=== PATIENT | female | born 1975 | race Caucasian/White ===

== ENCOUNTER 2017-11-01 11:00 | Outpatient (RCR) | payer OTHER, SELFPAY ==
--- NOTE | 2017-10-20 09:58 | HP.PTEVAL ---
Patient's Visit Information ELLEN JADE is a 42 year old F referred to Physical Therapy by KRIS Evans with a diagnosis of spondylosis. Date of Evaluation: 10/20/17 Physical Therapist: Miguel Angel Baker DPT, OC - Visit Plan Frequency: 2x /Week Duration: 4-6 Weeks Plan: 2-3x/week for 4-6...start with pool ex for posture and core strength focussiong on neutral spine. General strength and progress to I. May progress to home or gym based land ex for core/Postrue in neutral spine. Recheck in two weeks as patient may want injections. - Subjective Subjective: Have inflammatory arthiritis. Been treated for [address] Woodard[address] Garsia for pain management with burning of the nerves a couple times per year. Aslo patch and meds to contro OA. Took water classes here last year at [employer], stopped last summer. Thses increased pain at first then it helped keep physical flexibility up, did not help pain.. Needs more injections in the nerve and wants therapy prior. This pain is constant. sometimes goes into ankles and shoulders minimally. 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 That was 3 years ago. Pain is LB and hips and skips up to base of neck and between scapula. LB is 4-6/10 constantly. 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 Has to move from sit to stand to lying all day. Goes to store and activitiy like that is worse with standing too long or sitting too long. Sat at bank yesterday and got worse at 40 min. Needed to go home and lie down. No h/o injury to LB. thsi all started in early 30s.Sleeps Ok for 4-5 hours with ambien then tosses and turns due to pain/discomfort. Basic ADLs are OK but has to be careful and limit activity. Has to shop at [employer] can't carry anything. - Pain LBP Pain Intensity (Out of 10): 4 Pain Intensity Range: 4, 6 Neck pain Pain Intensity (Out of 10): 2 Pain Intensity Range: 2, 4 - Objective Walks I but slowly. Transfers I. C/s AROM WFL and withotu increased pain today. Tender to palpation gently in yusuf cervical mms. L/S AROM limited by pain slightly in ext centrally, SB and fleion are full. reflexes 2/3 patella and achilles and bi and tri. Sensation B UE and EL WNL to gross ligth touch. AROM joints WFL adn without pain today UE adn LE. Strength: 4/5 in LE and UE without increased pain. PA pressure L/s Mildly painful lower portion. - Goals Goal 1:: Sleep 6 hours without waking. Goal Time Frame: 4-6 Weeks Goal 2:: Walk at grocery store and carry object without increased pain. Goal Time Frame: 4-6 Weeks Goal 3:: Pt I approp HEP/pool ex to limit future problems. Goal Time Frame: 4-6 Weeks Goal 4:: Pain 0-2/10 at worst and intermittent. Goal Time Frame: 4-6 Weeks - Rehabilitation Potential Physical Therapy Diagnosis: Degenerative changes L/S causing pain and limited fucntion. Rehabilitation Potential: Fair - Anticipated Interventions Patient/Client Instruction: Educate patient on: Condition, Plan of Care For the Purpose of:: To decrease pain, To improve muscle performance and motor function, To increase tolerance to activity/condition/position, To improve ability of physical actions for home/community/work/leisure Therapeutic Exercise to Include: Strength training, Postural training, In an aquatic setting, Dynamic Lumbar Stabilization For the Purpose of:: To decrease pain, To improve muscle performance and motor function, To improve ability of physical actions for home/community/work/leisure, To improve gait and locomotor functions Thank you for the opportunity to evaluate your patient. For Medicare and Medicare HMO plans, please review the plan of care and approve it. It will need to be FAXED BACK to us at [phone] for Medicare purposes. Please let me know if there are questions or concerns regarding this plan of care. Physician Signature: Date:
--- NOTE | 2018-01-04 11:24 | HP.PTDCNRP_ITS ---
HP - Discharge Summary (1) - Patient Information ELLEN JADE was seen in my office for initial evaluation on 10/20/17. The following Plan of Care was established for this patient: Initial Frequency: 2x /Week Initial Duration: 4-6 Weeks - Anticipated Interventions Patient/Client Instruction: Educate patient on: Condition, Plan of Care For the Purpose of:: To decrease pain, To improve muscle performance and motor function, To increase tolerance to activity/condition/position, To improve ability of physical actions for home/community/work/leisure Therapeutic Exercise to Include: Strength training, Postural training, In an aquatic setting, Dynamic Lumbar Stabilization For the Purpose of:: To decrease pain, To improve muscle performance and motor function, To improve ability of physical actions for home/community/work/leisure , To improve gait and locomotor functions This patient was last seen in our office 11/01/17. Pertinent comments regarding their Physical therapy will appear below: Pt seen for 4 visits but cancelled or no showed for the last 4 visits in her plan of care including reexamination. I will disconitnue due to nonattendance at this point as it has been over two months. At this point I will be discontinuing this patient from physical therapy. I would be happy to see this patient again in the future if found appropriate by the physician. Thank you! Miguel Angel Baker, DPT, OC
== END 2017-11-01 19:00 | disposition home or self-care (01) ==
LOC: PT 11:00
PROVIDERS: Family Provider Physician Assistant; PCP Physician Assistant; Visit Provider Nurse Practitioner Family
DX: M47.814 Spondylosis without myelopathy or radiculopathy, thoracic region (principal)
CPT/HCPCS: 97110; 97113; 97162

== ENCOUNTER → 2018-02-19 08:58 | Outpatient (CLI) | payer OTHER, SELFPAY ==
[2018-02-19 10:05] LABS: Absolute Lymphocyte Count 0.99 X10^3/ul (0.83-4.51); Absolute Neutrophil Count 3.9 X10^3/uL (2.0-7.7); Basophil# 0.01 X10^3/uL; Basophil% 0.2 % (0-1); Eosinophil# 0.02 X10^3/uL; Eosinophils% 0.4 % (0-5); Hematocrit 43.4 % (37-47); Hemoglobin 14.5 g/dl (12.0-15.0); Lymphocyte # 0.99 X10^3/ul (4.0); Lymphocyte % 18.4 % (19-41); Mean Corp Hgb Conc 33.4 g/gl (32-36); Mean Corpuscular Hgb 32.1 pg (27.0-32.0); Mean Platelet Vol. 9.3 fl (6.2-12.0); Monocyte# 0.47 X10^3/uL; Monocyte% 8.7 % (0-10); Neutrophil % 72.3 % (47-70); Platelet Count 296 K/mm3 (150-450); RBC Distribution Width CV 11.9 % (11.6-14.6); RBC Distribution Width SD 41.6 fl (35.1-43.9); Red Blood Count 4.52 M/mm3 (4.2-5.4); White Blood Count 5.4 K/mm3 (4.4-11.0)
[2018-02-19 10:12] LABS: POSITIVE COUNT NO; POSITIVE DIFFERENTIAL NO; POSITIVE MORPHOLOGY NO
[2018-02-19 10:25] LABS: AST(SGOT) 15 U/L (15-37); Alanine Aminotransfer ALT/SGPT 30 U/L (13-56); Alkaline Phosphatase 88 U/L (45-117); Anion Gap 6 (5-15); BUN 9 mg/dL (7-18); BUN/Creat Ratio 10.6 RATIO (10-20); Calcium,Total 8.5 mg/dL (8.5-10.1); Chloride 105 mmol/L (98-107); Creatinine, Serum 0.85 mg/dL (0.55-1.02); EST Glomerular Filtration Rate 78 mL/min (>60); Est Glom Filt Rate - Afr Amer 94 mL/min (>60); Globulin 3.9 g/dL (2.2-4.2); Glucose 99 mg/dL (74-106); Potassium 3.7 mmol/L (3.5-5.1); Protein, Total 7.9 g/dL (6.4-8.2); Sodium Level 139 mmol/L (136-145)
== END ==
PROVIDERS: Family Provider Physician Assistant; PCP Physician Assistant; Visit Provider Internal Medicine Rheumatology
DX: M46.90 Unspecified inflammatory spondylopathy, site unspecified (principal); Z79.899 Other long term (current) drug therapy; R51 Headache; I10 Essential (primary) hypertension
CPT/HCPCS: 36415; 80053; 85025

== ENCOUNTER → 2018-04-30 16:33 | Outpatient (CLI) | payer OTHER, SELFPAY ==
[2018-04-30 17:13] LABS: Absolute Lymphocyte Count 3.02 X10^3/ul (0.83-4.51); Absolute Neutrophil Count 2.8 X10^3/uL (2.0-7.7); Basophil# 0.02 X10^3/uL; Basophil% 0.3 % (0-1); Eosinophils% 1.5 % (0-5); Hematocrit 43.4 % (37-47); Hemoglobin 15.2 g/dl (12.0-15.0); Lymphocyte # 3.02 X10^3/ul (4.0); Lymphocyte % 46.4 % (19-41); Mean Corpuscular Hgb 32.7 pg (27.0-32.0); Mean Corpuscular Volume 93.3 fL (81-99); Mean Platelet Vol. 9.8 fl (6.2-12.0); Monocyte# 0.57 X10^3/uL; Monocyte% 8.8 % (0-10); Platelet Count 296 K/mm3 (150-450); RBC Distribution Width CV 11.7 % (11.6-14.6); RBC Distribution Width SD 39.8 fl (35.1-43.9); Red Blood Count 4.65 M/mm3 (4.2-5.4); White Blood Count 6.5 K/mm3 (4.4-11.0)
[2018-04-30 17:19] LABS: POSITIVE COUNT NO; POSITIVE DIFFERENTIAL NO; POSITIVE MORPHOLOGY NO
[2018-04-30 17:37] LABS: ALB/GLOB Ratio 1.1 RATIO (0.9-2.4); AST(SGOT) 25 U/L (15-37); Alanine Aminotransfer ALT/SGPT 56 U/L (13-56); Albumin, Serum 4.1 g/dL (3.2-5.0); Alkaline Phosphatase 66 U/L (45-117); Anion Gap 8 (5-15); BUN 16 mg/dL (7-18); BUN/Creat Ratio 18.4 RATIO (10-20); Calcium,Total 8.9 mg/dL (8.5-10.1); Chloride 104 mmol/L (98-107); Creatinine, Serum 0.87 mg/dL (0.55-1.02); EST Glomerular Filtration Rate 75 mL/min (>60); Est Glom Filt Rate - Afr Amer 91 mL/min (>60); Globulin 3.6 g/dL (2.2-4.2); Glucose 88 mg/dL (74-106); Potassium 3.7 mmol/L (3.5-5.1); Protein, Total 7.7 g/dL (6.4-8.2); Sodium Level 138 mmol/L (136-145)
== END ==
PROVIDERS: Visit Provider Family Medicine Geriatric Medicine
DX: I10 Essential (primary) hypertension (principal)
CPT/HCPCS: 36415; 80053; 84443; 85025

== ENCOUNTER → 2018-05-15 12:25 | Outpatient (CLI) | payer OTHER, SELFPAY ==
[2018-05-15 14:16] LABS: Absolute Lymphocyte Count 3.42 X10^3/ul (0.83-4.51); Basophil# 0.02 X10^3/uL; Basophil% 0.3 % (0-1); Eosinophil# 0.14 X10^3/uL; Eosinophils% 1.9 % (0-5); Hematocrit 43.6 % (37-47); Hemoglobin 15.2 g/dl (12.0-15.0); Lymphocyte # 3.42 X10^3/ul (4.0); Lymphocyte % 47.5 % (19-41); Mean Corp Hgb Conc 34.9 g/gl (32-36); Mean Corpuscular Hgb 32.2 pg (27.0-32.0); Mean Corpuscular Volume 92.4 fL (81-99); Mean Platelet Vol. 9.6 fl (6.2-12.0); Monocyte# 0.65 X10^3/uL; Neutrophil # 2.96 X10^3/uL (2.7-7.7); Neutrophil % 41.2 % (47-70); Platelet Count 399 K/mm3 (150-450); RBC Distribution Width CV 11.8 % (11.6-14.6); RBC Distribution Width SD 39.8 fl (35.1-43.9); Red Blood Count 4.72 M/mm3 (4.2-5.4); White Blood Count 7.2 K/mm3 (4.4-11.0)
[2018-05-15 14:17] LABS: POSITIVE COUNT NO; POSITIVE DIFFERENTIAL NO; POSITIVE MORPHOLOGY NO
[2018-05-15 14:29] LABS: AST(SGOT) 17 U/L (15-37); Alanine Aminotransfer ALT/SGPT 40 U/L (13-56); Albumin, Serum 3.8 g/dL (3.2-5.0); Alkaline Phosphatase 70 U/L (45-117); Anion Gap 8 (5-15); BUN 13 mg/dL (7-18); BUN/Creat Ratio 14.8 RATIO (10-20); Calcium,Total 9.1 mg/dL (8.5-10.1); Chloride 104 mmol/L (98-107); Creatinine, Serum 0.88 mg/dL (0.55-1.02); EST Glomerular Filtration Rate 74 mL/min (>60); Est Glom Filt Rate - Afr Amer 90 mL/min (>60); Globulin 3.7 g/dL (2.2-4.2); Glucose 95 mg/dL (74-106); Potassium 3.9 mmol/L (3.5-5.1); Protein, Total 7.5 g/dL (6.4-8.2); Sodium Level 138 mmol/L (136-145)
== END ==
PROVIDERS: Family Provider Family Medicine Geriatric Medicine; PCP Family Medicine Geriatric Medicine; Visit Provider Internal Medicine Rheumatology
DX: M46.90 Unspecified inflammatory spondylopathy, site unspecified (principal); Z79.899 Other long term (current) drug therapy; R51 Headache; I10 Essential (primary) hypertension
CPT/HCPCS: 36415; 80053; 85025

== ENCOUNTER 2018-09-17 06:02 | Emergency (ER) | payer OTHER, SELFPAY ==
[2018-09-17 06:04] VITALS: BP 151/111; PULSE 120; RESP 19; TEMP 36.5; O2SAT 97; BMI 33.0
[2018-09-17 06:11] VITALS: BP 151/111; PULSE 117; RESP 17; O2SAT 98
--- NOTE | 2018-09-17 06:14 | EKG12_ITS ---
Test Reason : GEN ILLNESS Blood Pressure : / mmHG Vent. Rate : 112 BPM Atrial Rate : 112 BPM P-R Int : 142 ms QRS Dur : 084 ms QT Int : 332 ms P-R-T Axes : 061 059 051 degrees QTc Int : 453 ms Sinus tachycardia Otherwise normal ECG Confirmed by MAYO DONALD, YG ([id number]), supervising film or videotape editor HUNTER GARCIA ([id number] on 09/19/2018 11:11:23 AM Referred By: SETH Confirmed By:YG HUBER MD
--- NOTE | 2018-09-17 06:15 | RAD_ITS ---
HISTORY: rash and chest burning sensation Comparison: 10/03/2016 Findings: EKG leads in place. Normal heart size. No vascular congestion, pleural effusion, or acute pulmonary infiltration. No pneumothorax. The bony thorax appears intact. IMPRESSION: No active cardiopulmonary disease. No significant interval change. at 0634 Reported and signed by: Gonsalo Brooks MD Electronically Signed: Gonsalo Brooks, at 6:32 EST Tel , Service support , RAD/Chest 1 View (Portable)
[2018-09-17] MEDS: MethylPREDNISolone 125 MG/2 ML Vial IV (06:27)
[2018-09-17] MEDS: 0.9% Normal Saline 1,000 ML 150 ML IV (06:27)
--- NOTE | 2018-09-17 06:35 | ED.DCSUM_ITS ---
- ER Visit Summary Date of Service: 09/17/18 Chief Complaint: Rash, chest burning History of Present Illness: The patient is a 43 F with a history of rheumatoid arthritis and hypertension. Patient states she had stomach flu symptoms 3 weeks ago. The vomiting and diarrhea are improved, but she never quite felt back to baseline. She developed a cough with some mild congestion over the weekend. She describes a burning sensation in her lungs. Patient states she has had pleurisy in the past and this reminds her of that. She also noted a rash to her lower back over the past 2 days. It is somewhat itchy. Patient is on immune suppressants secondary to her rheumatoid arthritis. She states that while she has not been feeling well over the past week or so she stopped taking her immune suppressants. She states that she has done this in the past when she feels ill without difficulty. Physical Examination: Blood pressure is 151/111, temperature 97.7, heart rate 120, respiratory rate 19, pulse ox 97% on room air. Patient sitting upright in bed. She is in no acute distress. Head neck examination is grossly unremarkable. Heart is tachycardic and regular. Lung sounds are clear. Abdomen is soft and nontender. Lower extremity examination is unremarkable. Back examination does reveal a fine red, slightly raised rash of the lower back. This is not consistent with urticaria. There are no target lesions. It is not consistent with shingles. Test Results: EKG is sinus tach at 112 with no sign of acute ischemia. CBC was a white count of 13.8 with 77% neutrophils. Chemistry studies unremarkable. Troponin and d-dimer are both negative. Chest x-ray shows no acute disease. Emergency Department Course and Treatment: Patient was given IV fluids and Solu- Medrol. On repeat evaluation heart rate remains elevated. Patient states that her heart rate tends to run on the high side at baseline. Lung sounds remain clear. Rash on back may be slightly less intense in color. The area is warm to the touch. Patient will be treated with Bactrim and Keflex along with a course of prednisone. Treatment Plan: [] Disposition: Discharge Impression: 1. Bronchitis 2. Pleurisy 3. Rash This note was generated with [employer] software. It may contain incorrect words, spelling, and punctuation that were not noted in review of the chart prior to signing ED Disposition - Plan for ED Patient: Chief Complaint: General Illness Referrals: Gamaliel,Pino Chi, MD [Primary Care Provider] -
[2018-09-17 06:48] LABS: Absolute Lymphocyte Count 2.07 X10^3/ul (0.83-4.51); Absolute Neutrophil Count 10.7 X10^3/uL (2.0-7.7); Basophil# 0.03 X10^3/uL; Basophil% 0.2 % (0-1); Eosinophil# 0.23 X10^3/uL; Eosinophils% 1.7 % (0-5); Hematocrit 43.2 % (37-47); Hemoglobin 14.7 g/dl (12.0-15.0); Lymphocyte # 2.07 X10^3/ul (4.0); Mean Corpuscular Hgb 32.3 pg (27.0-32.0); Mean Corpuscular Volume 94.9 fL (81-99); Mean Platelet Vol. 9.3 fl (6.2-12.0); Monocyte# 0.82 X10^3/uL; Monocyte% 5.9 % (0-10); Neutrophil # 10.65 X10^3/uL (2.7-7.7); Platelet Count 318 K/mm3 (150-450); RBC Distribution Width CV 12.2 % (11.6-14.6); RBC Distribution Width SD 41.6 fl (35.1-43.9); Red Blood Count 4.55 M/mm3 (4.2-5.4); White Blood Count 13.8 K/mm3 (4.4-11.0)
[2018-09-17 06:50] LABS: POSITIVE COUNT NO; POSITIVE DIFFERENTIAL NO; POSITIVE MORPHOLOGY NO
[2018-09-17 06:56] LABS: D-Dimer Quantitative (DVT/PE) < 0.27 FEU/ug/m (0.27-0.49)
[2018-09-17 07:03] LABS: Anion Gap 10 (5-15); BUN 15 mg/dL (7-18); BUN/Creat Ratio 18.1 RATIO (10-20); Calcium,Total 8.6 mg/dL (8.5-10.1); Chloride 104 mmol/L (98-107); Creatinine, Serum 0.83 mg/dL (0.55-1.02); EST Glomerular Filtration Rate 79 mL/min (>60); Est Glom Filt Rate - Afr Amer 96 mL/min (>60); Estimated Creatinine Clearance 77.83 ml/min; Glucose 90 mg/dL (74-106); Potassium 3.8 mmol/L (3.5-5.1); Sodium Level 138 mmol/L (136-145)
--- NOTE | 2018-09-17 07:17 | ED.DEP ---
ED Disposition - Plan for ED Patient: Disposition: Home or Assisted Living Chief Complaint: General Illness Instructions: Acute Bronchitis, ED Chest Pain Pleurisy, ED Dermatitis Non Specific Rash Prescriptions: Cephalexin [Keflex] 500 mg PO Q6 #40 capsule Prednisone 10 mg PO UD #33 tablet Smz/Tmp Ds [Bactrim Ds] 1 tablet PO BID #20 tablet Referrals: Pino Alston Chi, MD [Primary Care Provider] - 3-5 Days
[2018-09-17] MEDS: Smz/Tmp Ds Tablet 1 TABLET PO (07:36)
[2018-09-17] MEDS: Cephalexin 250 MG Capsule 500 MG PO (07:36)
[2018-09-17 07:38] VITALS: BP 140/88; PULSE 114; RESP 15; O2SAT 97
--- NOTE | 2018-09-17 07:38 | ED.RN ---
IV DC'ED, CATHETER INTACT, SMALL GAUZE DRESSING PLACED. DISCHARGE INSTRUCTIONS GIVEN TO AND REVIEWED WITH PATIENT, PATIENT DENIES QUESTIONS OR CONCERNS AND VOICES UNDERSTANDING OF DISCHARGE INSTRUCTIONS. PT AMBULATES OUT OF ROOM WITHOUT DIFFICULTY.
== END 2018-09-17 07:39 | disposition home or self-care (01) ==
PROVIDERS: Emergency Provider Emergency Medicine; Family Provider Family Medicine Geriatric Medicine; PCP Family Medicine Geriatric Medicine
DX: J40 Bronchitis, not specified as acute or chronic (principal); R09.1 Pleurisy; R21 Rash and other nonspecific skin eruption; M06.9 Rheumatoid arthritis, unspecified; M45.9 Ankylosing spondylitis of unspecified sites in spine; I10 Essential (primary) hypertension; Z79.899 Other long term (current) drug therapy
CPT/HCPCS: 71045; 80048; 84484; 85025; 85379; 93005; 96361; 96374; 99285; J7030; J7040

== ENCOUNTER → 2018-09-24 12:43 | Outpatient (CLI) | payer OTHER, SELFPAY ==
[2018-09-24 14:38] LABS: Absolute Lymphocyte Count 1.77 X10^3/ul (0.83-4.51); Absolute Neutrophil Count 10.5 X10^3/uL (2.0-7.7); Basophil# 0.01 X10^3/uL; Basophil% 0.1 % (0-1); Eosinophil# 0.04 X10^3/uL; Eosinophils% 0.3 % (0-5); Hematocrit 45.2 % (37-47); Hemoglobin 15.2 g/dl (12.0-15.0); Lymphocyte # 1.77 X10^3/ul (4.0); Lymphocyte % 13.9 % (19-41); Mean Corp Hgb Conc 33.6 g/gl (32-36); Mean Corpuscular Hgb 32.4 pg (27.0-32.0); Mean Corpuscular Volume 96.4 fL (81-99); Mean Platelet Vol. 9.6 fl (6.2-12.0); Monocyte# 0.41 X10^3/uL; Monocyte% 3.2 % (0-10); Neutrophil # 10.47 X10^3/uL (2.7-7.7); Neutrophil % 82.3 % (47-70); POSITIVE COUNT NO; POSITIVE DIFFERENTIAL NO; POSITIVE MORPHOLOGY NO; Platelet Count 355 K/mm3 (150-450); RBC Distribution Width CV 12.3 % (11.6-14.6); RBC Distribution Width SD 42.7 fl (35.1-43.9); Red Blood Count 4.69 M/mm3 (4.2-5.4); White Blood Count 12.7 K/mm3 (4.4-11.0)
[2018-09-24 15:07] LABS: ALB/GLOB Ratio 1.1 RATIO (0.9-2.4); AST(SGOT) 18 U/L (15-37); Alanine Aminotransfer ALT/SGPT 34 U/L (13-56); Albumin, Serum 4.2 g/dL (3.2-5.0); Alkaline Phosphatase 73 U/L (45-117); Anion Gap 13 (5-15); BUN 13 mg/dL (7-18); Calcium,Total 8.9 mg/dL (8.5-10.1); Chloride 101 mmol/L (98-107); Creatinine, Serum 0.93 mg/dL (0.55-1.02); EST Glomerular Filtration Rate 70 mL/min (>60); Est Glom Filt Rate - Afr Amer 84 mL/min (>60); Globulin 3.8 g/dL (2.2-4.2); Glucose 106 mg/dL (74-106); Potassium 3.9 mmol/L (3.5-5.1); Sodium Level 136 mmol/L (136-145)
== END ==
PROVIDERS: Family Provider Family Medicine Geriatric Medicine; PCP Family Medicine Geriatric Medicine; Referring Provider Internal Medicine Rheumatology; Visit Provider Internal Medicine Rheumatology
DX: M46.90 Unspecified inflammatory spondylopathy, site unspecified (principal); Z79.899 Other long term (current) drug therapy; R51 Headache; I10 Essential (primary) hypertension
CPT/HCPCS: 36415; 80053; 85025

== ENCOUNTER → 2018-12-20 16:22 | Outpatient (CLI) | payer OTHER, SELFPAY | PROVIDERS: Family Provider Family Medicine Geriatric Medicine; PCP Family Medicine Geriatric Medicine; Referring Provider Family Medicine Geriatric Medicine; Visit Provider Family Medicine Geriatric Medicine | DX: R50.9 Fever, unspecified (principal) | CPT/HCPCS: 87633 ==

== ENCOUNTER → 2019-03-01 | Outpatient (CLI) | payer OTHER, SELFPAY ==
[2019-03-01 10:10] LABS: Absolute Lymphocyte Count 2.99 X10^3/ul (0.83-4.51); Absolute Neutrophil Count 4.2 X10^3/uL (2.0-7.7); Basophil# 0.02 X10^3/uL; Basophil% 0.3 % (0-1); Eosinophil# 0.04 X10^3/uL; Eosinophils% 0.5 % (0-5); Hematocrit 40.8 % (37-47); Hemoglobin 13.5 g/dl (12.0-15.0); Lymphocyte # 2.99 X10^3/ul (4.0); Lymphocyte % 38.2 % (19-41); Mean Corp Hgb Conc 33.1 g/gl (32-36); Mean Corpuscular Hgb 32.6 pg (27.0-32.0); Mean Corpuscular Volume 98.6 fL (81-99); Mean Platelet Vol. 9.7 fl (6.2-12.0); Monocyte# 0.58 X10^3/uL; Monocyte% 7.4 % (0-10); Neutrophil # 4.19 X10^3/uL (2.7-7.7); Neutrophil % 53.5 % (47-70); Platelet Count 232 K/mm3 (150-450); RBC Distribution Width SD 43.3 fl (35.1-43.9); Red Blood Count 4.14 M/mm3 (4.2-5.4); White Blood Count 7.8 K/mm3 (4.4-11.0)
[2019-03-01 10:12] LABS: POSITIVE COUNT NO; POSITIVE DIFFERENTIAL NO; POSITIVE MORPHOLOGY NO
[2019-03-01 10:15] LABS: ALB/GLOB Ratio 1.2 RATIO (0.9-2.4); AST(SGOT) 19 U/L (15-37); Alanine Aminotransfer ALT/SGPT 38 U/L (13-56); Albumin, Serum 3.8 g/dL (3.2-5.0); Alkaline Phosphatase 57 U/L (45-117); Anion Gap 7 (5-15); BUN 17 mg/dL (7-18); BUN/Creat Ratio 19.6 RATIO (10-20); Calcium,Total 8.4 mg/dL (8.5-10.1); Chloride 107 mmol/L (98-107); Creatinine, Serum 0.87 mg/dL (0.55-1.02); EST Glomerular Filtration Rate 75 mL/min (>60); Est Glom Filt Rate - Afr Amer 91 mL/min (>60); Globulin 3.2 g/dL (2.2-4.2); Glucose 98 mg/dL (74-106); Potassium 3.9 mmol/L (3.5-5.1); Sodium Level 138 mmol/L (136-145)
== END | disposition home or self-care (01) ==
LOC: MTLAB 09:09
PROVIDERS: Family Provider Family Medicine Geriatric Medicine; PCP Family Medicine Geriatric Medicine; Referring Provider Internal Medicine Rheumatology; Visit Provider Internal Medicine Rheumatology
DX: M46.90 Unspecified inflammatory spondylopathy, site unspecified (principal); Z79.899 Other long term (current) drug therapy; R51 Headache; I10 Essential (primary) hypertension
CPT/HCPCS: 36415; 80053; 85025

== ENCOUNTER → 2019-03-14 | Outpatient (CLI) | payer OTHER, SELFPAY ==
--- NOTE | 2019-03-14 13:32 | MRI_ITS ---
STUDY: MRI LUMBAR SPINE WITHOUT CONTRAST REASON FOR EXAM: Female, 44 years old. Pain. Inflammatory arthritis. TECHNIQUE: Standardized fat and water weighted pulse sequences were obtained in the sagittal and axial planes. COMPARISON: X-ray dated July 26, 2017. FINDINGS: Lumbar lordosis preserved. No significant scoliosis. Conus medullaris terminates normally at the L2 level. No acute fracture line. No dislocation. No cortical destruction. No reactive bone marrow edema or contusion. T11-12: Mild endplate spondylosis. Disc bulge with mild central canal narrowing. T12-L1: Mild endplate spondylosis.. Mild disc desiccation. Normal bilateral facet joints. Normal central canal and bilateral lateral recesses. Normal bilateral intervertebral neural foramina. L1-2: Mild endplate spondylosis but. Mild disc desiccation. Normal bilateral facet joints. Normal central canal and bilateral lateral recesses. Normal bilateral intervertebral neural foramina. L2-3: Normal endplates. Mild disc desiccation. Normal bilateral facet joints. Normal central canal and bilateral lateral recesses. Normal bilateral intervertebral neural foramina. L3-4: Normal endplates. Mild disc desiccation. Minimal facet joint arthrosis. Normal central canal and bilateral lateral recesses. Normal bilateral intervertebral neural foramina. L4-5: Normal endplates. Disc bulge without central canal narrowing. Mild facet joint arthrosis with joint effusions. Normal central canal and bilateral lateral recesses. Normal bilateral intervertebral neural foramina. L5-S1: Normal endplates. Disc bulge, left paracentral annular fissure, without central canal narrowing. Mild facet joint arthrosis with joint effusions. Normal central canal and bilateral lateral recesses. Normal bilateral intervertebral neural foramina. Normal paraspinal muscles. Normal retroperitoneum. Normal aorta. MRI/Spine Lumbar (Routine) IMPRESSION: Multilevel intervertebral disc disease with mild central canal narrowing at T11-12: Multilevel osseous degenerative changes with small facet effusions at L4-5 and L5-S1 Electronically Signed: Miguel Angel De La Rosa DO at 15:15 EDT Tel , Service support ,
== END | disposition home or self-care (01) ==
PROVIDERS: Family Provider Family Medicine Geriatric Medicine; PCP Family Medicine Geriatric Medicine; Referring Provider Anesthesiology Pain Medicine; Visit Provider Anesthesiology Pain Medicine
DX: M51.37 Other intervertebral disc degeneration, lumbosacral region (principal)
CPT/HCPCS: 72148

== ENCOUNTER → 2019-06-06 | Outpatient (CLI) | payer OTHER, SELFPAY ==
[2019-06-06 13:14] LABS: Absolute Lymphocyte Count 2.66 X10^3/uL (0.83-4.51); Absolute Neutrophil Count 3.7 X10^3/uL (2.0-7.7); Basophil# 0.04 X10^3/uL; Basophil% 0.6 % (0-1); Eosinophil# 0.09 X10^3/uL; Eosinophils% 1.3 % (0-5); Hematocrit 39.5 % (37-47); Hemoglobin 13.3 g/dL (12.0-15.0); Lymphocyte # 2.66 X10^3/ul (4.0); Lymphocyte % 37.7 % (19-41); Mean Corp Hgb Conc 33.7 g/dL (32-36); Mean Corpuscular Hgb 33.3 pg (27.0-32.0); Mean Corpuscular Volume 98.8 fL (81-99); Mean Platelet Vol. 9.8 fl (6.2-12.0); Monocyte# 0.51 X10^3/uL; Monocyte% 7.2 % (0-10); NRBC Flagged by Analyzer 0 % (0-5); Neutrophil # 3.73 X10^3/uL (2.7-7.7); Neutrophil % 52.8 % (47-70); Platelet Count 235 K/mm3 (150-450); RBC Distribution Width CV 11.9 % (11.6-14.6); RBC Distribution Width SD 43.4 fl (35.1-43.9); White Blood Count 7.1 K/mm3 (4.4-11.0)
[2019-06-06 13:40] LABS: BUN 18 mg/dL (7-18); Creatinine, Serum 0.82 mg/dL (0.55-1.02); EST Glomerular Filtration Rate 80 mL/min (>60); Glucose 81 mg/dL (74-106)
[2019-06-06 13:41] LABS: AST(SGOT) 10 U/L (15-37); Alanine Aminotransfer ALT/SGPT 24 U/L (13-56); Albumin, Serum 3.5 g/dL (3.2-5.0); Alkaline Phosphatase 57 U/L (45-117); Anion Gap 7 (5-15); Calcium,Total 8.4 mg/dL (8.5-10.1); Chloride 106 mmol/L (98-107); Est Glom Filt Rate - Afr Amer 97 mL/min (>60); Globulin 3.4 g/dL (2.2-4.2); Potassium 3.9 mmol/L (3.5-5.1); Protein, Total 6.9 g/dL (6.4-8.2); Sodium Level 137 mmol/L (136-145)
== END | disposition home or self-care (01) ==
LOC: POLAB3 09:21
PROVIDERS: Family Provider Family Medicine Geriatric Medicine; PCP Family Medicine Geriatric Medicine; Visit Provider Family Medicine Geriatric Medicine
DX: I10 Essential (primary) hypertension (principal)
CPT/HCPCS: 36415; 80053; 84443; 85025

== ENCOUNTER 2020-06-30 20:24 | Observation (INO) | payer BC, SELFPAY ==
[2020-06-30 20:25] VITALS: BP 150/112; PULSE 133; RESP 25; TEMP 36.7; O2SAT 98; BMI 30.4
--- NOTE | 2020-06-30 20:29 | EKG12_ITS ---
Test Reason : MHC Blood Pressure : / mmHG Vent. Rate : 126 BPM Atrial Rate : 126 BPM P-R Int : 140 ms QRS Dur : 090 ms QT Int : 320 ms P-R-T Axes : 055 047 029 degrees QTc Int : 463 ms Sinus tachycardia Otherwise normal ECG Confirmed by RENETTA PATE ([id number]), international editorial producer KATIE RINCON ([id number]) on 07/02/2020 8:54:44 AM Referred By: CL Confirmed By:RENETTA PATE
--- NOTE | 2020-06-30 20:29 | RAD_ITS ---
STUDY: X-RAY CHEST REASON FOR EXAM: Female, 45 years old. pt arrives to ed screaming, kicking, and biting. pt is behaving manic. pt repeatedly asked and quot;help me and quot;, but is unable to identify what help she needs. TECHNIQUE: Single AP portable view of the chest. COMPARISON: Prior study of 09/17/2018 FINDINGS: threat monitoring analyst leads are seen. The lungs are clear and expanded. There is no demonstrated pleural abnormality. Normal size heart. Normal mediastinum and fer. Normal visualized pulmonary arteries. Normal visualized aortic arch and descending thoracic aorta. Normal visualized thoracic spine. Normal visualized ribs, clavicles, and shoulders. There is no demonstrated abnormality of the visualized soft tissue structures of the upper abdomen. RAD/Chest 1 View (Portable) IMPRESSION: Normal x-ray examination of the chest. Electronically Signed: Syed Regan MD at 22:17 EDT , Service support ,
--- NOTE | 2020-06-30 20:29 | CT_ITS ---
STUDY: CT BRAIN WITHOUT CONTRAST REASON FOR EXAM: Female, 45 years old. CHANGE IN MENTAL STATUS,COMBATIVE UPON ARRIVAL TO ER -- HX:HTN,DEPRESSION RADIATION DOSAGE (If Supplied By Facility): CTDIvol = ( 44.99 ) mGy, DLP = ( 812.98 ) mGycm TECHNIQUE: Transaxial CT imaging of the brain was performed without administration of intravenous contrast material. Individualized dose optimization techniques were used for this CT. COMPARISON: Prior study of 10/21/2012 FINDINGS: Normal soft tissue structures. Normal calvarium. Normal size ventricles and extra-axial spaces for the patient''s age. Normal white matter tracts of the cerebral hemispheres. Normal basal ganglia and thalami. Normal brainstem. Normal cerebellum. There is no intracranial hemorrhage. There are no findings of an acute ischemic infarction. Normal visualized paranasal sinuses. CT/Brain/Head without Contrast IMPRESSION: Normal unenhanced CT scan of the brain. Electronically Signed: Syed Regan MD at 22:16 EDT , Service support ,
[2020-06-30] MEDS: Haloperidol Lactate 5 MG/ML Vial IM (20:30)
[2020-06-30] MEDS: Midazolam 5 MG/ML Syringe IM (20:31)
[2020-06-30 20:43] VITALS: BP 150/112; PULSE 129; RESP 26; O2SAT 98
[2020-06-30 20:48] LABS: Absolute Lymphocyte Count 6.98 X10^3/uL (0.83-4.51); Absolute Neutrophil Count 2.6 X10^3/uL (2.0-7.7); Basophil# 0.03 X10^3/uL; Basophil% 0.3 % (0-1); Eosinophil# 0.12 X10^3/uL; Eosinophils% 1.1 % (0-5); Hematocrit 48.2 % (37-47); Hemoglobin 15.6 g/dL (12.0-15.0); Lymphocyte # 6.98 X10^3/ul (4.0); Lymphocyte % 66.7 % (19-41); Mean Corp Hgb Conc 32.4 g/dL (32-36); Mean Corpuscular Hgb 35.3 pg (27.0-32.0); Mean Platelet Vol. 9.2 fl (6.2-12.0); Monocyte# 0.69 X10^3/uL; Monocyte% 6.6 % (0-10); NRBC Flagged by Analyzer 0.2 % (0-5); Neutrophil # 2.62 X10^3/uL (2.7-7.7); POSITIVE DIFFERENTIAL YES; POSITIVE MORPHOLOGY YES; Platelet Count 233 K/mm3 (150-450); RBC Distribution Width CV 13.1 % (11.6-14.6); RBC Distribution Width SD 51.4 fl (35.1-43.9); Red Blood Count 4.42 M/mm3 (4.2-5.4); White Blood Count 10.5 K/mm3 (4.4-11.0)
[2020-06-30 20:50] LABS: Differential Indicated SCAN CRITERIA MET
[2020-06-30 21:00] LABS: AST(SGOT) 170 U/L (15-37); Alanine Aminotransfer ALT/SGPT 95 U/L (13-56); Albumin, Serum 4.1 g/dL (3.2-5.0); Alkaline Phosphatase 124 U/L (45-117); Anion Gap 20 (5-15); BUN 10 mg/dL (7-18); BUN/Creat Ratio 8.9 RATIO (10-20); Calcium,Total 9.1 mg/dL (8.5-10.1); Chloride 101 mmol/L (98-107); Creatinine, Serum 1.12 mg/dL (0.55-1.02); EST Glomerular Filtration Rate 56 mL/min (>60); Est Glom Filt Rate - Afr Amer 67 mL/min (>60); Estimated Creatinine Clearance 58.76 ml/min; Globulin 4.1 g/dL (2.2-4.2); Glucose 205 mg/dL (74-106); Potassium 2.9 mmol/L (3.5-5.1); Protein, Total 8.2 g/dL (6.4-8.2); Sodium Level 138 mmol/L (136-145)
[2020-06-30 21:13] LABS: Reactive Lymphocyte 2+
[2020-06-30 21:13] LABS: Bacteria 0 SEEN /hpf (None Seen); Red Blood Cells-Urine 0 SEEN /hpf (0-5); Squamous Epithelial Cells - UA 0 SEEN /hpf (5-10); White Blood Cells 0 SEEN /hpf (0-5)
[2020-06-30 21:15] LABS: Color, Urine Yellow (Yellow); Glucose, Dipstick Normal (Normal); Ketone-Dipstick 15 mg/dl (Negative); Leukocyte Esterase-Dipstick Negative /ul (Negative); Nitrite-Dipstick Negative (Negative); Occult Blood-Urine 10 /ul (Negative); Protein-Dipstick 30 mg/dl (Negative); Urine Bilirubin Dipstick Negative (Negative); Urine Clarity Clear (Clear); Urine Urobilinogen 1 mg/dl (Normal)
[2020-06-30 21:18] LABS: Magnesium 2.8 mg/dL (1.6-2.6)
[2020-06-30 21:22] LABS: Hyaline Cast 0-5 SEEN /lpf (0-5); Mucous, Urine 1+ /hpf (<or=2+)
[2020-06-30 21:33] LABS: Amphetamine Urine VISTA NEGATIVE (<1000 ng/mL); Barbiturate Urine VISTA NEGATIVE (< 200 ng/mL); Benzodiazepine Urine VISTA POSITIVE (< 200 ng/mL); Cocaine Urine VISTA NEGATIVE (< 300 ng/mL); Ecstacy Urine VISTA NEGATIVE (< 500 ng/mL); Methadone Urine VISTA NEGATIVE (< 300 ng/mL); PCP Urine VISTA NEGATIVE (< 25 ng/mL); THC Urine VISTA NEGATIVE (< 50 ng/mL); Vista UDS pH Range 6
[2020-06-30 21:48] LABS: Internal QC Validated? YES +Cl - CLEAR BKGD; Pregnancy, Serum, hCG Quali. NEGATIVE Negative
[2020-06-30 21:54] LABS: Acetaminophen (Tylenol) Level < 2.0 ug/mL (10.0-30.0); Salicylate < 1.7 mg/dL (2.8-20.0)
--- NOTE | 2020-06-30 22:12 | ED.VIS.GEN ---
History of Present Illness Chief Complaint: Mental Health Informant: Patient, Family Narrative: 85-year-old female brought in by EMS after being found unresponsive then becoming very combative. On my initial exam patient is extremely combative and violent. Able to obtain accurate history of present illness. Past Medical History - Allergies and Home Meds Allergies/Adverse Reactions: Allergies No Known Allergies Allergy (Verified 06/30/20 20:25) Primary Care Physician: Pino Alston Chi, MD [Primary Care Provider] - Past Medical History: - - Insomnia Surgical History: no surgical history Lives: With Family Smoking Status: Current every day smoker Alcohol: None Drugs: None Review of Systems ROS: Unable to Obtain Physical Exam Vital Signs/Narrative: Vital Signs Temp Pulse Resp BP Pulse Ox 06/30/20 20:43 129 H 26 H 150/112 H 98 06/30/20 20:25 98.0 F 133 H 25 H 150/112 H 98 General: Well nourished, Well developed, - - Extremely combative Head: Normocephalic, Atraumatic Eyes: EOMI, - - Lateral mydriasis ENT: No rhinorrhea, - - Mucous membranes dry Neck: Supple, Nontender Cardiovascular: Regular rhythm, No murmurs, Tachycardia Respiratory: CTA bilaterally, Chest nontender Abdomen: Soft, Nontender, Nondistended, Normal bowel sounds Back: Nontender, Normal Inspection Extremities: Nontender, No edema Skin: Rash, - - Diffuse erythema Neurological: Alert Psychological: Normal affect, Normal Mood, - - Combative and violent Diagnostic/Tx/Re-eval Chest X-Ray - ED: 1 View, Normal Clinical Impression(s) from Imaging Studies Brain CT 06/30/20 20:29 IMPRESSION: Normal unenhanced CT scan of the brain. Electronically Signed: Syed Regan MD at 22:16 EDT , Service support , Chest X-Ray 06/30/20 20:29 IMPRESSION: Normal x-ray examination of the chest. Electronically Signed: Syed Regan MD at 22:17 EDT , Service support , Laboratory Data 06/30/20 06/30/20 06/30/20 20:31 20:31 20:31 WBC 10.5 RBC 4.42 Hgb 15.6 H Hct 48.2 H MCV 109.0 H MCH 35.3 H MCHC 32.4 RDW Std Deviation 51.4 H RDW Coeff of Jean-Paul 13.1 Plt Count 233 MPV 9.2 Immature Gran % (Auto) 0.300 Neut % (Auto) 25.0 L Lymph % (Auto) 66.7 H [place] % (Auto) 6.6 Eos % (Auto) 1.1 Baso % (Auto) 0.3 Absolute Neuts (auto) 2.6 Absolute Lymphs (auto) 6.98 H Nucleated RBC % 0.2 Reactive Lymphocytes 2+ Sodium 138 Potassium 2.9 L Chloride 101 Carbon Dioxide 17.0 L Anion Gap 20 H BUN 10 Creatinine 1.12 H Estim Creat Clear Calc 58.76 Est GFR (MDRD) Af Amer 67 Est GFR (MDRD) Non-Af 56 L BUN/Creatinine Ratio 8.9 L Glucose 205 H Calcium 9.1 Magnesium 2.8 H Total Bilirubin 1.20 H AST 170 H ALT 95 H Alkaline Phosphatase 124 H Total Protein 8.2 Albumin 4.1 Globulin 4.1 Albumin/Globulin Ratio 1.0 Serum , Qual Urine Color Urine Clarity Urine pH Ur Specific [place] Urine Protein Urine Glucose (UA) Urine Ketones Urine Occult Blood Urine Nitrite Urine Bilirubin Urine Urobilinogen Ur Leukocyte Esterase Urine RBC Urine WBC Ur Squamous Epith Cells Urine Bacteria Hyaline Casts Urine Mucus Salicylates Urine Opiates Screen Urine Methadone Screen Acetaminophen Ur Barbiturates Screen Ur Phencyclidine Scrn Ur Amphetamines Screen U Methamphetamin-MDMA U Benzodiazepines Scrn Urine Cocaine Screen U Cannabinoids Screen Ur Drug Screen Comment Ethyl Alcohol 06/30/20 06/30/20 06/30/20 20:54 20:54 20:54 WBC RBC Hgb Hct MCV MCH MCHC RDW Std Deviation RDW Coeff of Jean-Paul Plt Count MPV Immature Gran % (Auto) Neut % (Auto) Lymph % (Auto) [place] % (Auto) Eos % (Auto) Baso % (Auto) Absolute Neuts (auto) Absolute Lymphs (auto) Nucleated RBC % Reactive Lymphocytes Sodium Potassium Chloride Carbon Dioxide Anion Gap BUN Creatinine Estim Creat Clear Calc Est GFR (MDRD) Af Amer Est GFR (MDRD) Non-Af BUN/Creatinine Ratio Glucose Calcium Magnesium Total Bilirubin AST ALT Alkaline Phosphatase Total Protein Albumin Globulin Albumin/Globulin Ratio Serum , Qual NEGATIVE Urine Color Urine Clarity Urine pH Ur Specific [place] Urine Protein Urine Glucose (UA) Urine Ketones Urine Occult Blood Urine Nitrite Urine Bilirubin Urine Urobilinogen Ur Leukocyte Esterase Urine RBC Urine WBC Ur Squamous Epith Cells Urine Bacteria Hyaline Casts Urine Mucus Salicylates < 1.7 L Urine Opiates Screen Urine Methadone Screen Acetaminophen < 2.0 L Ur Barbiturates Screen Ur Phencyclidine Scrn Ur Amphetamines Screen U Methamphetamin-MDMA U Benzodiazepines Scrn Urine Cocaine Screen U Cannabinoids Screen Ur Drug Screen Comment Ethyl Alcohol 5.0 06/30/20 06/30/20 21:03 21:03 WBC RBC Hgb Hct MCV MCH MCHC RDW Std Deviation RDW Coeff of Jean-Paul Plt Count MPV Immature Gran % (Auto) Neut % (Auto) Lymph % (Auto) [place] % (Auto) Eos % (Auto) Baso % (Auto) Absolute Neuts (auto) Absolute Lymphs (auto) Nucleated RBC % Reactive Lymphocytes Sodium Potassium Chloride Carbon Dioxide Anion Gap BUN Creatinine Estim Creat Clear Calc Est GFR (MDRD) Af Amer Est GFR (MDRD) Non-Af BUN/Creatinine Ratio Glucose Calcium Magnesium Total Bilirubin AST ALT Alkaline Phosphatase Total Protein Albumin Globulin Albumin/Globulin Ratio Serum , Qual Urine Color Yellow Urine Clarity Clear Urine pH 6.0 Ur Specific [place] 1.020 Urine Protein 30 H Urine Glucose (UA) Normal Urine Ketones 15 H Urine Occult Blood 10 H Urine Nitrite Negative Urine Bilirubin Negative Urine Urobilinogen 1 H Ur Leukocyte Esterase Negative Urine RBC 0 SEEN Urine WBC 0 SEEN Ur Squamous Epith Cells 0 SEEN Urine Bacteria 0 SEEN Hyaline Casts 0-5 SEEN Urine Mucus 1+ Salicylates Urine Opiates Screen POSITIVE H Urine Methadone Screen NEGATIVE Acetaminophen Ur Barbiturates Screen NEGATIVE Ur Phencyclidine Scrn NEGATIVE Ur Amphetamines Screen NEGATIVE U Methamphetamin-MDMA NEGATIVE U Benzodiazepines Scrn POSITIVE H Urine Cocaine Screen NEGATIVE U Cannabinoids Screen NEGATIVE Ur Drug Screen Comment Ethyl Alcohol - Rhythm Strip Rhythm Strip: Sinus Tach Rate: 126 Ectopy: None - EKG Initial EKG Interpretation: Sinus Tachycardia - Sinus tachycardia at 126 bpm. SD interval 140 ms. QTC of 463 ms. - Medical Decision Making Patient significantly agitated and combative upon arrival. Patient was given 5 mg of IM Haldol and 5 mg of IM Versed. IV was placed and patient was given 1 L of normal saline. Concern for Benadryl overdose. CT brain and chest x-ray negative. Hypokalemia which will be replaced IV. With poison control. Patient will be admitted to ICU. Impression: 1. Benadryl Overdose 2. Agitation 3. Hypokalemia 4. Acute renal insufficiency - Critical Care Time Critical care time (excluding procedures): 30-74 minutes - Time at bedside. Speaking with consultants and family. ED Disposition - Plan for ED Patient: Disposition: Acute Care [facility] Referrals: Pino Alston Chi, MD [Primary Care Provider] -
[2020-06-30 22:29] VITALS: BP 161/107; PULSE 118; RESP 14; TEMP 37; O2SAT 98
[2020-06-30] MEDS: Potassium Chloride 10mEq/100mL 10 MEQ/100 ML IV.SOLN. 100 MEQ IV BOLUS (22:53)
--- NOTE | 2020-06-30 23:11 | PCM.HP.STD ---
Problem List (1) Benadryl overdose Status: Acute (2) Ankylosing spondylitis Status: Chronic (3) History of depression Status: Chronic History of Present Illness Date of Admission: 06/30/20 Chief Complaint: Benadryl overdose The patient is a 45 year old F with history of hypertension, spondylitis and depression was brought in by EMS after Fink found unresponsive and then was combative. As per triage note, patient was screaming, kicking and biting. Patient was also felt to be hot, dry as per the ER physician. Patient usually takes Ambien 5 mg for insomnia but she did not therefore took Benadryl 50 mg total 5 days in the last 2 days every 4-6 hours. When I saw the patient, patient was calm and composed. No fever. Patient has chronic sinus tachycardia and heart rate is only between 110 to 120/min. In ER it was 133/min. BP 150/112, respiratory rate 25 and pulse ox 98% on room air. Basic labs shows urine opioid to screen positive and benzodiazepine positive. Ethyl alcohol negative. Patient denies history of suicidal ideation or attempt. CBC shows hemoglobin 15.6, hematocrit 58.2, MCV 109. K2.9, bicarb 17, anion gap 20, creatinine 1.12. ALT AST elevated 95, 170 respectively. Alkaline phosphatase 124. Glucose 205. Total bili 1.2, magnesium 2.8. CT brain and chest x-ray reported normal. Patient denies history of shortness of breath, fever, cough or suspected or known exposure to COVID-19 patient [] Past Medical History Past Medical History (Chronic Problems): Chronic Problems History of depression (Chronic) Ankylosing spondylitis (Chronic) Allergies No Known Allergies Allergy (Verified 06/30/20 20:25) Home Medications: Ambulatory Orders Medication Instructions Recorded Humira 1 injectable SQ QWEEK 02/29/16 Methotrexate 1 dose PO QWEEK 02/29/16 cycloBENZAPRine HCl [Flexeril] 1 tab PO TID 02/29/16 Bupropion HCl [Wellbutrin Xl] 300 mg PO DAILY 06/30/20 Gabapentin [Neurontin] 400 mg PO TID 06/30/20 Valsartan/Hydrochlorothiazide 1 tab PO DAILY 06/30/20 [Diovan Hct 160-12.5 mg Tab] Zolpidem Tartrate [Ambien] 10 mg PO QHS 06/30/20 Surgical History: no surgical history Lives: With Family Smoking Status: Current every day smoker Tobacco Use: Cigarettes Alcohol: None Drugs: None - *Family History Paternal History Items: Heart Disease Review of Systems Constitutional: Denies: Chills, Fever, Weight Change HEENT: Denies: Head Aches, Sinus Congestion, Sinus Drainage Cardiovascular: Denies: Chest Pain, Palpitations Respiratory: Denies: Cough, Shortness of breath at rest, Sputum production Gastrointestinal: Denies: Abdominal Pain, Nausea, Vomiting Genitourinary: Denies: Dysuria, Frequency Musculoskeletal: Reports: Back Pain, Joint Pain, Joint stiffness. Denies: Joint Tenderness Skin: Denies: Rash, Wounds Neurological: Denies: Numbness, Tingling, Focal weakness Psychiatric: Reports: Anxiety, Depression. Denies: Homicidal Ideations, Suicidal Ideations Hematologic/ Lymphatic: Denies: Easy Bruising, Easy Bleeding VTE Information - Inpt Only VTE Present on Admission: No VTE Mechan Device Prophylaxis: None VTE Pharm Prophylaxis ordered?: Yes Patient Problems: Active and Suspected Problems Benadryl overdose (Acute) - Physical Exam Vitals/I&O's: Vital Signs Temp Pulse Resp BP Pulse Ox 98.6 F 118 H 14 161/107 H 98 06/30/20 22:29 06/30/20 22:29 06/30/20 22:29 06/30/20 22:29 06/30/20 22:29 Oxygen Delivery Method Room Air Weight: 188 lb 11.451 oz Body Mass Index (BMI) 30.4 General: Alert, Oriented x3, Cooperative HEENT: Atraumatic, PERRLA, EOMI, Normocephalic Neck: Supple, No JVD, Negative Carotid Bruits Lungs: Clear to auscultation, Normal air movement, No rhonchi, No wheeze, No rales Cardiovascular: Regular rate, Regular Rhythm, Normal S1, Normal S2, No murmurs Abdomen: Bowel Sounds Present, Soft, Non Tender, Non-Distended Extremities: No edema, Capillary Refill Less than 3 Seconds Skin: No rashes, No breakdown Musculoskeletal: No Tenderness to Palpation of Joints or Extremities Neurological: Cranial nerves II-XII grossly intact, Deep Tendon Reflexes 2+/4 and Symmetrical, Neuro grossly intact Psych/Mental Status: Normal Affect, Appropriate Laboratory Results 06/30/20 20:31: WBC 10.5, RBC 4.42, Hgb 15.6 H, Hct 48.2 H, MCV 109.0 H, MCH 35.3 H, MCHC 32.4, RDW Std Deviation 51.4 H, RDW Coeff of Jean-Paul 13.1, Plt Count 233, MPV 9.2, Immature Gran % (Auto) 0.300, Neut % (Auto) 25.0 L, Lymph % (Auto) 66.7 H, [place] % (Auto) 6.6, Eos % (Auto) 1.1, Baso % (Auto) 0.3, Absolute Neuts (auto) 2.6, Absolute Lymphs (auto) 6.98 H, Nucleated RBC % 0.2, Reactive Lymphocytes 2+ 06/30/20 20:31: Sodium 138, Potassium 2.9 L, Chloride 101, Carbon Dioxide 17.0 L, Anion Gap 20 H, BUN 10, Creatinine 1.12 H, Estim Creat Clear Calc 58.76, Est GFR (MDRD) Af Amer 67, Est GFR (MDRD) Non-Af 56 L, BUN/Creatinine Ratio 8.9 L, Glucose 205 H, Calcium 9.1, Total Bilirubin 1.20 H, AST 170 H, ALT 95 H, Alkaline Phosphatase 124 H, Total Protein 8.2, Albumin 4.1, Globulin 4.1, Albumin/Globulin Ratio 1.0 06/30/20 20:31: Magnesium 2.8 H 06/30/20 20:31: Total Creatine Kinase Pending 06/30/20 20:54: Ethyl Alcohol 5.0 06/30/20 20:54: Serum , Qual NEGATIVE 06/30/20 20:54: Salicylates < 1.7 L, Acetaminophen < 2.0 L 06/30/20 21:03: Urine Opiates Screen POSITIVE H, Urine Methadone Screen NEGATIVE, Ur Barbiturates Screen NEGATIVE, Ur Phencyclidine Scrn NEGATIVE, Ur Amphetamines Screen NEGATIVE, U Methamphetamin-MDMA NEGATIVE, U Benzodiazepines Scrn POSITIVE H, Urine Cocaine Screen NEGATIVE, U Cannabinoids Screen NEGATIVE, Ur Drug Screen Comment 06/30/20 21:03: Urine Color Yellow, Urine Clarity Clear, Urine pH 6.0, Ur Specific [place] 1.020, Urine Protein 30 H, Urine Glucose (UA) Normal, Urine Ketones 15 H, Urine Occult Blood 10 H, Urine Nitrite Negative, Urine Bilirubin Negative, Urine Urobilinogen 1 H, Ur Leukocyte Esterase Negative, Urine RBC 0 SEEN, Urine WBC 0 SEEN, Ur Squamous Epith Cells 0 SEEN, Urine Bacteria 0 SEEN, Hyaline Casts 0-5 SEEN, Urine Mucus 1+ Current Medications Potassium Chloride () 10 meq in 100 mls @ 100 mls/hr IV BOLUS Q1H DEBBIE Stop: 07/01/20 01:44 Last Admin: 06/30/20 22:53 Dose: 100 mls/hr Documented by: Assessment/Plan All Active Problems Benadryl overdose (Acute) The patient is a 45 year old F with history of hypertension, spondylitis and depression was brought in by EMS after Fink found unresponsive and then was combative. Patient overdosed Benadryl and is admitted in ICU. CT brain and chest x-ray reported normal. 1. Antihistamine/Benadryl overdose with acute hyperactive delirium: Patient is being admitted in ICU. Patient was given Haldol 5 mg IM and Versed 5 mg IM and patient currently is mild drowsy, calm and quiet. ABG ordered as bicarb is 17 and anion gap 20 suggestive of high anion gap metabolic acidosis. In the meantime, IV fluid Ringer lactate 100 mL/h. No further sedative, anticholinergic or antihistaminic. Monitor intake and output, mental status and vitals. 2. Acute hypokalemia exact etiology unclear: K2.9, magnesium 2.8. Potassium chloride IV bolus 40 M EQ ordered. Repeat labs tomorrow a.m. 3. Sinus tachycardia, chronic in nature: Patient denies history of hyperthyroidism or thyrotoxicosis or past symptoms of diarrhea, hypothermia, heart disease or A. fib or hypermetabolic state. Was advised serum TSH at her baseline health probably after 3 to 4 weeks. EKG shows sinus tachycardia at 126 bpm, QRS 90 ms, QTC 463 ms. 4. Chronic spondylitic ankylosing arthritis: At home, patient is on Humira, methotrexate, Neurontin and Flexeril. We will hold medications and may resume when patient is on baseline health. 5. Anxiety and depression: Hold patient home medication bupropion. 6. Hypertension: Blood pressure is elevated. On valsartan HCTZ, regimen. IV hydralazine 10 mg every 4 hourly as needed for systolic blood pressure more than 180 mmHg 7. Hyperglycemia, glucose 205 in BMP: Patient denies history of diabetes mellitus. Not on prednisone or other steroid at home. A1c tomorrow a.m. DVT prophylaxis: Lovenox 40 mg daily. Clinical Impression(s) from Imaging Studies Brain CT 06/30/20 20:29 IMPRESSION: Normal unenhanced CT scan of the brain. Electronically Signed: Syed Regan MD at 22:16 EDT , Service support , Chest X-Ray 06/30/20 20:29 IMPRESSION: Normal x-ray examination of the chest. Inpatient E&M: 34724 Init Hosp L3
[2020-06-30 23:12] LABS: CPK Total, Creatine Kinase 190 U/L (26-192)
[2020-06-30 23:16] VITALS: BMI 29.0; BMI 29.1
[2020-06-30 23:58] VITALS: PULSE 119
[2020-07-01] VITALS (15 sets, daily range): BP systolic 148–169; BP diastolic 88–122; PULSE 111–124; RESP 13–22; TEMP 35.9–36.9; O2SAT 96–98
--- NOTE | 2020-07-01 | NURSING ---
pts earrings and necklace in denture cup and placed in patient belonging bag.
[2020-07-01 00:06] LABS: Allen Test Positive; Base Excess -1 mmol/L (-2 to +2); Bicarbonate 23.7 mmol/L (22-26); Blood Gas Specimen Type ART; O2 Delivery Device Room Air; PO2 90 mmHG (75-100); SITE R Radial; SO2 97 % (95-99); Total Carbon Dioxide 25 mmol/L; pCO2 35.7 mmHg (35-45); pH 7.43 (7.35-7.45)
[2020-07-01] MEDS: Famotidine 20 MG Tablet PO ×2 (00:09→10:27)
[2020-07-01] MEDS: Lactated Ringers 1,000 ML 100 ML IV (00:09)
[2020-07-01] MEDS: Potassium Chloride 10mEq/100mL 10 MEQ/100 ML IV.SOLN. 100 MEQ IV BOLUS ×3 (00:13→02:41)
[2020-07-01 04:48] LABS: Absolute Lymphocyte Count 1.32 X10^3/uL (0.83-4.51); Absolute Neutrophil Count 3.9 X10^3/uL (2.0-7.7); Basophil# 0.02 X10^3/uL; Basophil% 0.4 % (0-1); Eosinophil# 0.03 X10^3/uL; Eosinophils% 0.5 % (0-5); Hemoglobin 14.7 g/dL (12.0-15.0); Lymphocyte # 1.32 X10^3/ul (4.0); Lymphocyte % 23.2 % (19-41); Mean Corp Hgb Conc 33.4 g/dL (32-36); Mean Corpuscular Hgb 34.8 pg (27.0-32.0); Monocyte# 0.42 X10^3/uL; Monocyte% 7.4 % (0-10); NRBC Flagged by Analyzer 0 % (0-5); Neutrophil # 3.87 X10^3/uL (2.7-7.7); Neutrophil % 68.1 % (47-70); Platelet Count 195 K/mm3 (150-450); RBC Distribution Width CV 13.3 % (11.6-14.6); RBC Distribution Width SD 50.3 fl (35.1-43.9); Red Blood Count 4.23 M/mm3 (4.2-5.4); White Blood Count 5.7 K/mm3 (4.4-11.0)
[2020-07-01] MEDS: Gabapentin 400 MG Capsule PO ×2 (05:22→13:12)
[2020-07-01 06:04] LABS: Magnesium 2.7 mg/dL (1.6-2.6); Phosphorus 1.8 mg/dL (2.5-4.9)
[2020-07-01 08:48] LABS: Anion Gap 6 (5-15); BUN 8 mg/dL (7-18); BUN/Creat Ratio 12.8 RATIO (10-20); Calcium,Total 8.7 mg/dL (8.5-10.1); Chloride 109 mmol/L (98-107); Creatinine, Serum 0.62 mg/dL (0.55-1.02); EST Glomerular Filtration Rate 109 mL/min (>60); Est Glom Filt Rate - Afr Amer 132 mL/min (>60); Estimated Creatinine Clearance 102.02 ml/min; Glucose 112 mg/dL (74-106); Potassium 4.6 mmol/L (3.5-5.1); Sodium Level 138 mmol/L (136-145)
--- NOTE | 2020-07-01 10:13 | CON.PCM_ITS ---
Reason for Consult Date of Consultation: 07/01/20 Reason for Consultation: Benadryl overdose History of Present Illness: The patient is a 45-year-old female, with a history as outlined below, who presented to the emergency department on June 30 by EMS after initially being found unresponsive. The patient then went on to develop significant psychomotor agitation and became combative by the time she presented to the emergency department. She has a history of ankylosing spondylitis, insomnia and chronic pain syndrome. She also has an apparent history of hypertension and chronic tachycardia. The patient reports that she typically uses Ambien on a nightly basis. However, she was staying with her sister who recently had gastric bypass surgery and did not have access to her regular Ambien. Therefore, she was utilizing Unisom. The patient reported that she only took 3 of the aforeme ntioned tablets on the first day followed by 2 tablets yesterday prior to being brought into the hospital. On presentation to the emergency department, the patient was noted to be afebrile but was tachycardic and tachypneic. Laboratory evaluation revealed a normal white blood cell count. Chemistry profile was notable for a potassium of 2.9 and creatinine of 1.12. Total bilirubin was elevated at 1.2 with an elevated AST of 170 and ALT of 95. Alkaline phosphatase was increased to 124. Urine analysis was unremarkable. Toxicology screen was positive for opiates and benzodiazepines. CT head was unremarkable. Chest x-ray revealed no acute cardiopulmonary process. The patient was treated symptomatically with Versed in the emergency department and received supplemental IV fluid hydration. She was subsequently admitted to the medical intensive care unit for overnight monitoring. Past Medical History Past Medical History (Chronic Problems): Chronic Problems History of depression (Chronic) Ankylosing spondylitis (Chronic) Allergies No Known Allergies Allergy (Verified 06/30/20 20:25) Home Medications: Ambulatory Orders Medication Instructions Recorded Humira 1 injectable SQ QWEEK 02/29/16 cycloBENZAPRine HCl [Flexeril] 1 tab PO TID 02/29/16 Fentanyl 1 ea TD 06/30/20 Gabapentin [Neurontin] 400 mg PO TID 06/30/20 Valsartan/Hydrochlorothiazide 1 tab PO DAILY 06/30/20 [Diovan Hct 160-12.5 mg Tab] Zolpidem Tartrate [Ambien] 10 mg PO QHS 08/25/20 Carvedilol [Coreg (Beta Gogo)] 6.25 mg PO BID #60 tab 07/01/20 Surgical History: no surgical history Lives: With Family Smoking Status: Current some day smoker Tobacco Use: Cigarettes Alcohol: None Drugs: None - *Family History Paternal History Items: Heart Disease Review of Systems Constitutional: Denies: Chills, Fever Eyes: Denies: Blurred vision, Double vision HEENT: Denies: Head Aches, Sinus Congestion, Sinus Drainage Cardiovascular: Denies: Chest Pain, Palpitations Respiratory: Denies: Cough, Shortness of breath at rest, Sputum production Gastrointestinal: Denies: Abdominal Pain, Nausea, Vomiting Genitourinary: Denies: Dysuria Musculoskeletal: Reports: Back Pain Skin: Denies: Rash, Wounds Neurological: Denies: Numbness, Tingling, Focal weakness Psychiatric: Reports: Anxiety, Depression Hematologic/ Lymphatic: Denies: Easy Bruising, Easy Bleeding Objective: The patient's most recent lab work, culture data and imaging studies have all been personally reviewed. - Physical Exam Vitals/I&O's: Vital Signs Temp Pulse Resp BP Pulse Ox 98.5 F 115 H 16 154/118 H 96 07/01/20 04:00 07/01/20 06:59 07/01/20 04:00 07/01/20 04:00 07/01/20 06:30 Oxygen Delivery Method Room Air Weight: 175 lb 4.28 oz Body Mass Index (BMI) 29.0 Intake and Output for Last 24 Hours 06/29/20 06/30/20 07/01/20 23:59 23:59 23:59 Intake Total 100 / 100 1300 / 1300 Output Total 800 / 800 350 / 350 Balance -700 / -700 950 / 950 General: Alert, Cooperative, No apparent distress, - - Sitting in bedside recliner HEENT: Atraumatic, Normocephalic Oral: No Gingival or Mucosal Lesions/ Ulcerations Neck: Supple, No Nodes, Trachea Midline Lungs: Normal air movement, No rhonchi, No wheeze, No rales Cardiovascular: Normal S1, Normal S2, No murmurs, Tachycardic Abdomen: Bowel Sounds Present, Soft, Non Tender Extremities: No clubbing, No cyanosis, No edema Skin: No breakdown Musculoskeletal: No Muscle Wasting Lymphatic: No Cervical, Supraclavicular, or Inguinal Adenopathy Neurological: Cranial nerves II-XII grossly intact, Neuro grossly intact Psych/Mental Status: Anxious Labs (Last 48 Hours) 06/30/20 06/30/20 06/30/20 20:31 20:31 20:31 WBC 10.5 RBC 4.42 Hgb 15.6 H Hct 48.2 H MCV 109.0 H MCH 35.3 H MCHC 32.4 RDW Std Deviation 51.4 H RDW Coeff of Jean-Paul 13.1 Plt Count 233 MPV 9.2 Immature Gran % (Auto) 0.300 Neut % (Auto) 25.0 L Lymph % (Auto) 66.7 H [place] % (Auto) 6.6 Eos % (Auto) 1.1 Baso % (Auto) 0.3 Absolute Neuts (auto) 2.6 Absolute Lymphs (auto) 6.98 H Nucleated RBC % 0.2 Reactive Lymphocytes 2+ Specimen Type Sample Site pH Bicarbonate Actual Total CO2 Base Excess O2 Saturation ABG pCO2 ABG pO2 Jean Paul Test O2 Delivery Device Sodium 138 Potassium 2.9 L Chloride 101 Carbon Dioxide 17.0 L Anion Gap 20 H BUN 10 Creatinine 1.12 H Estim Creat Clear Calc 58.76 Est GFR (MDRD) Af Amer 67 Est GFR (MDRD) Non-Af 56 L BUN/Creatinine Ratio 8.9 L Glucose 205 H Hemoglobin A1c Calcium 9.1 Phosphorus Magnesium 2.8 H Total Bilirubin 1.20 H AST 170 H ALT 95 H Alkaline Phosphatase 124 H Total Creatine Kinase Total Protein 8.2 Albumin 4.1 Globulin 4.1 Albumin/Globulin Ratio 1.0 Serum , Qual Urine Color Urine Clarity Urine pH Ur Specific [place] Urine Protein Urine Glucose (UA) Urine Ketones Urine Occult Blood Urine Nitrite Urine Bilirubin Urine Urobilinogen Ur Leukocyte Esterase Urine RBC Urine WBC Ur Squamous Epith Cells Urine Bacteria Hyaline Casts Urine Mucus Salicylates Urine Opiates Screen Urine Methadone Screen Acetaminophen Ur Barbiturates Screen Ur Phencyclidine Scrn Ur Amphetamines Screen U Methamphetamin-MDMA U Benzodiazepines Scrn Urine Cocaine Screen U Cannabinoids Screen Ur Drug Screen Comment Ethyl Alcohol 06/30/20 06/30/20 06/30/20 20:31 20:54 20:54 WBC RBC Hgb Hct MCV MCH MCHC RDW Std Deviation RDW Coeff of Jean-Paul Plt Count MPV Immature Gran % (Auto) Neut % (Auto) Lymph % (Auto) [place] % (Auto) Eos % (Auto) Baso % (Auto) Absolute Neuts (auto) Absolute Lymphs (auto) Nucleated RBC % Reactive Lymphocytes Specimen Type Sample Site pH Bicarbonate Actual Total CO2 Base Excess O2 Saturation ABG pCO2 ABG pO2 [place] Test O2 Delivery Device Sodium Potassium Chloride Carbon Dioxide Anion Gap BUN Creatinine Estim Creat Clear Calc Est GFR (MDRD) Af Amer Est GFR (MDRD) Non-Af BUN/Creatinine Ratio Glucose Hemoglobin A1c Calcium Phosphorus Magnesium Total Bilirubin AST ALT Alkaline Phosphatase Total Creatine Kinase 190 Total Protein Albumin Globulin Albumin/Globulin Ratio Serum , Qual NEGATIVE Urine Color Urine Clarity Urine pH Ur Specific [place] Urine Protein Urine Glucose (UA) Urine Ketones Urine Occult Blood Urine Nitrite Urine Bilirubin Urine Urobilinogen Ur Leukocyte Esterase Urine RBC Urine WBC Ur Squamous Epith Cells Urine Bacteria Hyaline Casts Urine Mucus Salicylates Urine Opiates Screen Urine Methadone Screen Acetaminophen Ur Barbiturates Screen Ur Phencyclidine Scrn Ur Amphetamines Screen U Methamphetamin-MDMA U Benzodiazepines Scrn Urine Cocaine Screen U Cannabinoids Screen Ur Drug Screen Comment Ethyl Alcohol 5.0 06/30/20 06/30/20 06/30/20 20:54 21:03 21:03 WBC RBC Hgb Hct MCV MCH MCHC RDW Std Deviation RDW Coeff of Jean-Paul Plt Count MPV Immature Gran % (Auto) Neut % (Auto) Lymph % (Auto) [place] % (Auto) Eos % (Auto) Baso % (Auto) Absolute Neuts (auto) Absolute Lymphs (auto) Nucleated RBC % Reactive Lymphocytes Specimen Type Sample Site pH Bicarbonate Actual Total CO2 Base Excess O2 Saturation ABG pCO2 ABG pO2 [place] Test O2 Delivery Device Sodium Potassium Chloride Carbon Dioxide Anion Gap BUN Creatinine Estim Creat Clear Calc Est GFR (MDRD) Af Amer Est GFR (MDRD) Non-Af BUN/Creatinine Ratio Glucose Hemoglobin A1c Calcium Phosphorus Magnesium Total Bilirubin AST ALT Alkaline Phosphatase Total Creatine Kinase Total Protein Albumin Globulin Albumin/Globulin Ratio Serum , Qual Urine Color Yellow Urine Clarity Clear Urine pH 6.0 Ur Specific [place] 1.020 Urine Protein 30 H Urine Glucose (UA) Normal Urine Ketones 15 H Urine Occult Blood 10 H Urine Nitrite Negative Urine Bilirubin Negative Urine Urobilinogen 1 H Ur Leukocyte Esterase Negative Urine RBC 0 SEEN Urine WBC 0 SEEN Ur Squamous Epith Cells 0 SEEN Urine Bacteria 0 SEEN Hyaline Casts 0-5 SEEN Urine Mucus 1+ Salicylates < 1.7 L Urine Opiates Screen POSITIVE H Urine Methadone Screen NEGATIVE Acetaminophen < 2.0 L Ur Barbiturates Screen NEGATIVE Ur Phencyclidine Scrn NEGATIVE Ur Amphetamines Screen NEGATIVE U Methamphetamin-MDMA NEGATIVE U Benzodiazepines Scrn POSITIVE H Urine Cocaine Screen NEGATIVE U Cannabinoids Screen NEGATIVE Ur Drug Screen Comment Ethyl Alcohol 07/01/20 07/01/20 07/01/20 00:01 04:00 04:30 WBC 5.7 RBC 4.23 Hgb 14.7 Hct 44.0 MCV 104.0 H MCH 34.8 H MCHC 33.4 RDW Std Deviation 50.3 H RDW Coeff of Jean-Paul 13.3 Plt Count 195 MPV 10.0 Immature Gran % (Auto) 0.400 Neut % (Auto) 68.1 Lymph % (Auto) 23.2 [place] % (Auto) 7.4 Eos % (Auto) 0.5 Baso % (Auto) 0.4 Absolute Neuts (auto) 3.9 Absolute Lymphs (auto) 1.32 Nucleated RBC % 0 Reactive Lymphocytes Specimen Type ART Sample Site R Radial pH 7.43 Bicarbonate Actual 23.7 Total CO2 25 Base Excess -1 O2 Saturation 97 ABG pCO2 35.7 ABG pO2 90 Jean Paul Test Positive O2 Delivery Device Room Air Sodium Potassium Chloride Carbon Dioxide Anion Gap BUN Creatinine Estim Creat Clear Calc Est GFR (MDRD) Af Amer Est GFR (MDRD) Non-Af BUN/Creatinine Ratio Glucose Hemoglobin A1c 5.0 Calcium Phosphorus Magnesium Total Bilirubin AST ALT Alkaline Phosphatase Total Creatine Kinase Total Protein Albumin Globulin Albumin/Globulin Ratio Serum , Qual Urine Color Urine Clarity Urine pH Ur Specific [place] Urine Protein Urine Glucose (UA) Urine Ketones Urine Occult Blood Urine Nitrite Urine Bilirubin Urine Urobilinogen Ur Leukocyte Esterase Urine RBC Urine WBC Ur Squamous Epith Cells Urine Bacteria Hyaline Casts Urine Mucus Salicylates Urine Opiates Screen Urine Methadone Screen Acetaminophen Ur Barbiturates Screen Ur Phencyclidine Scrn Ur Amphetamines Screen U Methamphetamin-MDMA U Benzodiazepines Scrn Urine Cocaine Screen U Cannabinoids Screen Ur Drug Screen Comment Ethyl Alcohol 07/01/20 07/01/20 04:30 04:30 WBC RBC Hgb Hct MCV MCH MCHC RDW Std Deviation RDW Coeff of Jean-Paul Plt Count MPV Immature Gran % (Auto) Neut % (Auto) Lymph % (Auto) [place] % (Auto) Eos % (Auto) Baso % (Auto) Absolute Neuts (auto) Absolute Lymphs (auto) Nucleated RBC % Reactive Lymphocytes Specimen Type Sample Site pH Bicarbonate Actual Total CO2 Base Excess O2 Saturation ABG pCO2 ABG pO2 [place] Test O2 Delivery Device Sodium 138 Potassium 4.6 Chloride 109 H Carbon Dioxide 23.0 Anion Gap 6 BUN 8 Creatinine 0.62 Estim Creat Clear Calc 102.02 Est GFR (MDRD) Af Amer 132 Est GFR (MDRD) Non-Af 109 BUN/Creatinine Ratio 12.8 Glucose 112 H Hemoglobin A1c Calcium 8.7 Phosphorus 1.8 L Magnesium 2.7 H Total Bilirubin AST ALT Alkaline Phosphatase Total Creatine Kinase Total Protein Albumin Globulin Albumin/Globulin Ratio Serum , Qual Urine Color Urine Clarity Urine pH Ur Specific [place] Urine Protein Urine Glucose (UA) Urine Ketones Urine Occult Blood Urine Nitrite Urine Bilirubin Urine Urobilinogen Ur Leukocyte Esterase Urine RBC Urine WBC Ur Squamous Epith Cells Urine Bacteria Hyaline Casts Urine Mucus Salicylates Urine Opiates Screen Urine Methadone Screen Acetaminophen Ur Barbiturates Screen Ur Phencyclidine Scrn Ur Amphetamines Screen U Methamphetamin-MDMA U Benzodiazepines Scrn Urine Cocaine Screen U Cannabinoids Screen Ur Drug Screen Comment Ethyl Alcohol Clinical Impression(s) from Imaging Studies Brain CT 06/30/20 20:29 IMPRESSION: Normal unenhanced CT scan of the brain. Electronically Signed: Syed Regan MD at 22:16 EDT , Service support , Chest X-Ray 06/30/20 20:29 IMPRESSION: Normal x-ray examination of the chest. Electronically Signed: Syed Regan MD at 22:17 EDT , Service support , Current Medications Acetaminophen (Tylenol) 650 mg PO Q6H PRN PRN PRN Reason: Pain Score 1-10/Temp > 100.7 F Al Hydroxide/Mg Hydroxide (Mylanta Ii) 30 ml PO Q6H PRN PRN PRN Reason: Gastric Burning Albuterol Sulfate (Ventolin Aerosols) 2.5 mg INHALATION Q2H PRN PRN PRN Reason: SOB/Wheezing Carvedilol (Coreg) 6.25 mg PO BID DEBBIE Cyclobenzaprine HCl (Flexeril) 10 mg PO TID PRN PRN PRN Reason: muscle spasm Enoxaparin Sodium (Lovenox) 40 mg SC DAILY [facility] Famotidine (Pepcid) 20 mg PO BID [facility] Last Admin: 07/01/20 00:09 Dose: 20 mg Documented by: Gabapentin (Neurontin) 400 mg PO TID [facility] Last Admin: 07/01/20 05:22 Dose: 400 mg Documented by: Hydralazine HCl (Apresoline Iv) 10 mg IV Q4H PRN PRN PRN Reason: SBP more than 180 mmHg Sodium Chloride () 250 mls @ 15 mls/hr IV .[id number] PRN PRN Reason: Additional IVPB Infusion Nitroglycerin (Nitrostat) 0.4 mg SUBLINGUAL Q5M PRN PRN Reason: CARDIAC/CHEST PAIN Non-Formulary Medication (Valsartan/Hydrochlorothiazide [Diovan Hct 160-12.5 Mg Tab]) 1 tab PO DAILY [facility] Ondansetron HCl (Zofran) 4 mg IV Q8H PRN PRN PRN Reason: NAUSEA/VOMITING Prochlorperazine Edisylate (Compazine Iv) 5 mg IV Q4H PRN PRN PRN Reason: Breakthrough Nausea/Vomiting Senna/Docusate Sodium (Senokot-S, Eloise-Colace) 2 tablet PO BID PRN PRN PRN Reason: Constipation Sodium Chloride () 10 - 40 ml IV UD PRN PRN Reason: SALINE FLUSH Assessment/Plan RECOMMENDATIONS: 1. Continue current supportive measures. 2. Consider adding Coreg for additional blood pressure and heart rate control. 3. Close outpatient follow-up with PCP upon discharge from the hospital as recommended. 4. Given the patient's lack of ICU or pulmonary needs, will sign off. IMPRESSIONS: 1. Unintentional drug overdose Patient was initially admitted over concerns for overdose of over the counter sleep aids. She was subsequently monitored in the ICU setting overnight and has remained clinically stable. Aside from underlying hypertension and tachycardia, the patient is stable. I do suspect that she may have an underlying component of anxiety as well that is currently contributing to her hypertension and tachycardia. She does report that these issues are chronic for her. While the patient denies the use of benzodiazepines as an outpatient, her toxicology screen was positive for the aforementioned. Could consider adding Coreg to the patient's current antihypertensive regimen to help address her persistent blood pressure elevation and tachycardia. Regardless, the patient needs to be seen by her PCP in follow-up upon discharge from the hospital. At the present time, the patient has no pulmonary or ICU needs. This note was generated with [employer] dictation software. It may contain incorrect words, spelling, and punctuation that were not noted in checking the note before signing. Inpatient E&M: 48127 Init Hosp L2
[2020-07-01] MEDS: Carvedilol 6.25 MG Tablet PO (10:27)
[2020-07-01] MEDS: Enoxaparin 40 MG/0.4 ML Syringe SC (10:28)
[2020-07-01 11:05] LABS: Thyroid Stim Hormone (TSH) 1.76 uIU/mL (0.358-3.74)
--- NOTE | 2020-07-01 11:31 | CASEMGMT ---
Social Work Assessment Referral Date: 07/01/2020 Date of Assessment: 07/01/2020 Reason for consult: Benadryl OD Informant: SW Personal Status: SW met with pt to complete initial assessment. SW introduced self and role at [facility]. Pt is alert and orientated x3. Pt states she lives with her and three children in a one story home with two steps to enter from garage and three steps to enter from the front door. Pt states that she was previously independent with ADLs. States PCP is Dr. Alston and Pharmacy is [facility] [place]. Substance Abuse Hx: Pt denied Mental Health Hx: Pt states she does have history of depression. Pt states she see's a psychiatrist (Dr. Schreiber??) who prescribes depression medication for pt. Pt unable to name the agency that her psychiatrist works at. Pt states she only see's the psychiatrist once every 6 months. Pt states she doesn't see any counselors. Pt states that she feels her depression is being well managed and denied any current symptoms of depression. Pt identifies her family as being good support for her. SW spoke with pt regarding Benadryl OD. Pt states you call it Benadryl I just thought it was over the counter medications to help me sleep. Pt states she was at her sister's home because her sister recently had gastric bypass surgery and she didn't have her Ambien that she usually takes so she decided to take over the counter medications to help her sleep. Pt states I thought I was being safe and it was a safe choice. Pt states I took some and it didn't work so I took some more. Pt states it was within a five hour timeframe before I took any more. Pt again states I thought I was being safe and it was a safe option. Pt states the taking of the medication was NOT a suicide attempt. Pt denied any history of suicidal thoughts/plans/ideations and denied any current suicidal thoughts/plans/ideations. Again pt stated, the taking of the medication was NOT a suicide attempt. Pt able to identify her family as being good support for her. Pt denied any history of suicidal thoughts/plans/ideations and denied any current suicidal thoughts/plans/ideations. Pt states that taking the medications to help her sleep (Benadryl) was NOT a suicide attempt. Pt states that her depression is being managed well and denied any current symptoms of depression. Pt is linked up with a psychiatrist that prescribes her depression medication. Pt see's her psychiatrist once every six months. Pt denied additional needs or concerns at this time. Plan: Home. Maeve Hale HAND CLOTH EXAMINER, PROCESS STRIPPER
[2020-07-01] MEDS: hydroCHLOROthiazide 25 MG Tablet 12.5 MG PO ×2 (13:10→13:11)
--- NOTE | 2020-07-01 15:17 | NURSING ---
bp remains elevated still and hr 117. dr. mccurdy called in and checking with pt on staying one more day for bp control. pt not happy about having to stay and stated, my hr and bp have been high my whole life phone call transferred in to pt and talking with.
--- NOTE | 2020-07-01 15:23 | DCINST_ITS ---
- Discharge Diagnoses Current Active Problems: Current Active and Chronic Problems Benadryl overdose (Acute) You will use the following diet at home:: Cardiac Your food should be the consistency of: Regular Your liquids should be the consistency of: Regular/Thin Discharge Activity: Return to Normal Activity Weight Bearing Status: Weight bearing as tolerated Call your doctor if you observe: Fever of 101 or Higher, Shortness of breath, Dizziness, Fainting spells, Swelling in the ankles Instructions: ED Confusion Allergies/Adverse Reactions: Allergies No Known Allergies Allergy (Verified 06/30/20 20:25) Medications to take at Discharge Humira 1 injectable SQ QWEEK 02/29/16 cycloBENZAPRine HCl [Flexeril] 1 tab PO TID 02/29/16 Fentanyl 1 ea TD 06/30/20 Gabapentin [Neurontin] 400 mg PO TID 06/30/20 Valsartan/Hydrochlorothiazide [Diovan Hct 160-12.5 mg Tab] 1 tab PO DAILY 06/30/20 Zolpidem Tartrate [Ambien] 10 mg PO QHS 06/30/20 Carvedilol [Coreg (Beta Gogo)] 6.25 mg PO BID #60 tablet 07/01/20 The following prescriptions were given: Carvedilol [Coreg (Beta Gogo)] 6.25 mg PO BID #60 tablet Primary Care Physician: Pino Alston Chi, MD [Primary Care Provider] - Please follow up with your Primary Care Physician in: 1 week Test Results: Test results from this visit will be discussed in further detail at your follow- up appointment, if applicable. Proposed Discharge Date: 07/01/20
--- NOTE | 2020-07-01 15:26 | PCM.DC.SUM ---
Discharge Date and Diagnosis - Problem List Patient Problems: Active and Suspected Problems Benadryl overdose (Acute) Date of Admission: 06/30/20 Date of Discharge: 07/01/20 - Primary Discharge Diagnosis Acute Problems: Active Problems Benadryl overdose (Acute) acute metabolic encephalopathy - Secondary Discharge Diagnosis Chronic Problems: Chronic Problems History of depression (Chronic) Ankylosing spondylitis (Chronic) Hospital Course and Treatment Imaging Results: Diagnostic Data Brain CT 06/30/20 20:29 IMPRESSION: Normal unenhanced CT scan of the brain. Electronically Signed: Syed Regan MD at 22:16 EDT , Service support , Chest X-Ray 06/30/20 20:29 IMPRESSION: Normal x-ray examination of the chest. Electronically Signed: Syed Regan MD at 22:17 EDT , Service support , critical care- Dr Singh Operations: None Procedures: None Summary of Care Provided: The patient is a 45 year old F with a past medical history of depression and ankylosing spondylitis. She was admitted through the ED on 06/30/2020 after being brought by the EMS on account of being found unresponsive. Patient says she had been staying with a sister who recently had gastric bypass surgery and so she could not get her regular Ambien which she took at night to help her sleep. She therefore started using Unisom. She took about 3 of the tablets on the first day and 2 tablets the next day and then she was found unresponsive and brought into the ED. After arrival in the ED, she developed significant psychomotor agitation and became combative. She was also tachycardic and tachypneic. Labs were significant for potassium of 2.9 and creatinine of 1.12 and bilirubin was elevated at 1.2 with AST of 170 and ALT of 95. ALP was also 124. Urine tox was positive for opiates and benzodiazepines though patient denied taking any benzodiazepines. CT of the head was negative for any acute intracranial process and chest x-ray showed no acute cardiopulmonary process. She was admitted and hydrated with IV fluids and put in the ICU overnight for closer monitoring. Was admitted and managed for suspected antihistamine overdose with acute hyperactive delirium. She was given IM Versed and Haldol and this helped calm her down. Patient subsequently with remained calm. However she remained tachycardic, elevated blood pressure. She said she had always had elevated blood pressures and tachycardia, had been following up with her primary care doctor. She had been on Diovan at home. Patient remained stable and was started on carvedilol 6.25 mg twice daily. Patient was counseled that she would benefit from another night in the hospital to help monitor her blood pressure and heart rate. Patient however insisted on being discharged as she said her heart rate and blood pressure were always elevated and she will follow-up with her primary care doctor will be able to get an appointment in a day or 2. At patient's insistence, she was discharged home on 07/01/2020. She was discharged with a prescription for p.o. carvedilol 6.25 mg twice daily which she is to take together with her p.o. Diovan. She is follow-up with her primary care doctor within 1 week Patient seen and examined prior to discharge. She had no complaints and appeared quite anxious. Review of symptoms otherwise negative. Labs and vitals reviewed. Home medication reviewed and reconciled. O/E: Vital Signs Temp Pulse Resp BP Pulse Ox 97.6 F L 111 H 17 150/115 H 98 07/01/20 14:31 07/01/20 14:31 07/01/20 14:31 07/01/20 14:31 07/01/20 14:31 [] General: Alert, Cooperative, No apparent distress, anxious HEENT: Atraumatic, Normocephalic Oral: No Gingival or Mucosal Lesions/ Ulcerations Neck: Supple, No Nodes, Trachea Midline Lungs: Normal air movement, No rhonchi, No wheeze, No rales Cardiovascular: Normal S1, Normal S2, No murmurs, Tachycardic Abdomen: Bowel Sounds Present, Soft, Non Tender Extremities: No clubbing, No cyanosis, No edema Skin: No breakdown Musculoskeletal: No Muscle Wasting Lymphatic: No Cervical, Supraclavicular, or Inguinal Adenopathy Neurological: Cranial nerves II-XII grossly intact, Neuro grossly intact Psych/Mental Status: Anxious, with pressured speech Plan is for discharge home today Patient Problems: Active and Suspected Problems Benadryl overdose (Acute) - Physical Exam Vitals/I&O's: Vital Signs Temp Pulse Resp BP Pulse Ox 97.6 F L 111 H 17 150/115 H 98 07/01/20 14:31 07/01/20 14:31 07/01/20 14:31 07/01/20 14:31 07/01/20 14:31 Oxygen Delivery Method Room Air Weight: 175 lb 4.28 oz Body Mass Index (BMI) 29.0 Intake and Output for Last 24 Hours 06/29/20 06/30/20 07/01/20 23:59 23:59 23:59 Intake Total 100 / 100 1480 / 1480 Output Total 800 / 800 350 / 350 Balance -700 / -700 1130 / 1130 Laboratory Results 06/30/20 20:31: WBC 10.5, RBC 4.42, Hgb 15.6 H, Hct 48.2 H, MCV 109.0 H, MCH 35.3 H, MCHC 32.4, RDW Std Deviation 51.4 H, RDW Coeff of Jean-Paul 13.1, Plt Count 233, MPV 9.2, Immature Gran % (Auto) 0.300, Neut % (Auto) 25.0 L, Lymph % (Auto) 66.7 H, Victoria % (Auto) 6.6, Eos % (Auto) 1.1, Baso % (Auto) 0.3, Absolute Neuts (auto) 2.6, Absolute Lymphs (auto) 6.98 H, Nucleated RBC % 0.2, Reactive Lymphocytes 2+ 06/30/20 20:31: Sodium 138, Potassium 2.9 L, Chloride 101, Carbon Dioxide 17.0 L, Anion Gap 20 H, BUN 10, Creatinine 1.12 H, Estim Creat Clear Calc 58.76, Est GFR (MDRD) Af Amer 67, Est GFR (MDRD) Non-Af 56 L, BUN/Creatinine Ratio 8.9 L, Glucose 205 H, Calcium 9.1, Total Bilirubin 1.20 H, AST 170 H, ALT 95 H, Alkaline Phosphatase 124 H, Total Protein 8.2, Albumin 4.1, Globulin 4.1, Albumin/Globulin Ratio 1.0 06/30/20 20:31: Magnesium 2.8 H 06/30/20 20:31: Total Creatine Kinase 190 08/25/20 20:54: Ethyl Alcohol 5.0 06/30/20 20:54: Serum , Qual NEGATIVE 06/30/20 20:54: Salicylates < 1.7 L, Acetaminophen < 2.0 L 06/30/20 21:03: Urine Opiates Screen POSITIVE H, Urine Methadone Screen NEGATIVE, Ur Barbiturates Screen NEGATIVE, Ur Phencyclidine Scrn NEGATIVE, Ur Amphetamines Screen NEGATIVE, U Methamphetamin-MDMA NEGATIVE, U Benzodiazepines Scrn POSITIVE H, Urine Cocaine Screen NEGATIVE, U Cannabinoids Screen NEGATIVE, Ur Drug Screen Comment 06/30/20 21:03: Urine Color Yellow, Urine Clarity Clear, Urine pH 6.0, Ur Specific Zachary 1.020, Urine Protein 30 H, Urine Glucose (UA) Normal, Urine Ketones 15 H, Urine Occult Blood 10 H, Urine Nitrite Negative, Urine Bilirubin Negative, Urine Urobilinogen 1 H, Ur Leukocyte Esterase Negative, Urine RBC 0 SEEN, Urine WBC 0 SEEN, Ur Squamous Epith Cells 0 SEEN, Urine Bacteria 0 SEEN, Hyaline Casts 0-5 SEEN, Urine Mucus 1+ 07/01/20 00:01: Specimen Type ART, Sample Site R Radial, pH 7.43, Bicarbonate Actual 23.7, Total CO2 25, Base Excess -1, O2 Saturation 97, ABG pCO2 35.7, ABG pO2 90, Jean Paul Test Positive, O2 Delivery Device Room Air 07/01/20 04:00: Hemoglobin A1c 5.0 07/01/20 04:30: WBC 5.7, RBC 4.23, Hgb 14.7, Hct 44.0, MCV 104.0 H, MCH 34.8 H, MCHC 33.4, RDW Std Deviation 50.3 H, RDW Coeff of Jean-Paul 13.3, Plt Count 195, MPV 10.0, Immature Gran % (Auto) 0.400, Neut % (Auto) 68.1, Lymph % (Auto) 23.2, Victoria % (Auto) 7.4, Eos % (Auto) 0.5, Baso % (Auto) 0.4, Absolute Neuts (auto) 3.9, Absolute Lymphs (auto) 1.32, Nucleated RBC % 0 07/01/20 04:30: Phosphorus 1.8 L, Magnesium 2.7 H 07/01/20 04:30: Sodium 138, Potassium 4.6, Chloride 109 H, Carbon Dioxide 23.0, Anion Gap 6, BUN 8, Creatinine 0.62, Estim Creat Clear Calc 102.02, Est GFR (MDRD) Af Amer 132, Est GFR (MDRD) Non-Af 109, BUN/Creatinine Ratio 12.8, Glucose 112 H, Calcium 8.7 07/01/20 04:30: TSH 1.76 Current Medications Acetaminophen (Tylenol) 650 mg PO Q6H PRN PRN PRN Reason: Pain Score 1-10/Temp > 100.7 F Al Hydroxide/Mg Hydroxide (Mylanta Ii) 30 ml PO Q6H PRN PRN PRN Reason: Gastric Burning Albuterol Sulfate (Ventolin Aerosols) 2.5 mg INHALATION Q2H PRN PRN PRN Reason: SOB/Wheezing Carvedilol (Coreg) 6.25 mg PO BID [facility] Last Admin: 07/01/20 10:27 Dose: 6.25 mg Documented by: Cyclobenzaprine HCl (Flexeril) 10 mg PO TID PRN PRN PRN Reason: muscle spasm Enoxaparin Sodium (Lovenox) 40 mg SC DAILY [facility] Last Admin: 07/01/20 10:28 Dose: 40 mg Documented by: Famotidine (Pepcid) 20 mg PO BID [facility] Last Admin: 07/01/20 10:27 Dose: 20 mg Documented by: Gabapentin (Neurontin) 400 mg PO TID [facility] Last Admin: 07/01/20 13:12 Dose: 400 mg Documented by: Hydralazine HCl (Apresoline Iv) 10 mg IV Q4H PRN PRN PRN Reason: SBP more than 180 mmHg Hydrochlorothiazide (Hctz) 12.5 mg PO DAILY [facility] Last Admin: 07/01/20 13:11 Dose: 12.5 mg Documented by: Sodium Chloride () 250 mls @ 15 mls/hr IV .[id number] PRN PRN Reason: Additional IVPB Infusion Nitroglycerin (Nitrostat) 0.4 mg SUBLINGUAL Q5M PRN PRN Reason: CARDIAC/CHEST PAIN Ondansetron HCl (Zofran) 4 mg IV Q8H PRN PRN PRN Reason: NAUSEA/VOMITING Prochlorperazine Edisylate (Compazine Iv) 5 mg IV Q4H PRN PRN PRN Reason: Breakthrough Nausea/Vomiting Senna/Docusate Sodium (Senokot-S, Eloise-Colace) 2 tablet PO BID PRN PRN PRN Reason: Constipation Sodium Chloride () 10 - 40 ml IV UD PRN PRN Reason: SALINE FLUSH Valsartan (Diovan) 160 mg PO DAILY [facility] Last Admin: 07/01/20 13:11 Dose: 160 mg Documented by: Discharge Diet: Low fat/ Low Cholesterol Discharge Activity: Return to Normal Activity Weight Bearing Status: Weight bearing as tolerated Call your doctor if you observe: Fever of 101 or Higher, Shortness of breath, Dizziness, Fainting spells, Swelling in the ankles Home Medications: Medications to take at Discharge Humira 1 injectable SQ QWEEK 02/29/16 cycloBENZAPRine HCl [Flexeril] 1 tab PO TID 02/29/16 Fentanyl 1 ea TD 06/30/20 Gabapentin [Neurontin] 400 mg PO TID 06/30/20 Valsartan/Hydrochlorothiazide [Diovan Hct 160-12.5 mg Tab] 1 tab PO DAILY 06/30/20 Zolpidem Tartrate [Ambien] 10 mg PO QHS 06/30/20 Carvedilol [Coreg (Beta Gogo)] 6.25 mg PO BID #60 tab 07/01/20 Following Prescriptions Were Given to Patient: Carvedilol [Coreg (Beta Gogo)] 6.25 mg PO BID #60 tab Transmission Status: Pending to [facility] Primary Care Physician: Pino Alston Chi, MD [Primary Care Provider] - Please follow up with your Primary Care Physician in: 1 week Patient Instructions: ED Confusion Disposition: Home Minutes spent on discharge:: 40 Patient Condition:: Stable Medical Necessity - Tobacco Use Smoking Status: Current some day smoker Tobacco Use: Cigarettes Meaningful Use Info Meaningful Use Diagnoses (Choose all that apply): None applicable Inpatient E&M: 21927 Disch Hosp
--- NOTE | 2020-07-01 16:24 | CASEMGMT ---
Social Work Note Pt is being discharged home. SW met with pt before pt left for the day. SW asked pt if her psychiatrist [place] was through [facility] and pt states her psychiatrist is through [facility]. SW asked pt to sign release of information form for [facility] so this worker could fax discharge summary for continuity of care. Pt states I would prefer just to take the information myself. Pt confirms that she has numbers for [facility] and able to reach out if needed. Pt states she has coping skills and is feeling good. Maeve Hale MEDICAL OPERATIONS SUPERVISOR, BORING MILL SET UP OPERATOR
--- NOTE | 2020-07-08 08:49 | CASEMGMT ---
Social Work Discharge follow up Phone call: Discharge Date: 07/01/20 Call Date: 07/08/20 Callt Time: 0850 Reason for Follow up: pt admitted with Benadryl overdose Summary of Call: SW spoke with pt on phone and pt states she has been doing great since discharge from the hospital as she has had no issues or no seizures. Pt stating she has followup appointments scheduled with PCP and with her administrative medical director. Interventions: Pt denies any problems at home with physical or mental health. Denies any assistance at this time. No further needs requested or indicated. LORETO Nichole
== END 2020-07-01 16:20 | disposition home or self-care (01) ==
LOC: ED 22:25 → ICU 07-01 00:44
PROVIDERS: Admitting Provider Internal Medicine; Emergency Provider Emergency Medicine; PCP Family Medicine Geriatric Medicine; Visit Provider Student in an Organized Health Care Education/Training Program
DX: T45.0X1A Poisoning by antiallergic and antiemetic drugs, accidental (unintentional), initial encounter (principal); G93.41 Metabolic encephalopathy; Y92.89 Other specified places as the place of occurrence of the external cause; G47.00 Insomnia, unspecified; R00.0 Tachycardia, unspecified; R45.1 Restlessness and agitation; E87.6 Hypokalemia; N28.9 Disorder of kidney and ureter, unspecified; M45.9 Ankylosing spondylitis of unspecified sites in spine; F32.9 Major depressive disorder, single episode, unspecified; I10 Essential (primary) hypertension; F17.210 Nicotine dependence, cigarettes, uncomplicated; F41.9 Anxiety disorder, unspecified; R73.9 Hyperglycemia, unspecified; G89.4 Chronic pain syndrome; Z79.899 Other long term (current) drug therapy
CPT/HCPCS: 36600; 70450; 71045; 80048; 80053; 80307; 80320; 80329; 81001; 82550; 82803; 83036; 83735; 84100; 84443; 84703; 85025; 93005; 96360; 96361; 96372; 99218; 99251; 99285; J7030; J7120; A4216; G0378; G0463; G0480

== ENCOUNTER → 2020-08-17 14:03 | Outpatient (CLI) | payer BC, SELFPAY ==
[2020-06-30 23:16] VITALS: BMI 29.0
[2020-08-17 16:07] LABS: Absolute Lymphocyte Count 2.46 X10^3/uL (0.83-4.51); Absolute Neutrophil Count 4.1 X10^3/uL (2.0-7.7); Basophil# 0.03 X10^3/uL; Basophil% 0.4 % (0-1); Eosinophil# 0.02 X10^3/uL; Eosinophils% 0.3 % (0-5); Hematocrit 46.2 % (37-47); Hemoglobin 15.7 g/dL (12.0-15.0); Lymphocyte # 2.46 X10^3/ul (4.0); Lymphocyte % 34.9 % (19-41); Mean Corpuscular Hgb 34.4 pg (27.0-32.0); Mean Corpuscular Volume 101.3 fL (81-99); Mean Platelet Vol. 9.8 fl (6.2-12.0); Monocyte# 0.41 X10^3/uL; Monocyte% 5.8 % (0-10); NRBC Flagged by Analyzer 0 % (0-5); Neutrophil # 4.11 X10^3/uL (2.7-7.7); Neutrophil % 58.3 % (47-70); Platelet Count 244 K/mm3 (150-450); RBC Distribution Width CV 11.9 % (11.6-14.6); RBC Distribution Width SD 44.5 fl (35.1-43.9); Red Blood Count 4.56 M/mm3 (4.2-5.4); White Blood Count 7.1 K/mm3 (4.4-11.0)
[2020-08-17 16:29] LABS: ALB/GLOB Ratio 1.1 RATIO (0.9-2.4); AST(SGOT) 137 U/L (15-37); Alanine Aminotransfer ALT/SGPT 83 U/L (13-56); Albumin, Serum 4.2 g/dL (3.2-5.0); Alkaline Phosphatase 101 U/L (45-117); Anion Gap 9 (5-15); BUN 8 mg/dL (7-18); BUN/Creat Ratio 9.4 RATIO (10-20); Calcium,Total 8.9 mg/dL (8.5-10.1); Chloride 99 mmol/L (98-107); Creatinine, Serum 0.85 mg/dL (0.55-1.02); EST Glomerular Filtration Rate 76 mL/min (>60); Est Glom Filt Rate - Afr Amer 92 mL/min (>60); Globulin 3.7 g/dL (2.2-4.2); Glucose 121 mg/dL (74-106); Magnesium 1.9 mg/dL (1.6-2.6); Potassium 3.4 mmol/L (3.5-5.1); Protein, Total 7.9 g/dL (6.4-8.2); Sodium Level 135 mmol/L (136-145); Thyroid Stim Hormone (TSH) 0.63 uIU/mL (0.358-3.74)
== END ==
PROVIDERS: PCP Family Medicine Geriatric Medicine; Visit Provider Family Medicine Geriatric Medicine
DX: I10 Essential (primary) hypertension (principal)
CPT/HCPCS: 36415; 80053; 83735; 84443; 85025

== ENCOUNTER → 2020-09-30 | Outpatient (CLI) | payer BC, SELFPAY ==
[2020-06-30 23:16] VITALS: BMI 29.0
== END | disposition home or self-care (01) ==
LOC: LABSPEC 17:27
PROVIDERS: PCP Family Medicine Geriatric Medicine; Referring Provider Family Medicine Geriatric Medicine; Visit Provider Family Medicine Geriatric Medicine
DX: R06.89 Other abnormalities of breathing (principal)
CPT/HCPCS: 87633; 87635; C9803; U0003

== ENCOUNTER → 2020-10-19 14:20 | Outpatient (CLI) | payer BC, SELFPAY ==
[2020-06-30 23:16] VITALS: BMI 29.0
[2020-10-19 17:30] LABS: Absolute Lymphocyte Count 1.53 X10^3/uL (0.83-4.51); Absolute Neutrophil Count 2.5 X10^3/uL (2.0-7.7); Basophil# 0.01 X10^3/uL; Basophil% 0.2 % (0-1); Eosinophil# 0.01 X10^3/uL; Eosinophils% 0.2 % (0-5); Hematocrit 46.9 % (37-47); Lymphocyte # 1.53 X10^3/ul (4.0); Lymphocyte % 34.5 % (19-41); Mean Corp Hgb Conc 34.1 g/dL (32-36); Mean Corpuscular Hgb 34.9 pg (27.0-32.0); Mean Corpuscular Volume 102.2 fL (81-99); Monocyte# 0.37 X10^3/uL; Monocyte% 8.4 % (0-10); NRBC Flagged by Analyzer 0 % (0-5); Neutrophil % 56.5 % (47-70); Platelet Count 237 K/mm3 (150-450); RBC Distribution Width CV 12.1 % (11.6-14.6); RBC Distribution Width SD 45.2 fl (35.1-43.9); Red Blood Count 4.59 M/mm3 (4.2-5.4); White Blood Count 4.4 K/mm3 (4.4-11.0)
--- NOTE | 2020-10-19 17:37 | US_ITS ---
RUQ PAIN RUQ PAIN EXAMINATION: US Abdomen Limited (quadrant) TECHNIQUE: Webb scale and color doppler imaging was performed of the right upper quadrant. COMPARISON: None FINDINGS: LIVER: There is moderate increased echogenicity. Compatible with steatosis No focal hepatic lesion. No intrahepatic biliary ductal dilatation. There is no free fluid. GALLBLADDER AND BILIARY TREE: No shadowing gallstone, pericholecystic fluid or gallbladder wall thickening is demonstrated. Gallbladder appears mildly distended The proximal common bile duct measures 3.5 mm, which is within normal limits for the patient's age. Songraphic Stein's sign: Negative PANCREAS: No focal abnormality is demonstrated in the pancreas. No pancreatic ductal dilatation. The right kidney measures 11.7 x 4.9 x 3.9 cm. The cortex is preserved. No hydronephrosis or nephrolithiasis US/Abdomen Limited IMPRESSION: Mildly distended gallbladder without evidence of stones or wall thickening. No ductal dilatation There is hepatic steatosis Negative sonographic Stein sign at 0658 Reported and signed by: Kari Sung DO Electronically Signed: Kari Sung DO at 6:58 EST Tel , Service support ,
[2020-10-19 17:46] LABS: ALB/GLOB Ratio 1.2 RATIO (0.9-2.4); AST(SGOT) 39 U/L (15-37); Alanine Aminotransfer ALT/SGPT 37 U/L (13-56); Albumin, Serum 4.2 g/dL (3.2-5.0); Alkaline Phosphatase 71 U/L (45-117); Anion Gap 7 (5-15); BUN 11 mg/dL (7-18); BUN/Creat Ratio 12.7 RATIO (10-20); Calcium,Total 9.5 mg/dL (8.5-10.1); Chloride 107 mmol/L (98-107); Creatinine, Serum 0.86 mg/dL (0.55-1.02); EST Glomerular Filtration Rate 75 mL/min (>60); Est Glom Filt Rate - Afr Amer 91 mL/min (>60); Globulin 3.6 g/dL (2.2-4.2); Glucose 112 mg/dL (74-106); Potassium 3.6 mmol/L (3.5-5.1); Protein, Total 7.8 g/dL (6.4-8.2); Sodium Level 139 mmol/L (136-145)
--- NOTE | 2020-10-19 18:06 | CT_ITS ---
STUDY: CT ABDOMEN AND PELVIS WITH CONTRAST REASON FOR EXAM: Female, 45 years old. Right upper quadrant pain for one month. Unable to keep food down. RADIATION DOSAGE (If Supplied By Facility): CTDIvol = ( 14.39 ) mGy, DLP = ( 758.73 ) mGycm TECHNIQUE: Transaxial images were obtained from the dome of the diaphragm to the symphysis pubis with oral contrast. Oral and amp; IV Gastrografin and amp; 100mL Isovue-300 was administered. Sagittal and coronal images were reconstructed. Individualized dose optimization techniques were used for this CT. COMPARISON: Abdominal ultrasound, 10/19/2020. CT of the abdomen and pelvis, 02/26/2012. FINDINGS: The visualized lung bases are unremarkable. The visualized portions of the heart are within normal limits. Fatty infiltration liver without focal mass. Normal gallbladder and extrahepatic biliary system. Normal spleen. Normal pancreas. Normal bilateral adrenal glands. Normal right kidney. Normal left kidney. Normal visualized stomach. Normal small intestine. Normal colon. The appendix is visualized and appears normal. Normal abdominal aorta. Normal inferior vena cava. Normal retroperitoneum. Normal urinary bladder. There is an IUD in satisfactory position within the endometrium. The uterus is otherwise unremarkable. Normal adnexa. There is no pelvic lymphadenopathy. No free air or free fluid is seen within the peritoneal cavity. Normal abdominal wall. Normal osseous structures. CT/Abdomen/Pelvis WITH Contrast IMPRESSION: 1. Fatty infiltration of the liver without mass. 2. IUD not seen on the previous CT. 3. Otherwise normal CT of the abdomen and pelvis. Electronically Signed: Shola Dao DO at 21:00 EST Tel [phone], Service support ,
== END ==
PROVIDERS: PCP Family Medicine Geriatric Medicine; Visit Provider Family Medicine Geriatric Medicine
DX: R10.9 Unspecified abdominal pain (principal); R19.7 Diarrhea, unspecified
CPT/HCPCS: 36415; 74177; 76705; 80053; 82274; 83630; 85025; 87086; 87177; 87209; 87493; 87506; Q9967

== ENCOUNTER → 2021-09-20 12:03 | Outpatient (CLI) | payer BC, SELFPAY ==
[2021-09-20 12:35] LABS: Absolute Lymphocyte Count 2.14 X10^3/uL (0.83-4.51); Absolute Neutrophil Count 4.7 X10^3/uL (2.0-7.7); Basophil# 0.02 X10^3/uL; Basophil% 0.3 % (0-1); Eosinophil# 0.04 X10^3/uL; Eosinophils% 0.5 % (0-5); Hematocrit 45.4 % (37-47); Hemoglobin 15.6 g/dL (12.0-15.0); Lymphocyte # 2.14 X10^3/ul (0.83-4.51); Lymphocyte % 28.4 % (19-41); Mean Corp Hgb Conc 34.4 g/dL (32-36); Mean Corpuscular Volume 93.2 fL (81-99); Mean Platelet Vol. 9.4 fl (6.2-12.0); NRBC Flagged by Analyzer 0 % (0-5); Neutrophil # 4.72 X10^3/uL (2.7-7.7); Neutrophil % 62.7 % (47-70); Platelet Count 372 K/mm3 (150-450); RBC Distribution Width CV 11.9 % (11.6-14.6); RBC Distribution Width SD 41.4 fl (35.1-43.9); Red Blood Count 4.87 M/mm3 (4.2-5.4); White Blood Count 7.5 K/mm3 (4.4-11.0)
[2021-09-20 12:48] LABS: Prothrombin Time (Protime)PT. 12.9 SECONDS (11.7-14.9)
[2021-09-20 12:49] LABS: Partial Thromboplast Time 38.8 Seconds (24.1-36.2)
[2021-09-20 13:12] LABS: ALB/GLOB Ratio 0.8 RATIO (0.9-2.4); AST(SGOT) 21 U/L (15-37); Alanine Aminotransfer ALT/SGPT 28 U/L (13-56); Albumin, Serum 3.7 g/dL (3.2-5.0); Alkaline Phosphatase 103 U/L (45-117); Anion Gap 6 (5-15); BUN 11 mg/dL (7-18); BUN/Creat Ratio 11.7 RATIO (10-20); Calcium,Total 9.1 mg/dL (8.5-10.1); Chloride 106 mmol/L (98-107); Creatinine, Serum 0.94 mg/dL (0.55-1.02); EST Glomerular Filtration Rate 68 mL/min (>60); Est Glom Filt Rate - Afr Amer 82 mL/min (>60); Ferritin 157 ng/mL (8-252); Globulin 4.5 g/dL (2.2-4.2); Glucose 99 mg/dL (74-106); Iron 123 ug/dL (50-170); Potassium 3.8 mmol/L (3.5-5.1); Protein, Total 8.2 g/dL (6.4-8.2); Sodium Level 137 mmol/L (136-145); T4 Free Direct 1.18 ng/dL (0.76-1.46); Thyroid Stim Hormone (TSH) 0.57 uIU/mL (0.358-3.74)
[2021-09-20 13:13] LABS: Vitamin B12 620 pg/mL (211-911); Vitamin D,25 Hydroxy 11.1 ng/mL
[2021-09-20 13:23] LABS: Hemoglobin A1c 5.1 % (3.8-5.6)
[2021-09-24 18:08] LABS: Vitamin B1, Thiamine 139.7 nmol/L (66.5-200.0)
[2021-09-25 08:02] LABS: H. PYLORI STOOL AG Negative (Negative)
== END ==
PROVIDERS: PCP Family Medicine Geriatric Medicine
DX: E61.1 Iron deficiency (principal); E53.8 Deficiency of other specified B group vitamins; E78.5 Hyperlipidemia, unspecified; E07.9 Disorder of thyroid, unspecified; R79.1 Abnormal coagulation profile; E55.9 Vitamin D deficiency, unspecified; E51.9 Thiamine deficiency, unspecified; K21.9 Gastro-esophageal reflux disease without esophagitis
CPT/HCPCS: 36415; 80053; 82306; 82607; 82728; 83036; 83540; 84425; 84439; 84443; 85025; 85610; 85730

== ENCOUNTER 2021-12-16 00:37 | Emergency (ER) | payer BC, SELFPAY ==
[2021-12-16 00:39] VITALS: BP 152/103; PULSE 86; RESP 18; TEMP 36.8; O2SAT 98; BMI 40.5
--- NOTE | 2021-12-16 01:02 | RAD_ITS ---
HISTORY: palpitations EXAMINATION/TECHNIQUE: XR Chest 1 View: COMPARISON: June 30, 2020 FINDINGS: LINES/DEVICES: None. LUNGS: No airspace consolidation. Unremarkable interstitium. No effusion. No pneumothorax. MEDIASTINUM: No cardiomegaly. MUSCULOSKELETAL: No acute osseous finding. RAD/Chest 1 View (Portable) IMPRESSION: No evidence of acute cardiopulmonary process. at 0226 Reported and signed by: Gonsalo Almanza MD Electronically Signed: Gonsalo Almanza MD at 2:24 EST ,
--- NOTE | 2021-12-16 01:02 | EKG12_ITS ---
Test Reason : CP Blood Pressure : / mmHG Vent. Rate : 081 BPM Atrial Rate : 081 BPM P-R Int : 162 ms QRS Dur : 090 ms QT Int : 400 ms P-R-T Axes : 039 040 038 degrees QTc Int : 464 ms Normal sinus rhythm Normal ECG Confirmed by CHULA DONALD, RENETTA ([id number]), telegraph editor YARA HAIDER ([id number]) on 12/17/2021 10:43:11 AM Referred By: DR SCOTT Confirmed By:RENETTA QUIROS MD
--- NOTE | 2021-12-16 01:07 | EX.ED.DYSGE1 ---
HPI History of Present Illness Chief Complaint: Palpitations Informant: patient Narrative Narrative: 46-year-old female presents the emergency room with a chief complaint of tachycardia. Patient states since about 9:00 this morning she has felt her heart racing and a discomfort in her chest. She states that she takes carvedilol as she has has a history of this. Patient also notes that she is taking Celexa and Zyprexa. She states that she will occasionally feel skipped beats. No cough shortness of breath. She states that the inside of her chest feels inflamed. There is no difference in discomfort with positioning. No fevers or recent URIs. She denies having had a echocardiogram in the past. She states that she wore a Holter many years ago. [facility] Medical History Tachycardia Home Medications zolpidem 10 mg PO QHS 06/30/20 [History Last Taken Unknown] carvedilol 6.25 mg PO BID #60 tab 07/01/20 [Rx Last Taken Unknown] bupropion HCl mg PO 12/16/21 [History Last Taken Unknown] citalopram 20 mg PO DAILY 12/16/21 [History Last Taken Unknown] Allergy/AdvReac Type Severity Reaction Status Date / Time No Known Allergies Allergy Verified 06/30/20 20:25 Social History (Updated 12/16/21 @ 01:[address] Harry Kidd DO) current gender identity: female Smoking Status: Current some day smoker tobacco type: cigarettes ROS ROS ED Constitutional Constitutional ED: Denies chills or weight loss Eyes Eyes: Denies change in vision or diplopia ENT ENT ED: Denies ear pain, rhinorrhea or sore throat Cardiovascular Cardiovascular: Reports chest pain, palpitations and racing heartbeat; Denies orthopnea Respiratory/Chest Respiratory/Chest: Denies cough, dyspnea or orthopnea Gastrointestinal Gastrointestinal: Denies abdominal pain, diarrhea, nausea or vomiting Genitourinary Genitourinary ED: Denies dysuria, hematuria or urinary frequency Musculoskeletal Musculoskeletal: Denies arthralgias or myalgias Integumentary Denies abscess or rash Neurologic Neurologic: Denies headache(s) or weakness Psychiatric Psychiatric: Denies anxiety, depression, suicidal ideation or suicidal thoughts Endocrine Endocrinology: Denies polydipsia, polyphagia or polyuria Allergic/Immunologic Allergic/Immunologic ED: Denies mouth swelling, tongue swelling or urticaria EXAM Physical Exam Const Vital Signs: 12/16/21 00:39 12/16/21 00:42 12/16/21 01:18 Temperature 98.2 F Temperature Source Oral Pulse Rate 86 79 Respiratory Rate 18 Respiratory Effort Normal Respiratory Pattern Normal Blood Pressure 152/103 H 123/86 H Blood Pressure Mean 119 98 Pulse Ox 98 Oxygen Delivery Method Room Air Positive well nourished, well developed and obese General Appearance ED: well developed Nutritional Appearance: obese HEENT Reports normocephalic, head/scalp atraumatic, TM's clear and moist mucous membranes Negative for trauma Tympanic Membrane ED: Yes TM's clear Eyes PERRL and EOMs intact bilaterally Neck no lymphadenopathy, supple and no JVD Resp normal respiratory effort and clear to auscultation bilaterally Cardio regular rate, regular rhythm and no murmurs GI normal to inspection, nondistended, normoactive bowel sounds and non-tender Palpation: soft Back/Spine no CVA tenderness and normal ROM Extremity normal to inspection General Extremety ED: Negative for edema General Extremity: Negative for edema Neuro oriented x3 and CN's II-XII intact bilaterally Sensorium / Orientation: alert Motor Exam: strength 5/5 throughout Psych Mood & Affect: anxious; Negative for depressed or tearful Skin no rashes or lesions noted and no wounds MDM MDM MDM Narrative Medical decision making narrative: Basic blood work was negative. Troponin is at 6. White count 11.4 with a hemoglobin of 16 platelets are 381. Liver and kidneys seem to be functioning well. My interpretation of the chest x-ray is no acute process. She has had no events on the monitor. Patient will be discharged home to follow-up with her doctor Lab Data Attestation: I reviewed the patient's lab results. Labs: Laboratory Results - last 24 hr 12/16/21 12/16/21 00:45 00:45 WBC 11.4 H RBC 4.98 Hgb 16.0 H Hct 45.9 MCV 92.2 MCH 32.1 H MCHC 34.9 RDW Std Deviation 41.1 RDW Coeff of Jean-Paul 12.3 Plt Count 381 MPV 9.6 Immature Gran % (Auto) 0.400 Neut % (Auto) 65.8 Lymph % (Auto) 25.4 [place] % (Auto) 7.7 Eos % (Auto) 0.4 Baso % (Auto) 0.3 Absolute Neuts (auto) 7.5 Absolute Lymphs (auto) 2.89 Nucleated RBC % 0 Sodium 135 L Potassium 3.6 Chloride 105 Carbon Dioxide 22.0 Anion Gap 8 BUN 7 Creatinine 0.94 Estim Creat Clear Calc 66.58 Est GFR (MDRD) Af Amer 82 Est GFR (MDRD) Non-Af 67 BUN/Creatinine Ratio 7.4 L Glucose 114 H Calcium 9.0 Magnesium Cancelled Total Bilirubin 0.90 AST 17 ALT 26 Alkaline Phosphatase 101 Troponin I High Sens 6 Total Protein 8.1 Albumin 4.2 Globulin 3.9 Albumin/Globulin Ratio 1.1 Radiography Diagnostic Testing: Clinical Impression(s) from Imaging Studies Chest X-Ray 12/16/21 01:02 IMPRESSION: No evidence of acute cardiopulmonary process. at 0226 Reported and signed by: Gonsalo Almanza MD Electronically Signed: Gonsalo Almanza MD at 2:24 EST Reading Location ID and State: [facility] [place] Tel , Service support , EKG Initial EKG: Attestation: I personally reviewed and interpreted this EKG as follows: Comments: Normal sinus rhythm with a ventricular rate of 81 bpm Discharge Plan Triage Chief Complaint: Palpitations ED Provider: Harry Kidd Dx/Rx/DC Orders Clinical Impression: Heart palpitations Instructions: ED Palpitations Prescriptions: No Action zolpidem 10 MG tablet 10 mg PO QHS RF: 0 carvedilol 6.25 MG tablet 6.25 mg PO BID Qty: 60 RF: 0 citalopram 20 mg tablet 20 mg PO DAILY RF: 0 bupropion HCl 150 mg tablet extended release 24 hr PO RF: 0 Primary Care Provider: Pino Alston Chi Referrals: Pino Alston Chi, MD [Primary Care Provider] - 1-2 Weeks Disposition Disposition: Home, Self Care
[2021-12-16 01:09] LABS: Absolute Lymphocyte Count 2.89 X10^3/uL (0.83-4.51); Absolute Neutrophil Count 7.5 X10^3/uL (2.0-7.7); Basophil# 0.03 X10^3/uL; Basophil% 0.3 % (0-1); Eosinophil# 0.04 X10^3/uL; Eosinophils% 0.4 % (0-5); Hematocrit 45.9 % (37-47); Lymphocyte # 2.89 X10^3/ul (0.83-4.51); Lymphocyte % 25.4 % (19-41); Mean Corp Hgb Conc 34.9 g/dL (32-36); Mean Corpuscular Hgb 32.1 pg (27.0-32.0); Mean Corpuscular Volume 92.2 fL (81-99); Mean Platelet Vol. 9.6 fl (6.2-12.0); Monocyte# 0.88 X10^3/uL; Monocyte% 7.7 % (0-10); NRBC Flagged by Analyzer 0 % (0-5); Neutrophil # 7.49 X10^3/uL (2.7-7.7); Neutrophil % 65.8 % (47-70); Platelet Count 381 K/mm3 (150-450); RBC Distribution Width CV 12.3 % (11.6-14.6); RBC Distribution Width SD 41.1 fl (35.1-43.9); Red Blood Count 4.98 M/mm3 (4.2-5.4); White Blood Count 11.4 K/mm3 (4.4-11.0)
[2021-12-16 01:18] VITALS: BP 123/86; PULSE 79
[2021-12-16 01:51] LABS: ALB/GLOB Ratio 1.1 RATIO (0.9-2.4); AST(SGOT) 17 U/L (15-37); Alanine Aminotransfer ALT/SGPT 26 U/L (13-56); Albumin, Serum 4.2 g/dL (3.2-5.0); Alkaline Phosphatase 101 U/L (45-117); Anion Gap 8 (5-15); BUN 7 mg/dL (7-18); BUN/Creat Ratio 7.4 RATIO (10-20); Chloride 105 mmol/L (98-107); Creatinine, Serum 0.94 mg/dL (0.55-1.02); EST Glomerular Filtration Rate 67 mL/min (>60); Est Glom Filt Rate - Afr Amer 82 mL/min (>60); Estimated Creatinine Clearance 66.58 ml/min; Globulin 3.9 g/dL (2.2-4.2); Glucose 114 mg/dL (74-106); Potassium 3.6 mmol/L (3.5-5.1); Protein, Total 8.1 g/dL (6.4-8.2); Sodium Level 135 mmol/L (136-145); Troponin-I HS 6 pg/mL (3.0-54.0)
[2021-12-16 03:00] VITALS: BP 141/96; PULSE 84; RESP 20; O2SAT 96
[2021-12-17 14:32] LABS: MG Sendout 2.2 mg/dL (1.6-2.3)
== END 2021-12-16 03:01 | disposition home or self-care (01) ==
PROVIDERS: Emergency Provider Emergency Medicine; PCP Family Medicine Geriatric Medicine; Visit Provider Emergency Medicine
DX: R00.2 Palpitations (principal); Z68.42 Body mass index [BMI] 45.0-49.9, adult; F17.210 Nicotine dependence, cigarettes, uncomplicated; E66.9 Obesity, unspecified
CPT/HCPCS: 71045; 80053; 83735; 84484; 85025; 93005; 99284; A4216

== ENCOUNTER 2022-01-10 15:13 | Outpatient (CLI) | payer BC, SELFPAY ==
[2022-01-10 17:22] LABS: Absolute Lymphocyte Count 3.03 X10^3/uL (0.83-4.51); Absolute Neutrophil Count 7.6 X10^3/uL (2.0-7.7); Basophil# 0.03 X10^3/uL; Basophil% 0.3 % (0-1); Eosinophil# 0.05 X10^3/uL; Eosinophils% 0.4 % (0-5); Hematocrit 46.7 % (37-47); Hemoglobin 15.9 g/dL (12.0-15.0); Lymphocyte # 3.03 X10^3/ul (0.83-4.51); Lymphocyte % 26.5 % (19-41); Mean Corpuscular Hgb 31.2 pg (27.0-32.0); Mean Corpuscular Volume 91.7 fL (81-99); Mean Platelet Vol. 9.7 fl (6.2-12.0); Monocyte# 0.74 X10^3/uL; Monocyte% 6.5 % (0-10); NRBC Flagged by Analyzer 0 % (0-5); Neutrophil # 7.55 X10^3/uL (2.7-7.7); Neutrophil % 66.1 % (47-70); Platelet Count 427 K/mm3 (150-450); RBC Distribution Width CV 12.1 % (11.6-14.6); RBC Distribution Width SD 41.1 fl (35.1-43.9); Red Blood Count 5.09 M/mm3 (4.2-5.4); White Blood Count 11.4 K/mm3 (4.4-11.0)
[2022-01-10 17:47] LABS: ALB/GLOB Ratio 0.9 RATIO (0.9-2.4); AST(SGOT) 15 U/L (15-37); Alanine Aminotransfer ALT/SGPT 32 U/L (13-56); Albumin, Serum 4.1 g/dL (3.2-5.0); Alkaline Phosphatase 108 U/L (45-117); Anion Gap 8 (5-15); BUN 8 mg/dL (7-18); BUN/Creat Ratio 9.2 RATIO (10-20); Calcium,Total 9.3 mg/dL (8.5-10.1); Chloride 105 mmol/L (98-107); Creatinine, Serum 0.87 mg/dL (0.55-1.02); EST Glomerular Filtration Rate 74 mL/min (>60); Est Glom Filt Rate - Afr Amer 90 mL/min (>60); Globulin 4.4 g/dL (2.2-4.2); Glucose 102 mg/dL (74-106); Protein, Total 8.5 g/dL (6.4-8.2); Sodium Level 136 mmol/L (136-145); Thyroid Stim Hormone (TSH) 0.74 uIU/mL (0.358-3.74)
== END 2022-01-10 23:59 | disposition home or self-care (01) ==
LOC: POLAB3 15:14
PROVIDERS: PCP Family Medicine Geriatric Medicine; Visit Provider Family Medicine Geriatric Medicine
DX: I10 Essential (primary) hypertension (principal)
CPT/HCPCS: 36415; 80053; 84443; 85025

== ENCOUNTER 2022-08-13 09:06 | Inpatient (IN) | payer BC, SELFPAY ==
[2022-08-13] VITALS (19 sets, daily range): BP systolic 109–167; BP diastolic 83–115; PULSE 93–136; RESP 14–25; TEMP 36.2–38.1; O2SAT 89–97; BMI 37.0; BMI 38.2
[2022-08-13 09:48] LABS: Absolute Neutrophil Count 12.5 X10^3/uL (2.0-7.7); Basophil# 0.03 X10^3/uL; Basophil% 0.2 % (0-1); Eosinophil# 0.01 X10^3/uL; Eosinophils% 0.1 % (0-5); Hematocrit 49.5 % (37-47); Hemoglobin 17.1 g/dL (12.0-15.0); Mean Corp Hgb Conc 34.5 g/dL (32-36); Mean Corpuscular Hgb 32.3 pg (27.0-32.0); Mean Corpuscular Volume 93.6 fL (81-99); Mean Platelet Vol. 9.7 fl (6.2-12.0); Monocyte# 0.87 X10^3/uL; Monocyte% 5.8 % (0-10); NRBC Flagged by Analyzer 0 % (0-5); Neutrophil # 12.54 X10^3/uL (2.7-7.7); Neutrophil % 83.6 % (47-70); Platelet Count 334 K/mm3 (150-450); RBC Distribution Width CV 12.1 % (11.6-14.6); RBC Distribution Width SD 41.9 fl (35.1-43.9); Red Blood Count 5.29 M/mm3 (4.2-5.4)
[2022-08-13 10:02] LABS: Anion Gap 8 (5-15); BUN 6 mg/dL (7-18); BUN/Creat Ratio 6.5 RATIO (10-20); Calcium,Total 9.4 mg/dL (8.5-10.1); Chloride 105 mmol/L (98-107); Creatinine, Serum 0.93 mg/dL (0.55-1.02); EST Glomerular Filtration Rate 68 mL/min (>60); Est Glom Filt Rate - Afr Amer 83 mL/min (>60); Estimated Creatinine Clearance 66.57 ml/min; Glucose 114 mg/dL (74-106); Lipase 71 U/L (73-393); Potassium 3.6 mmol/L (3.5-5.1); Sodium Level 137 mmol/L (136-145)
[2022-08-13] MEDS: Ketorolac 15 MG/ML Vial IV (10:05)
[2022-08-13] MEDS: Ondansetron 4 MG/2 ML Vial IV (10:05)
[2022-08-13] MEDS: Morphine 4 MG/ML Syringe IV ×4 (10:05→16:51)
[2022-08-13] MEDS: 0.9% Normal Saline 1,000 ML 250 ML IV ×2 (10:05→15:04)
[2022-08-13 10:06] LABS: AST(SGOT) 9 U/L (15-37); Alanine Aminotransfer ALT/SGPT 24 U/L (13-56); Albumin, Serum 3.9 g/dL (3.2-5.0); Alkaline Phosphatase 105 U/L (45-117); Bilirubin, Direct 0.35 mg/dL (0.00-0.30); Globulin 4.3 g/dL (2.2-4.2); Protein, Total 8.2 g/dL (6.4-8.2)
--- NOTE | 2022-08-13 10:17 | EDS_ITS ---
HPI History of Present Illness Chief Complaint: Abd Pain Detail of Chief Complaint: Initially right lower quadrant pain and right flank pain Informant: patient Onset/Context/Timing Onset: Days Context: Sudden Onset Timing: Continuous Quality: Pain Location: Right flank Current Severity: Mild Maximum Severity: Severe Worsened by: Nothing Relieved by: Nothing Associated Symptoms Associated Symptoms: Nausea with frequency and urgency Narrative Narrative: Patient is a 47-year-old woman who presents with right-sided lower quadrant abdominal pain that is now present in the right flank area. Patient denies fever, chills night sweats. Patient denies history of renal ureterolithiasis. Patient denies intolerance to greasy or fried foods. She states she had an ultrasound several years ago which was unremarkable. She denies cardiac respiratory symptoms. Prior similar symptoms: No Recent Illness/Hospitalization: No [facility] Medical History Benadryl overdose Tachycardia Home Medications zolpidem 10 mg tablet 10 mg PO QHS 06/30/20 [History Last Taken Unknown] carvedilol 6.25 mg tablet 6.25 mg PO BID #60 tabs 07/01/20 [Rx Last Taken Unknown] citalopram 20 mg tablet 20 mg PO DAILY 12/16/21 [History Last Taken Unknown] olanzapine 10 mg tablet 10 mg PO DAILY 08/13/22 [History Last Taken Unknown] Allergy/AdvReac Type Severity Reaction Status Date / Time No Known Allergies Allergy Verified 08/13/22 09:07 Social History (Updated 08/13/22 @ 10:[address] Tyler Plunkett MD) household members: none Smoking Status: Current some day smoker tobacco type: cigarettes alcohol intake: current ROS ROS ED Constitutional Constitutional ED: Denies chills, fever(s), subjective, sweats or weight loss Eyes Eyes: Denies blurry vision, change in vision or diplopia ENT ENT ED: Denies ear pain, rhinorrhea or sore throat Cardiovascular Cardiovascular: Denies chest pain, orthopnea, palpitations, paroxysmal nocturnal dyspnea or racing heartbeat Respiratory/Chest Respiratory/Chest: Denies cough, dyspnea, dyspnea on exertion, orthopnea, paroxysmal nocturnal dyspnea or sputum Gastrointestinal Gastrointestinal: Reports abdominal pain, diarrhea, nausea and other Details: Patient states the diarrhea started this morning. Has had significant nausea without vomiting. ; Denies constipation, melena or vomiting Genitourinary Genitourinary ED: Reports urinary frequency and other Details: Patient also reports urgency and going small amounts. She does have an IUD in place. ; Denies dysuria or hematuria Musculoskeletal Musculoskeletal: Reports back pain; Denies arthralgias, myalgias or neck pain Integumentary Denies abscess, Abrasions or rash Neurologic Neurologic: Denies headache(s) or paresthesias Endocrine Endocrinology: Denies cold intolerance or heat intolerance Hematologic/Lymphatic Hematologic/Lymphatic: Reports systems reviewed and no addt'l complaints, except as documented, as per HPI and none EXAM Physical Exam Const Vital Signs: 08/13/22 09:07 08/13/22 10:07 08/13/22 11:53 Temperature 97.1 F L Temperature Source Temporal Pulse Rate 114 H 100 127 H Respiratory Rate 22 H 22 H Blood Pressure 163/100 H Blood Pressure Mean 121 Pulse Ox 95 Oxygen Delivery Method Room Air 08/13/22 12:02 08/13/22 14:00 08/13/22 15:00 Temperature Temperature Source Pulse Rate 132 H 129 H Respiratory Rate 20 H 20 H 20 H Blood Pressure 145/109 H 132/105 H Blood Pressure Mean 121 114 Pulse Ox 92 92 Oxygen Delivery Method Room Air Room Air Positive well nourished, well developed and obese Constitutional Narrative: Patient appears in discomfort. She holds her right side when she walked from the restroom. She denies anything makes the pain better or worse. She denies history of ovarian cyst. She denies symptoms of . General Appearance ED: well developed; Negative for cyanotic, diaphoretic, NAD or pallor Nutritional Appearance: obese HEENT Reports dry mucous membranes HEENT Narrative: Head is atraumatic normocephalic. Ears normal. Nares patent. Uvula midline. No deviation of tongue with protrusion. There is no erythema or exudate the posterior pharynx. Mouth ED: Yes dry mucous membranes Mouth: dry mucous membranes Eyes PERRL and EOMs intact bilaterally General Eye ED: Negative for pale conjunctiva or scleral icterus Neck no lymphadenopathy, supple and no JVD Chest Wall inspection of chest normal and palpation of chest normal Resp normal respiratory effort and clear to auscultation bilaterally Cardio regular rhythm, S1 normal heart sound, S2 normal heart sound and no murmurs Rate: tachycardic GI no masses; Negative for normal to inspection, nondistended, normoactive bowel sounds, non-tender or hepatosplenomegaly GI Narrative: There is slight tympany to percussion. Auscultation: hypoactive bowel sounds Palpation: soft and tender RUQ and Stein's sign Back/Spine no CVA tenderness General Back: CVA tenderness Cervical Spine: Negative for cervical spine tenderness Thoracic Spine / Upper Back: Negative for thoracic spinal tenderness Lumbar Spine / Lower Back: Negative for lumbar spinal tenderness Extremity normal to inspection General Extremety ED: Negative for edema, tenderness or other findings General Extremity: Negative for edema or other findings Neuro oriented x3, CN's II-XII intact bilaterally and no sensory deficits noted Sensorium / Orientation: alert Motor Exam: strength 5/5 throughout Psych mental status grossly normal Skin no rashes or lesions noted, no wounds and skin turgor normal General Skin Exam: Negative for elasticity normal, jaundice or pallor MDM MDM MDM Narrative Medical decision making narrative: Patient presents with right lower quadrant pain initially. With no position of comfort suspect ureterolithiasis. However since she has significant pain in the right upper quadrant with clinical Stein sign need to entertain possibility of acute cholecystitis. Appropriate labs were obtained. After laboratory results are available for review we will determine if patient needs an ultrasound versus a CAT scan. Lab Data Attestation: I reviewed the patient's lab results. Lab results narrative: White count is elevated with shift. There is no bandemia. Basic metabolic panel is unremarkable. Lipase is unremarkable. Total bili is elevated 1.9. ALT and AST are normal. Alk phos is normal. Awaiting urinalysis results to determine if patient needs an ultrasound right upper quadrant versus a CAT scan of the abdomen. UA is not consistent with infection or stone. Since patient has elevated total bili right upper quadrant pain with a clinical Stein sign ultrasound was ordered. Patient did require additional dose of morphine. Labs: Laboratory Results - last 24 hr 08/13/22 08/13/22 08/13/22 09:35 09:35 09:35 WBC 15.0 H RBC 5.29 Hgb 17.1 H Hct 49.5 H MCV 93.6 MCH 32.3 H MCHC 34.5 RDW Std Deviation 41.9 RDW Coeff of Jean-Paul 12.1 Plt Count 334 MPV 9.7 Immature Gran % (Auto) 0.300 Neut % (Auto) 83.6 H Lymph % (Auto) 10.0 L [place] % (Auto) 5.8 Eos % (Auto) 0.1 Baso % (Auto) 0.2 Absolute Neuts (auto) 12.5 H Absolute Lymphs (auto) 1.50 Nucleated RBC % 0 Sodium 137 Potassium 3.6 Chloride 105 Carbon Dioxide 24.0 Anion Gap 8 BUN 6 L Creatinine 0.93 Estim Creat Clear Calc 66.57 Est GFR (MDRD) Af Amer 83 Est GFR (MDRD) Non-Af 68 BUN/Creatinine Ratio 6.5 L Glucose 114 H Calcium 9.4 Total Bilirubin 1.90 H Direct Bilirubin 0.35 H AST 9 L ALT 24 Alkaline Phosphatase 105 Total Protein 8.2 Albumin 3.9 Globulin 4.3 H Lipase 71 L Urine Color Urine Clarity Urine pH Ur Specific [place] Urine Protein Urine Glucose (UA) Urine Ketones Urine Occult Blood Urine Nitrite Urine Bilirubin Urine Urobilinogen Ur Leukocyte Esterase Urine RBC Urine WBC Ur Squamous Epith Cells Urine Bacteria Urine Mucus 08/13/22 12:15 WBC RBC Hgb Hct MCV MCH MCHC RDW Std Deviation RDW Coeff of Jean-Paul Plt Count MPV Immature Gran % (Auto) Neut % (Auto) Lymph % (Auto) [place] % (Auto) Eos % (Auto) Baso % (Auto) Absolute Neuts (auto) Absolute Lymphs (auto) Nucleated RBC % Sodium Potassium Chloride Carbon Dioxide Anion Gap BUN Creatinine Estim Creat Clear Calc Est GFR (MDRD) Af Amer Est GFR (MDRD) Non-Af BUN/Creatinine Ratio Glucose Calcium Total Bilirubin Direct Bilirubin AST ALT Alkaline Phosphatase Total Protein Albumin Globulin Lipase Urine Color Yellow Urine Clarity Sl. Cloudy Urine pH 6.0 Ur Specific [place] 1.020 Urine Protein 15 H Urine Glucose (UA) Normal Urine Ketones 150 A* Urine Occult Blood 10 H Urine Nitrite Negative Urine Bilirubin Negative Urine Urobilinogen Normal Ur Leukocyte Esterase 25 H Urine RBC 0-5 SEEN Urine WBC 0 SEEN Ur Squamous Epith Cells 0 SEEN Urine Bacteria 0 SEEN Urine Mucus 0 SEEN Radiography Diagnostic Testing: Clinical Impression(s) from Imaging Studies Gallbladder Ultrasound 08/13/22 13:44 IMPRESSION: Distended gallbladder. No wall thickening. Minimal sludge. Borderline distention of the common duct. Small amount of free fluid adjacent to the liver. Could consider inflammatory change within the abdomen. The gallbladder demonstrates minimal sludge. The sonographic Stein''s and was described as positive. However there is no definitive pericholecystic fluid. There is no visualized wall thickening. There is minimal sludge. Findings are doubtful for acute cholecystitis. Given the small amount of fluid within the abdomen adjacent to the liver could consider a follow-up study such as CT scan of the abdomen and pelvis for further clarification. Electronically Signed: Kari Cho MD at 15:18 EDT , Treatment and Re-Evaluation Narrative: Patient has been medicated more than once for her pain. Patient was informed of ultrasound results and need for a CAT scan. Since patient is tachycardic she received a liter of normal saline. Lactate was ordered. She is not febrile. Pulse ox has diminished. Case will be turned over to the afternoon physician, Dr. Neumann. Dr. Headley is on-call for surgery. Will discuss case since I am familiar with her presentation. We will have Dr. Neumann call after CAT scan has been performed. Discharge Plan Triage Chief Complaint: Abd Pain ED Provider: DimitriosTyler Dx/Rx/DC Orders Clinical Impression: Sepsis, Localized peritonitis, Sludge in gallbladder, Leukocytosis, Sinus tachycardia Prescriptions: No Action zolpidem 10 MG tablet 10 mg PO QHS carvedilol 6.25 MG tablet 6.25 mg PO BID Qty: 60 0RF citalopram 20 mg tablet 20 mg PO DAILY olanzapine 10 mg tablet 10 mg PO DAILY Primary Care Provider: Pino Alston Chi Referrals: Pino Alston Chi, MD [Primary Care Provider] -
[2022-08-13 12:19] LABS: Bacteria 0 SEEN /hpf (None Seen); Mucous, Urine 0 SEEN /hpf (<or=2+); Squamous Epithelial Cells - UA 0 SEEN /hpf (5-10); White Blood Cells 0 SEEN /hpf (0-5)
[2022-08-13 12:32] LABS: Color, Urine Yellow (Yellow); Glucose, Dipstick Normal (Normal); Leukocyte Esterase-Dipstick 25 /ul (Negative); Nitrite-Dipstick Negative (Negative); Occult Blood-Urine 10 /ul (Negative); Protein-Dipstick 15 mg/dl (Negative); Urine Bilirubin Dipstick Negative (Negative); Urine Clarity Sl. Cloudy (Clear); Urine Urobilinogen Normal (Normal)
[2022-08-13 12:44] LABS: Ketone-Dipstick 150 mg/dl (Negative)
[2022-08-13 12:49] LABS: Red Blood Cells-Urine 0-5 SEEN /hpf (0-5)
--- NOTE | 2022-08-13 13:44 | US_ITS ---
STUDY: ABDOMINAL ULTRASOUND - RIGHT UPPER QUADRANT REASON FOR VISIT: Female, 47 years old Right upper quadrant pain with clinical Stein sig TECHNIQUE: Ultrasound evaluation of the right upper quadrant was performed with real-time and static horvath-scale imaging. TECHNICAL QUALITY: Adequate. COMPARISON: October 19, 2020 CT scan abdomen and pelvis FINDINGS: Liver: The liver measures 19.6 cm. There is normal echogenicity of the liver. The bile ducts are within normal limits. There is hepatic color flow. The direction of portal flow is hepatopetal. In the right hepatic lobe near the falciform fissure there is a focus of echogenicity without internal vascularity compatible with a small focus of fat or potentially a hemangioma measuring 2.4 x 1.2 x 1.65 cm. Seen on the most recent prior study is a small focus of fatty infiltration. Gallbladder: Normal distended gallbladder. The gallbladder wall measures 2.1 mm. There is a positive sonographic Stein''s sign. There is no pericholecystic fluid. Visualized sludge in the gallbladder. This visualized free fluid adjacent to the left hepatic lobe. Common Bile Duct (C.B.D.): The common bile duct measures 5.2 mm. Pancreas: Normal size of the head, body and tail of the pancreas. There is increased echogenicity of the pancreas. There is no demonstrated pancreatic mass or cyst. Right Kidney: Normal size of the right kidney. The right kidney measures 11.2 x 5.5 x 4.4 cm. Normal renal cortex. The right cortex measures 0.9 cm. There is no demonstrated renal mass or cyst. There is no right hydronephrosis. US/Gallbladder IMPRESSION: Distended gallbladder. No wall thickening. Minimal sludge. Borderline distention of the common duct. Small amount of free fluid adjacent to the liver. Could consider inflammatory change within the abdomen. The gallbladder demonstrates minimal sludge. The sonographic Stein''s and was described as positive. However there is no definitive pericholecystic fluid. There is no visualized wall thickening. There is minimal sludge. Findings are doubtful for acute cholecystitis. Given the small amount of fluid within the abdomen adjacent to the liver could consider a follow-up study such as CT scan of the abdomen and pelvis for further clarification. Electronically Signed: Kari Cho MD at 15:18 EDT ,
--- NOTE | 2022-08-13 16:16 | CT_ITS ---
STUDY: CT ABDOMEN AND PELVIS WITH CONTRAST REASON FOR EXAM: Female, 47 years old. Right sided quadrant flank with intra-abdominal fluid RADIATION DOSAGE (If Supplied By Facility): CTDIvol = ( 19.39 ) mGy, DLP = ( 1604.69 ) mGycm TECHNIQUE: Transaxial images were obtained from the dome of the diaphragm to the symphysis pubis without oral contrast. IV 100mL [id number]-300 was administered. Sagittal and coronal images were reconstructed. Individualized dose optimization techniques were used for this CT. COMPARISON: 10/19/2020 FINDINGS: The visualized lung bases are unremarkable. The visualized portions of the heart are within normal limits. Normal liver. Normal gallbladder and extrahepatic biliary system. Normal spleen. Normal pancreas. Normal bilateral adrenal glands. Normal right kidney. Normal left kidney. Normal visualized stomach. Normal small intestine. Normal colon. There is a tubular, thick-walled appendix (>7mm), consistent with acute appendicitis. There is associated free fluid within the right abdomen and pelvis. Normal abdominal aorta. Normal inferior vena cava. There is a stable low-attenuation focus within the left retroperitoneum medial to the left adrenal gland which may reflect a cyst. There is an intrauterine device in place. Normal urinary bladder. Normal abdominal wall. Normal osseous structures. CT/Abdomen/Pelvis W IV Cont ONLY IMPRESSION: Acute appendicitis. Electronically Signed: Maribeth Arreola MD at 16:46 EDT ,
[2022-08-13] MEDS: 0.9% Normal Saline 1,000 ML 1000 ML IV (16:51)
[2022-08-13 17:24] LABS: Lactic Acid 1.1 mmol/L (0.4-1.9)
--- NOTE | 2022-08-13 17:31 | CON.PCM.SX_ITS ---
Assessment & Plan Assessment/Plan (1) Ruptured appendicitis: PLAN: Laparoscopic appendectomy with possible drain placement I have counseled the patient as to the risks of the procedure, including but not limited to: infection, bleeding, injury to any blood vessels/nerves, injury to any bowel/bladder, injury to any intraabdominal organs such as the liver/spleen, perforation of the GI tract, intraabdominal abscess/bleeding, incisional hernias, injury to the common bile duct/biliary ducts, injury to the spermatic cord/vessels/testicles, recurrence of hernia(s), complications of anesthesia, etc. The patient verbalizes understanding. HPI Consult Data Date of Consult: 08/14/22 HPI Narrative HPI Narrative: ELLEN JADE, is a 47-year-old woman who presents with right-sided lower quadrant abdominal pain that is now present in the right flank area.? Patient denies fever, chills night sweats.? Patient denies history of renal ureterolithiasis.? Patient denies intolerance to greasy or fried foods.? She states she had an ultrasound several years ago which was unremarkable.? She denies cardiac respiratory symptoms. Prior similar symptoms: No Recent Illness/Hospitalization: No [facility] Medical History (Updated 08/14/22 @ 08:[address] Harry Headley MD) Anxiety and depression Benadryl overdose Tachycardia Home Medications zolpidem 10 mg tablet 10 mg PO QHS sleep 06/30/20 [History Last Taken 08/11/22] citalopram 20 mg tablet 20 mg PO DAILY mood 12/16/21 [History Last Taken 08/11/22] carvedilol 6.25 mg tablet 6.25 mg PO BID heart 08/13/22 [History Last Taken 08/10/22] olanzapine 10 mg tablet 10 mg PO DAILY mood 08/13/22 [History Last Taken 08/11/22] Allergy/AdvReac Type Severity Reaction Status Date / Time No Known Allergies Allergy Verified 08/13/22 21:08 Surgical History (Updated 08/13/22 @ 21:12 by Nisha Chavez) Previous section Social History household members: none Smoking Status: Current some day smoker tobacco type: cigarettes alcohol intake: current Lab / Micro Data Result Diagrams: 08/14/22 06:15 08/14/22 06:15 Labs: Laboratory Results - last 24 hr 08/13/22 09:35: Total Bilirubin 1.90 H, Direct Bilirubin 0.35 H, AST 9 L, ALT 24, Alkaline Phosphatase 105, Total Protein 8.2, Albumin 3.9, Globulin 4.3 H 08/13/22 09:35: WBC 15.0 H, RBC 5.29, Hgb 17.1 H, Hct 49.5 H, MCV 93.6, MCH 32.3 H, MCHC 34.5, RDW Std Deviation 41.9, RDW Coeff of Jean-Paul 12.1, Plt Count 334, MPV 9.7, Immature Gran % (Auto) 0.300, Neut % (Auto) 83.6 H, Lymph % (Auto) 10.0 L, [place] % (Auto) 5.8, Eos % (Auto) 0.1, Baso % (Auto) 0.2, Absolute Neuts (auto) 12.5 H, Absolute Lymphs (auto) 1.50, Nucleated RBC % 0 08/13/22 09:35: Sodium 137, Potassium 3.6, Chloride 105, Carbon Dioxide 24.0, Anion Gap 8, BUN 6 L, Creatinine 0.93, Estim Creat Clear Calc 66.57, Est GFR (MDRD) Af Amer 83, Est GFR (MDRD) Non-Af 68, BUN/Creatinine Ratio 6.5 L, Glucose 114 H, Calcium 9.4, Lipase 71 L 08/13/22 12:15: Urine Color Yellow, Urine Clarity Sl. Cloudy, Urine pH 6.0, Ur Specific [place] 1.020, Urine Protein 15 H, Urine Glucose (UA) Normal, Urine Ketones 150 A*, Urine Occult Blood 10 H, Urine Nitrite Negative, Urine Bilirubin Negative, Urine Urobilinogen Normal, Ur Leukocyte Esterase 25 H, Urine RBC 0-5 SEEN, Urine WBC 0 SEEN, Ur Squamous Epith Cells 0 SEEN, Urine Bacteria 0 SEEN, Urine Mucus 0 SEEN 08/13/22 16:45: Lactic Acid 1.1 Radiology Impression Gallbladder Ultrasound 08/13/22 13:44 IMPRESSION: Distended gallbladder. No wall thickening. Minimal sludge. Borderline distention of the common duct. Small amount of free fluid adjacent to the liver. Could consider inflammatory change within the abdomen. The gallbladder demonstrates minimal sludge. The sonographic Stein''s and was described as positive. However there is no definitive pericholecystic fluid. There is no visualized wall thickening. There is minimal sludge. Findings are doubtful for acute cholecystitis. Given the small amount of fluid within the abdomen adjacent to the liver could consider a follow-up study such as CT scan of the abdomen and pelvis for further clarification. Electronically Signed: Kari Cho MD at 15:18 EDT , Abdomen/Pelvis CT 08/13/22 16:16 IMPRESSION: Acute appendicitis. Electronically Signed: Maribeth Arreola MD at 16:46 EDT ,
--- NOTE | 2022-08-13 17:32 | EKG12_ITS ---
Test Reason : PRE OP Blood Pressure : / mmHG Vent. Rate : 125 BPM Atrial Rate : 125 BPM P-R Int : 138 ms QRS Dur : 086 ms QT Int : 314 ms P-R-T Axes : 044 036 026 degrees QTc Int : 453 ms Sinus tachycardia Otherwise normal ECG Confirmed by MAYO DONALD, YG ([id number]), production editor YARA HAIDER ([id number]) on 08/16/2022 1:43:59 PM Referred By: MARY BETH Confirmed By:YG HUBER MD
--- NOTE | 2022-08-13 18:50 | APP_PTH ---
PATIENT: ELLEN JADE LOC: MS3 U#:[id number] AGE/SX: 47/F [place] [facility] [place] RE08/13/[address]: Dr. Avelina Reyes MD : 1975 BED: 1 DIS: 08/18/2022 SPEC #: [id number] RECD: 08/13/22 19:49 STATUS: MELINA RERandi #: [id number] NADIR: 08/13/22 18:[address]: Harry Headley DEPT: SURGICAL PATHOLOGY RECD BY: Cyril Madison ENTERED: 08/15/22 08:00 SP TYPE: APPENDIX OTHR DR: MD Dr. Lalit Tucker MD Dr. Joseph Agyepong, MD Dr. Tai Chi Kwok, MD Tissues: Appendix, NOS Procedures: Surgery Specimen Level III HEADER OPERATION: Laparoscopic appendectomy PRE-OP DIAGNOSIS: Acute appendicitis TISSUE SUBMITTED: Appendix MICROSCOPIC DIAGNOSIS Appendix, appendectomy: Acute necrotizing appendicitis. Acute serositis. Fibrous obliteration of distal appendiceal lumen. AM:peg 08/16/2022 MICROSCOPIC DESCRIPTION Slides are reviewed. GROSS DESCRIPTION Received in fixative is one container labeled with the patient's name and designated appendix. The specimen consists of a J-shaped appendix measuring 8 cm in length and up to 1 cm in diameter. The attached periappendiceal adipose tissue measures up to 3 cm in width. No obvious perforation is identified. The serosal surface is covered with horvath, purulent exudate. The mucosa is congested and hemorrhagic. The lumen contains fecal material. No fecalith is identified. Chicken Sexer sections are submitted in one cassette. / SJ:peg 08/15/2022 TC:2 CPT: 91730
--- NOTE | 2022-08-13 21:58 | PCM.PN.HOSP ---
Subjective Subjective Patient is a 47F with a significant history of Chronic spondylitic ankylosing arthritis; Sinus tachycardia; depression; anxiety; appendicitis status post appendectomy postop day 0. Internal medicine services has been consulted for tachycardia and home meds management. Patient reports some pain in the right lower quadrant Objective Data Objective Data Vital Signs: Vital Signs Temp Pulse Resp BP Pulse Ox O2 Del Method O2 Flow Rate 98.1 F 101 H 14 113/85 H 95 Nasal Cannula 3 08/13/22 21:00 08/13/22 21:00 08/13/22 21:00 08/13/22 21:00 08/13/22 21:00 08/13/22 21:00 08/13/22 21:00 Oxygen Flow Rate (L/min) 3 Oxygen Delivery Method Nasal Cannula Weight: 104.3 kg Body Mass Index (BMI) 38.2 Intake & Output: Intake and Output for Last 24 Hours 08/11/22 08/12/22 08/13/22 23:59 23:59 23:59 Intake Total 4000 / 4000 Output Total 50 / 50 Balance 3950 / 3950 Lab / Micro Data Result Diagrams: 08/13/22 09:35 08/13/22 09:35 Labs: Laboratory Results - last 24 hr 08/13/22 09:35: Total Bilirubin 1.90 H, Direct Bilirubin 0.35 H, AST 9 L, ALT 24, Alkaline Phosphatase 105, Total Protein 8.2, Albumin 3.9, Globulin 4.3 H 08/13/22 09:35: WBC 15.0 H, RBC 5.29, Hgb 17.1 H, Hct 49.5 H, MCV 93.6, MCH 32.3 H, MCHC 34.5, RDW Std Deviation 41.9, RDW Coeff of Jean-Paul 12.1, Plt Count 334, MPV 9.7, Immature Gran % (Auto) 0.300, Neut % (Auto) 83.6 H, Lymph % (Auto) 10.0 L, [place] % (Auto) 5.8, Eos % (Auto) 0.1, Baso % (Auto) 0.2, Absolute Neuts (auto) 12.5 H, Absolute Lymphs (auto) 1.50, Nucleated RBC % 0 08/13/22 09:35: Sodium 137, Potassium 3.6, Chloride 105, Carbon Dioxide 24.0, Anion Gap 8, BUN 6 L, Creatinine 0.93, Estim Creat Clear Calc 66.57, Est GFR (MDRD) Af Amer 83, Est GFR (MDRD) Non-Af 68, BUN/Creatinine Ratio 6.5 L, Glucose 114 H, Calcium 9.4, Lipase 71 L 08/13/22 12:15: Urine Color Yellow, Urine Clarity Sl. Cloudy, Urine pH 6.0, Ur Specific [place] 1.020, Urine Protein 15 H, Urine Glucose (UA) Normal, Urine Ketones 150 A*, Urine Occult Blood 10 H, Urine Nitrite Negative, Urine Bilirubin Negative, Urine Urobilinogen Normal, Ur Leukocyte Esterase 25 H, Urine RBC 0-5 SEEN, Urine WBC 0 SEEN, Ur Squamous Epith Cells 0 SEEN, Urine Bacteria 0 SEEN, Urine Mucus 0 SEEN 08/13/22 16:45: Lactic Acid 1.1 Micro: Microbiology 08/13/22 17:40 Nasal Secretion SARS-CoV-2 Antigen (Rapid) - Final ABG Data Attestation: I personally reviewed and interpreted this ABG as follows: Radiography Diagnostic Testing: Radiology Impression Gallbladder Ultrasound 08/13/22 13:44 IMPRESSION: Distended gallbladder. No wall thickening. Minimal sludge. Borderline distention of the common duct. Small amount of free fluid adjacent to the liver. Could consider inflammatory change within the abdomen. The gallbladder demonstrates minimal sludge. The sonographic Stein''s and was described as positive. However there is no definitive pericholecystic fluid. There is no visualized wall thickening. There is minimal sludge. Findings are doubtful for acute cholecystitis. Given the small amount of fluid within the abdomen adjacent to the liver could consider a follow-up study such as CT scan of the abdomen and pelvis for further clarification. Electronically Signed: Kari Cho MD at 15:18 EDT , Abdomen/Pelvis CT 08/13/22 16:16 IMPRESSION: Acute appendicitis. Electronically Signed: Maribeth Arreola MD at 16:46 EDT , Physical Exam Narrative Physical exam: General: Well-nourished, well-developed. Head: Normocephalic, atraumatic, no tenderness Eyes: Vision is grossly intact. EOMI ENT, no trauma, moist mucous membranes, no rhinorrhea Neck: Nontender, full range of motion, no spinal tenderness, deformities, step-off CVS: Regular rate and rhythm. S1-S2 present. No murmur, gallop or rub. Respiratory : clear to auscultation bilaterally, chest wall nontender, no wheezing Abdomen: Dry and intact dressing with sanguinous drainage in STEVIE. : Deferred Back: Nontender, no CVA tenderness Extremities: Nontender full range of motion, no trauma Skin: Normal color, no trauma, abrasions Neuro: Alert, oriented, cranial nerves II through XII grossly intact. Psychiatry: Normal mood. Normal affect. Not depressed. Not anxious. Assessment & Plan Assessment/Plan (1) Appendicitis: (2) Sinus tachycardia: PLAN: Plan Appendicitis status post appendectomy Leukocytosis with white count of 15.0 with neutrophilia and lymphopenia. Trend. On Zosyn, agrees. Management per general surgery Sinus tachycardia Chronic Place on telemetry. Potassium level is 3.6 and I agree with IV replacement that patient is already receiving. Check magnesium level. Of note patient has had outpatient work-up. Review of records show the patient had a Holter monitor report dated 09/24/2013. Also stress echocardiogram dated 11/23/2012. Review of records show the patient has received metoprolol IV. Carvedilol continued Hypertension Blood pressure is not within goal Carvedilol continued. Trend blood pressure and adjust blood pressure medications. Depression anxiety Citalopram and olanzapine continued. Tobacco abuse Counseled Nicotine patch prescribed. Insomnia Zolpidem continued starting from 08/14/2028. DVT prophylaxis SCDs. Charges/Coding Visit Charges Inpatient E&M: 85131 Subs Hosp L2
[2022-08-13] MEDS: Carvedilol 6.25 MG Tablet PO (23:16)
[2022-08-13] MEDS: oxyCODONE 5 MG Tablet PO (23:16)
[2022-08-14] VITALS (11 sets, daily range): BP systolic 111–155; BP diastolic 78–108; PULSE 79–98; RESP 18; TEMP 36.3–36.8; O2SAT 94–97
[2022-08-14] MEDS: Ibuprofen 400 MG Tablet 800 MG PO (01:32)
[2022-08-14] MEDS: Piperacil/Tazobactam 3.375 GM Q8 PREMIX IV ×3 (05:28→21:50)
[2022-08-14] MEDS: oxyCODONE 5 MG Tablet PO ×2 (05:31→18:44)
[2022-08-14 07:07] LABS: Absolute Lymphocyte Count 0.76 X10^3/uL (0.83-4.51); Absolute Neutrophil Count 13.5 X10^3/uL (2.0-7.7); Basophil# 0.02 X10^3/uL; Basophil% 0.1 % (0-1); Hematocrit 40.5 % (37-47); Hemoglobin 13.4 g/dL (12.0-15.0); Lymphocyte # 0.76 X10^3/ul (0.83-4.51); Lymphocyte % 5.1 % (19-41); Mean Corp Hgb Conc 33.1 g/dL (32-36); Mean Corpuscular Volume 96.7 fL (81-99); Monocyte# 0.38 X10^3/uL; Monocyte% 2.6 % (0-10); NRBC Flagged by Analyzer 0 % (0-5); Neutrophil # 13.53 X10^3/uL (2.7-7.7); Neutrophil % 91.7 % (47-70); Platelet Count 260 K/mm3 (150-450); RBC Distribution Width CV 12.6 % (11.6-14.6); RBC Distribution Width SD 44.5 fl (35.1-43.9); Red Blood Count 4.19 M/mm3 (4.2-5.4); White Blood Count 14.8 K/mm3 (4.4-11.0)
--- NOTE | 2022-08-14 07:28 | PN.HOSP_ITS ---
Subjective Subjective Patient is a 47-year-old lady admitted with abdominal pain diagnosed with appendicitis underwent emergency appendectomy by general surgery hospitalist service was consulted to assist with management of patient medical comorbidities Objective Data Objective Data Vital Signs: Vital Signs Temp Pulse Resp BP Pulse Ox O2 Del Method O2 Flow Rate 98.3 F 88 18 128/87 H 94 Room Air 2 08/14/22 05:25 08/14/22 05:25 08/14/22 05:25 08/14/22 05:25 08/14/22 05:25 08/14/22 05:25 08/14/22 00:59 Oxygen Flow Rate (L/min) 2 Oxygen Delivery Method Room Air Weight: 104.3 kg Body Mass Index (BMI) 38.2 Intake & Output: Intake and Output for Last 24 Hours 08/12/22 08/13/22 08/14/22 23:59 23:59 23:59 Intake Total 5100 / 5100 813.33 / 813.33 Output Total 120 / 120 950 / 950 Balance 4980 / 4980 -136.67 / -136.67 Lab / Micro Data Result Diagrams: 08/14/22 06:15 08/14/22 06:15 Labs: Laboratory Results - last 24 hr 08/13/22 09:35: Total Bilirubin 1.90 H, Direct Bilirubin 0.35 H, AST 9 L, ALT 24, Alkaline Phosphatase 105, Total Protein 8.2, Albumin 3.9, Globulin 4.3 H 08/13/22 09:35: WBC 15.0 H, RBC 5.29, Hgb 17.1 H, Hct 49.5 H, MCV 93.6, MCH 32.3 H, MCHC 34.5, RDW Std Deviation 41.9, RDW Coeff of Jean-Paul 12.1, Plt Count 334, MPV 9.7, Immature Gran % (Auto) 0.300, Neut % (Auto) 83.6 H, Lymph % (Auto) 10.0 L, [place] % (Auto) 5.8, Eos % (Auto) 0.1, Baso % (Auto) 0.2, Absolute Neuts (auto) 12.5 H, Absolute Lymphs (auto) 1.50, Nucleated RBC % 0 08/13/22 09:35: Sodium 137, Potassium 3.6, Chloride 105, Carbon Dioxide 24.0, Anion Gap 8, BUN 6 L, Creatinine 0.93, Estim Creat Clear Calc 66.57, Est GFR (MDRD) Af Amer 83, Est GFR (MDRD) Non-Af 68, BUN/Creatinine Ratio 6.5 L, Glucose 114 H, Calcium 9.4, Lipase 71 L 08/13/22 12:15: Urine Color Yellow, Urine Clarity Sl. Cloudy, Urine pH 6.0, Ur Specific [place] 1.020, Urine Protein 15 H, Urine Glucose (UA) Normal, Urine Ketones 150 A*, Urine Occult Blood 10 H, Urine Nitrite Negative, Urine Bilirubin Negative, Urine Urobilinogen Normal, Ur Leukocyte Esterase 25 H, Urine RBC 0-5 SEEN, Urine WBC 0 SEEN, Ur Squamous Epith Cells 0 SEEN, Urine Bacteria 0 SEEN, Urine Mucus 0 SEEN 08/13/22 16:45: Lactic Acid 1.1 08/14/22 06:15: WBC 14.8 H, RBC 4.19 L, Hgb 13.4, Hct 40.5, MCV 96.7, MCH 32.0, MCHC 33.1, RDW Std Deviation 44.5 H, RDW Coeff of Jean-Paul 12.6, Plt Count 260, MPV 10.0, Immature Gran % (Auto) 0.500, Neut % (Auto) 91.7 H, Lymph % (Auto) 5.1 L, [place] % (Auto) 2.6, Eos % (Auto) 0.0, Baso % (Auto) 0.1, Absolute Neuts (auto) 13.5 H, Absolute Lymphs (auto) 0.76 L, Nucleated RBC % 0 Micro: Microbiology 08/13/22 17:40 Nasal Secretion SARS-CoV-2 Antigen (Rapid) - Final Radiography Diagnostic Testing: Radiology Impression Gallbladder Ultrasound 08/13/22 13:44 IMPRESSION: Distended gallbladder. No wall thickening. Minimal sludge. Borderline distention of the common duct. Small amount of free fluid adjacent to the liver. Could consider inflammatory change within the abdomen. The gallbladder demonstrates minimal sludge. The sonographic Stein''s and was described as positive. However there is no definitive pericholecystic fluid. There is no visualized wall thickening. There is minimal sludge. Findings are doubtful for acute cholecystitis. Given the small amount of fluid within the abdomen adjacent to the liver could consider a follow-up study such as CT scan of the abdomen and pelvis for further clarification. Electronically Signed: Kari Cho MD at 15:18 EDT , Abdomen/Pelvis CT 08/13/22 16:16 IMPRESSION: Acute appendicitis. Electronically Signed: Maribeth Arreola MD at 16:46 EDT , Physical Exam Narrative GENERAL: cooperative HEENT: Atraumatic; normocephalic EYES; Anicteric, Normal Conjunctiva NECK; supple, normal thyroid, RESPIRATORY: Diminished to auscultation CARDIOVASCULAR: Regular S1 S2, GI: Surgical incision dry and intact with STEVIE tube in place : No Renal angle tenderness; EXTREMITIES: No edema, no clubbing, MUSCULOSKELETAL: no muscle wasting NEURO: Awake; no lateralizing signs. SKIN: No Rash PSYCH; Flat affect Assessment & Plan Assessment/Plan (1) Appendicitis: (2) Sinus tachycardia: PLAN: Plan Patient is a 47-year-old lady admitted with abdominal pain diagnosed with appendicitis underwent emergency appendectomy by general surgery hospitalist service was consulted to assist with management of patient medical comorbidities 1. Acute appendicitis ? Status post appendectomy by Dr. Headley on 08/13/2022 2. Essential hypertension ? She is on carvedilol did continue 3. Depression with anxiety ? Patient is on escitalopram did continue 4. Class II obesity with BMI of 38.3 ? Weight loss advised 5. Tobacco dependence - Counseled on cessation, offered nicotine patch for tobacco cravings 6. DVT prophylaxis ? Lovenox Charges/Coding Visit Charges Inpatient E&M: 68558 Subs Hosp L2
[2022-08-14] MEDS: 0.9% Saline Lock 10 ML Syringe IV ×3 (07:33→21:50)
[2022-08-14] MEDS: HYDROmorphone 1 MG/ML Syringe IV ×3 (07:33→21:50)
[2022-08-14 07:34] LABS: Anion Gap 7 (5-15); BUN 6 mg/dL (7-18); BUN/Creat Ratio 8.4 RATIO (10-20); Calcium,Total 8.2 mg/dL (8.5-10.1); Chloride 112 mmol/L (98-107); Creatinine, Serum 0.72 mg/dL (0.55-1.02); EST Glomerular Filtration Rate 92 mL/min (>60); Est Glom Filt Rate - Afr Amer 111 mL/min (>60); Estimated Creatinine Clearance 85.98 ml/min; Glucose 146 mg/dL (74-106); Potassium 4.2 mmol/L (3.5-5.1); Sodium Level 140 mmol/L (136-145)
[2022-08-14 07:42] LABS: Magnesium 2.1 mg/dL (1.6-2.6)
--- NOTE | 2022-08-14 08:50 | PCM.OPRPT ---
Problems Associated Problem List Diagnoses (1) Ruptured appendicitis: Report of Operation Date of Procedure: 08/13/22 Pre-Operative Diagnosis: Ruptured appendicitis Post-Operative Diagnosis: Same Surgery/Procedure Performed:: Laparoscopic appendectomy Surgeon: Harry Headley detector car operator: Cortez Gamble Type of Anesthesia: General Anesthesiologist: Elsi Ibanez Specimen's removed: Appendix Drains: 15 round Juan Alberto-Marie Estimated Blood Loss (mL): < 25 cc Description of Procedure: Patient was brought to the operating room. Placed in the supine position. Under excellent general anesthetic the abdomen was sterilely prepped and draped in the usual fashion. Local was injected infraumbilically. Dissection was carried down to the fascia. Fascia was grasped with a [place]. Varies needle was placed inside the abdomen. The abdomen was insufflated to 15 torr. A 10/12 trocar was placed without difficulty. Inserting the camera it was pretty obvious that it was a ruptured appendicitis lot of inflammation in the right lower quadrant purulent fluid was seen in the pelvis. Suprapubic #5 trochars placed, left lower quadrant #5 trocar was placed. Both of these were placed under direct visualization without injury of underlying structures. Identified the appendix came down on the mesoappendix with the Enseal and then transected the base of the appendix with a 45 linear cutter. Placed the specimen in a specimen bag and delivered through the umbilical port without difficulty. Aspirated out some of the purulent fluid sent for culture and sensitivity. I then irrigated the abdomen with 2 L of irrigation ran the small bowel, distal third, identifying no signs of Meckel's diverticulum. I made an incision in the right upper quadrant placed another #5 trocar brought a 15 round Juan Alberto-Marie drain through this trocar sutured to the skin with a 3-0 nylon. I directed the drain down near the cecum and into the pelvis area. Trochars were removed under direct visualization. Fascia the umbilical port was closed with a [id number] stitch of 0 Vicryl skin incisions were closed with subcuticular stitches of 4-0 Monocryl. Steri-Strips were applied sterile dressings were applied and the patient tolerated the procedure well Admit VTE Documentation VTE Present on Admission: No VTE Mechan Device Prophylaxis: SCD's VTE Pharm Prophylaxis ordered?: No Reason prophylaxis not ordered:: Treatment Not Indicated
[2022-08-14] MEDS: OLANZapine 10 MG Tablet PO (09:27)
[2022-08-14] MEDS: Carvedilol 6.25 MG Tablet PO ×2 (09:28→21:58)
[2022-08-14] MEDS: Citalopram 20 MG Tablet PO (09:28)
[2022-08-14] MEDS: FLU VACC QS2022-23(6MOS UP)/PF 60 MCG/0.5 ML SYRINGE IM (09:28)
[2022-08-14] MEDS: Enoxaparin 40 MG/0.4 ML Syringe SC (10:18)
--- NOTE | 2022-08-14 10:48 | PCM.PN.SRG ---
Subjective Subjective pain improved no flatus Objective Data Objective Data soft tender at the incision site Vital Signs: Vital Signs Temp Pulse Resp BP Pulse Ox O2 Del Method O2 Flow Rate 97.9 F 83 18 112/84 H 97 Room Air 2 08/14/22 09:24 08/14/22 09:24 08/14/22 09:24 08/14/22 09:24 08/14/22 09:24 08/14/22 09:33 08/14/22 00:59 Oxygen Flow Rate (L/min) 2 Oxygen Delivery Method Room Air Weight: 229 lb 15.074 oz Body Mass Index (BMI) 38.2 Intake & Output: Intake and Output for Last 24 Hours 08/12/22 08/13/22 08/14/22 23:59 23:59 23:59 Intake Total 5100 / 5100 863.33 / 863.33 Output Total 120 / 120 950 / 950 Balance 4980 / 4980 -86.67 / -86.67 Lab / Micro Data Result Diagrams: 08/14/22 06:15 08/14/22 06:15 Labs: Laboratory Results - last 24 hr 08/13/22 12:15: Urine Color Yellow, Urine Clarity Sl. Cloudy, Urine pH 6.0, Ur Specific [place] 1.020, Urine Protein 15 H, Urine Glucose (UA) Normal, Urine Ketones 150 A*, Urine Occult Blood 10 H, Urine Nitrite Negative, Urine Bilirubin Negative, Urine Urobilinogen Normal, Ur Leukocyte Esterase 25 H, Urine RBC 0-5 SEEN, Urine WBC 0 SEEN, Ur Squamous Epith Cells 0 SEEN, Urine Bacteria 0 SEEN, Urine Mucus 0 SEEN 08/13/22 16:45: Lactic Acid 1.1 08/14/22 06:15: Magnesium 2.1 08/14/22 06:15: WBC 14.8 H, RBC 4.19 L, Hgb 13.4, Hct 40.5, MCV 96.7, MCH 32.0, MCHC 33.1, RDW Std Deviation 44.5 H, RDW Coeff of Jean-Paul 12.6, Plt Count 260, MPV 10.0, Immature Gran % (Auto) 0.500, Neut % (Auto) 91.7 H, Lymph % (Auto) 5.1 L, [place] % (Auto) 2.6, Eos % (Auto) 0.0, Baso % (Auto) 0.1, Absolute Neuts (auto) 13.5 H, Absolute Lymphs (auto) 0.76 L, Nucleated RBC % 0 08/14/22 06:15: Sodium 140, Potassium 4.2, Chloride 112 H, Carbon Dioxide 21.0, Anion Gap 7, BUN 6 L, Creatinine 0.72, Estim Creat Clear Calc 85.98, Est GFR (MDRD) Af Amer 111, Est GFR (MDRD) Non-Af 92, BUN/Creatinine Ratio 8.4 L, Glucose 146 H, Calcium 8.2 L Micro: Microbiology 08/13/22 17:40 Nasal Secretion SARS-CoV-2 Antigen (Rapid) - Final Radiography Diagnostic Testing: Radiology Impression Gallbladder Ultrasound 08/13/22 13:44 IMPRESSION: Distended gallbladder. No wall thickening. Minimal sludge. Borderline distention of the common duct. Small amount of free fluid adjacent to the liver. Could consider inflammatory change within the abdomen. The gallbladder demonstrates minimal sludge. The sonographic Stein''s and was described as positive. However there is no definitive pericholecystic fluid. There is no visualized wall thickening. There is minimal sludge. Findings are doubtful for acute cholecystitis. Given the small amount of fluid within the abdomen adjacent to the liver could consider a follow-up study such as CT scan of the abdomen and pelvis for further clarification. Electronically Signed: Kari Cho MD at 15:18 EDT , Abdomen/Pelvis CT 08/13/22 16:16 IMPRESSION: Acute appendicitis. Electronically Signed: Maribeth Arreola MD at 16:46 EDT , Assessment & Plan Assessment/Plan (1) Ruptured appendicitis: PLAN: await gi fnct
[2022-08-14 11:27] LABS: Absolute Lymphocyte Count 1.16 X10^3/uL (0.83-4.51); Absolute Neutrophil Count 16.3 X10^3/uL (2.0-7.7); Basophil# 0.02 X10^3/uL; Basophil% 0.1 % (0-1); Hematocrit 39.4 % (37-47); Hemoglobin 13.1 g/dL (12.0-15.0); Lymphocyte # 1.16 X10^3/ul (0.83-4.51); Lymphocyte % 6.4 % (19-41); Mean Corp Hgb Conc 33.2 g/dL (32-36); Mean Corpuscular Hgb 32.3 pg (27.0-32.0); Mean Platelet Vol. 9.6 fl (6.2-12.0); Monocyte# 0.64 X10^3/uL; Monocyte% 3.5 % (0-10); NRBC Flagged by Analyzer 0 % (0-5); Neutrophil # 16.28 X10^3/uL (2.7-7.7); Neutrophil % 89.4 % (47-70); Platelet Count 268 K/mm3 (150-450); RBC Distribution Width CV 12.6 % (11.6-14.6); RBC Distribution Width SD 45.3 fl (35.1-43.9); Red Blood Count 4.06 M/mm3 (4.2-5.4); White Blood Count 18.2 K/mm3 (4.4-11.0)
[2022-08-14] MEDS: Tamsulosin HCl 0.4 MG Capsule PO (13:49)
--- NOTE | 2022-08-14 15:22 | NURSING ---
Pt was unable to void so did bladder scan at 1320 and got 804 pt did not want to do straight cath yet. So doc aware and got rx of Flomax x 1 dose. After 1 hr pt still unable to go so got order from surgeon to do straight cath. Pt was bl;adder scanned again for 894 and straight cath for 800.
[2022-08-15] VITALS (18 sets, daily range): BP systolic 127–184; BP diastolic 92–112; PULSE 87–147; RESP 17–20; TEMP 36.3–37.2; O2SAT 91–97
[2022-08-15] MEDS: Piperacil/Tazobactam 3.375 GM Q8 PREMIX IV (05:26)
[2022-08-15] MEDS: oxyCODONE 5 MG Tablet PO ×3 (05:31→23:55)
[2022-08-15 06:05] LABS: Absolute Lymphocyte Count 1.62 X10^3/uL (0.83-4.51); Absolute Neutrophil Count 10.5 X10^3/uL (2.0-7.7); Basophil# 0.02 X10^3/uL; Basophil% 0.2 % (0-1); Eosinophil# 0.05 X10^3/uL; Eosinophils% 0.4 % (0-5); Hematocrit 38.4 % (37-47); Hemoglobin 12.4 g/dL (12.0-15.0); Lymphocyte # 1.62 X10^3/ul (0.83-4.51); Lymphocyte % 12.7 % (19-41); Mean Corp Hgb Conc 32.3 g/dL (32-36); Mean Corpuscular Hgb 31.9 pg (27.0-32.0); Mean Corpuscular Volume 98.7 fL (81-99); Monocyte% 3.9 % (0-10); NRBC Flagged by Analyzer 0 % (0-5); Neutrophil # 10.51 X10^3/uL (2.7-7.7); Neutrophil % 82.2 % (47-70); Platelet Count 270 K/mm3 (150-450); RBC Distribution Width CV 12.7 % (11.6-14.6); RBC Distribution Width SD 45.2 fl (35.1-43.9); Red Blood Count 3.89 M/mm3 (4.2-5.4); White Blood Count 12.8 K/mm3 (4.4-11.0)
[2022-08-15] MEDS: HYDROmorphone 1 MG/ML Syringe IV ×5 (06:29→20:59)
[2022-08-15] MEDS: 0.9% Saline Lock 10 ML Syringe IV ×2 (06:29→21:00)
[2022-08-15 06:34] LABS: Anion Gap 6 (5-15); BUN 6 mg/dL (7-18); BUN/Creat Ratio 8.1 RATIO (10-20); Calcium,Total 8.4 mg/dL (8.5-10.1); Chloride 113 mmol/L (98-107); Creatinine, Serum 0.74 mg/dL (0.55-1.02); EST Glomerular Filtration Rate 89 mL/min (>60); Est Glom Filt Rate - Afr Amer 107 mL/min (>60); Estimated Creatinine Clearance 83.66 ml/min; Glucose 130 mg/dL (74-106); Magnesium 2.2 mg/dL (1.6-2.6); Phosphorus 1.4 mg/dL (2.5-4.9); Potassium 3.9 mmol/L (3.5-5.1); Sodium Level 142 mmol/L (136-145)
--- NOTE | 2022-08-15 06:57 | NURSING ---
pt reports feeling anxious. pt states at home she watches a video on her phone to reroute her mind. will check in on pt after report.
--- NOTE | 2022-08-15 07:54 | PN.HOSP_ITS ---
Subjective Subjective Follow-up on consult for medical management/ruptured appendicitis: Patient was seen and examined. She complains of severe pain and nausea. She has been passing gas. She has been very anxious. She is mildly hypertensive and tachycardic. Otherwise no new complaints. She denied any fever. She has been ambulating around the unit. Objective Data Objective Data Vital Signs: Vital Signs Temp Pulse Resp BP Pulse Ox O2 Del Method O2 Flow Rate 98.1 F 101 H 18 158/108 H 93 Room Air 2 08/15/22 05:21 08/15/22 05:21 08/15/22 05:21 08/15/22 06:00 08/15/22 05:21 08/15/22 05:21 08/14/22 00:59 Oxygen Flow Rate (L/min) 2 Oxygen Delivery Method Room Air Weight: 104.3 kg Body Mass Index (BMI) 38.2 Intake & Output: Intake and Output for Last 24 Hours 08/13/22 08/14/22 08/15/22 23:59 23:59 23:59 Intake Total 5100 / 5100 2213.33 / 2213.33 1050 / 1050 Output Total 120 / 120 2435 / 2435 Balance 4980 / 4980 -221.67 / -221.67 1050 / 1050 Lab / Micro Data Result Diagrams: 08/15/22 05:50 08/15/22 05:50 Labs: Laboratory Results - last 24 hr 08/14/22 11:16: WBC 18.2 H, RBC 4.06 L, Hgb 13.1, Hct 39.4, MCV 97.0, MCH 32.3 H , MCHC 33.2, RDW Std Deviation 45.3 H, RDW Coeff of Jean-Paul 12.6, Plt Count 268, MPV 9.6, Immature Gran % (Auto) 0.600, Neut % (Auto) 89.4 H, Lymph % (Auto) 6.4 L, Long % (Auto) 3.5, Eos % (Auto) 0.0, Baso % (Auto) 0.1, Absolute Neuts (auto) 16.3 H, Absolute Lymphs (auto) 1.16, Nucleated RBC % 0 08/15/22 05:50: WBC 12.8 H, RBC 3.89 L, Hgb 12.4, Hct 38.4, MCV 98.7, MCH 31.9, MCHC 32.3, RDW Std Deviation 45.2 H, RDW Coeff of Jean-Paul 12.7, Plt Count 270, MPV 10.0, Immature Gran % (Auto) 0.600, Neut % (Auto) 82.2 H, Lymph % (Auto) 12.7 L, Long % (Auto) 3.9, Eos % (Auto) 0.4, Baso % (Auto) 0.2, Absolute Neuts (auto) 10.5 H, Absolute Lymphs (auto) 1.62, Nucleated RBC % 0 08/15/22 05:50: Sodium 142, Potassium 3.9, Chloride 113 H, Carbon Dioxide 23.0, Anion Gap 6, BUN 6 L, Creatinine 0.74, Estim Creat Clear Calc 83.66, Est GFR (MDRD) Af Amer 107, Est GFR (MDRD) Non-Af 89, BUN/Creatinine Ratio 8.1 L, Glucose 130 H, Calcium 8.4 L, Phosphorus 1.4 L, Magnesium 2.2 Micro: Microbiology 08/13/22 20:00 Aspirate - Abdominal Gram Stain - Final 08/13/22 20:00 Aspirate - Abdominal Wound Culture - Preliminary 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 08/13/22 17:40 Nasal Secretion SARS-CoV-2 Antigen (Rapid) - Final Physical Exam Narrative Physical exam: General: Alert, Oriented x3, Cooperative, obese HEENT: Atraumatic Oral: Moist Mucosa Neck: Supple Lungs:Diminished to auscultation Cardiovascular: HS I+II, regular, no murmurs Abdomen: Laparoscopic dressing in place as well as right lower quadrant dressing, STEVIE drain in situ with serosanguineous fluid, bowel Sounds Present, Soft, mild tenderness on palpation of incisional areas Extremities: No edema Skin: No rashes, No breakdown Neurological: Grossly intact Psych/Mental Status: Appropriate Assessment & Plan Assessment/Plan (1) Ruptured appendicitis: PLAN: Plan 1. POD #1 status post laparoscopic appendectomy for ruptured appendicitis Patient's pain is fairly controlled, tolerating clear liquid diet WBC down to 12.8 from 18.2, with neutrophilia Will continue according to general surgery recommendations Continue with IV Zosyn 2. Uncontrolled hypertension/tachycardia secondary to anxiety Will discontinue IV fluids Continue patient's Zyprexa and citalopram 3. Hypophosphatemia, replace, recheck in a.m. 4. Hypertension, uncontrolled for now, continue on Coreg 5. Nicotine dependence, on replacement 6. Obesity, BMI 38.3, lifestyle modification recommended 7. DVT prophylaxis?Lovenox subcu Charges/Coding Visit Charges Inpatient E&M: 72025 Subs Hosp L2
[2022-08-15] MEDS: Ondansetron 4 MG/2 ML Vial IV ×3 (08:47→20:59)
[2022-08-15] MEDS: OLANZapine 10 MG Tablet PO (10:06)
[2022-08-15] MEDS: Citalopram 20 MG Tablet PO (10:06)
[2022-08-15] MEDS: Carvedilol 6.25 MG Tablet PO ×2 (10:06→13:45)
[2022-08-15] MEDS: Enoxaparin 40 MG/0.4 ML Syringe SC (10:13)
--- NOTE | 2022-08-15 10:50 | CASEMGMT ---
RN TODD Face to Face with patient for initial transition planning/care coordination assessment. RN CM introduced self and role at [facility]. Patient lying in bed, alert and oriented. Patient willing to participate in assessment and is able to answer all questions appropriately. Care providers, pharmacy, and demographics verified. Patient wishes to discharge home, denies need for home health at this time. Patient states she has no further needs or concerns at this time. CM to follow for discharge planning needs that may arise. PCP: Gamaliel Specialists: none Preferred Pharmacy: [facility] Insurance: [employer] Prescription Benefit: yes Living Will/HPOA: none LNOK: Living Arrangements: Patient lives with in a single story home with 3 steps and railing to enter the home. Patient states she is independent at home. Transportation: self, DME/HHC: Patient states she has shower chair and raised toilet at home. Patient denies previous HHC or SNF Disposition Plan: Patient to discharge home with family support and follow-up plans in place. Maeve LION, RN, CM
[2022-08-15] MEDS: LORazepam 1 MG Tablet PO (13:45)
[2022-08-15] MEDS: Ibuprofen 400 MG Tablet 800 MG PO (17:03)
--- NOTE | 2022-08-15 19:41 | PN.SURG_ITS ---
Subjective Subjective Patient did not have a great day she says. Complaining of abdominal pain. Anxious. Objective Data Objective Data Abdomen is tender at the appropriate places with her incisions no obvious rebound or guarding or peritoneal signs. Vital Signs: Vital Signs Temp Pulse Resp BP Pulse Ox O2 Del Method O2 Flow Rate 99.0 F 103 H 17 160/106 H 95 Room Air 2 08/15/22 19:00 08/15/22 19:00 08/15/22 19:00 08/15/22 19:00 08/15/22 19:00 08/15/22 19:00 08/14/22 00:59 Oxygen Flow Rate (L/min) 2 Oxygen Delivery Method Room Air Weight: 229 lb 15.074 oz Body Mass Index (BMI) 38.2 Intake & Output: Intake and Output for Last 24 Hours 08/13/22 08/14/22 08/15/22 23:59 23:59 23:59 Intake Total 5100 / 5100 2213.33 / 2213.33 2663.3333 / 2663.3333 Output Total 120 / 120 2435 / 2435 670 / 670 Balance 4980 / 4980 -221.67 / -221.67 1992.3333 / 1992.3333 Lab / Micro Data Result Diagrams: 08/15/22 05:50 08/15/22 05:50 Labs: Laboratory Results - last 24 hr 08/15/22 05:50: WBC 12.8 H, RBC 3.89 L, Hgb 12.4, Hct 38.4, MCV 98.7, MCH 31.9, MCHC 32.3, RDW Std Deviation 45.2 H, RDW Coeff of Jean-Paul 12.7, Plt Count 270, MPV 10.0, Immature Gran % (Auto) 0.600, Neut % (Auto) 82.2 H, Lymph % (Auto) 12.7 L, [place] % (Auto) 3.9, Eos % (Auto) 0.4, Baso % (Auto) 0.2, Absolute Neuts (auto) 10.5 H, Absolute Lymphs (auto) 1.62, Nucleated RBC % 0 08/15/22 05:50: Sodium 142, Potassium 3.9, Chloride 113 H, Carbon Dioxide 23.0, Anion Gap 6, BUN 6 L, Creatinine 0.74, Estim Creat Clear Calc 83.66, Est GFR (MDRD) Af Amer 107, Est GFR (MDRD) Non-Af 89, BUN/Creatinine Ratio 8.1 L, Glucose 130 H, Calcium 8.4 L, Phosphorus 1.4 L, Magnesium 2.2 Micro: Microbiology 08/13/22 20:00 Aspirate - Abdominal Gram Stain - Final 08/13/22 20:00 Aspirate - Abdominal Wound Culture - Preliminary 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 Do not have sensitivities back more and likely is going to be E. coli I would imagine. STEVIE drain is showing mostly serosanguineous fluid does not appear to be turbid or purulent. Patient states that she is passing some flatus but has had no bowel movements. Await GI function. White count is trending down
[2022-08-15] MEDS: Carvedilol 12.5 MG Tablet PO (21:20)
[2022-08-16] VITALS (13 sets, daily range): BP systolic 145–160; BP diastolic 97–110; PULSE 82–99; RESP 16–17; TEMP 36.6–37.1; O2SAT 87–99
--- NOTE | 2022-08-16 03:41 | NURSING ---
Using po pain meds sparingly due to nausea. zofran given q6h.
[2022-08-16] MEDS: HYDROmorphone 1 MG/ML Syringe IV ×3 (04:15→19:55)
[2022-08-16] MEDS: 0.9% Saline Lock 10 ML Syringe IV (04:15)
[2022-08-16] MEDS: Ondansetron 4 MG/2 ML Vial IV ×2 (04:15→16:56)
[2022-08-16 04:52] LABS: Absolute Lymphocyte Count 1.26 X10^3/uL (0.83-4.51); Absolute Neutrophil Count 8.9 X10^3/uL (2.0-7.7); Basophil# 0.02 X10^3/uL; Basophil% 0.2 % (0-1); Eosinophils% 0.9 % (0-5); Hematocrit 39.1 % (37-47); Hemoglobin 12.8 g/dL (12.0-15.0); Lymphocyte # 1.26 X10^3/ul (0.83-4.51); Lymphocyte % 11.4 % (19-41); Mean Corp Hgb Conc 32.7 g/dL (32-36); Mean Corpuscular Volume 97.8 fL (81-99); Mean Platelet Vol. 9.9 fl (6.2-12.0); Monocyte# 0.72 X10^3/uL; Monocyte% 6.5 % (0-10); NRBC Flagged by Analyzer 0 % (0-5); Neutrophil # 8.89 X10^3/uL (2.7-7.7); Neutrophil % 80.5 % (47-70); Platelet Count 289 K/mm3 (150-450); RBC Distribution Width CV 12.3 % (11.6-14.6); RBC Distribution Width SD 44.5 fl (35.1-43.9)
[2022-08-16 05:21] LABS: ALB/GLOB Ratio 0.7 RATIO (0.9-2.4); AST(SGOT) 11 U/L (15-37); Alanine Aminotransfer ALT/SGPT 20 U/L (13-56); Albumin, Serum 2.7 g/dL (3.2-5.0); Alkaline Phosphatase 80 U/L (45-117); Anion Gap 6 (5-15); BUN 5 mg/dL (7-18); BUN/Creat Ratio 7.2 RATIO (10-20); Calcium,Total 8.6 mg/dL (8.5-10.1); Chloride 105 mmol/L (98-107); Creatinine, Serum 0.69 mg/dL (0.55-1.02); EST Glomerular Filtration Rate 96 mL/min (>60); Est Glom Filt Rate - Afr Amer 117 mL/min (>60); Estimated Creatinine Clearance 89.72 ml/min; Glucose 105 mg/dL (74-106); Potassium 4.1 mmol/L (3.5-5.1); Protein, Total 6.7 g/dL (6.4-8.2); Sodium Level 137 mmol/L (136-145)
[2022-08-16 05:29] LABS: Phosphorus 2.3 mg/dL (2.5-4.9)
--- NOTE | 2022-08-16 07:22 | EKG12_ITS ---
Test Reason : ARRYTHMIA Blood Pressure : / mmHG Vent. Rate : 086 BPM Atrial Rate : 086 BPM P-R Int : 154 ms QRS Dur : 088 ms QT Int : 368 ms P-R-T Axes : 052 037 040 degrees QTc Int : 440 ms Normal sinus rhythm Normal ECG When compared with ECG of 13-AUG-2022 17:40, MANUAL COMPARISON REQUIRED, DATA IS UNCONFIRMED Confirmed by MAYO DONALD, YG ([id number]), brands editor YARA HAIDER ([id number]) on 08/16/2022 1:51:13 PM Referred By: REID Confirmed By:YG HUBER MD
[2022-08-16] MEDS: Enoxaparin 40 MG/0.4 ML Syringe SC (07:58)
[2022-08-16] MEDS: Citalopram 20 MG Tablet PO (07:59)
[2022-08-16] MEDS: OLANZapine 10 MG Tablet PO (07:59)
[2022-08-16] MEDS: Magnesium Hydroxide 30 ML UDC PO (08:26)
[2022-08-16] MEDS: Carvedilol 12.5 MG Tablet PO ×2 (08:26→22:39)
[2022-08-16] MEDS: Ibuprofen 400 MG Tablet 800 MG PO ×2 (08:26→16:56)
[2022-08-16] MEDS: oxyCODONE 5 MG Tablet PO ×2 (08:26→16:56)
[2022-08-16] MEDS: proCHLORPERazine 10 MG/2 ML Vial IV (08:27)
[2022-08-16] MEDS: Bisacodyl 10 MG Suppository RC (08:27)
--- NOTE | 2022-08-16 10:04 | PN.HOSP_ITS ---
Subjective Subjective Follow-up on consult for medical management/ruptured appendicitis: Patient was seen and examined.?Patient had a small bowel movement today. She feels relatively improved. Denies any fever or chills. Objective Data Objective Data Vital Signs: Vital Signs Temp Pulse Resp BP Pulse Ox O2 Del Method O2 Flow Rate 98.5 F 93 17 150/97 H 99 Room Air 2 08/16/22 08:00 08/16/22 08:00 08/16/22 08:00 08/16/22 08:00 08/16/22 08:00 08/16/22 08:00 08/16/22 06:18 Oxygen Flow Rate (L/min) 2 Oxygen Delivery Method Room Air Weight: 104.3 kg Body Mass Index (BMI) 38.2 Intake & Output: Intake and Output for Last 24 Hours 08/14/22 08/15/22 08/16/22 23:59 23:59 23:59 Intake Total 2213.33 / 2213.33 2665.0833 / 2665.0833 50 / 50 Output Total 2435 / 2435 670 / 1700 1810 / 1810 Balance -221.67 / -221.67 1995.0833 / 965.0833 -1760 / -1760 Lab / Micro Data Result Diagrams: 08/16/22 04:30 08/16/22 04:30 Labs: Laboratory Results - last 24 hr 08/16/22 04:30: WBC 11.0, RBC 4.00 L, Hgb 12.8, Hct 39.1, MCV 97.8, MCH 32.0, MCHC 32.7, RDW Std Deviation 44.5 H, RDW Coeff of Jean-Paul 12.3, Plt Count 289, MPV 9.9, Immature Gran % (Auto) 0.500, Neut % (Auto) 80.5 H, Lymph % (Auto) 11.4 L, [place] % (Auto) 6.5, Eos % (Auto) 0.9, Baso % (Auto) 0.2, Absolute Neuts (auto) 8.9 H, Absolute Lymphs (auto) 1.26, Nucleated RBC % 0 08/16/22 04:30: Sodium 137, Potassium 4.1, Chloride 105, Carbon Dioxide 26.0, Anion Gap 6, BUN 5 L, Creatinine 0.69, Estim Creat Clear Calc 89.72, Est GFR (MDRD) Af Amer 117, Est GFR (MDRD) Non-Af 96, BUN/Creatinine Ratio 7.2 L, Glucose 105, Calcium 8.6, Total Bilirubin 0.90, AST 11 L, ALT 20, Alkaline Phosphatase 80, Total Protein 6.7, Albumin 2.7 L, Globulin 4.0, Albumin/Globulin Ratio 0.7 L 08/16/22 04:30: Phosphorus 2.3 L Micro: Microbiology 08/13/22 20:00 Aspirate - Abdominal Gram Stain - Final 08/13/22 20:00 Aspirate - Abdominal Wound Culture - Final Escherichia coli 08/13/22 20:00 Aspirate - Abdominal Anaerobic Culture - Preliminary Checking for anaerobes, further studies to follow. 08/13/22 17:17 Blood Culture (Wb) - Anticubital Right Blood Culture - Preliminary No growth in 48 hours. 08/13/22 16:45 Blood Culture (Wb) - Anticubital Right Blood Culture - Preliminary No growth in 48 hours. 08/13/22 17:40 Nasal Secretion SARS-CoV-2 Antigen (Rapid) - Final Physical Exam Narrative Physical exam: General: Alert, Oriented x3, Cooperative, obese HEENT: Atraumatic Oral: Moist Mucosa Neck: Supple Lungs:Diminished to auscultation Cardiovascular: HS I+II, regular, no murmurs Abdomen: Laparoscopic dressing in place as well as right lower quadrant dressing, STEVIE drain in situ with serosanguineous fluid, bowel Sounds Present, Soft, mild tenderness on palpation of incisional areas Extremities: No edema Skin: No rashes, No breakdown Neurological: Grossly intact Psych/Mental Status: Appropriate Assessment & Plan Assessment/Plan (1) Ruptured appendicitis: PLAN: Plan 1. POD #2 status post laparoscopic appendectomy for ruptured appendicitis Patient's pain is controlled, tolerating clear liquid diet. WBC is 11.0. Intraoperative cultures growing E. coli, relatively pansensitive. Anaerobic cultures are pending We will increase diet to full liquid diet Will continue according to general surgery recommendations Continue with IV Zosyn; will de-escalate later today or tomorrow 2. Hypophosphatemia, replaced, recheck in a.m. 3. Hypertension, uncontrolled, continue increased dose of Coreg 4. Nicotine dependence, on replacement 5. Obesity, BMI 38.3, lifestyle modification recommended 6. DVT prophylaxis?Lovenox subcu Charges/Coding Visit Charges Inpatient E&M: 24641 Subs Hosp L2
--- NOTE | 2022-08-16 11:12 | PCM.PN.SRG ---
Subjective Subjective Patient is passing flatus. Still requiring some IV pain medication. Feels less anxious today. Objective Data Objective Data Dressings are dry abdomen is soft. Still having intermittent tachycardia. Vital Signs: Vital Signs Temp Pulse Resp BP Pulse Ox O2 Del Method O2 Flow Rate 98.5 F 93 17 150/97 H 99 Room Air 2 08/16/22 08:00 08/16/22 10:00 08/16/22 08:00 08/16/22 08:00 08/16/22 08:00 08/16/22 09:00 08/16/22 06:18 Oxygen Flow Rate (L/min) 2 Oxygen Delivery Method Room Air Weight: 229 lb 15.074 oz Body Mass Index (BMI) 38.2 Intake & Output: Intake and Output for Last 24 Hours 08/14/22 08/15/22 08/16/22 23:59 23:59 23:59 Intake Total 2213.33 / 2213.33 2665.0833 / 2665.0833 100 / 100 Output Total 2435 / 2435 670 / 1700 1840 / 1840 Balance -221.67 / -221.67 1995.0833 / 965.0833 -1740 / -1740 Lab / Micro Data Result Diagrams: 08/16/22 04:30 08/16/22 04:30 Labs: Laboratory Results - last 24 hr 08/16/22 04:30: WBC 11.0, RBC 4.00 L, Hgb 12.8, Hct 39.1, MCV 97.8, MCH 32.0, MCHC 32.7, RDW Std Deviation 44.5 H, RDW Coeff of Jean-Paul 12.3, Plt Count 289, MPV 9.9, Immature Gran % (Auto) 0.500, Neut % (Auto) 80.5 H, Lymph % (Auto) 11.4 L, [place] % (Auto) 6.5, Eos % (Auto) 0.9, Baso % (Auto) 0.2, Absolute Neuts (auto) 8.9 H, Absolute Lymphs (auto) 1.26, Nucleated RBC % 0 08/16/22 04:30: Sodium 137, Potassium 4.1, Chloride 105, Carbon Dioxide 26.0, Anion Gap 6, BUN 5 L, Creatinine 0.69, Estim Creat Clear Calc 89.72, Est GFR (MDRD) Af Amer 117, Est GFR (MDRD) Non-Af 96, BUN/Creatinine Ratio 7.2 L, Glucose 105, Calcium 8.6, Total Bilirubin 0.90, AST 11 L, ALT 20, Alkaline Phosphatase 80, Total Protein 6.7, Albumin 2.7 L, Globulin 4.0, Albumin/Globulin Ratio 0.7 L 08/16/22 04:30: Phosphorus 2.3 L Micro: Microbiology 08/13/22 20:00 Aspirate - Abdominal Gram Stain - Final 08/13/22 20:00 Aspirate - Abdominal Wound Culture - Final Escherichia coli 08/13/22 20:00 Aspirate - Abdominal Anaerobic Culture - Preliminary Checking for anaerobes, further studies to follow. 08/13/22 17:17 Blood Culture (Wb) - Anticubital Right Blood Culture - Preliminary No growth in 48 hours. 08/13/22 16:45 Blood Culture (Wb) - Anticubital Right Blood Culture - Preliminary No growth in 48 hours. 08/13/22 17:40 Nasal Secretion SARS-CoV-2 Antigen (Rapid) - Final Assessment & Plan Assessment/Plan (1) Ruptured appendicitis: PLAN: Patient not quite ready for discharge today. Would like to leave the STEVIE drain in 1 more day. We will advance her diet to see how she does.
[2022-08-16] MEDS: Zolpidem Tartrate 5 MG Tablet PO (22:39)
[2022-08-17] VITALS (12 sets, daily range): BP systolic 139–167; BP diastolic 93–109; PULSE 66–92; RESP 16–18; TEMP 36.6–36.8; O2SAT 95–98
[2022-08-17] MEDS: Ibuprofen 400 MG Tablet 800 MG PO ×3 (02:36→19:51)
[2022-08-17] MEDS: oxyCODONE 5 MG Tablet PO ×4 (02:37→21:30)
[2022-08-17 06:18] LABS: Absolute Lymphocyte Count 1.17 X10^3/uL (0.83-4.51); Absolute Neutrophil Count 3.8 X10^3/uL (2.0-7.7); Basophil# 0.03 X10^3/uL; Basophil% 0.5 % (0-1); Eosinophil# 0.17 X10^3/uL; Hematocrit 40.4 % (37-47); Hemoglobin 13.1 g/dL (12.0-15.0); Lymphocyte # 1.17 X10^3/ul (0.83-4.51); Lymphocyte % 20.6 % (19-41); Mean Corp Hgb Conc 32.4 g/dL (32-36); Mean Corpuscular Hgb 31.6 pg (27.0-32.0); Mean Corpuscular Volume 97.6 fL (81-99); Mean Platelet Vol. 9.8 fl (6.2-12.0); Monocyte# 0.53 X10^3/uL; Monocyte% 9.3 % (0-10); NRBC Flagged by Analyzer 0 % (0-5); Neutrophil # 3.77 X10^3/uL (2.7-7.7); Neutrophil % 66.4 % (47-70); Platelet Count 281 K/mm3 (150-450); RBC Distribution Width CV 12.1 % (11.6-14.6); RBC Distribution Width SD 43.8 fl (35.1-43.9); Red Blood Count 4.14 M/mm3 (4.2-5.4); White Blood Count 5.7 K/mm3 (4.4-11.0)
[2022-08-17 06:49] LABS: ALB/GLOB Ratio 0.6 RATIO (0.9-2.4); AST(SGOT) 9 U/L (15-37); Alanine Aminotransfer ALT/SGPT 18 U/L (13-56); Albumin, Serum 2.4 g/dL (3.2-5.0); Alkaline Phosphatase 67 U/L (45-117); Anion Gap 5 (5-15); BUN 5 mg/dL (7-18); BUN/Creat Ratio 7.8 RATIO (10-20); Calcium,Total 8.5 mg/dL (8.5-10.1); Chloride 105 mmol/L (98-107); Creatinine, Serum 0.64 mg/dL (0.55-1.02); EST Glomerular Filtration Rate 105 mL/min (>60); Est Glom Filt Rate - Afr Amer 127 mL/min (>60); Estimated Creatinine Clearance 96.73 ml/min; Globulin 3.8 g/dL (2.2-4.2); Glucose 71 mg/dL (74-106); Potassium 3.5 mmol/L (3.5-5.1); Protein, Total 6.2 g/dL (6.4-8.2); Sodium Level 140 mmol/L (136-145)
--- NOTE | 2022-08-17 07:14 | PCM.PN.HOSP ---
Subjective Subjective Follow-up on consult for medical management/ruptured appendicitis: Patient was seen and examined.? Patient had 4 bowel movements yesterday. She also has had 2 bowel movements today. Indicates that stools are watery. Denies fever or chills. Abdominal pain is fairly controlled. STEVIE drain had more than 60 mls yesterday Objective Data Objective Data Vital Signs: Vital Signs Temp Pulse Resp BP Pulse Ox O2 Del Method O2 Flow Rate 98.1 F 81 16 139/93 H 97 Nasal Cannula 2 08/17/22 02:58 08/17/22 04:00 08/17/22 02:58 08/17/22 02:58 08/17/22 02:58 08/17/22 02:58 08/16/22 22:00 Oxygen Flow Rate (L/min) 2 Oxygen Delivery Method Nasal Cannula Weight: 104.3 kg Body Mass Index (BMI) 38.2 Intake & Output: Intake and Output for Last 24 Hours 08/15/22 08/16/22 08/17/22 23:59 23:59 23:59 Intake Total 2665.0833 / 2665.0833 754.3333 / 754.3333 Output Total 670 / 1700 2930 / 2930 Balance 1994.0833 / 965.0833 -2175.6667 / -2175.6667 Lab / Micro Data Result Diagrams: 08/17/22 05:13 08/17/22 05:13 Labs: Laboratory Results - last 24 hr 08/17/22 05:13: WBC 5.7, RBC 4.14 L, Hgb 13.1, Hct 40.4, MCV 97.6, MCH 31.6, MCHC 32.4, RDW Std Deviation 43.8, RDW Coeff of Jean-Paul 12.1, Plt Count 281, MPV 9.8, Immature Gran % (Auto) 0.200, Neut % (Auto) 66.4, Lymph % (Auto) 20.6, [place] % (Auto) 9.3, Eos % (Auto) 3.0, Baso % (Auto) 0.5, Absolute Neuts (auto) 3.8, Absolute Lymphs (auto) 1.17, Nucleated RBC % 0 08/17/22 05:13: Sodium 140, Potassium 3.5, Chloride 105, Carbon Dioxide 30.0, Anion Gap 5, BUN 5 L, Creatinine 0.64, Estim Creat Clear Calc 96.73, Est GFR (MDRD) Af Amer 127, Est GFR (MDRD) Non-Af 105, BUN/Creatinine Ratio 7.8 L, Glucose 71 L, Calcium 8.5, Total Bilirubin 1.00, AST 9 L, ALT 18, Alkaline Phosphatase 67, Total Protein 6.2 L, Albumin 2.4 L, Globulin 3.8, Albumin/Globulin Ratio 0.6 L Micro: Microbiology 08/13/22 20:00 Aspirate - Abdominal Gram Stain - Final 08/13/22 20:00 Aspirate - Abdominal Wound Culture - Final Escherichia coli 08/13/22 20:00 Aspirate - Abdominal Anaerobic Culture - Preliminary Checking for anaerobes, further studies to follow. 08/13/22 17:17 Blood Culture (Wb) - Anticubital Right Blood Culture - Preliminary No growth in 48 hours. 08/13/22 16:45 Blood Culture (Wb) - Anticubital Right Blood Culture - Preliminary No growth in 48 hours. 08/13/22 17:40 Nasal Secretion SARS-CoV-2 Antigen (Rapid) - Final Physical Exam Narrative Physical exam: General: Alert, Oriented x3, Cooperative, obese HEENT: Atraumatic Oral: Moist Mucosa Neck: Supple Lungs:Diminished to auscultation Cardiovascular: HS I+II, regular, no murmurs Abdomen: Laparoscopic dressing in place as well as right lower quadrant dressing, STEVIE drain in situ with serosanguineous fluid, bowel Sounds Present, Soft, mild tenderness on palpation of incisional areas Extremities: No edema Skin: No rashes, No breakdown Neurological: Grossly intact Psych/Mental Status: Appropriate Assessment & Plan Assessment/Plan (1) Ruptured appendicitis: PLAN: Plan 1. POD #3 status post laparoscopic appendectomy for ruptured appendicitis Patient's pain is fairly controlled, tolerating full liquid diet. WBC is 5.7. Intraoperative cultures growing E. coli, relatively pansensitive. Anaerobic cultures are pending Continue on full liquid diet Will continue according to general surgery recommendations Continue with IV Zosyn; will de-escalate later today or tomorrow 2. Diarrhea, likely antibiotic related, will check stool for C. difficile If negative, will give one-time Imodium 3. Hypophosphatemia, replaced, recheck in a.m. 4. Hypertension, uncontrolled, continue increased dose of Coreg 5. Nicotine dependence, on replacement 6. Obesity, BMI 38.3, lifestyle modification recommended 7. DVT prophylaxis?Lovenox subcu Charges/Coding Visit Charges Inpatient E&M: 23996 Subs Hosp L2
[2022-08-17] MEDS: OLANZapine 10 MG Tablet PO (09:14)
[2022-08-17] MEDS: Enoxaparin 40 MG/0.4 ML Syringe SC (09:14)
[2022-08-17] MEDS: Carvedilol 12.5 MG Tablet PO ×2 (09:14→20:59)
[2022-08-17] MEDS: Citalopram 20 MG Tablet PO (09:15)
[2022-08-17] MEDS: HYDROmorphone 1 MG/ML Syringe IV (09:54)
--- NOTE | 2022-08-17 13:47 | PCM.PN.SRG ---
Subjective Subjective patient complaint of abdominal pain STEVIE drain pulled out without difficulty patient wants to stay in the hospital because she is concerned about pain control at home Objective Data Objective Data Vital Signs: Vital Signs Temp Pulse Resp BP Pulse Ox O2 Del Method O2 Flow Rate 97.9 F 92 18 167/109 H 98 Room Air 2 08/17/22 10:15 08/17/22 10:15 08/17/22 10:15 08/17/22 10:15 08/17/22 10:15 08/17/22 10:15 08/17/22 10:15 Oxygen Flow Rate (L/min) 2 Oxygen Delivery Method Room Air Weight: 104.3 kg Body Mass Index (BMI) 38.2 Intake & Output: Intake and Output for Last 24 Hours 08/15/22 08/16/22 08/17/22 23:59 23:59 23:59 Intake Total 2665.0833 / 2665.0833 754.3333 / 754.3333 741 / 741 Output Total 670 / 1700 2930 / 2930 32 / 32 Balance 1994.0833 / 965.0833 -2175.6667 / -2175.6667 709 / 709 Lab / Micro Data Attestation: I reviewed the patient's lab results. Result Diagrams: 08/17/22 05:13 08/17/22 05:13 Labs: Laboratory Results - last 24 hr 08/17/22 05:13: WBC 5.7, RBC 4.14 L, Hgb 13.1, Hct 40.4, MCV 97.6, MCH 31.6, MCHC 32.4, RDW Std Deviation 43.8, RDW Coeff of Jean-Paul 12.1, Plt Count 281, MPV 9.8, Immature Gran % (Auto) 0.200, Neut % (Auto) 66.4, Lymph % (Auto) 20.6, [place] % (Auto) 9.3, Eos % (Auto) 3.0, Baso % (Auto) 0.5, Absolute Neuts (auto) 3.8, Absolute Lymphs (auto) 1.17, Nucleated RBC % 0 08/17/22 05:13: Sodium 140, Potassium 3.5, Chloride 105, Carbon Dioxide 30.0, Anion Gap 5, BUN 5 L, Creatinine 0.64, Estim Creat Clear Calc 96.73, Est GFR (MDRD) Af Amer 127, Est GFR (MDRD) Non-Af 105, BUN/Creatinine Ratio 7.8 L, Glucose 71 L, Calcium 8.5, Total Bilirubin 1.00, AST 9 L, ALT 18, Alkaline Phosphatase 67, Total Protein 6.2 L, Albumin 2.4 L, Globulin 3.8, Albumin/Globulin Ratio 0.6 L Micro: Microbiology 08/13/22 20:00 Aspirate - Abdominal Gram Stain - Final 08/13/22 20:00 Aspirate - Abdominal Wound Culture - Final Escherichia coli 08/13/22 20:00 Aspirate - Abdominal Anaerobic Culture - Preliminary Checking for anaerobes, further studies to follow. 08/13/22 17:17 Blood Culture (Wb) - Anticubital Right Blood Culture - Preliminary No growth in 48 hours. 08/13/22 16:45 Blood Culture (Wb) - Anticubital Right Blood Culture - Preliminary No growth in 48 hours. 08/13/22 17:40 Nasal Secretion SARS-CoV-2 Antigen (Rapid) - Final Physical Exam Const alert and oriented x3 General Appearance: cooperative Resp normal respiratory effort Effort and Inspection: able to speak in complete sentences GI GI Narrative: abdomen is soft and benign dressing intact - no evidence of seepage or infection STEVIE output is minimal - removed without difficulty Assessment & Plan Assessment/Plan (1) Status post laparoscopic appendectomy: PLAN: Patient is s/p laparoscopic appendectomy She was to be discharged today, but patient states that she is concerned about pain control at home and wanted to stay in the hospital another day.
[2022-08-17] MEDS: Losartan Potassium 25 MG Tablet PO (16:22)
[2022-08-17] MEDS: Zolpidem Tartrate 5 MG Tablet PO (21:30)
[2022-08-18 03:03] VITALS: BP 151/100; PULSE 75; RESP 17; TEMP 36.7; O2SAT 98
[2022-08-18 03:11] VITALS: PULSE 70
--- NOTE | 2022-08-18 07:11 | PCM.PN.HOSP ---
Subjective Subjective Follow-up on consult for medical management/ruptured appendicitis: Patient was seen and examined.?Patient has been seen walking around the unit. Denied any fever or chills. She had 1 bowel movement today. Objective Data Objective Data Vital Signs: Vital Signs Temp Pulse Resp BP Pulse Ox O2 Del Method O2 Flow Rate 98.1 F 70 17 151/100 H 98 Nasal Cannula 2 08/18/22 03:03 08/18/22 03:11 08/18/22 03:03 08/18/22 03:03 08/18/22 03:03 08/18/22 03:03 08/18/22 03:03 Oxygen Flow Rate (L/min) 2 Oxygen Delivery Method Nasal Cannula Weight: 104.3 kg Body Mass Index (BMI) 38.2 Intake & Output: Intake and Output for Last 24 Hours 08/16/22 08/17/22 08/18/22 23:59 23:59 23:59 Intake Total 754.3333 / 754.3333 1497.25 / 1497.25 110 / 110 Output Total 2930 / 2930 32 / 32 Balance -2175.6667 / -2175.6667 1465.25 / 1465.25 110 / 110 Lab / Micro Data Result Diagrams: 08/17/22 05:13 08/17/22 05:13 Micro: Microbiology 08/13/22 20:00 Aspirate - Abdominal Gram Stain - Final 08/13/22 20:00 Aspirate - Abdominal Wound Culture - Final Escherichia coli 08/13/22 20:00 Aspirate - Abdominal Anaerobic Culture - Preliminary Checking for anaerobes, further studies to follow. 08/13/22 17:17 Blood Culture (Wb) - Anticubital Right Blood Culture - Preliminary No growth in 48 hours. 08/13/22 16:45 Blood Culture (Wb) - Anticubital Right Blood Culture - Preliminary No growth in 48 hours. 08/13/22 17:40 Nasal Secretion SARS-CoV-2 Antigen (Rapid) - Final Physical Exam Narrative Physical exam: General: Alert, Oriented x3, Cooperative, obese HEENT: Atraumatic Oral: Moist Mucosa Neck: Supple Lungs:Diminished to auscultation Cardiovascular: HS I+II, regular, no murmurs Abdomen: Laparoscopic dressing in place as well as right lower quadrant dressing, bowel Sounds Present, Soft, mild tenderness on palpation of incisional areas Extremities: No edema Skin: No rashes, No breakdown Neurological: Grossly intact Psych/Mental Status: Appropriate Assessment & Plan Assessment/Plan (1) Ruptured appendicitis: PLAN: Plan 1. POD #4 status post laparoscopic appendectomy for ruptured appendicitis Patient's pain is fairly controlled, tolerating full liquid diet. Intraoperative cultures growing E. coli, relatively pansensitive Continue on regular diet Will continue according to general surgery recommendations Discontinue IV Zosyn, start on oral Augmentin; will aim for total of 10 to 14 days antibiotics treatment 2. Diarrhea, likely antibiotic related, resolved 3. Hypophosphatemia, resolved 4. Hypertension, remains uncontrolled Continue Coreg, started on losartan 25mg yesterday 5. Nicotine dependence, on replacement 6. Obesity, BMI 38.3, lifestyle modification recommended 7. DVT prophylaxis?Lovenox subcu Charges/Coding Visit Charges Inpatient E&M: 80311 Subs Hosp L2
[2022-08-18 07:56] VITALS: O2SAT 97
[2022-08-18] MEDS: Ibuprofen 400 MG Tablet 800 MG PO (08:11)
[2022-08-18] MEDS: oxyCODONE 5 MG Tablet PO ×2 (08:11→15:00)
[2022-08-18 09:00] VITALS: BP 159/113; PULSE 83; RESP 18; TEMP 36.7; O2SAT 95
[2022-08-18] MEDS: Losartan Potassium 25 MG Tablet PO (09:43)
[2022-08-18] MEDS: Enoxaparin 40 MG/0.4 ML Syringe SC (09:44)
[2022-08-18] MEDS: Carvedilol 12.5 MG Tablet PO (09:44)
[2022-08-18] MEDS: Citalopram 20 MG Tablet PO (09:44)
[2022-08-18] MEDS: OLANZapine 10 MG Tablet PO (09:45)
[2022-08-18 11:53] VITALS: BP 142/96; PULSE 72; RESP 18; TEMP 36.7; O2SAT 95
[2022-08-18 14:51] VITALS: BP 145/91; PULSE 80; RESP 18; TEMP 36.7; O2SAT 95
--- NOTE | 2022-08-18 14:52 | DCINST_ITS ---
Discharge Instructions Procedure Appendectomy Diet Discharge Diet: Light diet - advance as tolerated (if you have questions about your diet instructions, please talk to you doctor.) Activity Discharge Activity: May Not Drive (for 3-5 days or while taking narcotic pain meds.) May shower in (days): 1 Dressing / Incision Call your doctor if your incision/area has: Continuous Slow Oozing, Sudden Increased Bleeding, Increased Pain/ Swelling, Increased Redness and Foul Smelling Discharge Call your doctor if you observe: Fever of 101 or Higher Suture Line Care: Avoid Pulling/Pushing and Avoid Pinching/Bending Additional Dressing/Incision Instructions:: Keep dressing clean and dry. Change or remove dressing in 2 days. Leave steri strips for 1 week. May protect with a gauze bandaid. Follow Up Care Please Follow Up With: Ebony Sanders PA-C When: Call office to schedule an appointment to be seen in 1 week. Test Results: Test results from this visit will be discussed in further detail at your follow- up appointment, if applicable. Discharge Plan Admission Admit Date/Time: 08/13/22 21:25 Attending Provider: Avelina Reyes Primary Care Provider: Pino Alston Chi Consulting Providers: Aries Isbell ; Harry Headley ; Lalit Saez Discharge Orders/Prescriptions Prescriptions: New carvedilol 12.5 mg Tablet 12.5 mg PO BID 30 Days Qty: 60 0RF losartan 25 mg Tablet 25 mg PO DAILY 30 Days Qty: 30 0RF oxycodone-acetaminophen [Endocet] 5-325 mg tablet 1 tab PO Q4H PRN (Reason: pain) 5 Days Qty: 20 0RF amoxicillin-pot clavulanate [Augmentin] 500-125 mg tablet 1 tab PO BID Qty: 10 0RF Continued zolpidem 10 MG tablet 10 mg PO QHS citalopram 20 mg tablet 20 mg PO DAILY olanzapine 10 mg tablet 10 mg PO DAILY Discontinued carvedilol 6.25 MG tablet 6.25 mg PO BID Referrals / Follow Up: Pino Alston Chi, MD [Primary Care Provider] - Disposition Disposition (needs filled in before D/C Order can be placed): Home, Self Care
--- NOTE | 2022-08-18 14:52 | PCM.DC.SUM ---
Providers Date of Admission: 08/13/22 Primary Care Physician: Dr. Pino Alston MD Consultations 08/13/22 21:28 Consult: Hospitalist Routine Consulting Provider: Aries Isbell Reason for Consult: tachycardia and meds EMERGENT Consult: No MD Notified: Yes Date Notified: 08/13/22 Time Notified: 21:42 Method of Notification: text via backline Reason For Visit: RUPTURED APPY Diagnosis Discharge Diagnosis (1) Ruptured appendicitis: Status: Acute Code(s): K35.32 - Acute appendicitis with perforation, localized peritonitis, and gangrene, without abscess Plan: Patient not quite ready for discharge today. Would like to leave the STEVIE drain in 1 more day. We will advance her diet to see how she does. Medications at Discharge Home Medications zolpidem 10 mg tablet 10 mg PO QHS sleep 06/30/20 citalopram 20 mg tablet 20 mg PO DAILY mood 12/16/21 olanzapine 10 mg tablet 10 mg PO DAILY mood 08/13/22 amoxicillin 500 mg-potassium clavulanate 125 mg tablet (Augmentin) 1 tab PO BID #10 tabs 08/18/22 carvedilol 12.5 mg tablet 12.5 mg PO BID 30 days #60 tabs 08/18/22 losartan 25 mg tablet 25 mg PO DAILY 30 days #30 tabs 08/18/22 oxycodone-acetaminophen 5 mg-325 mg tablet (Endocet) 1 tab PO Q4H PRN pain 5 days #20 tabs 08/18/22 Hospital Course Operations appendectomy Summary of Care Provided Hospital Course: Is a 47-year-old female who presented with a several day history of abdominal pain worsening went to surgery was noted to have ruptured appendicitis with diffuse peritonitis and pus in the pelvis and throughout the abdomen. A drain was left in place cultures and sensitivity were obtained showing E. coli which was sensitive to virtually all antibiotics. Subsequently her condition improved and she was discharged home. Weight / BMI Weight Weight: 229 lb 15.074 oz Body Mass Index (BMI) 38.2 ABG / Lab / Microbiology Data Result Diagrams: 08/17/22 05:13 08/17/22 05:13 Microbiology: Microbiology 08/13/22 20:00 Aspirate - Abdominal Gram Stain - Final 08/13/22 20:00 Aspirate - Abdominal Wound Culture - Final Escherichia coli 08/13/22 20:00 Aspirate - Abdominal Anaerobic Culture - Preliminary Checking for anaerobes, further studies to follow. 08/13/22 17:17 Blood Culture (Wb) - Anticubital Right Blood Culture - Preliminary No growth in 48 hours. 08/13/22 16:45 Blood Culture (Wb) - Anticubital Right Blood Culture - Preliminary No growth in 48 hours. 08/13/22 17:40 Nasal Secretion SARS-CoV-2 Antigen (Rapid) - Final D/C Instructions Discharge Diet: Light diet - advance as tolerated (if you have questions about your diet instructions, please talk to you doctor.) May shower in (days): 1 Call your doctor if your incision/area has: Continuous Slow Oozing, Sudden Increased Bleeding, Increased Pain/ Swelling, Increased Redness and Foul Smelling Discharge Call your doctor if you observe: Fever of 101 or Higher Suture Line Care: Avoid Pulling/Pushing and Avoid Pinching/Bending Additional Dressing/Incision Instructions: Keep dressing clean and dry. Change or remove dressing in 2 days. Leave steri strips for 1 week. May protect with a gauze bandaid. Please Follow Up With: Ebony Sanders PA-C When: Call office to schedule an appointment to be seen in 1 week. Meaningful Use Info Meaningful Use Diagnoses (Choose all that apply): None applicable Discharge Plan Admission Admit Date/Time: 08/13/22 21:25 Attending Provider: Avelina Ryees Primary Care Provider: Pino Alston Chi Consulting Providers: Aries Isbell ; Harry Headley ; Lalit Saez Discharge Orders/Prescriptions Prescriptions: New carvedilol 12.5 mg Tablet 12.5 mg PO BID 30 Days Qty: 60 0RF losartan 25 mg Tablet 25 mg PO DAILY 30 Days Qty: 30 0RF oxycodone-acetaminophen [Endocet] 5-325 mg tablet 1 tab PO Q4H PRN (Reason: pain) 5 Days Qty: 20 0RF amoxicillin-pot clavulanate [Augmentin] 500-125 mg tablet 1 tab PO BID Qty: 10 0RF Continued zolpidem 10 MG tablet 10 mg PO QHS citalopram 20 mg tablet 20 mg PO DAILY olanzapine 10 mg tablet 10 mg PO DAILY Discontinued carvedilol 6.25 MG tablet 6.25 mg PO BID Referrals / Follow Up: Pino Alston Chi, MD [Primary Care Provider] - Disposition Disposition (needs filled in before D/C Order can be placed): Home, Self Care
[2022-08-18] MEDS: Amox/Clavulanate 875 MG Tablet PO (15:00)
== END 2022-08-18 15:32 | disposition home or self-care (01) | DRG 340 ==
LOC: ED 18:01 → MS3 18:25
PROVIDERS: Hospitalist; Internal Medicine; Admitting Provider Surgery; Emergency Provider Emergency Medicine; PCP Family Medicine Geriatric Medicine; Visit Provider Internal Medicine
PROC: 0DTJ4ZZ Resection of Appendix, Percutaneous Endoscopic Approach (ICD-10-PCS; CPT 44970; principal; 2022-08-13 18:30)
DX: K35.32 Acute appendicitis with perforation, localized peritonitis, and gangrene, without abscess (principal); E83.39 Other disorders of phosphorus metabolism; D72.810 Lymphocytopenia; I10 Essential (primary) hypertension; F17.210 Nicotine dependence, cigarettes, uncomplicated; F41.8 Other specified anxiety disorders; R19.7 Diarrhea, unspecified; Z90.89 Acquired absence of other organs; E66.9 Obesity, unspecified; Z68.38 Body mass index [BMI] 38.0-38.9, adult; B96.20 Unspecified Escherichia coli [E. coli] as the cause of diseases classified elsewhere
CPT/HCPCS: 36415; 74177; 76705; 80048; 80053; 80076; 81001; 83605; 83690; 83735; 84100; 85025; 87040; 87070; 87075; 87077; 87186; 87205; 87811; 88304; 93005; 99284; 99406; J7030; J7040; J7050; J7120; Q9967; 90686; A4216; C1760; J2405

== ENCOUNTER → 2023-05-01 | Outpatient (CLI) | payer BC, SELFPAY ==
[2023-05-01 13:02] LABS: Absolute Lymphocyte Count 2.41 X10^3/uL (0.83-4.51); Absolute Neutrophil Count 6.2 X10^3/uL (2.0-7.7); Basophil# 0.03 X10^3/uL; Basophil% 0.3 % (0-1); Eosinophil# 0.03 X10^3/uL; Eosinophils% 0.3 % (0-5); Hematocrit 47.7 % (37-47); Hemoglobin 16.5 g/dL (12.0-15.0); Lymphocyte # 2.41 X10^3/ul (0.83-4.51); Lymphocyte % 25.9 % (19-41); Mean Corp Hgb Conc 34.6 g/dL (32-36); Mean Corpuscular Hgb 32.2 pg (27.0-32.0); Mean Platelet Vol. 10.1 fl (6.2-12.0); Monocyte% 6.4 % (0-10); NRBC Flagged by Analyzer 0 % (0-5); Neutrophil # 6.21 X10^3/uL (2.7-7.7); Neutrophil % 66.8 % (47-70); Platelet Count 320 K/mm3 (150-450); RBC Distribution Width CV 11.7 % (11.6-14.6); RBC Distribution Width SD 40.2 fl (35.1-43.9); Red Blood Count 5.13 M/mm3 (4.2-5.4); White Blood Count 9.3 K/mm3 (4.4-11.0)
[2023-05-01 13:16] LABS: D-Dimer Quantitative (DVT/PE) < 0.27 FEU/ug/m (0.27-0.49)
[2023-05-01 13:32] LABS: AST(SGOT) 17 U/L (15-37); Alanine Aminotransfer ALT/SGPT 24 U/L (13-56); Albumin, Serum 4.1 g/dL (3.2-5.0); Alkaline Phosphatase 92 U/L (45-117); Amylase 29 U/L (25-115); Anion Gap 3 (5-15); BUN 11 mg/dL (7-18); BUN/Creat Ratio 10.9 RATIO (10-20); Calcium,Total 9.9 mg/dL (8.5-10.1); Chloride 102 mmol/L (98-107); Creatinine, Serum 1.01 mg/dL (0.55-1.02); EST Glomerular Filtration Rate 62 mL/min (>60); Est Glom Filt Rate - Afr Amer 75 mL/min (>60); Globulin 4.2 g/dL (2.2-4.2); Glucose 98 mg/dL (74-106); Lipase 37 U/L (13-75); Protein, Total 8.3 g/dL (6.4-8.2); Sodium Level 133 mmol/L (136-145)
[2023-05-01 13:43] LABS: BNP,B-Type NATRIURETIC PEPTIDE < 2.0 pg/mL (0-100)
== END | disposition home or self-care (01) ==
LOC: LAB 12:11
PROVIDERS: PCP Family Medicine Geriatric Medicine; Referring Provider Family Medicine Geriatric Medicine; Visit Provider Family Medicine Geriatric Medicine
DX: I10 Essential (primary) hypertension (principal)
CPT/HCPCS: 36415; 80053; 82150; 83690; 83880; 85025; 85379

== ENCOUNTER → 2023-06-02 | Outpatient (CLI) | payer BC, SELFPAY ==
--- NOTE | 2023-06-02 13:28 | ECHOD_ITS ---
Reason For Study: TACHYCARDIA Procedure This was a 2D Doppler, Color Flow transthoracic echocardiogram. Exam performed in department. Left Ventricle Normal LV size. Left ventricular systolic function is normal. The estimated ejection fraction is 60 %. Stage 1 diastolic dysfunction. No regional wall motion abnormalities noted. Right Ventricle Normal RV size. Normal systolic function. Atria Normal left atrium. Normal right atrium. Mitral Valve Normal mitral valve. Tricuspid Valve Normal tricuspid valve. Mild (1+) tricuspid valve insufficiency. Pulmonary artery systolic pressure is 26 mmHg. Aortic Valve Normal aortic valve. Mild (1+) aortic valve insufficiency. Pulmonic Valve Normal pulmonic valve. Great Vessels Normal aortic root. The pulmonary artery is normal size. Normal inferior vena cava. Pericardium/Pleural No pericardial effusion. MMode/2D Measurements & Calculations LVIDd: 4.3 cm IVSd: 1.0 cm Ao root diam: 3.3 cm LVIDs: 2.8 cm LVPWd: 0.96 cm RVDd: 2.8 cm FS: 34.7 % LAV(MOD-bp): 35.4 ml LVAd ap4: 28.7 cm2 SV(MOD-sp4): 55.7 ml LAV(MOD-bp) Indexed: 18.1 ml/m2 LVLd ap4: 7.5 cm LAV(MOD-sp2): 34.9 ml EDV(MOD-sp4): 89.7 ml LAV(MOD-sp4): 32.7 ml EDV(sp4-el): 93.5 ml LVAs ap4: 15.9 cm2 LVLs ap4: 6.0 cm ESV(MOD-sp4): 33.9 ml ESV(sp4-el): 35.7 ml EF(MOD-sp4): 62.1 % EF(sp4-el): 61.8 % SV(sp4-el): 57.8 ml LA A4 area: 13.3 cm2 LA dimension(2D): 3.3 cm RA A4 area: 12.2 cm2 Time Measurements MV dec time: 0.20 sec Doppler Measurements & Calculations MV E max song: 63.9 cm/sec Lat Peak E' Song: 7.1 cm/sec Med Peak E' Song: 6.9 cm/sec MV A max song: 95.7 cm/sec E/E' lat: 9.1 E/E' med: 9.2 MV E/A: 0.67 Ao V2 max: 133.7 cm/sec AI max song: 481.6 cm/sec LV V1 max: 92.4 cm/sec Ao max P.2 mmHg AI max P.8 mmHg LV V1 max P.4 mmHg AI dec slope: 245.8 cm/sec2 AI P1/2t: 573.9 msec PA V2 max: 87.6 cm/sec TR max song: 241.1 cm/sec TR max P.3 mmHg ECHO/Echo Complete Interpretation Summary Normal LV size. Left ventricular systolic function is normal. The estimated ejection fraction is 60 %. Stage 1 diastolic dysfunction. Ordering Physician: Pino Alston Chi Referring Physician: Pino Alston Chi Performed By: Courtney Boyd RDCS
== END | disposition home or self-care (01) ==
LOC: CVS 13:26
PROVIDERS: PCP Family Medicine Geriatric Medicine; Referring Provider Family Medicine Geriatric Medicine; Visit Provider Family Medicine Geriatric Medicine
DX: R00.0 Tachycardia, unspecified (principal); R06.02 Shortness of breath
CPT/HCPCS: 93306

== ENCOUNTER → 2023-11-21 | Outpatient (CLI) | payer BC, SELFPAY ==
[2023-11-21 16:40] LABS: Absolute Lymphocyte Count 2.48 X10^3/uL (0.83-4.51); Basophil# 0.04 X10^3/uL; Basophil% 0.6 % (0-1); Eosinophil# 0.08 X10^3/uL; Eosinophils% 1.1 % (0-5); Hematocrit 44.5 % (37-47); Hemoglobin 14.7 g/dL (12.0-15.0); Lymphocyte # 2.48 X10^3/ul (0.83-4.51); Lymphocyte % 34.3 % (19-41); Mean Corpuscular Hgb 30.3 pg (27.0-32.0); Mean Corpuscular Volume 91.8 fL (81-99); Mean Platelet Vol. 9.7 fl (6.2-12.0); Monocyte# 0.54 X10^3/uL; Monocyte% 7.5 % (0-10); NRBC Flagged by Analyzer 0 % (0-5); Neutrophil # 4.02 X10^3/uL (2.7-7.7); Neutrophil % 55.5 % (47-70); Platelet Count 373 K/mm3 (150-450); RBC Distribution Width CV 12.8 % (11.6-14.6); RBC Distribution Width SD 43.3 fl (35.1-43.9); Red Blood Count 4.85 M/mm3 (4.2-5.4); White Blood Count 7.2 K/mm3 (4.4-11.0)
--- OUTSIDE RECORDS SUMMARY | 2023-11-21 16:42 | XMS RPT_ITS | CCD ---
Author Name Unknown Address [address] [place] [address] Organization [facility] Care Team Providers Care Tonnage Compilation Clerk Name Role Phone Pino Alston Chi Primary Care Provider [phone] YARA SANDERS Attending Unavailable Medications Completed/Discontinued Medications Medication Drug Class(es) Dates Sig (Normalized) Sig (Original) 0.8 ml adalimumab 50 mg/ml auto-injector (1 source) Tumor Necrosis Factor Gogo End: 08-24-2022 Adalimumab 40 mg/0.8 mL Inject subcutaneously. 0 08/24/2022 Discontinued Problems Active Problems Problem Classification Problem Date Documented Da te Episodic/Chronic Essential hypertension (1 source) Hypertensive disorder; Translations: [Essential (primary) hypertension] Onset: 12-28-2012 12-28-2012 Chronic Rheumatoid arthritis and related disease (1 source) Ankylosing spondylitis; Translations: [Ankylosing spondylitis of unspecified sites in spine] Onset: 12-28-2012 12-28-2012 Chronic Past or Other Problems Problem Classification Problem Date Documented Da te Episodic/Chronic Cardiac dysrhythmias (1 source) Tachycardia; Translations: [Tachycardia, unspecified] Onset: 12-28-2012 12-28-2012 Episodic Coma; stupor; and brain damage (1 source) Loss of consciousness; Translations: [Unspecified coma] Onset: 12-28-2012 12-28-2012 Episodic Results Test Name Value Interpretation Reference Range Facil ity Vital Signs Date Time Vital Sign Value Performing Clinician Shabnam tellez 08-24-2022 09:14-0400 Body height 165.1 cm Yara Sanders PA-C Work Phone: [facility] 08-24-2022 09:14-0400 Body temperature 97.59 [degF] Yara Sanders PA-C Work Phone: [facility] 08-24-2022 09:14-0400 Body weight 102.06 kg Yara Sanders PA-C Work Phone: [facility] 08-24-2022 09:14-0400 Diastolic blood pressure 90 mm[Hg] Yara Sanders PA-C Work Phone: [facility] 08-24-2022 09:14-0400 Heart rate 97 /min Yara Sanders PA-C Work Phone: [facility] 08-24-2022 09:14-0400 SaO2% (BldA) [Mass fraction] 96 % Yara Sanders PA-C Work Phone: [facility] 08-24-2022 09:14-0400 Systolic blood pressure 132 mm[Hg] Yara Sanders PA-C Work Phone: [facility] Encounters Encounter Date Encounter Type Care Provider Facility Start: 08-24-2022 End: 08-24-2022 ambulatory YARA SANDERS Facility:[facility] Start: 08-24-2022 End: 08-24-2022 Patient encounter procedure Yara Sanders PA-C Work Phone: General Surgery Procedures Date Procedure Procedure Detail Performing Clinician History of appendectomy S/P appendectomy Yara Sanders PA-C Work Phone: Plan of Treatment Date Care Activity Detail Author Start: 11-06-2021 DEPRESSION ASSESSMENT DEPRESSION ASS ESSMENT [facility] Start: 05-20-2021 COVID-19 VACCINE (3 - Booster for Tate series) COVID-19 VACCINE (3 - Booster for Tate series) [facility] Start: 2019 COLOGUARD (FIT-DNA) COLOGUARD (FIT-D NA) [facility] Start: 2019 Colonoscopy COLONOSCOPY [facility] Start: 2019 COLORECTAL CANCER SCREENING COLORECTAL CANCER SCREENING [facility] Start: [address] COLONOGRAPHY [facility] Start: 2019 DIABETES SCREEN DIABETES SCREEN [facility] Start: 2019 FECAL OCCULT BLOOD FECAL OCCULT BLOO D [facility] Start: 2019 LIPID SCREEN LIPID SCREEN [facility] Start: 2019 SIGMOIDOSCOPY SIGMOIDOSCOPY [facility] Start: 2014 Mammography MAMMOGRAM [facility] Start: 01-04-2009 PAP TESTING PAP TESTING [facility] Start: 02-19-2004 HPV TESTING HPV TESTING [facility] Start: 1993 Urine microalbumin profile DTAP,TDAP ,TD (1 - Tdap) [facility] Start: 02-19-1992 ANNUAL PCP TEAM CESSPOOL CLEANER ORION DISEASE VISIT ANNUAL PCP TEAM CHRONIC DISEASE VISIT [facility] Start: 02-19-1992 BP CONTROLLED (<130/80) BP CONTROLLE D (<130/80) [facility] Start: 1974 HEPATITIS B (1 of 3 - 3-dose series) HEPATITIS B (1 of 3 - 3-dose series) [facility] Payers Date Payer Category Payer Unknown [employer] PPO [id number] 2019-Present [phone] [id number] [place] [address] PPO [id number] Social History Date Type Detail Facility Start: 12-28-2012 Tobacco smoking stat [facility] Never smoked tobacco [facility] Work Phone: Start: 08-24-2022 [facility] Not [facility] Start: 1975 Sex Assigned At Not on file [facility] Progress note 08-24-2022 Note Date & Type Note Facility 08-24-2022 Note HNO ID: [id number] Author: Yara Sanders PA-C Service: ? Author Type: Physician Painting Instructor Type: Progress Notes Filed: 08/24/2022 4:00 PM Note Text: FOLLOW UP VISIT - APPENDICITIS NAME: Gris Romero Augustine [facility] NO.: [id number] DATE OF SERVICE: 08/24/2022 : 1975 REFERRING PHYSICIAN: No Pcp Gris is a patient I am following for acute ruptured appendicitis. Dr. Headley performed a laparoscopic appendectomy on 08/14/22. The patient's appendix demonstrated acute necrotizing appendicitis. The patient did well post operatively. The patient currently notes no complaints. her appetite has been good. she denies fever, chills or abdominal pain. she does note some minimal incisional discomfort. VITALS: Blood pressure 132/90, pulse 97, temperature 36.4 ?C (97.6 ?F), height 165.1 cm (5' 5 ), weight 102.1 kg (225 lb), SpO2 96 %. On examination, the abdomen is benign. The incisions are healing well without signs of infection or inflammation. There is no right lower quadrant tenderness. Assessment IMPRESSION: status post laparoscopic appendectomy for acute appendicitis PLAN: If the patient notes any problems or signs of wound infections, the patient should contact me immediately. she may return to her regular activities as tolerated. Diagnoses: (Z90.49) S/P appendectomy (primary encounter diagnosis) Return to Clinic: The patient is instructed to follow-up with me as needed. Yara Sanders PA-C [facility] Instructions 08-24-2022 Patient Instructions Note Date & Type Note Facility 08-24-2022 Instructions Yara Sanders PA-C - 08/24/2022 9:31 AM EDT The following instructions are important for you related to your office visit today with the [facility]. INSTRUCTIONS FOLLOWING YOUR RECENT SURGERY You should be returning to your regular diet, If you have having persistent issues with tolerating your diet, please contact our office It is not unusual to have incisional pain for the first 1-2 weeks following surgery. If this persists beyond 2 weeks, contact the office You should leave the Steri-Strips in place until they fall off. You may return to your regular activities. You may drive if you are no longer taking narcotic pain medication. You should perform no lifting greater than 25lbs for the next 3-4 weeks. It is not unusual to have loose stools following surgery. This is usually self limited and related to the antibiotics that were given during your surgical procedure. Fiber supplementation and yogurt with active cultures may help you return to regular bowel activity. If you note loose stools persisting for over 2 weeks, or significant cramping or loose bloody stools, contact the office immediately. Contact the office immediately if any of your incisions become increasingly tender, red or have drainage. Again, if you have any difficulties or concerns, contact our office immediately. If you note any additional difficulties, questions, or concerns, you should contact our office immediately @ [phone] and ask to be transferred to the General Surgery department. documented in this encounter [facility] History of Present illness Narrative 08-24-2022 Yara Sanders PA-C - 08/24/2022 9:10 AM EDT Note Date & Type Note Facility 08-24-2022 History of Presen t illness Narrative FOLLOW UP VISIT - APPENDICITIS NAME: Gris Jade [facility] NO.: [id number] DATE OF SERVICE: 08/24/2022 : 1975 REFERRING PHYSICIAN: No Pcp Gris is a patient I am following for acute ruptured appendicitis. Dr. Headley performed a laparoscopic appendectomy on 08/14/22. The patient's appendix demonstrated acute necrotizing appendicitis. The patient did well post operatively. The patient currently notes no complaints. her appetite has been good. she denies fever, chills or abdominal pain. she does note some minimal incisional discomfort. VITALS: Blood pressure 132/90, pulse 97, temperature 36.4 C (97.6 F), height 165.1 cm (5' 5 ), weight 102.1 kg (225 lb), SpO2 96 %. On examination, the abdomen is benign. The incisions are healing well without signs of infection or inflammation. There is no right lower quadrant tenderness. Assessment IMPRESSION: status post laparoscopic appendectomy for acute appendicitis PLAN: If the patient notes any problems or signs of wound infections, the patient should contact me immediately. she may return to her regular activities as tolerated. Diagnoses: (Z90.49) S/P appendectomy (primary encounter diagnosis) Return to Clinic: The patient is instructed to follow-up with me as needed. Yara Sanders PA-C documented in this encounter [facility] Nurse Note 08-24-2022 Ibeth José RN - 08/24/2022 9:09 AM EDT Note Date & Type Note Facility 08-24-2022 Nurse Note REVIEW OF SYSTEMS: General: The patient denies fatigue, denies weight loss, denies weight gain, denies feeling hot, and denies feelings of cold. Eyes: The patient denies glaucoma, denies eye injury/surgery, wears glasses or contacts. Ear/Nose/Throat: The patient denies allergies, denies hayfever, denies ear infections, and denies bloody noses. Cardiovascular: The patient denies chest pain, denies heart disease, NOTES high blood pressure,denies cardiac stent, denies prior heart attack, denies irregular heart beat, denies high cholesterol, denies poor circulation, denies heart failure, other cardiac issues, denies claudication, denies cold feet, denies peripheral arterial stent. Respiratory: The patient denies tuberculosis, denies pneumonia, denies frequent cough, denies pulmonary embolism, denies shortness of breath, and denies coughing up blood. Gastrointestinal: The patient denies difficulty swallowing, denies acid reflux, denies ulcers, denies vomiting, denies jaundice/hepatitis, denies gallbladder problems, denies black or tarry stools, denies hemorrhoids, denies bleeding from rectum, denies diverticulitis, denies constipation, denies diarrhea, denies loss of stool control, and denies hernias. Kidney/Bladder: The patient denies kidney stones, denies urine infections, and denies bloody urine. Skin: The patient denies a history of skin cancer, denies bleeding/changing moles, and denies a history of skin rash. Neurologic: The patient denies a history of epilepsy/convulsions, denies headaches, denies head/spinal injuries, and denies stroke/TIA. Psychiatric: The patient denies psychiatric medications, denies depression, and denies voices, denies substance abuse. Endocrine: The patient denies thyroid disorders, denies diabetes, and denies hormonal problems. Hematologic: The patient denies a history of bruising, denies bleeding, and denies anemia, denies blood clots. Infections: The patient denies a history of measles and mumps, denies rheumatic fever, and denies sexually transmitted diseases. Musculoskeletal: The patient denies back pain/injury, denies back problems, denies sciatica, denies knee/foot trouble, NOTES arthritis, or denies gout. When was patient's last Mammogram screening? 2017 Last Colonoscopy: none Ibeth José RN documented in this encounter [facility] Evaluation note Note Date & Type Note Facility documented in this encounter [facility] Summary Purpose Family History No Family History Records Found Advance Directives No Advanced Directives Records Found Additional Source Comments Source Comments (unrecognize d section and content) In the event this informatio n is protected by the Federal Confidentiality of Alcohol and Drug Abuse Patient Records regulations: The Federal rules restrict any use of the information to criminally investigate or prosecute any alcohol or drug abuse patient.[facility] Reason for Visit (unrecogniz ed section and content) Care Teams (unrecognized sec tion and content) INFORMATION SOURCE (unrecogn ized section and content) FOR RECORDS PERTAINING TO PATIENTS WHO ARE OR HAVE BEEN ENROLLED IN A CHEMICAL DEPENDENCY/SUBSTANCEABUSE PROGRAM, SOME INFORMATION MAY BE OMITTED. This clinical summary was aggregated from multiple sources. Caution should be exercised in using it in the provision of clinical care. This summary normalizes information from multiple sources, and as a consequence, information in this document may materially change the coding, format and clinical context of patient data. In addition, data may be omitted in some cases. CLINICAL DECISIONS SHOULD BE BASED ON THE PRIMARY CLINICAL RECORDS. [facility]. provides no warranty or guarantee of the accuracy or completeness of information in this document.
[2023-11-21 17:07] LABS: ALB/GLOB Ratio 1.1 RATIO (0.9-2.4); AST(SGOT) 14 U/L (15-37); Alanine Aminotransfer ALT/SGPT 24 U/L (13-56); Alkaline Phosphatase 88 U/L (45-117); Anion Gap 6 (5-15); BUN 9 mg/dL (7-18); BUN/Creat Ratio 9.4 RATIO (10-20); Calcium,Total 9.3 mg/dL (8.5-10.1); Chloride 107 mmol/L (98-107); Creatinine, Serum 0.96 mg/dL (0.55-1.02); EST Glomerular Filtration Rate 66 mL/min (>60); Est Glom Filt Rate - Afr Amer 79 mL/min (>60); Globulin 3.7 g/dL (2.2-4.2); Glucose 107 mg/dL (74-106); Potassium 3.9 mmol/L (3.5-5.1); Protein, Total 7.7 g/dL (6.4-8.2); Sodium Level 140 mmol/L (136-145); Thyroid Stim Hormone (TSH) 0.54 uIU/mL (0.358-3.74)
== END | disposition home or self-care (01) ==
PROVIDERS: PCP Family Medicine Geriatric Medicine; Visit Provider Family Medicine Geriatric Medicine
DX: I10 Essential (primary) hypertension (principal)
CPT/HCPCS: 36415; 80053; 84443; 85025

== ENCOUNTER → 2023-11-24 | Outpatient (CLI) | payer BC, SELFPAY ==
--- NOTE | 2023-11-24 10:53 | BI_ITS ---
MAMMOGRAPHY - BILATERAL SCREENING REASON FOR EXAM: Female, 48 years old. Routine annual screening examination. PERTINENT HISTORY: Non-contributory. TECHNIQUE: Digital bilateral breast lucho (3D mammographic acquisition) in the CC and MLO projections. 2-D mediolateral oblique (MLO) and craniocaudad (CC) views of both breasts were obtained. CAD: Full Field Digital Mammography with Computer Added Detection was performed. COMPARISON: Comparison is made with prior study dated March 24, 2016. FINDINGS: Breast Composition: There are scattered areas of fibroglandular density. There are no dominant masses or suspicious calcifications. Stable small benign-appearing bilateral axillary lymph nodes. No other significant abnormalities are identified. There has been no significant change since the prior study. BI/SCRN MAMM (CAD)W/LUCHO BILAT IMPRESSION: Stable bilateral screening mammogram. Yearly follow-up mammogram recommended. (A) ASSESSMENT CATEGORY: BIRADS Category 2: Benign. A letter regarding these results will be sent to the patient by the facility within 30 days. Approximately 10% of breast cancers are not detected by mammography. A normal mammogram should not delay biopsy of a clinically suspicious abnormality. [id number] Electronically Signed: Сергей Villanueva MD at 13:52 EST ,
--- OUTSIDE RECORDS SUMMARY | 2023-11-24 11:16 | XMS RPT_ITS | CCD ---
Author Name Unknown Address [address] [place] [address] Organization [facility] Care Team Providers Care Commercial Account Manager Name Role Phone Pino Alston Chi Primary Care Provider [phone] YARA SANDERS Attending Unavailable Medications Completed/Discontinued Medications [...] 165.1 cm Yara Sanders PA-C Work Phone: [facility] 08-24-2022 09:14-0400 Body temperature 97.59 [degF] Yara Sanders PA-C Work Phone: [facility] 08-24-2022 09:14-0400 Body weight 102.06 kg Yara Sanders PA-C Work Phone: [facility] 08-24-2022 09:14-0400 Diastolic blood pressure 90 mm[Hg] Yara Sanders PA-C Work Phone: [facility] 08-24-2022 09:14-0400 Heart rate 97 /min Yara Sanders PA-C Work Phone: [facility] 08-24-2022 09:14-0400 SaO2% (BldA) [Mass fraction] 96 % Yara Sanders PA-C Work Phone: [facility] 08-24-2022 09:14-0400 Systolic blood pressure 132 mm[Hg] Yara Sanders PA-C Work Phone: [facility] Encounters Encounter Date Encounter Type Care Provider Facility Start: 08-24-2022 End: 08-24-2022 ambulatory YARA SANDERS Facility:[facility] Start: 08-24-2022 End: 08-24-2022 Patient encounter procedure Yara Sanders PA-C Work Phone: General Surgery Procedures Date Procedure Procedure Detail Performing Clinician History of appendectomy S/P appendectomy Yara Sanders PA-C Work Phone: Plan of Treatment Date Care Activity Detail Author Start: 11-06-2021 DEPRESSION ASSESSMENT DEPRESSION ASS ESSMENT [facility] Start: 05-20-2021 COVID-19 VACCINE (3 - Booster for Tate series) COVID-19 VACCINE (3 - Booster for Tate series) [facility] Start: 2019 COLOGUARD (FIT-DNA) COLOGUARD (FIT-D NA) [facility] Start: 2019 Colonoscopy COLONOSCOPY [facility] Start: 2019 COLORECTAL CANCER SCREENING COLORECTAL CANCER SCREENING [facility] Start: [address] COLONOGRAPHY [facility] Start: 2019 DIABETES SCREEN DIABETES SCREEN [facility] Start: 2019 FECAL OCCULT BLOOD FECAL OCCULT BLOO D [facility] Start: 2019 LIPID SCREEN LIPID SCREEN [facility] Start: 2019 SIGMOIDOSCOPY SIGMOIDOSCOPY [facility] Start: 2014 Mammography MAMMOGRAM [facility] Start: 01-04-2009 PAP TESTING PAP TESTING [facility] Start: 02-19-2004 HPV TESTING HPV TESTING [facility] Start: 1993 Urine microalbumin profile DTAP,TDAP ,TD (1 - Tdap) [facility] Start: 02-19-1992 ANNUAL PCP TEAM ASSISTANT [place] ATTORNEY [place] DISEASE VISIT ANNUAL PCP TEAM CHRONIC DISEASE VISIT [facility] Start: 02-19-1992 BP CONTROLLED (<130/80) BP CONTROLLE D (<130/80) [facility] Start: 1974 HEPATITIS B (1 of 3 - 3-dose series) HEPATITIS B (1 of 3 - 3-dose series) [facility] Payers Date Payer Category Payer Unknown ELIO [employer]UR[employer] PPO [id number] 2019-Present [phone] [address] [place] [address] PPO [id number] Social History Date Type Detail Facility Start: 12-28-2012 Tobacco smoking stat [facility] Never smoked tobacco [facility] Work Phone: Start: 08-24-2022 [facility] intake Not [facility]ked [facility] Start: 1975 Sex Assigned At Not on file [facility] Progress note 08-24-2022 Note Date & Type Note Facility 08-24-2022 Note HNO ID: [id number] Author: Yara Sanders PA-C Service: ? Author Type: Physician [employer] Type: Progress Notes Filed: 08/24/2022 4:00 PM Note Text: FOLLOW UP VISIT - APPENDICITIS NAME: Gris Romero [address] [facility] NO.: [id number] DATE OF SERVICE: 08/24/2022 : 1975 REFERRING [...] with me as needed. Yara Sanders PA-C [facility] Instructions 08-24-2022 Patient Instructions Note Date & Type Note Facility 08-24-2022 Instructions Yara Sanders PA-C - 08/24/2022 9:31 AM EDT The following instructions are important for you related to your office visit today with the [facility]. INSTRUCTIONS FOLLOWING YOUR RECENT SURGERY [...] you should contact our office immediately @ [phone] and ask to be transferred to the General Surgery department. documented in this encounter [facility] History of Present illness Narrative 08-24-2022 Yara Sanders PA-C - 08/24/2022 9:10 AM EDT Note Date & Type Note Facility 08-24-2022 History of Presen t illness Narrative FOLLOW UP VISIT - APPENDICITIS NAME: Gris Jade [facility] NO.: [id number] DATE OF SERVICE: 08/24/2022 : 1975 REFERRING [...] Yara Sanders PA-C documented in this encounter [facility] Nurse Note 08-24-2022 Ibeth José RN - [...] Ibeth José RN documented in this encounter [facility] Evaluation note Note Date & Type Note Facility documented in this encounter [facility] Summary Purpose Family History No Family History [...] or prosecute any alcohol or drug abuse patient.[facility] Reason for Visit (unrecogniz ed section and [...] BE BASED ON THE PRIMARY CLINICAL RECORDS. [employer] [facility]. provides no warranty or guarantee of the accuracy or completeness of information in this document.
== END | disposition home or self-care (01) ==
LOC: OPBI 10:52
PROVIDERS: PCP Family Medicine Geriatric Medicine; Referring Provider Family Medicine Geriatric Medicine; Visit Provider Family Medicine Geriatric Medicine
DX: Z12.31 Encounter for screening mammogram for malignant neoplasm of breast (principal)
CPT/HCPCS: 77063; 77067

== ENCOUNTER → 2024-01-17 | Outpatient (CLI) | payer BC, SELFPAY ==
[2024-01-17 16:11] LABS: CRP < 2.90 mg/L (0.0-3.0)
[2024-01-17 17:51] LABS: Anion Gap 10 (5-15); BUN 15 mg/dL (7-18); BUN/Creat Ratio 14.6 RATIO (10-20); Calcium,Total 9.7 mg/dL (8.5-10.1); Chloride 109 mmol/L (98-107); Creatinine, Serum 1.03 mg/dL (0.55-1.02); EST Glomerular Filtration Rate 60 mL/min (>60); Est Glom Filt Rate - Afr Amer 73 mL/min (>60); Glucose 101 mg/dL (74-106); Potassium 4.3 mmol/L (3.5-5.1); Sodium Level 139 mmol/L (136-145)
[2024-01-19 16:10] LABS: Endomysial Antibody IgA Negative (Negative); Immunoglobulin A 289 mg/dL (87-352); t-Transglutaminase IgA <2 U/mL (0-3)
== END | disposition home or self-care (01) ==
LOC: MTLAB 12:32
PROVIDERS: Internal Medicine Cardiovascular Disease; PCP Family Medicine Geriatric Medicine; Referring Provider Internal Medicine Gastroenterology; Visit Provider Internal Medicine Gastroenterology
DX: R19.7 Diarrhea, unspecified (principal)
CPT/HCPCS: 36415; 80048; 82784; 83516; 86140; 86255

== ENCOUNTER → 2024-01-26 | Outpatient (CLI) | payer BC, SELFPAY ==
[2024-01-26 12:10] LABS: Absolute Lymphocyte Count 1.56 X10^3/uL (0.83-4.51); Absolute Neutrophil Count 4.6 X10^3/uL (2.0-7.7); Basophil# 0.03 X10^3/uL; Basophil% 0.4 % (0-1); Eosinophil# 0.05 X10^3/uL; Eosinophils% 0.7 % (0-5); Hematocrit 43.4 % (37-47); Hemoglobin 14.9 g/dL (12.0-15.0); Lymphocyte # 1.56 X10^3/ul (0.83-4.51); Mean Corp Hgb Conc 34.3 g/dL (32-36); Mean Corpuscular Volume 90.2 fL (81-99); Mean Platelet Vol. 9.5 fl (6.2-12.0); Monocyte# 0.49 X10^3/uL; Monocyte% 7.2 % (0-10); NRBC Flagged by Analyzer 0 % (0-5); Neutrophil # 4.59 X10^3/uL (2.7-7.7); Neutrophil % 67.8 % (47-70); Platelet Count 356 K/mm3 (150-450); RBC Distribution Width CV 12.2 % (11.6-14.6); RBC Distribution Width SD 40.1 fl (35.1-43.9); Red Blood Count 4.81 M/mm3 (4.2-5.4); White Blood Count 6.8 K/mm3 (4.4-11.0)
[2024-01-26 12:49] LABS: AST(SGOT) 16 U/L (15-37); Alanine Aminotransfer ALT/SGPT 28 U/L (13-56); Alkaline Phosphatase 79 U/L (45-117); Anion Gap 9 (5-15); BUN 10 mg/dL (7-18); BUN/Creat Ratio 12.5 RATIO (10-20); Calcium,Total 9.4 mg/dL (8.5-10.1); Chloride 105 mmol/L (98-107); EST Glomerular Filtration Rate 81 mL/min (>60); Est Glom Filt Rate - Afr Amer 97 mL/min (>60); Globulin 4.1 g/dL (2.2-4.2); Glucose 131 mg/dL (74-106); Potassium 3.7 mmol/L (3.5-5.1); Protein, Total 8.1 g/dL (6.4-8.2); Sodium Level 137 mmol/L (136-145)
== END | disposition home or self-care (01) ==
LOC: POLAB3 10:30
PROVIDERS: PCP Family Medicine Geriatric Medicine; Visit Provider Family Medicine Geriatric Medicine
DX: K76.0 Fatty (change of) liver, not elsewhere classified (principal); R19.7 Diarrhea, unspecified
CPT/HCPCS: 36415; 80053; 85025

== ENCOUNTER → 2024-01-30 | Outpatient (CLI) | payer BC, SELFPAY ==
[2024-02-06 00:06] LABS: Pancreatic Elastase, Fecal > 500 (>200)
[2024-02-12 08:07] LABS: Fats, Neutral Normal (.); Fats, Total Normal (.)
== END | disposition home or self-care (01) ==
LOC: LABSPEC 13:07
PROVIDERS: PCP Family Medicine Geriatric Medicine; Visit Provider Family Medicine Geriatric Medicine
DX: K76.0 Fatty (change of) liver, not elsewhere classified (principal); R19.7 Diarrhea, unspecified
CPT/HCPCS: 82653; 82705

== ENCOUNTER → 2024-02-13 | Outpatient (CLI) | payer BC, SELFPAY ==
--- NOTE | 2024-02-13 09:14 | US_ITS ---
STUDY: ABDOMINAL ULTRASOUND - RIGHT UPPER QUADRANT; ELASTOGRAPHY REASON FOR VISIT: Female, 48 years old. TECHNIQUE: Ultrasound evaluation of the right upper quadrant was performed with real-time and static horvath-scale imaging. Point quantification shear wave elastography was performed (Vow To Be Chic). TECHNICAL QUALITY: Adequate. COMPARISON: Comparison is made with prior study August 13, 2022. FINDINGS: Liver: The liver is enlarged and measures 21.2 cm. There is increased echogenicity consistent with fatty infiltration. The bile ducts are within normal limits. There is hepatic color flow. The direction of portal flow is hepatopetal. There is no demonstrated mass lesion. Median liver stiffness measured 7.2 kPa. Gallbladder: Normal distended gallbladder. The gallbladder wall measures 2.0 mm. There is a negative sonographic Stein''s sign. There is no pericholecystic fluid. There are no gallstones. Common Bile Duct (C.B.D.): The common bile duct measures 4.0 mm. Pancreas: There is normal echogenicity of the visualized pancreas. There is no demonstrated pancreatic mass or cyst. Right Kidney: Normal size of the right kidney. The right kidney measures 11.6 cm x 6.1 cm x 3.8 cm. Normal renal cortex. The right cortex measures 1.4 cm. There is no demonstrated renal mass or cyst. There is no right hydronephrosis. US/ABD Limited w/ Elastography IMPRESSION: 1. Liver stiffness measures 7.2 kPa compatible with F2-F3 (Mild to moderate liver fibrosis) Metavir score. Electronically Signed: Сергей Villanueva MD at 12:45 EDT ,
== END | disposition home or self-care (01) ==
LOC: US 09:12
PROVIDERS: PCP Family Medicine Geriatric Medicine; Referring Provider Family Medicine Geriatric Medicine; Visit Provider Family Medicine Geriatric Medicine
DX: K76.0 Fatty (change of) liver, not elsewhere classified (principal)
CPT/HCPCS: 76705; 76981

== ENCOUNTER → 2024-02-21 | Outpatient (CLI) | payer BC, SELFPAY ==
[2024-02-21 11:36] LABS: Absolute Lymphocyte Count 2.07 X10^3/uL (0.83-4.51); Absolute Neutrophil Count 3.9 X10^3/uL (2.0-7.7); Basophil# 0.02 X10^3/uL; Basophil% 0.3 % (0-1); Eosinophil# 0.05 X10^3/uL; Eosinophils% 0.8 % (0-5); Hematocrit 42.9 % (37-47); Hemoglobin 14.6 g/dL (12.0-15.0); Lymphocyte # 2.07 X10^3/ul (0.83-4.51); Lymphocyte % 31.7 % (19-41); Mean Corpuscular Hgb 31.7 pg (27.0-32.0); Mean Corpuscular Volume 93.1 fL (81-99); Mean Platelet Vol. 9.6 fl (6.2-12.0); Monocyte# 0.49 X10^3/uL; Monocyte% 7.5 % (0-10); NRBC Flagged by Analyzer 0 % (0-5); Neutrophil # 3.88 X10^3/uL (2.7-7.7); Neutrophil % 59.4 % (47-70); Platelet Count 372 K/mm3 (150-450); RBC Distribution Width CV 11.9 % (11.6-14.6); RBC Distribution Width SD 40.6 fl (35.1-43.9); Red Blood Count 4.61 M/mm3 (4.2-5.4); White Blood Count 6.5 K/mm3 (4.4-11.0)
[2024-02-21 11:58] LABS: ALB/GLOB Ratio 1.1 RATIO (0.9-2.4); AST(SGOT) 15 U/L (15-37); Alanine Aminotransfer ALT/SGPT 27 U/L (13-56); Albumin, Serum 4.3 g/dL (3.2-5.0); Alkaline Phosphatase 78 U/L (45-117); Anion Gap 6 (5-15); BUN 12 mg/dL (7-18); BUN/Creat Ratio 11.8 RATIO (10-20); Calcium,Total 9.5 mg/dL (8.5-10.1); Chloride 106 mmol/L (98-107); Creatinine, Serum 1.02 mg/dL (0.55-1.02); EST Glomerular Filtration Rate 61 mL/min (>60); Est Glom Filt Rate - Afr Amer 74 mL/min (>60); Globulin 3.9 g/dL (2.2-4.2); Glucose 134 mg/dL (74-106); Potassium 3.9 mmol/L (3.5-5.1); Protein, Total 8.2 g/dL (6.4-8.2); Sodium Level 138 mmol/L (136-145); Thyroid Stim Hormone (TSH) 0.57 uIU/mL (0.358-3.74)
== END | disposition home or self-care (01) ==
LOC: POLAB3 09:10
PROVIDERS: PCP Family Medicine Geriatric Medicine; Visit Provider Family Medicine Geriatric Medicine
DX: I10 Essential (primary) hypertension (principal)
CPT/HCPCS: 36415; 80053; 84443; 85025

== ENCOUNTER → 2024-04-09 | Outpatient (CLI) | payer BC, SELFPAY ==
--- NOTE | 2024-04-10 10:35 | STRESSREP_ITS ---
Stress Test Report Date: 04/09/2024 Procedure: Exercise tolerance test Indications: Dyspnea Consent: Per the patient Procedure: The patient exercised on a August protocol for 4 minutes achieving a peak heart rate of 157 bpm (92% predicted maximal heart rate) with a peak blood pressure 202/80 mmHg and a peak MET capacity of approximately 7.0 MET's. The baseline ECG demonstrated sinus rhythm. The peak exercise ECG demonstrated sinus tachycardia with no ischemic changes. There were no cardiac dysrhythmias pretest, during exercise, or recovery. The functional capacity was considered suboptimal. The patient had no complaints of chest discomfort during exercise or recovery. The examination was discontinued secondary to dyspnea. Impression: 1. Technically adequate (percent predicted maximal heart rate greater than 85%) exercise tolerance test 2. Peak exercise ECG with no ischemic changes 3. There were no cardiac dysrhythmias during exercise or recovery This note was generated with [employer] software. It may contain incorrect words, spelling, and punctuation that were not noted in checking the note before signing.
== END | disposition home or self-care (01) ==
PROVIDERS: PCP Family Medicine Geriatric Medicine; Referring Provider Nurse Practitioner Family; Visit Provider Nurse Practitioner Family
DX: R06.09 Other forms of dyspnea (principal); E66.01 Morbid (severe) obesity due to excess calories; R06.02 Shortness of breath; E78.5 Hyperlipidemia, unspecified; F17.200 Nicotine dependence, unspecified, uncomplicated; R00.2 Palpitations; R00.0 Tachycardia, unspecified; I10 Essential (primary) hypertension
CPT/HCPCS: 93017

== ENCOUNTER → 2024-08-22 | Outpatient (CLI) | payer BC, SELFPAY ==
[2024-08-22 11:18] LABS: Absolute Lymphocyte Count 2.33 X10^3/uL (0.83-4.51); Absolute Neutrophil Count 3.5 X10^3/uL (2.0-7.7); Basophil# 0.03 X10^3/uL; Basophil% 0.5 % (0-1); Eosinophil# 0.05 X10^3/uL; Eosinophils% 0.8 % (0-5); Hematocrit 41.9 % (37-47); Hemoglobin 13.9 g/dL (12.0-15.0); Lymphocyte # 2.33 X10^3/ul (0.83-4.51); Lymphocyte % 37.3 % (19-41); Mean Corp Hgb Conc 33.2 g/dL (32-36); Mean Corpuscular Hgb 31.4 pg (27.0-32.0); Mean Corpuscular Volume 94.6 fL (81-99); Mean Platelet Vol. 9.6 fl (6.2-12.0); Monocyte# 0.36 X10^3/uL; Monocyte% 5.8 % (0-10); NRBC Flagged by Analyzer 0 % (0-5); Neutrophil # 3.47 X10^3/uL (2.7-7.7); Neutrophil % 55.4 % (47-70); Platelet Count 301 K/mm3 (150-450); RBC Distribution Width CV 12.3 % (11.6-14.6); RBC Distribution Width SD 42.5 fl (35.1-43.9); Red Blood Count 4.43 M/mm3 (4.2-5.4); White Blood Count 6.3 K/mm3 (4.4-11.0)
[2024-08-22 11:53] LABS: AST(SGOT) 13 U/L (15-37); Alanine Aminotransfer ALT/SGPT 18 U/L (13-56); Albumin, Serum 3.7 g/dL (3.2-5.0); Alkaline Phosphatase 67 U/L (45-117); Anion Gap 4 (5-15); BUN 10 mg/dL (7-18); BUN/Creat Ratio 9.4 RATIO (10-20); Calcium,Total 9.4 mg/dL (8.5-10.1); Chloride 107 mmol/L (98-107); Creatinine, Serum 1.06 mg/dL (0.55-1.02); EST Glomerular Filtration Rate 58 mL/min (>60); Est Glom Filt Rate - Afr Amer 70 mL/min (>60); Globulin 3.6 g/dL (2.2-4.2); Glucose 138 mg/dL (74-106); Potassium 4.1 mmol/L (3.5-5.1); Protein, Total 7.3 g/dL (6.4-8.2); Sodium Level 137 mmol/L (136-145); Thyroid Stim Hormone (TSH) 0.477 uIU/mL (0.358-3.740)
[2024-08-22 15:52] LABS: Hemoglobin A1c 4.9 % (3.8-5.6)
== END | disposition home or self-care (01) ==
LOC: POLAB3 11:05
PROVIDERS: PCP Family Medicine Geriatric Medicine; Visit Provider Family Medicine Geriatric Medicine
DX: R73.9 Hyperglycemia, unspecified (principal); I10 Essential (primary) hypertension
CPT/HCPCS: 36415; 80053; 83036; 84443; 85025

== ENCOUNTER → 2025-04-10 | Outpatient (CLI) | payer BC, SELFPAY ==
[2025-04-10 15:09] LABS: Absolute Neutrophil Count 5.9 X10^3/uL (2.0-7.7); Basophil# 0.06 X10^3/uL; Basophil% 0.7 % (0-1); Eosinophil# 0.11 X10^3/uL; Eosinophils% 1.2 % (0-5); Hematocrit 43.2 % (37-47); Hemoglobin 14.6 g/dL (12.0-15.0); Lymphocyte % 26.4 % (19-41); Mean Corp Hgb Conc 33.8 g/dL (32-36); Mean Corpuscular Hgb 31.6 pg (27.0-32.0); Mean Corpuscular Volume 93.5 fL (81-99); Mean Platelet Vol. 9.8 fl (6.2-12.0); Monocyte# 0.61 X10^3/uL; Monocyte% 6.7 % (0-10); NRBC Flagged by Analyzer 0 % (0-5); Neutrophil # 5.89 X10^3/uL (2.7-7.7); Neutrophil % 64.8 % (47-70); Platelet Count 359 K/mm3 (150-450); RBC Distribution Width CV 12.6 % (11.6-14.6); Red Blood Count 4.62 M/mm3 (4.2-5.4); White Blood Count 9.1 K/mm3 (4.4-11.0)
[2025-04-10 16:23] LABS: ALB/GLOB Ratio 1.4 RATIO (0.9-2.4); AST(SGOT) 30 U/L (<=31); Alanine Aminotransfer ALT/SGPT 31 U/L (<=34); Albumin, Serum 4.2 g/dL (3.5-5.0); Alkaline Phosphatase 74 U/L (35-104); Anion Gap 14 (5-15); BUN 15 mg/dL (4-19); BUN/Creat Ratio 15.2 RATIO (10-20); Calcium,Total 9.7 mg/dL (7.6-11.0); Carbon Dioxide 21.2 mmol/L (21.0-32.0); Chloride 103 mmol/L (98-108); Creatinine, Serum 1.01 mg/dL (0.70-1.20); EST Glomerular Filtration Rate 67 (>60); Glucose 90 mg/dL (70-99); Potassium 4.2 mmol/L (3.3-5.1); Protein, Total 7.2 g/dL (5.9-8.4); Sodium Level 138 mmol/L (133-145); Total Bilirubin 0.44 mg/dL (0.00-1.30)
== END | disposition home or self-care (01) ==
PROVIDERS: PCP Family Medicine Geriatric Medicine; Referring Provider Family Medicine Geriatric Medicine; Visit Provider Family Medicine Geriatric Medicine
DX: I10 Essential (primary) hypertension (principal)
CPT/HCPCS: 36415; 80053; 84443; 85025

== ENCOUNTER 2025-04-20 10:16 | Observation (INO) | payer BC, SELFPAY ==
[2025-04-20] VITALS (14 sets, daily range): BP systolic 121–157; BP diastolic 89–112; PULSE 81–142; RESP 16–23; TEMP 36.6–36.8; O2SAT 89–99; BMI 35.9; BMI 35.6
--- NOTE | 2025-04-20 10:23 | RAD_ITS ---
PROCEDURE: CHEST 1 VIEW (PORTABLE) 04/20/2025 REASON FOR EXAM: SYNCOPE, TACHYCARDIA TECHNIQUE: Frontal view of the chest. COMPARISON: Chest radiograph 12/16/2021. FINDINGS: Hardware: None. Heart: The heart size is normal. Lungs: No focal consolidation, pleural effusion or pneumothorax. Bones: Degenerative changes are identified within the thoracic spine. RAD/Chest 1 View (Portable) IMPRESSION: No Acute Findings. Reading Location: [id number]
--- NOTE | 2025-04-20 10:23 | EKG12_ITS ---
Test Reason : SVT Blood Pressure : */* mmHG Vent. Rate : 139 BPM Atrial Rate : 139 BPM P-R Int : 136 ms QRS Dur : 96 ms QT Int : 300 ms P-R-T Axes : 48 41 38 degrees QTcB Int : 456 ms Sinus tachycardia Possible Lateral infarct , age undetermined Possible Inferior infarct , age undetermined Abnormal ECG Confirmed by MAYO DONALD, YG ([id number]), newspaper photo editor YARA HAIDER ([id number]) on 04/22/2025 7:42:46 AM Referred By: BECKY Confirmed By: YG HUBER MD
--- NOTE | 2025-04-20 10:26 | EDS_ITS ---
HPI History of Present Illness Chief Complaint: Palpitations Narrative Narrative: 50-year-old female past medical history of sinus tachycardia, on beta-jaylan, presents via EMS with rapid heart rate and syncopal episode versus seizure. She relays history that she was sitting at her desk, and the next thing she remembers is that she woke up on the floor. She was unable to get up, and she called for help. She states that she has only had 2 seizures in her life and is not on maintenance medication. She states the time that she had the seizures she was on tramadol which lowered her seizure threshold. Regarding her rapid heart rate, she states that she usually runs between 115 bpm to 125 bpm. 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 There was no loss of bowel or bladder. She currently denies any headache, although EMS reports that she may have been postictal. She states that she was feeling badly when being transported, but is markedly improved currently. No loss of bowel or bladder. No recent fevers or chills, no nausea or vomiting, no other symptoms. Additionally she did not have any prodromal symptoms. [facility] Medical History Depression, unspecified Generalized anxiety disorder Dyslipidemia Inappropriate sinus tachycardia Obesity (BMI 30-39.9) Dyspnea on exertion SOB (shortness of breath) Orthopnea Nicotine dependence Morbid obesity Palpitations Sedative dependence Insomnia Hyperlipidemia HTN (hypertension) Anxiety and depression Sinus tachycardia Leukocytosis Sludge in gallbladder Tachycardia Benadryl overdose History of depression Ankylosing spondylitis Home Medications ?Medication ?Instructions ?Recorded ?Last Taken ?Type losartan 100 mg tablet 100 mg PO QDAY 03/06/2404/06 History escitalopram oxalate 20 mg tablet 20 mg PO QDAY #90 ta bs 12/31/24 04/20/25 Rx bupropion HCl 150 mg 24 hr tablet, 150 mg PO QAM #30 t abs 02/11/25 Unknown Rx extended release bupropion HCl 300 mg 24 hr tablet, 300 mg PO QAM #90 t abs 02/11/25 04/20/25 Rx extended release olanzapine 10 mg tablet 10 mg PO QHS mood #30 tabs 0 03/26/25 04/19/25 Rx olanzapine 7.5 mg tablet 7.5 mg PO QDAY #30 tabs 03/0704/20/25 Rx carvedilol 25 mg tablet 25 mg PO BID #180 tabs 04/0804/19/25 Rx Tirzepatide 50 units IM QWEEK 04/20/25 0 04/18/25 History Allergy/AdvReac Type Severity Reaction Status Date / Time No Known Allergies Allergy Verified 04/20/25 10:19 Family History Mother Hypertension CVA (cerebral vascular accident) Alzheimers disease Father Heart disease CHF (congestive heart failure) Surgical History Status post laparoscopic appendectomy Previous section Social History household members: none Smoking Status: Former smoker alcohol intake: current alcohol intake frequency: holidays/special occasions only substance use type: does not use caffeine: Yes Type: coffee Number of servings: 2 ROS ROS ED ROS Narrative Review of systems positive for syncope versus seizure. Denies headache, no prodromal chest pain or shortness of breath. Reported postictal state. No loss of bowel or bladder. No recent leg swelling, no recent fevers or chills, no cough. EXAM Physical Exam Narrative Exam Narrative: Afebrile. Vital signs noted. Nontoxic-appearing. Cardiovascular examination reveals regular tachycardia at 142 bpm without ectopy. Mild tachypnea. Lungs clear to auscultation bilaterally. Abdomen soft, nontender, positive bowel sounds. No guarding or rebound. Neurological examination shows her to be awake, alert, interactive, answering questions appropriately. Oriented. Const Vital Signs: 04/20/25 10:16 04/20/25 10:23 04/20/25 10:43 Temperature 98.1 F Temperature Source Oral Pulse Rate 142 H 92 Respiratory Rate 23 H 19 H Blood Pressure 157/100 H 121/89 H Blood Pressure Mean 119 99 Pulse Ox 97 91 Oxygen Delivery Method Room Air Oxygen Flow Rate (L/min) 04/20/25 10:44 04/20/25 10:44 04/20/25 11:16 Temperature Temperature Source Pulse Rate 90 Respiratory Rate 16 Blood Pressure 135/96 H Blood Pressure Mean 109 Pulse Ox 89 93 98 Oxygen Delivery Method Room Air Nasal Cannula Nasal Cannula Oxygen Flow Rate (L/min) 1 1 04/20/25 11:58 04/20/25 12:12 04/20/25 13:00 Temperature 98.1 F Temperature Source Pulse Rate 85 85 93 Respiratory Rate 17 17 16 Blood Pressure 141/97 H 141/97 H 140/97 H Blood Pressure Mean 111 111 111 Pulse Ox 97 97 99 Oxygen Delivery Method Room Air Room Air Oxygen Flow Rate (L/min) 04/20/25 13:57 Temperature Temperature Source Pulse Rate 96 Respiratory Rate Blood Pressure 150/104 H Blood Pressure Mean 119 Pulse Ox 95 Oxygen Delivery Method Room Air Oxygen Flow Rate (L/min) MDM MDM MDM Narrative Medical decision making narrative: The differential diagnosis includes but not limited to syncope versus seizure versus cardiac dysrhythmia. Also on the differential diagnosis would be pulmonary embolism. Patient had been administered adenosine 6 and adenosine 12 by EMS with no resultant change in heart rate except for where it is now. Previously on EKG prehospital, she had a heart rate in the 160s. I reviewed her laboratory work she has normal white count of 9.6 with hemoglobin slightly hemoconcentrated at 15.9 and hematocrit 49.7, platelet count normal at 365. D-dimer is normal at 0.27. I doubt pulmonary embolism. Lactic acid elevated 8.4. With concern for seizure as this biomarkers elevated, she will be given 2 L of normal saline intravenously. Additionally, review of her BMP shows carbon dioxide low at 8.1 with BUN of 9 and creatinine 1.23, glucose of 120. Of note, her is now at the bedside and states that recently she started GLP, tirzepatide for weight loss. She had not had any problems since then. He stated that one of the side effects that was told to them at the compounding pharmacy is elevated heart rate. This on top of her previous tachycardia, could have increased her heart rate. While it is speculated that it may have dropped her blood pressure and perhaps caused the seizure. I put in for a telehealth consult for neurology. In discussion with the neurologist, it was felt that she would not need Keppra unless she had another seizure. If she does have another seizure it was recommended that she be administered 40 mg/kg of Keppra as a loading dose, and neurology contacted. She will need admission for MRI of the brain with and w ithout contrast as well as EEG. They can see her in consultation tomorrow. I did obtain a CT of the brain which shows no evidence of acute hemorrhage or mass, there is a scalp hematoma on the left parietal area however. Patient did complain of a headache initially she was given Tylenol. This may be posttraumatic from a closed head injury versus postictal. Additionally she was given Toradol 15 mg intravenously. I discussed patient with Dr. Le who wanted a repeat BMP as she will admit the patient if there is improvement in the low carbon dioxide. I reviewed the laboratory work and she has a normal bicarb currently at 22.3 and an anion gap of 11 as it had been elevated at 33 previously. Glucose 98. At this point in time, she will be admitted to the PCU in stable condition. History & Record Review Discussion w/independent historian: EMS personnel and Patient Lab Data Attestation: I reviewed the patient's lab results. Labs: Laboratory Results - last 24 hr 04/20/25 04/20/25 04/20/25 10:26 10:29 13:45 WBC 9.6 RBC 4.98 Hgb 15.9 H Hct 49.7 H MCV 99.8 H MCH 31.9 MCHC 32.0 RDW Std Deviation 46.5 H RDW Coeff of Jean-Paul 12.7 Plt Count 365 MPV 9.7 Immature Gran % (Auto) 0.200 Neut % (Auto) 39.7 L Lymph % (Auto) 49.1 H [place] % (Auto) 8.8 Eos % (Auto) 1.7 Baso % (Auto) 0.5 Absolute Neuts (auto) 3.8 Absolute Lymphs (auto) 4.70 H Nucleated RBC % 0 D-Dimer Quant (PE/DVT) 0.27 Sodium 143 141 Potassium 3.8 4.1 Chloride 101 108 Carbon Dioxide 8.1 L* 22.3 Anion Gap 33 H 11 BUN 9 7 Creatinine 1.23 H 0.98 Estim Creat Clear Calc 64.90 81.46 Est GFR (MDRD) Non-Af 53 L 70 BUN/Creatinine Ratio 7.3 L 7.6 L Glucose 120 H 98 Lactic Acid 8.4 H* Calcium 9.7 8.8 Total Bilirubin 0.66 AST 27 ALT 27 Alkaline Phosphatase 84 Total Protein 8.5 H Albumin 5.1 H Globulin 3.4 Albumin/Globulin Ratio 1.5 Radiography Diagnostic Testing: Clinical Impression(s) from Imaging Studies Chest X-Ray 04/20/25 10:23 IMPRESSION: No Acute Findings. Reading Location: [id number] Brain CT 04/20/25 12:06 IMPRESSION: 1. No acute intracranial finding. 2. Small hematoma along the left posterior scalp. Reading Location: [facility] Discharge Plan Dx/Rx/DC Orders Clinical Impression: Sinus tachycardia, Seizure, Lactic acidosis, Hypocarbia Disposition Disposition: Acute Care Hospital [facility]
[2025-04-20] MEDS: Labetalol 20 MG/4 ML Vial IV (10:33)
[2025-04-20 10:38] LABS: Absolute Neutrophil Count 3.8 X10^3/uL (2.0-7.7); Basophil# 0.05 X10^3/uL; Basophil% 0.5 % (0-1); Eosinophil# 0.16 X10^3/uL; Eosinophils% 1.7 % (0-5); Hematocrit 49.7 % (37-47); Hemoglobin 15.9 g/dL (12.0-15.0); Lymphocyte % 49.1 % (19-41); Mean Corpuscular Hgb 31.9 pg (27.0-32.0); Mean Corpuscular Volume 99.8 fL (81-99); Mean Platelet Vol. 9.7 fl (6.2-12.0); Monocyte# 0.84 X10^3/uL; Monocyte% 8.8 % (0-10); NRBC Flagged by Analyzer 0 % (0-5); Neutrophil % 39.7 % (47-70); Platelet Count 365 K/mm3 (150-450); RBC Distribution Width CV 12.7 % (11.6-14.6); RBC Distribution Width SD 46.5 fl (35.1-43.9); Red Blood Count 4.98 M/mm3 (4.2-5.4); White Blood Count 9.6 K/mm3 (4.4-11.0)
--- OUTSIDE RECORDS SUMMARY | 2025-04-20 10:54 | XMS RPT_ITS | CCD ---
Author Organization [facility] CliniSyal Care Team Providers Care Supervisor Phosph[employer] Processing Name Role Phone Dr. Pino Alston Chi Primary Care Provider Dr. Tyler Plunkett Emergency Provider Dr. Harry Headley Admit Provider Dr. Harry Headley Other Provider Dr. Aries Isbell Attending Provider Dr. Aries Isbell Other Provider [phone] Lalit Saez Attending Provider Unavailable Dr. Lalit Saez Other Provider Unavailable Dr. Avelina Reyes Attending Provider Dr. Avelina Reyes Other Provider Deb, Pino Chi Primary Care Provider [phone] YARA SANDERS Attending Unavailable Dr. Pino Alston Chi Primary Care Provider [phone] Dr. Pino Alston Chi Referring Provider [phone] Dr. Godwin Diehl Attending Provider Tata Flores Attending Unavailable Deb, Pino Chi Primary Care Unavailable Flores, Tata Attending Unavailable Deb, Pino Chi Primary Care Unavailable Deb, Pino Chi Primary Care Unavailable Flores, Tata Attending Unavailable Flores, Tata Attending Unavailable Deb, Pino Chi Primary Care Unavailable Flores, Tata Attending Unavailable Deb, Pino Chi Primary Care Unavailable Flores, Tata Attending Unavailable Deb, Pino Chi Primary Care Unavailable Deb, Pino Chi Primary Care Unavailable Flores, Tata Attending Unavailable Flores, Tata Attending Unavailable Deb, Pino Chi Primary Care Unavailable Deb, Pino Chi Attending Unavailable Deb, Pino Chi Referring Unavailable Deb, Pino Chi Primary Care Unavailable Deb, Pino Chi Primary Care Unavailable Pino Alston Chi Attending Unavailable Medications Current Medications Medication Drug Class(es) Dates Sig (Normalized) Sig (Original) busPIRone hydrochloride 15 mg oral tablet (3 sources) Start: 12-20-2023 take 15 mg by mouth four times daily Buspirone Active 15 MG PO 4 TIMES DAILY December 20, 2023 1:00am carvedilol 25 mg oral tablet (20 sources) alpha-Adrenergic Gogo, beta-Adrenergic Gogo Start: 12-20-2023 take 25 mg by mouth twice daily at mealtime Carvedilol Active 25 MG PO TWICE A DAY 180 December 20, 2023 1:00am must administer with a meal/food Start: 08-18-2022 End: 12-20-2023 take 12.5 mg by mouth twice daily Carvedilol Discontinued 12.5 MG PO TWICE A DAY August 18, 2022 12:00am December 20, 2023 12:23pm Start: 07-01-2020 End: 08-18-2022 take 6.25 mg by mouth twice daily Carvedilol Discontinued 6.25 MG PO TWICE A DAY August 13, 2022 9:07pm August 18, 2022 2:35pm Comment on above: Take 12.5 mg by mout h twice daily. losartan potassium 50 mg oral tablet (11 sources) Angiotensin 2 Receptor Gogo Start: 12-20-2023 take 50 mg by mouth once daily Losartan Active 50 MG PO DAILY 90 December 20, 2023 1:00am Start: 08-18-2022 End: 12-20-2023 take 25 mg by mouth once daily Losartan Discontinued 2 5 MG PO DAILY August 18, 2022 12:00am December 20, 2023 12:23pm Comment on above: Take 25 mg by mouth once daily. OLANZapine 10 mg oral tablet (12 sources) Atypical Antipsychotic Start: take 10 mg by mouth twice daily Olanzapine Active 10 MG PO TWICE A DAY December 20, 2023 11:53am Start: 08-13-2022 End: 12-20-2023 take 10 mg by mouth once daily Olanzapine Discontinued 10 MG PO DAILY August 13, 2022 12:00am December 20, 2023 11:54am Start: 08-11-2022 take 1 tablet by trinity th twice daily OLANZapine (ZYPREXA) 10 mg tablet Take 10 mg by mouth twice daily. 0 08/11/2022 Active Comment on above: Take 10 mg by mouth twice daily. sertraline 100 mg oral tablet (3 sources) Serotonin Reuptake Inhibitor Start: 12-20-2023 take 200 mg by mouth once daily Sertraline Active 200 MG PO DAILY December 20, 2023 1:00am Completed/Discontinued Medications Medication Drug Class(es) Dates Sig (Normalized) Sig (Original) acetaminophen 325 mg / oxyCODONE hydrochloride 5 mg oral tablet (7 sources) Opioid Agonist Start: 08-18-2022 End: 12-11-2023 take 1 tablet by mouth every four hours Oxycodone-Acetamin ophen (Endocet) 5-325 mg tablet Discontinued 1 TABLET PO Q4H 20 August 18, 2022 December 11, 2023 2:52pm 0.8 ml adalimumab 50 mg/ml auto-injector (1 source) Tumor Necrosis Factor Gogo End: 08-24-2022 Adalimumab 40 mg/0.8 mL Inject subcutaneously. 0 08/24/2022 Discontinued Comment on above: Inject subcutaneousl y. amoxicillin 500 mg / clavulanate 125 mg oral tablet (7 sources) Penicillin-class Antibacterial Start: 08-18-2022 End: 12-11-2023 take 1 tablet by mouth twice daily Amoxicillin-Pot Clavulanate (Augmentin) 500-125 mg tablet Discontinued 1 TABLET PO TWICE A DAY August 18, 2022 12:00am December 11, 2023 2:50pm 24 hr buPROPion hydrochloride 300 mg extended release oral tablet (1 source) Aminoketone End: 08-24-2022 take 1 tablet by mouth once daily buPROPion XL (WELLBUTRIN XL) 300 mg 24 hr tablet Take 300 mg by mouth once daily. 0 08/24/2022 Discontinued Comment on above: Take 300 mg by mouth once daily. citalopram 40 mg oral tablet (9 sources) Serotonin Reuptake Inhibitor Start: 08-07-2022 citalopram (CELEXA) 40 mg tablet Take 60 mg by mouth once daily. 0 08/07/2022 Active Start: 12-16-2021 End: 12-20-2023 take 20 mg by mouth once daily Citalopram Discontinued 20 MG PO DAILY December 16, 2021 1:00am December 20, 2023 11:54am Comment on above: Take 60 mg by mouth once daily. doxepin hydrochloride 25 mg oral capsule (3 sources) Tricyclic Antidepressant Start: End: take 25 mg by mouth at bedtime Doxepin Discontinued 25 MG PO AT BEDTIME December 11, 2023 1:00am December 20, 2023 11:54am Folic Acid (1 source) End: FOLIC ACID ORAL Take by mouth once daily. 0 08/24/2022 Discontinued Comment on above: Take by mouth once d aily. hydroCHLOROthiazide 12.5 mg / valsartan 160 mg oral tablet (1 source) Thiazide Diuretic, Angiotensin 2 Receptor Gogo take 1 tablet by mouth once daily Valsartan-hydroCHL OROthiazide 160-12.5 mg per tablet Take 1 tablet by mouth once daily. 0 Active Comment on above: Take 1 tablet by trinity once daily. meloxicam 15 mg oral tablet (1 source) Nonsteroidal Anti-inflammatory Drug End: take 1 tablet by mouth once daily meloxicam (MOBIC) 15 mg tablet Take 15 mg by mouth once daily. 0 08/24/2022 Discontinued Comment on above: Take 15 mg by mouth once daily. methotrexate 15 mg oral tablet (1 source) Folate Analog Metabolic Inhibitor End: take 1 tablet by mouth once methotrexate 15 mg tablet Take 15 mg by mouth one time only. 0 08/24/2022 Discontinued Comment on above: Take 15 mg by mouth one time only. predniSONE 10 mg oral tablet (8 sources) Start: End: take 4 tablets by mouth once daily, then take 3 tablets by mouth once daily, then take 2 tablets by mouth once daily, then take 1 tablet by mouth once daily, then take 1 tablet by mouth every other day Prednisone Discontinued 10 MG PO DIRECTED March 01, 2016 12:00am September 17, 2018 7:11am Take 4 tablets daily for 3 days, then 3 daily for 3 days, then 2 daily for 3 days, then 1 a day for 3 days then 1 QOD for 3 doses. zolpidem tartrate 10 mg oral tablet (9 sources) gamma-Aminobutyric Acid-ergic Agonist Start: 10-18-2 022 take 1 tablet by mouth once daily at bedtime zolpidem (AMBIEN) 10 mg take 1 tablet by mouth once daily at bedtime if needed 0 08/23/2022 Active Start: 06-30-2020 End: 12-11-2023 take 10 mg by mouth at bedtime Zolpidem Discontinued 1 0 MG PO AT BEDTIME June 30, 2020 12:00am December 11, 2023 2:51pm Comment on above: take 1 tablet by trinity th once daily at bedtime if needed Problems Active Problems Problem Classification Problem Date Documented Date Episodic/Chronic Appendicitis and other appendiceal conditions (16 sources) Appendicitis; Translations: [Unspecified appendicitis] Episodic Biliary tract disease (9 sources) Biliary sludge; Translations: [Other specified diseases of gallbladder] Episodic Cardiac dysrhythmias (3 sources) Inappropriate sinus tachycardia; Translations: [Inappropriate sinus tachycardia] 12-20-2023 Chronic Cardiac dysrhythmias (20 sources) Palpitations; Translations: [Palpitations] Onset: 12-28-2012 Episodic Diseases of white blood cells (9 sources) Leukocytosis; Translations: [Elevated white blood cell count, unspecified] Chronic Disorders of lipid metabolism (9 sources) Dyslipidemia; Translations: [Hyperlipidemia, unspecified] 12-20-2023 Chronic Essential hypertension (8 sources) Hypertensive disorder; Translations: [Essential (primary) hypertension] Onset: 12-28-2012 12-28-2012 Chronic Other lower respiratory disease (3 sources) Dyspnea on exertion; Translations: [Other forms of dyspnea] 12-20-2023 Episodic Other lower respiratory disease (3 sources) Dyspnea; Translations: [Shortness of breath] 12-11-2023 Episodic Other lower respiratory disease (3 sources) Other forms of dyspnea; Translations: [Other respiratory abnormalities] 12-20-2023 Episodic Other nutritional; endocrine; and metabolic disorders (3 sources) Morbid obesity; Translations: [Morbid (severe) obesity due to excess calories] 12-11-2023 Chronic Other nutritional; endocrine; and metabolic disorders (3 sources) Body mass index 30+ - obesity; Translations: [Obesity, unspecified] 12-20-2023 Chronic Other nutritional; endocrine; and metabolic disorders (3 sources) Obesity, unspecified; Translations: [Obesity, unspecified] 12-20-2023 Chronic Peritonitis and intestinal abscess (9 sources) Peritonitis; Translations: [Peritonitis, unspecified] Episodic Residual codes; unclassified (8 sources) Acquired absence of other specified parts of digestive tract; Translations: [Status post laparoscopic appendectomy] Episodic Rheumatoid arthritis and related disease (9 sources) Ankylosing spondylitis; Translations: [Ankylosing spondylitis of unspecified sites in spine] Onset: 12-28-2012 12-28-2012 Chronic Screening and history of mental health and substance abuse codes (8 sources) H/O: depression; Translations: [Personal history of other mental and behavioral disorders] 03-01-2016 Episodic Septicemia (except in labor) (9 sources) Sepsis; Translations: [Sepsis, unspecified organism] Episodic Substance-related disorders (6 sources) Nicotine dependence; Translations: [Nicotine dependence, unspecified, uncomplicated] 12-20-2023 Chronic Past or Other Problems Problem Classification Problem Date Documented Da te Episodic/Chronic Coma; stupor; and brain damage (1 source) Loss of consciousness; Translations: [Unspecified coma] Onset: 12-28-2012 12-28-2012 Episodic Diabetes mellitus without complication (1 source) Hyperglycemia, unspecified; Translations: [Hyperglycemia, unspecified] Onset: 09-12-2024 Episodic Unclassified (8 sources) Benadryl overdose 07-25-2022 Results Test Name Value Interpretation Reference Range Facility CBC W/Diff, Automatedon 06-0 Absolute Lymph 2.40 X10 3/uL Normal 0.83-4.51 [facility] Comment on above: Performed By: #### L 100.0100, L500.4050, L501.9520 #### [facility] [address] [place], [address] Absolute Neut 5.9 X10 3/uL Normal 2.0-7.7 [facility] Comment on above: Performed By: #### L 100.0100, L500.4050, [id number] #### [facility] [address] [place], [address] Basophils/100 WBC (Bld) 0.7 % Normal 0-1 [facility] Comment on above: Performed By: #### L 100.0100, L500.4050, [id number] #### [facility] [address] [place], [address] Eosinophils/100 WBC (Bld) 1.2 % Normal 0-5 [facility] Comment on above: Performed By: #### L 100.0100, L500.4050, [id number] #### [facility] [address] [place], [address] Erythrocyte distribution width (RBC) [Ratio] 12.6 % Normal 11.6-14.6 [facility] Comment on above: Performed By: #### L 100.0100, L500.4050, [id number] #### [facility] [address] [place], [address] Hematocrit (Bld) [Volume fraction] 43.2 % Normal 37-47 [facility] Comment on above: Performed By: #### L 100.0100, L500.4050, [id number] #### [facility] [address] [place], [address] Hemoglobin (Bld) [Mass/Vol] 14.6 g/dL Normal 12.0-15.0 [facility] Comment on above: Performed By: #### L 100.0100, L500.4050, [id number] #### [facility] [address] [place], [address] IG% 0.200 Normal 0.0-0.9 [facility] Comment on above: Result Comment: IG% - Immature Granulocytes (promyelocytes, myelocytes and metamyelocytes) > 1% indicates that a LEFT SHIFT is Present. Performed By: #### L 100.0100, L500.4050, L501.9520 #### [facility] [address] [place], [address] Lymphocytes/100 WBC (Bld) 26.4 % Normal 19-41 [facility] Comment on above: Performed By: #### L 100.0100, L500.4050, [id number] #### [facility] [address] [place], [address] MCH (RBC) [Entitic mass] 31.6 pg Normal 27.0-32.0 [facility] Comment on above: Performed By: #### L 100.0100, L500.4050, [id number] #### [facility] [address] [place], [address] MCHC (RBC) [Mass/Vol] 33.8 g/dL Normal 32-36 [facility] Comment on above: Performed By: #### L 100.0100, L500.4050, [id number] #### [facility] [address] [place], [address] MCV (RBC) [Entitic vol] 93.5 fL Normal 81-99 [facility] Comment on above: Performed By: #### L 100.0100, L500.4050, [id number] #### [facility] [address] [place], [address] Monocytes/100 WBC (Bld) 6.7 % Normal 0-10 [facility] Comment on above: Performed By: #### L 100.0100, L500.4050, [id number] #### [facility] [address] [place], [address] Neutrophils/100 WBC (Bld) 64.8 % Normal 47-70 [facility] Comment on above: Performed By: #### L 100.0100, L500.4050, [id number] #### [facility] [address] [place], [address] Nucleated RBC (Bld) [#/Vol] 0 10*3/uL Normal 0-5 [facility] Comment on above: Performed By: #### L 100.0100, L500.4050, [id number] #### [facility] [address] [place], [address] Platelet mean volume (Bld) [Entitic vol] 9.8 fL Normal 6.2-12.0 [facility] Comment on above: Performed By: #### L 100.0100, L500.4050, [id number] #### [facility] [address] [place], [address] Platelets (Bld) [#/Vol] 359 10*3/uL Normal 150-450 [facility] Comment on above: Performed By: #### L 100.0100, L500.4050, [id number] #### [facility] [address] [place], [address] RBC (Bld) [#/Vol] 4.62 10*6/uL Normal 4.2-5.4 [facility] Comment on above: Performed By: #### L 100.0100, L500.4050, [id number] #### [facility] [address] [place], [address] RDW SD 43.0 fl Normal 35.1-43.9 [facility] Comment on above: Performed By: #### L 100.0100, L500.4050, [id number] #### [facility] [address] [place], [address] WBC (Bld) [#/Vol] 9.1 10*3/uL Normal 4.4-11.0 [facility] Comment on above: Performed By: #### L 100.0100, L500.4050, [id number] #### [facility] [address] [place], [address] Comprehensive Metabolic Prof [facility] 04-10-2025 Albumin [Mass/Vol] 4.2 g/dL Normal 3.5-5.0 [facility] Comment on above: Performed By: #### L 100.0100, L500.4050, [id number] #### [facility] [address] [place], [address] Albumin/Globulin [Mass ratio] 1.4 {ratio} Normal 0.9-2.4 [facility] Comment on above: Performed By: #### L 100.0100, L500.4050, [id number] #### [facility] [address] [place], [address] ALK PHOS 74 U/L Normal 35-104 [facility] Comment on above: Performed By: #### L 100.0100, L500.4050, [id number] #### [facility] [address] [place], [address] ALT [Catalytic activity/Vol] 31 U/L Normal <=34 [facility] Comment on above: Performed By: #### L 100.0100, L500.4050, [id number] #### [facility] [address] [place], [address] AST [Catalytic activity/Vol] 30 U/L Normal <=31 [facility] Comment on above: Performed By: #### L 100.0100, L500.4050, [id number] #### [facility] [address] [place], [address] Bilirubin [Mass/Vol] 0.44 mg/dL Normal 0.00-1.30 [facility] Comment on above: Performed By: #### L 100.0100, L500.4050, [id number] #### [facility] [address] [place], [address] BUN/CRE 15.2 RATIO Normal 10-20 [facility] Comment on above: Performed By: #### L 100.0100, L500.4050, [id number] #### [facility] [address] [place], [address] Calcium [Mass/Vol] 9.7 mg/dL Normal 7.6-11.0 [facility] Comment on above: Performed By: #### L 100.0100, L500.4050, [id number] #### [facility] [address] [place], [address] Chloride [Moles/Vol] 103 mmol/L Normal 98-108 [facility] Comment on above: Performed By: #### L 100.0100, L500.4050, [id number] #### [facility] [address] [place], [address] CO2 [Moles/Vol] 21.2 mmol/L Normal 21.0-32.0 [facility] Comment on above: Performed By: #### L 100.0100, L500.4050, [id number] #### [facility] [address] [place], [address] Creatinine [Mass/Vol] 1.01 mg/dL Normal 0.70-1.20 [facility] Comment on above: Performed By: #### L 100.0100, L500.4050, [id number] #### [facility] [address] [place], [address] GAP 14 Normal 5-15 [facility] Comment on above: Performed By: #### L 100.0100, L500.4050, [id number] #### [facility] [address] [place], [address] GFR/1.73 sq M.predicted among non-blacks MDRD (S/P/Bld) [Vol rate/Area] 67 mL/min/{1.73_m2} Normal >60 [facility] Comment on above: Result Comment: mL/m in/1.73m2 CKD-EPI Creatinine Equation (2020) Performed By: #### L 100.0100, L500.4050, [id number] #### [facility] [address] [place], [address] Globulin (S) [Mass/Vol] 3.0 g/dL Normal 2.2-4.2 [facility] Comment on above: Performed By: #### L 100.0100, L500.4050, [id number] #### [facility] [address] [place], [address] Glucose [Mass/Vol] 90 mg/dL Normal 70-99 [facility] Comment on above: Performed By: #### L 100.0100, L500.4050, [id number] #### [facility] [address] [place], [address] Potassium [Moles/Vol] 4.2 mmol/L Normal 3.3-5.1 [facility] Comment on above: Result Comment: Hemo lysis present, Results??could be affected. ?? Performed By: #### L 100.0100, L500.4050, [id number] #### [facility] [address] [place], [address] Sodium [Moles/Vol] 138 mmol/L Normal 133-145 [facility] Comment on above: Performed By: #### L 100.0100, L500.4050, [id number] #### [facility] [address] [place], [address] T PROT 7.2 g/dL Normal 5.9-8.4 [facility] Comment on above: Performed By: #### L 100.0100, L500.4050, [id number] #### [facility] [address] [place], [address] Urea nitrogen [Mass/Vol] 15 mg/dL Normal 4-19 [facility] Comment on above: Performed By: #### L 100.0100, L500.4050, [id number] #### [facility] [address] [place], [address] Thyroid Stim Hormone (TSH)on 04-10-2025 TSH 0.710 uIU/mL Normal 0.300-4.200 [facility] Comment on above: Performed By: #### L 100.0100, L500.4050, [id number] #### [facility] [address] [place], [address] MR/BMS.BPon 03-26-2025 MR/BMS.BP [address], [address] [place], [place] [address] OFFICE VISIT Date of Service: 03/26/25 MR#: [id number] Acct: [id number] Name: GRIS BRADSHAW Rep #: [id number] : 1975 Provider: KRIS hurst Age/Sex: 50/F Location: [facility] Status: Signed Intake Vital Signs 02/11/25 09:53 03/26/25 09:57 Height 5 ft 5.5 in 5 ft 5.5 in Weight: 215 lb BMI 35.2 BP 125/87 H 111/79 Blood Pressure Location Lt brachial Lt brachial Position Sitting Sitting Respiration 16 16 Pulse 84 85 Pulse Source Monitor Monitor BP Intake Visit Reasons: 6 wk FU Accompanied by: Self Allergies No Known Allergies Allergy (Verified 03/26/25 10:00) Medications ???Medication ???Instructions ???Recorded ???Confirmed ???Type carvedilol 25 mg tablet 25 mg PO BID #180 tabs 12/20/23 Rx losartan 100 mg tablet 100 mg PO QDAY 03/06/24 03/26/25 H istory escitalopram oxalate 20 mg tablet 20 mg PO QDAY #90 tabs 12/31/24 0 03/26/25 Rx bupropion HCl 150 mg 24 hr tablet, 150 mg PO QAM #30 tabs 02/11/25 03/26/25 Rx extended release bupropion HCl 300 mg 24 hr tablet, 300 mg PO QAM #90 tabs 02/11/25 03/26/25 Rx extended release olanzapine 10 mg tablet 10 mg PO QHS mood #30 tabs 5 03/26/25 Rx olanzapine 7.5 mg tablet 7.5 mg PO QDAY #30 tabs 03/26/25 0 03/26/25 Rx topiramate 50 mg tablet 50 mg PO QHS #30 tabs 03/26/25 Rx PFSH Medical History Depression, unspecified Generalized anxiety disorder Dyslipidemia Inappropriate sinus tachycardia Obesity (BMI 30-39.9) Dyspnea on exertion SOB (shortness of breath) Orthopnea Nicotine dependence Morbid obesity Palpitations Sedative dependence Insomnia Hyperlipidemia HTN (hypertension) Anxiety and depression Sinus tachycardia Leukocytosis Sludge in gallbladder Tachycardia Benadryl overdose History of depression Ankylosing spondylitis Surgical History Status post laparoscopic appendectomy Previous section Family History Mother Hypertension CVA (cerebral vascular accident) Alzheimers disease Father Heart disease CHF (congestive heart failure) Social History household members: none Smoking Status: Former smoker alcohol intake: current alcohol intake frequency: holidays/special occasions only substance use type: does not use caffeine: Yes Type: coffee Number of servings: 2 HPI History of Present Illness History provided by: patient HPI: Gris Bradshaw is a 50 year old female patient presenting today for a follow up evaluation. Reports she has been doing well in terms of mental health and has noticed benefit from reducing olanzapine. Is feeling more anxious with reduction but overall feels she has been doing well. Has been working on managing her diet but has been eating out more since her daughter returned and has gained some weight back. Admits to some feelings of depression but is reduced compared to before. Has been volunteering at a [employer] ground and feels this has been beneficial for mood. Denies SI/HI. Denies panic attacks since last appointment. Has continued to struggle with sleep but does feel it has improved from last appointment, 5-6 hours per night. Has not been taking daytime naps. Previous similar episode: Yes Age of first onset of symptoms: 41-50 years Review of Systems Constitutional Reports: change in weight (has lost 30 pounds since December) and fatigue (around midday); Denies: fever(s) or chills Eyes Denies: change in vision or blurry vision Ears, Nose, Mouth, Throat Denies: throat pain or neck pain Cardiovascular Reports: palpitations (with anxiety); Denies: chest pain or dyspnea Respiratory Denies: dyspnea or wheezing Gastrointestinal Reports: nausea, vomiting and diarrhea; Denies: abdominal pain or constipation Genitourinary Denies: dysuria, urinary frequency or urinary urgency Musculoskeletal Reports: back pain (lower back); Denies: neck pain Integumentary/Breast Denies: rash, pruritus or erythema Neurological Denies: headache(s) Psychiatric Reports: anxiety, memory loss and difficulty concentrating; Denies: mood swings, change in sleep pattern, hopelessness, loss of interest, irritability, visual hallucinations, auditory hallucinations, suicidal ideation or homicidal ideation Endocrine Reports: fatigue (around midday); Denies: polyuria or polydipsia Hematologic/Lymphatic Denies: easy bruising Allergic/Immunologic Denies: wheezing Exam Mental Status Exam - Psych Appearance casually dressed, adequately groomed and no apparent distress Attitud (more content not included)... Normal [facility] MR/BMS.BPon 02-11-2025 MR/BMS.BP [facility] [address], [address] [place] [address] OFFICE VISIT Date of Service: 02/11/25 MR#: [id number] Acct: [id number] Name: GRIS BRADSHAW Nick Rep #: [id number] : 1975 Provider: KRIS hurst Age/Sex: 49/F Location: [facility].BP Status: Signed Intake Vital Signs 12/31/24 10:02 02/11/25 09:53 Height 5 ft 5.5 in 5 ft 5.5 in Weight: 221 lb BMI 36.2 BP 114/81 H 125/87 H Blood Pressure Location Lt brachial Lt brachial Position Sitting Sitting Respiration 16 16 Pulse 93 84 Pulse Source Monitor Monitor BP Intake Visit Reasons: 6 wk FU Accompanied by: Self Allergies No Known Allergies Allergy (Verified 02/11/25 09:58) Medications ???Medication ???Instructions ???Recorded ???Confirmed ???Type carvedilol 25 mg tablet 25 mg PO BID #180 tabs 12/20/23 Rx losartan 100 mg tablet 100 mg PO QDAY 03/06/24 02/11/25 H istory escitalopram oxalate 20 mg tablet 20 mg PO QDAY #90 tabs 12/31/24 0 02/11/25 Rx bupropion HCl 150 mg 24 hr tablet, 150 mg PO QAM #30 tabs 02/11/25 02/11/25 Rx extended release bupropion HCl 300 mg 24 hr tablet, 300 mg PO QAM #90 tabs 02/11/25 02/11/25 Rx extended release olanzapine 10 mg tablet 10 mg PO QHS mood #30 tabs 5 02/11/25 Rx olanzapine 7.5 mg tablet 7.5 mg PO QDAY #30 tabs 02/11/25 0 02/11/25 Rx topiramate 50 mg tablet 50 mg PO QHS #30 tabs 02/11/2506/30 Rx PFSH Medical History Depression, unspecified Generalized anxiety disorder Dyslipidemia Inappropriate sinus tachycardia Obesity (BMI 30-39.9) Dyspnea on exertion SOB (shortness of breath) Orthopnea Nicotine dependence Morbid obesity Palpitations Sedative dependence Insomnia Hyperlipidemia HTN (hypertension) Anxiety and depression Sinus tachycardia Leukocytosis Sludge in gallbladder Tachycardia Benadryl overdose History of depression Ankylosing spondylitis Surgical History Status post laparoscopic appendectomy Previous section Family History Mother Hypertension CVA (cerebral vascular accident) Alzheimers disease Father Heart disease CHF (congestive heart failure) Social History household members: none Smoking Status: Former smoker alcohol intake: current alcohol intake frequency: holidays/special occasions only substance use type: does not use caffeine: Yes Type: coffee Number of servings: 2 HPI History of Present Illness History provided by: patient HPI: Gris Bradshaw is a 49 year old female patient presenting today for a follow up evaluation. Reports she is feeling about the same with change in medication. Does still feel she has taken a step forward over the last 6 months. States she has been trying to lose weight for 6 months and has not been able to but even with calorie deficit. Has been exercising 4-5 days per week. Mood has been up and down but has not noticed a large change. Denies SI/HI. Reports she has had a couple of panic attacks since last appointment. 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 Feels she has been shutting down more and withdrawing from things. Does report a baseline anxiety as well but not always. Sleep has been about the same since last appointment. Does report a large lack of motivation. States wearing her hair up daily due to lack of energy and motivation. Previous similar episode: Yes Age of first onset of symptoms: 41-50 years Review of Systems Constitutional Reports: change in weight (has lost 30 pounds since December) and fatigue; Denies: fever(s) or chills Eyes Denies: change in vision or blurry vision Ears, Nose, Mouth, Throat Denies: throat pain or neck pain Cardiovascular Reports: palpitations (with anxiety); Denies: chest pain or dyspnea Respiratory Denies: dyspnea or wheezing Gastrointestinal Reports: nausea, vomiting and diarrhea; Denies: abdominal pain or constipation Genitourinary Denies: dysuria, urinary frequency or urinary urgency Musculoskeletal Reports: back pain (lower back); Denies: neck pain Integumentary/Breast Denies: rash, pruritus or erythema Neurological Denies: headache(s) Psychiatric Reports: anxiety, loss of interest, memory loss and difficulty concentrating; Denies: mood swings, change in sleep pattern, hopelessness, irritability, visual hallucinations, auditory hallucinations, suicidal ideation or homicidal ideation Endocrine Reports: fatigue; Denies: polyuria or polydipsia Hematologic/Lymphatic Denies: easy bruising Allergic/Immunologic Denies: wheezing Exam Mental Status Exam - Psych A (more content not included)... Normal [facility] MR/HERBERT.BPon 12-31-2024 MR/HERBERT. [facility], [address] [place] [address] OFFICE VISIT Date of Service: 12/31/24 MR#: [id number] Acct: [id number] Name: GRIS BRADSHAW Rep #: [id number] : 1975 Provider: KRIS hurst Age/Sex: 49/F Location: [facility].BP Status: Signed Intake Vital Signs 11/20/24 13:56 12/31/24 10:02 Height 5 ft 5.5 in 5 ft 5.5 in Weight: 220 lb 221 lb BMI 36.0 36.2 BP 112/77 114/81 H Blood Pressure Location Lt brachial Lt brachial Position Sitting Sitting Respiration 18 16 Pulse 79 93 Pulse Source Monitor Monitor BP Intake Visit Reasons: 6 wk FU Allergies No Known Allergies Allergy (Verified 12/31/24 10:04) Medications ???Medication ???Instructions ???Recorded ???Confirmed ???Type carvedilol 25 mg tablet 25 mg PO BID #180 tabs 12/20/23 Rx losartan 100 mg tablet 100 mg PO QDAY 03/06/24 12/31/24 H istory bupropion HCl 300 mg 24 hr tablet, 300 mg PO QAM #90 tabs 10/11/24 12/31/24 Rx extended release bupropion HCl 150 mg 24 hr tablet, 150 mg PO QAM #30 tabs 12/31/24 12/31/24 Rx extended release escitalopram oxalate 20 mg tablet 20 mg PO QDAY #90 tabs 12/31/24 0 12/31/24 Rx olanzapine 10 mg tablet 10 mg PO BID mood #180 tabs 12/31/24 Rx topiramate 50 mg tablet 50 mg PO QHS #30 tabs 12/31/24 Rx PFSH Medical History Depression, unspecified Generalized anxiety disorder Dyslipidemia Inappropriate sinus tachycardia Obesity (BMI 30-39.9) Dyspnea on exertion SOB (shortness of breath) Orthopnea Nicotine dependence Morbid obesity Palpitations Sedative dependence Insomnia Hyperlipidemia HTN (hypertension) Anxiety and depression Sinus tachycardia Leukocytosis Sludge in gallbladder Tachycardia Benadryl overdose History of depression Ankylosing spondylitis Surgical History Status post laparoscopic appendectomy Previous section Family History Mother Hypertension CVA (cerebral vascular accident) Alzheimers disease Father Heart disease CHF (congestive heart failure) Social History household members: none Smoking Status: Former smoker alcohol intake: current alcohol intake frequency: holidays/special occasions only substance use type: does not use caffeine: Yes Type: coffee Number of servings: 2 HPI History of Present Illness History provided by: patient HPI: Gris Bradshaw is a 49 year old female patient presenting today for a follow up evaluation. Reports she has been doing well over the last 6 weeks since out last appointment. Does feel she has been less anxious since increasing escitalopram. Does feel she is seeing things slowly improving. Admits to having less feelings of depression. Is able to find more jose in things and looking forward to doing things more. Denies SI/HI. Does report some increase in motivation at times but not always. Does feel she is forcing herself to do things and then is feeling better once she has completed these things. Is fording herself to exercise 5x per week and feels this has been beneficial for mood as well. Is still feeling anxious a lot of the time. Admits to having moments of panic but is not having panic attacks. Sleep has been improved but is unsure if it is related to the topiramate addition. 6 hours per night. Has been trying to eat healthier and maintain a healthier diet. Previous similar episode: Yes Age of first onset of symptoms: 41-50 years Review of Systems Constitutional Reports: change in weight (has lost 30 pounds since December) and fatigue; Denies: fever(s) or chills Eyes Denies: change in vision or blurry vision Ears, Nose, Mouth, Throat Denies: throat pain or neck pain Cardiovascular Reports: palpitations (with anxiety); Denies: chest pain or dyspnea Respiratory Denies: dyspnea or wheezing Gastrointestinal Reports: nausea, vomiting and diarrhea; Denies: abdominal pain or constipation Genitourinary Denies: dysuria, urinary frequency or urinary urgency Musculoskeletal Reports: back pain (lower back); Denies: neck pain Integumentary/Breast Denies: rash, pruritus or erythema Neurological Denies: headache(s) Psychiatric Reports: anxiety, loss of interest, memory loss and difficulty concentrating; Denies: mood swings, change in sleep pattern, hopelessness, irritability, visual hallucinations, auditory hallucinations, suicidal ideation or homicidal ideation Endocrine Reports: fatigue; Denies: polyuria or polydipsia Hematologic/Lymphatic Denies: easy bruising Allergic/Immunologic Denies: wheezing Exam Mental Status Exam - Psy (more content not included)... Normal [facility] MR/BMS.BPon 11-20-2024 MR/BMS.BP [facility] [address], [address] [place] [address] OFFICE VISIT Date of Service: 11/20/24 MR#: [id number] Acct: [id number] Name: GRIS BRADSHAW Rep #: [id number] : 1975 Provider: KRIS hurst Age/Sex: 49/F Location: [facility].BP Status: Signed Intake Vital Signs 10/11/24 12:56 11/20/24 13:56 Height 5 ft 5.5 in 5 ft 5.5 in Weight: 220 lb BMI 36.0 BP 112/77 Blood Pressure Location Lt brachial Position Sitting Respiration 18 Pulse 79 Pulse Source Monitor BP Intake Visit Reasons: 6 wk FU Accompanied by: Self Allergies No Known Allergies Allergy (Verified 10/11/24 12:55) Medications ???Medication ???Instructions ???Recorded ???Confirmed ???Type carvedilol 25 mg tablet 25 mg PO BID #180 tabs 12/20/23 11/20/24 Rx losartan 100 mg tablet 100 mg PO QDAY 03/06/24 11/20/24 History olanzapine 10 mg tablet 10 mg PO BID mood #180 tabs 08/30/24 11/20/24 Rx bupropion HCl 300 mg 24 hr tablet, 300 mg PO QAM #90 tabs 10/11/24 11/20/24 Rx extended release escitalopram oxalate 20 mg tablet 20 mg PO QDAY #30 tabs 11/20/24 11/20/24 Rx topiramate 50 mg tablet 50 mg PO QHS #30 tabs 11/20/24 11/20/24 Rx PFSH Medical History Depression, unspecified Generalized anxiety disorder Dyslipidemia Inappropriate sinus tachycardia Obesity (BMI 30-39.9) Dyspnea on exertion SOB (shortness of breath) Orthopnea Nicotine dependence Morbid obesity Palpitations Sedative dependence Insomnia Hyperlipidemia HTN (hypertension) Anxiety and depression Sinus tachycardia Leukocytosis Sludge in gallbladder Tachycardia Benadryl overdose History of depression Ankylosing spondylitis Surgical History Status post laparoscopic appendectomy Previous section Family History Mother Hypertension CVA (cerebral vascular accident) Alzheimers disease Father Heart disease CHF (congestive heart failure) Social History household members: none Smoking Status: Former smoker alcohol intake: current alcohol intake frequency: holidays/special occasions only substance use type: does not use caffeine: Yes Type: coffee Number of servings: 2 HPI History of Present Illness History provided by: patient HPI: Gris Bradshaw is a 49 year old female patient presenting today for a follow up evaluation. Reports she has been going better. Does feel the increased dose has been more effective. Does feel less depressed than before. admits to depression that occurs daily but is less severe. Denies SI/HI. Does feel a 20-30% improvement with current medication. Is still having difficulties with sleeping. Has taken topiramate for sleep 1 time since last appointment and felt it helped her to sleep. Aside from this, sleep has been about the same. 5-6 hours per night. Admits to difficulties falling asleep and staying asleep. Appetite has been good. Has been working on making healthier dietary choices. Has not lost weight over the last 6 weeks. Admits to feelings of anxiety. Does feel anxiety improved with distraction. Denies panic attacks since last appointment. Previous similar episode: Yes Age of first onset of symptoms: 41-50 years Review of Systems Constitutional Reports: change in weight (has lost 30 pounds since December) and fatigue; Denies: fever(s) or chills Eyes Denies: change in vision or blurry vision Ears, Nose, Mouth, Throat Denies: throat pain or neck pain Cardiovascular Reports: palpitations (with anxiety); Denies: chest pain or dyspnea Respiratory Denies: dyspnea or wheezing Gastrointestinal Reports: nausea, vomiting and diarrhea; Denies: abdominal pain or constipation Genitourinary Denies: dysuria, urinary frequency or urinary urgency Musculoskeletal Reports: back pain (lower back); Denies: neck pain Integumentary/Breast Denies: rash, pruritus or erythema Neurological Denies: headache(s) Psychiatric Reports: anxiety, loss of interest, memory loss and difficulty concentrating; Denies: mood swings, change in sleep pattern, hopelessness, irritability, visual hallucinations, auditory hallucinations, suicidal ideation or homicidal ideation Endocrine Reports: fatigue; Denies: polyuria or polydipsia Hematologic/Lymphatic Denies: easy bruising Allergic/Immunologic Denies: wheezing Exam Mental Status Exam - Psych Appearance casually dressed, adequately groomed and no apparent distress Attitude cooperative and calm Activity/Motor Behavior MSE activity/motor behavior finding no adventitious movements and appropriate eye contact Speech regular rate, regular volume and r (more content not included)... Normal [facility] MR/BMS.BPon 10-11-2024 MR/BMS.BP [facility], [address] [place] [id number] OFFICE VISIT Date of Service: 10/11/24 MR#: [id number] Acct: [id number] Name: GRIS BRADSHAW Rep #: [id number] : 1975 Provider: KRIS hurst Age/Sex: 49/F Location: [facility].BP Status: Signed Intake Vital Signs 08/30/24 12:53 10/11/24 12:56 10/11/24 12:57 Height 5 ft 5.5 in 5 ft 5.5 in BP 123/86 H 126/90 H Blood Pressure Location Rt brachial Rt brachial Position Sitting Pulse 88 90 Pulse Source Monitor BP Intake Visit Reasons: 6 wk FU Is patient in pain?: No Allergies No Known Allergies Allergy (Verified 10/11/24 12:55) Medications ???Medication ???Instructions ???Recorded ???Confirmed ???Type carvedilol 25 mg tablet 25 mg PO BID #180 tabs 12/20/23 10/11/24 Rx losartan 100 mg tablet 100 mg PO QDAY 03/06/24 10/11/24 History olanzapine 10 mg tablet 10 mg PO BID mood #180 tabs 08/30/24 10/11/24 Rx bupropion HCl 300 mg 24 hr tablet, 300 mg PO QAM #90 tabs 10/11/24 10/11/24 Rx extended release escitalopram oxalate 10 mg tablet 10 mg PO QDAY #30 tabs 10/11/24 10/11/24 Rx PFSH Medical History Depression, unspecified Generalized anxiety disorder Dyslipidemia Inappropriate sinus tachycardia Obesity (BMI 30-39.9) Dyspnea on exertion SOB (shortness of breath) Orthopnea Nicotine dependence Morbid obesity Palpitations Sedative dependence Insomnia Hyperlipidemia HTN (hypertension) Anxiety and depression Sinus tachycardia Leukocytosis Sludge in gallbladder Tachycardia Benadryl overdose History of depression Ankylosing spondylitis Surgical History Status post laparoscopic appendectomy Previous section Family History Mother Hypertension CVA (cerebral vascular accident) Alzheimers disease Father Heart disease CHF (congestive heart failure) Social History household members: none Smoking Status: Former smoker alcohol intake: current alcohol intake frequency: holidays/special occasions only substance use type: does not use caffeine: Yes Type: coffee Number of servings: 2 HPI History of Present Illness History provided by: patient HPI: Gris Bradshaw is a 49 year old female patient presenting today for a follow up evaluation. Reports she has been feeling about the same since last appointment. Reports mood has been okay. Is still struggling significantly in finding jose in things aside from spending time with her children. Does feel more anxious about being out in public. Does not feel frequent sadness. Denies SI/HI. Does not feel like the suvorexant has been effective recently. Moroni it was previously helping her to stay asleep but not fall asleep. Is getting 4-6 hours most nights. Is constantly worrying about everything and feels pessimistic all the time. Admits to feeling more anxious when she is not being distracted. Admits to having frequent obsessive thinking about finances which is relieved by her writing her finances down and taking account for all money in and out. Admits to having mild panic attacks. Does have SOB and heart palpitations with this. Appetite has been good and has been dieting trying to intentionally lose weight. Admits she will have days where she doesn't eat and will vomit if she does eat due to anxiety. Has lost about 10 pounds in 3 months. Previous similar episode: Yes Age of first onset of symptoms: 41-50 years Review of Systems Constitutional Reports: change in weight (has lost 30 pounds since December) and fatigue; Denies: fever(s) or chills Eyes Denies: change in vision or blurry vision Ears, Nose, Mouth, Throat Denies: throat pain or neck pain Cardiovascular Reports: palpitations (with anxiety); Denies: chest pain or dyspnea Respiratory Denies: dyspnea or wheezing Gastrointestinal Reports: nausea, vomiting and diarrhea; Denies: abdominal pain or constipation Genitourinary Denies: dysuria, urinary frequency or urinary urgency Musculoskeletal Reports: back pain (lower back); Denies: neck pain Integumentary/Breast Denies: rash, pruritus or erythema Neurological Denies: headache(s) Psychiatric Reports: anxiety, loss of interest, memory loss and difficulty concentrating; Denies: mood swings, change in sleep pattern, hopelessness, irritability, visual hallucinations, auditory hallucinations, suicidal ideation or homicidal ideation Endocrine Reports: fatigue; Denies: polyuria or polydipsia Hematologic/Lymphatic Denies: easy bruising Allergic/Immunologic Denies: wheezing Exam Exam Constitutional Common normals: no acute distress, average body h (more content not included)... Normal [facility] MR/BMS.BPon 08-30-2024 MR/BMS.BP [facility] [address] [place] [address], [address] [place] [address] OFFICE VISIT Date of Service: 08/30/24 MR#: [id number] Acct: [id number] Name: GRIS BRADSHAW Rep #: [id number] : 1975 Provider: KRIS hurst Age/Sex: 49/F Location: [facility].BP Status: Signed Intake Vital Signs 07/19/24 14:27 08/30/24 12:53 Height 5 ft 5.5 in 5 ft 5.5 in Weight: 221 lb BMI 36.2 BP 129/97 H 123/86 H Blood Pressure Location Rt brachial Rt brachial Position Sitting Sitting Respiration 16 Pulse 104 H 88 Pulse Source Monitor Monitor Pulse Oximetry (%) 96 Oxygen Delivery Method room air BP Intake Visit Reasons: 6 WK FU Accompanied by: Self Allergies No Known Allergies Allergy (Verified 07/19/24 14:27) Medications ???Medication ???Instructions ???Recorded ???Confirmed ???Type carvedilol 25 mg tablet 25 mg PO BID #180 tabs 12/20/23 08/30/24 Rx losartan 100 mg tablet 100 mg PO QDAY 03/06/24 08/30/24 History bupropion HCl 300 mg 24 hr tablet, 300 mg PO QAM #30 tabs 08/30/24 08/30/24 Rx extended release escitalopram oxalate 5 mg tablet 5 mg PO QDAY #30 tabs 08/30/24 08/30/24 Rx olanzapine 10 mg tablet 10 mg PO BID mood #180 tabs 08/30/24 08/30/24 Rx suvorexant 10 mg tablet (Belsomra) 10 mg PO QHS #30 tabs 08/30/24 08/30/24 Rx PFSH Medical History Depression, unspecified Generalized anxiety disorder Dyslipidemia Inappropriate sinus tachycardia Obesity (BMI 30-39.9) Dyspnea on exertion SOB (shortness of breath) Orthopnea Nicotine dependence Morbid obesity Palpitations Sedative dependence Insomnia Hyperlipidemia HTN (hypertension) Anxiety and depression Sinus tachycardia Leukocytosis Sludge in gallbladder Tachycardia Benadryl overdose History of depression Ankylosing spondylitis Surgical History Status post laparoscopic appendectomy Previous section Family History Mother Hypertension CVA (cerebral vascular accident) Alzheimers disease Father Heart disease CHF (congestive heart failure) Social History household members: none Smoking Status: Former smoker alcohol intake: current alcohol intake frequency: holidays/special occasions only substance use type: does not use caffeine: Yes Type: coffee Number of servings: 2 HPI History of Present Illness History provided by: patient HPI: Gris Bradshaw is a 49 year old female patient presenting today for a follow up evaluation. Has started taking escitalopram and has not noticed any difference with the medication. Has been on a higher dose of bupropion and feels it has been beneficial before. Is getting 6 hours of sleep per night. Does feel the medication helps her to stay asleep longer but doesn't necessarily help her fall asleep. Has been working on improving sleep hygiene and feels it is beneficial at times. Does not feel tired immediately upon rising but does get tired quickly. Admits to a lack of energy and motivation. Has been trying to lose weight and has been walking daily and feels she needs to talk herself into it every day. Has lost 30 pounds since December. Has been trying to eat in a calorie deficit. Does admit mood has been low and is feeling depressed. Does not find jose in things. Denies feelings of hopelessness or worthlessness. Admits to feeling of anxiety with an increase in heart rate. Does have anxiety only on some days. Does not experience anxiety daily. 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 Denies SI/HI. Previous similar episode: Yes Age of first onset of symptoms: 41-50 years Review of Systems Constitutional Reports: change in weight (has lost 30 pounds since December) and fatigue; Denies: fever(s) or chills Eyes Denies: change in vision or blurry vision Ears, Nose, Mouth, Throat Denies: throat pain or neck pain Cardiovascular Reports: palpitations (with anxiety); Denies: chest pain or dyspnea Respiratory Denies: dyspnea or wheezing Gastrointestinal Reports: nausea, vomiting and diarrhea; Denies: abdominal pain or constipation Genitourinary Denies: dysuria, urinary frequency or urinary urgency Musculoskeletal Reports: back pain (lower back); Denies: neck pain Integumentary/Breast Denies: rash, pruritus or erythema Neurological Denies: headache(s) Psychiatric Reports: anxiety, loss of interest, memory loss and difficulty concentrating; Denies: mood swings, change in sleep pattern, hopelessness, irritability, visual hallucinations, auditory hallucinations, suicidal ideation or homicidal ideation Endocrine (more content not included)... Normal [facility] CBC W/Diff, Automatedon 08-06 Absolute Lymph 2.33 X10 3/uL Normal 0.83-4.51 [facility] Comment on above: Performed By: #### L 500.4050, L501.9985, L100.0100, L501.9520 #### [facility] [address] [place], [address] Absolute Neut 3.5 X10 3/uL Normal 2.0-7.7 [facility] Comment on above: Performed By: #### L 500.4050, L501.9985, L100.0100, L501.9520 #### [facility] [address] [place], [address] Basophils/100 WBC (Bld) 0.5 % Normal 0-1 [facility] Comment on above: Performed By: #### L 500.4050, L501.9985, L100.0100, L501.9520 #### [facility] [address] [place], [address] Eosinophils/100 WBC (Bld) 0.8 % Normal 0-5 [facility] Comment on above: Performed By: #### L 500.4050, L501.9985, L100.0100, L501.9520 #### [facility] [address] [place], [address] Erythrocyte distribution width (RBC) [Ratio] 12.3 % Normal 11.6-14.6 [facility] Comment on above: Performed By: #### L 500.4050, L501.9985, L100.0100, L501.9520 #### [facility] [address] [place], [address] Hematocrit (Bld) [Volume fraction] 41.9 % Normal 37-47 [facility] Comment on above: Performed By: #### L 500.4050, L501.9985, L100.0100, L501.9520 #### [facility] [address] [place], [address] Hemoglobin (Bld) [Mass/Vol] 13.9 g/dL Normal 12.0-15.0 [facility] Comment on above: Performed By: #### L 500.4050, L501.9985, L100.0100, L501.9520 #### [facility] [address] [place], [address] IG% 0.200 Normal 0.0-0.9 [facility] Comment on above: Result Comment: IG% - Immature Granulocytes (promyelocytes, myelocytes and metamyelocytes) > 1% indicates that a LEFT SHIFT is Present. Performed By: #### L 500.4050, L501.9985, L100.0100, L501.9520 #### [facility] [address] [place], [address] Lymphocytes/100 WBC (Bld) 37.3 % Normal 19-41 [facility] Comment on above: Performed By: #### L 500.4050, L501.9985, L100.0100, L501.9520 #### [facility] [address] [place], [address] MCH (RBC) [Entitic mass] 31.4 pg Normal 27.0-32.0 [facility] Comment on above: Performed By: #### L 500.4050, L501.9985, L100.0100, L501.9520 #### [facility] [address] [place], [address] MCHC (RBC) [Mass/Vol] 33.2 g/dL Normal 32-36 [facility] Comment on above: Performed By: #### L 500.4050, L501.9985, L100.0100, L501.9520 #### [facility] [address] [place], [address] MCV (RBC) [Entitic vol] 94.6 fL Normal 81-99 [facility] Comment on above: Performed By: #### L 500.4050, L501.9985, L100.0100, L501.9520 #### [facility] [address] [place], [address] Monocytes/100 WBC (Bld) 5.8 % Normal 0-10 [facility] Comment on above: Performed By: #### L 500.4050, L501.9985, L100.0100, L501.9520 #### [facility] [address] [place], [address] Neutrophils/100 WBC (Bld) 55.4 % Normal 47-70 [facility] Comment on above: Performed By: #### L 500.4050, L501.9985, L100.0100, L501.9520 #### [facility] [address] [place], [address] Nucleated RBC (Bld) [#/Vol] 0 10*3/uL Normal 0-5 [facility] Comment on above: Performed By: #### L 500.4050, L501.9985, L100.0100, L501.9520 #### [facility] [address] [place], [address] Platelet mean volume (Bld) [Entitic vol] 9.6 fL Normal 6.2-12.0 [facility] Comment on above: Performed By: #### L 500.4050, L501.9985, L100.0100, L501.9520 #### [facility] [address] [place], [address] Platelets (Bld) [#/Vol] 301 10*3/uL Normal 150-450 [facility] Comment on above: Performed By: #### L 500.4050, L501.9985, L100.0100, L501.9520 #### [facility] [address] [place], [address] RBC (Bld) [#/Vol] 4.43 10*6/uL Normal 4.2-5.4 [facility] Comment on above: Performed By: #### L 500.4050, L501.9985, L100.0100, L501.9520 #### [facility] [address] [place], [address] RDW SD 42.5 fl Normal 35.1-43.9 [facility] Comment on above: Performed By: #### L 500.4050, L501.9985, L100.0100, L501.9520 #### [facility] [address] [place], [address] WBC (Bld) [#/Vol] 6.3 10*3/uL Normal 4.4-11.0 [facility] Comment on above: Performed By: #### L 500.4050, L501.9985, L100.0100, L501.9520 #### [facility] [address] [place], [address] Comprehensive Metabolic [facility] 08-22-2024 Albumin [Mass/Vol] 3.7 g/dL Normal 3.2-5.0 [facility] Comment on above: Performed By: #### L 500.4050, L501.9985, L100.0100, L501.9520 #### [facility] [address] [place], [address] Albumin/Globulin [Mass ratio] 1.0 {ratio} Normal 0.9-2.4 [facility] Comment on above: Performed By: #### L 500.4050, L501.9985, L100.0100, L501.9520 #### [facility] [address] [place], [address] ALK P 67 U/L Normal 45-117 [facility] Comment on above: Performed By: #### L 500.4050, L501.9985, L100.0100, L501.9520 #### [facility] [address] [place], [address] ALT [Catalytic activity/Vol] 18 U/L Normal 13-56 [facility] Comment on above: Performed By: #### L 500.4050, L501.9985, L100.0100, L501.9520 #### [facility] [address] [place], [address] AST [Catalytic activity/Vol] 13 U/L Low 15-37 [facility] Comment on above: Result Comment: Slig ht Hemolysis, Result may be falsely increased. Performed By: #### L 500.4050, L501.9985, L100.0100, L501.9520 #### [facility] [address] [place], [address] Bilirubin [Mass/Vol] 1.00 mg/dL Normal 0.20-1.00 [facility] Comment on above: Result Comment: For patients on eltrombopag therapy, use of Dimension [place] TBIL is not recommended. Performed By: #### L 500.4050, L501.9985, L100.0100, L501.9520 #### [facility] [address] [place], [address] BUN/CRE 9.4 RATIO Low 10-20 [facility] Comment on above: Performed By: #### L 500.4050, L501.9985, L100.0100, L501.9520 #### [facility] [address] [place], [address] CA,Total 9.4 mg/dL Normal 8.5-10.1 [facility] Comment on above: Performed By: #### L 500.4050, L501.9985, L100.0100, L501.9520 #### [facility] [address] [place], [address] Chloride [Moles/Vol] 107 mmol/L Normal 98-107 [facility] Comment on above: Performed By: #### L 500.4050, L501.9985, L100.0100, L501.9520 #### [facility] [address] [place], [address] CO2 [Moles/Vol] 26.0 mmol/L Normal 21.0-32.0 [facility] Comment on above: Performed By: #### L 500.4050, L501.9985, L100.0100, L501.9520 #### [facility] [address] [place], [address] Creatinine [Mass/Vol] 1.06 mg/dL High 0.55-1.02 [facility] Comment on above: Result Comment: The validity of the calculated GFR GFRAA in patients over 70 years has not been determined. Clinical correlation is essential. Performed By: #### L 500.4050, L501.9985, L100.0100, L501.9520 #### [facility] [address] [place], [address] EST GFR - AA 70 mL/min Normal >60 [facility] Comment on above: Result Comment: Afri can [place] GFR Calc Performed By: #### L 500.4050, L501.9985, L100.0100, L501.9520 #### [facility] [address] [place], [address] GAP 4 Low 5-15 [facility] Comment on above: Performed By: #### L 500.4050, L501.9985, L100.0100, L501.9520 #### [facility] [address] [place], [address] GFR/1.73 sq M.predicted among non-blacks MDRD (S/P/Bld) [Vol rate/Area] 58 mL/min/{1.73_m2} Low >60 [facility] Comment on above: Result Comment: Non- GFR Calc Performed By: #### L 500.4050, L501.9985, L100.0100, L501.9520 #### [facility] [address] [place], [address] Globulin (S) [Mass/Vol] 3.6 g/dL Normal 2.2-4.2 [facility] Comment on above: Performed By: #### L 500.4050, L501.9985, L100.0100, L501.9520 #### [facility] [address] [place], [address] Glucose [Mass/Vol] 138 mg/dL High 74-106 [facility] Comment on above: Result Comment: Fast ing Glucose result greater than or equal to 126 mg/dL suggests DIABETES MELLITUS per A.D.A. criteria. Performed By: #### L 500.4050, L501.9985, L100.0100, L501.9520 #### [facility] [address] [place], [address] Potassium [Moles/Vol] 4.1 mmol/L Normal 3.5-5.1 [facility] Comment on above: Result Comment: Slig ht Hemolysis, Result may be falsely increased. Performed By: #### L 500.4050, L501.9985, L100.0100, L501.9520 #### [facility] [address] [place], [address] Sodium [Moles/Vol] 137 mmol/L Normal 136-145 [facility] Comment on above: Performed By: #### L 500.4050, L501.9985, L100.0100, L501.9520 #### [facility] [address] [place], [address] T PROT 7.3 g/dL Normal 6.4-8.2 [facility] Comment on above: Performed By: #### L 500.4050, L501.9985, L100.0100, L501.9520 #### [facility] [address] [place], [address] Urea nitrogen [Mass/Vol] 10 mg/dL Normal 7-18 [facility] Comment on above: Performed By: #### L 500.4050, L501.9985, L100.0100, L501.9520 #### [facility] [address] [place], [address] Hemoglobin A1con 08-22-2024 HbA1c (Bld) [Mass fraction] 4.9 % Normal 3.8-5.6 [facility] Comment on above: Order Comment: BLOOD IN LAB *164r Result Comment: Norm al < 5.7 % Prediabetic 5.7 - 6.4 % Diabetic >or= 6.5 % Please note range changes. Performed By: #### L 500.4050, L501.9985, L100.0100, L501.9520 #### [facility] [address] [place], [address] Thyroid Stim Hormone (TSH)on 08-22-2024 TSH 0.477 uIU/mL Normal 0.358-3.740 [facility] Comment on above: Performed By: #### L 500.4050, L501.9985, L100.0100, L501.9520 #### [facility] [address] [place], [address] MR/BMS.BPon 07-19-2024 MR/BMS.BP [address], [address] [place] [address] OFFICE VISIT Date of Service: 07/19/24 MR#: [id number] Acct: [id number] Name: GRSI BRADSHAW Rep #: [id number] : 1975 Provider: KRIS hurst Age/Sex: 49/F Location: [facility].BP Status: Signed Intake Vital Signs 05/28/24 10:57 07/19/24 14:26 07/19/24 14:27 Height 5 ft 5.5 in 5 ft 5.5 in 5 ft 5.5 in Weight: 221 lb BMI 36.2 BP 129/97 H Blood Pressure Location Rt brachial Position Sitting Respiration 16 Pulse 104 H Pulse Source Monitor Pulse Oximetry (%) 96 Oxygen Delivery Method room air BP Intake Visit Reasons: follow up Accompanied by: Self Is patient in pain?: No Allergies No Known Allergies Allergy (Verified 07/19/24 14:27) Medications ???Medication ???Instructions ???Recorded ???Confirmed ???Type carvedilol 25 mg tablet 25 mg PO BID #180 tabs 12/20/23 07/19/24 Rx losartan 100 mg tablet 100 mg PO QDAY 03/06/24 07/19/24 History bupropion HCl 150 mg 24 hr tablet, 150 mg PO QAM #90 tabs 05/28/24 07/19/24 Rx extended release olanzapine 10 mg tablet 10 mg PO BID mood #180 tabs 05/28/24 07/19/24 Rx suvorexant 10 mg tablet (Belsomra) 10 mg PO QHS #30 tabs 06/26/24 07/19/24 Rx escitalopram oxalate 5 mg tablet 5 mg PO QDAY #30 tabs 07/19/24 07/19/24 Rx PFSH Medical History (Updated 05/28/24 @ 11:22 by KRIS Mcknight) Depression, unspecified Generalized anxiety disorder Dyslipidemia Inappropriate sinus tachycardia Obesity (BMI 30-39.9) Dyspnea on exertion SOB (shortness of breath) Orthopnea Nicotine dependence Morbid obesity Palpitations Sedative dependence Insomnia Hyperlipidemia HTN (hypertension) Anxiety and depression Sinus tachycardia Leukocytosis Sludge in gallbladder Tachycardia Benadryl overdose History of depression Ankylosing spondylitis Surgical History Status post laparoscopic appendectomy Previous section Family History Mother Hypertension CVA (cerebral vascular accident) Alzheimers disease Father Heart disease CHF (congestive heart failure) Social History household members: none Smoking Status: Former smoker alcohol intake: current alcohol intake frequency: holidays/special occasions only substance use type: does not use caffeine: Yes Type: coffee Number of servings: 2 HPI History of Present Illness History provided by: patient HPI: Gris Bradshaw is a 49 year old female patient presenting today for a follow up evaluation. Does feel that belsomra has helped her to stay asleep but has not helped her to fall asleep. Is getting 6 hours per night. Does report sometimes napping for 30 minutes during the day. Does feel energy has improved some. Does report her and her have started going on walks in the evening for exercise. Has also made some changes in diet. Has lost 20 pounds in 4 months. Does report when she is going into bed she is then watching TV on her phone. Does feel she has been struggling with memory more. Feels she is in a brain fog. Feels depression has been slightly better. Does report a large amount of anxiety during the day and thinking about the things that could go wrong during the day. Denies SI/HI. Previous similar episode: Yes Age of first onset of symptoms: 41-50 years Review of Systems Constitutional Reports: change in weight (weight gain of 50 pounds when starting olanzapine ) and fatigue; Denies: fever(s) or chills Eyes Denies: change in vision or blurry vision Ears, Nose, Mouth, Throat Denies: throat pain or neck pain Cardiovascular Reports: palpitations; Denies: chest pain or dyspnea Respiratory Denies: dyspnea or wheezing Gastrointestinal Reports: nausea, vomiting and diarrhea; Denies: abdominal pain or constipation Genitourinary Denies: dysuria, urinary frequency or urinary urgency Musculoskeletal Reports: back pain (lower back); Denies: neck pain Integumentary/Breast Denies: rash, pruritus or erythema Neurological Denies: headache(s) Psychiatric Reports: anxiety, hopelessness, loss of interest, memory loss and difficulty concentrating; Denies: visual hallucinations, auditory hallucinations, suicidal ideation or homicidal ideation Endocrine Reports: fatigue; Denies: polyuria or polydipsia Hematologic/Lymphatic Denies: easy bruising Allergic/Immunologic Denies: wheezing Exam Mental Status Exam - Psych Appearance casually dressed, adequately groomed and no apparent distress Attitude cooperative and calm Activity/Motor Behavior MSE activity/motor behavior finding no adventitious movements and appropriate eye contact Speech regular rate, regular (more content not included)... Normal [facility] MR/BPon 05-28-2024 MR/[facility]. [facility], [address] [place] [address] OFFICE VISIT Date of Service: 05/28/24 MR#: [id number] Acct: [id number] Name: GRIS BRADSHAW Rep #: [id number] : 1975 Provider: KRIS hurst Age/Sex: 49/F Location: [facility]BP Status: Signed Intake Vital Signs 04/15/24 09:05 05/28/24 10:56 05/28/24 10:57 Height 5 ft 5.5 in 5 ft 5 in 5 ft 5.5 in BP 140/99 H 117/82 H Blood Pressure Location Rt brachial Rt brachial Position Sitting Sitting Pulse 102 H 86 Pulse Source Monitor Monitor BP Intake Visit Reasons: 6 wk FU Personal Care Assistant Required: No Accompanied by: Self Is patient in pain?: No Allergies No Known Allergies Allergy (Verified 05/28/24 10:57) Medications ???Medication ???Instructions ???Recorded ???Confirmed ???Type carvedilol 25 mg tablet 25 mg PO BID #180 tabs 12/20/23 05/28/24 Rx losartan 100 mg tablet 100 mg PO QDAY 03/06/24 05/28/24 History bupropion HCl 150 mg 24 hr tablet, 150 mg PO QAM #90 tabs 05/28/24 05/28/24 Rx extended release hydroxyzine HCl 50 mg tablet 50 mg PO BID #180 tabs 05/28/24 05/28/24 Rx olanzapine 10 mg tablet 10 mg PO BID mood #180 tabs 05/28/24 05/28/24 Rx suvorexant 10 mg tablet (Belsomra) 10 mg PO QHS #30 tabs 05/28/24 05/28/24 Rx Current gender identity: female Nurse's Note: Presents to the office today for follow up. [facility] Medical History (Updated 05/28/24 @ 11:22 by KRIS Mcknight) Depression, unspecified Generalized anxiety disorder Dyslipidemia Inappropriate sinus tachycardia Obesity (BMI 30-39.9) Dyspnea on exertion SOB (shortness of breath) Orthopnea Nicotine dependence Morbid obesity Palpitations Sedative dependence Insomnia Hyperlipidemia HTN (hypertension) Anxiety and depression Sinus tachycardia Leukocytosis Sludge in gallbladder Tachycardia Benadryl overdose History of depression Ankylosing spondylitis Surgical History Status post laparoscopic appendectomy Previous section Family History Mother Hypertension CVA (cerebral vascular accident) Alzheimers disease Father Heart disease CHF (congestive heart failure) Social History household members: none Smoking Status: Former smoker alcohol intake: current alcohol intake frequency: holidays/special occasions only substance use type: does not use caffeine: Yes Type: coffee Number of servings: 2 HPI History of Present Illness History provided by: patient HPI: Gris Bradshaw is a 49 year old female patient presenting today for a follow up evaluation. Reports that the bupropion has been helping but that the medication given for sleep has not been beneficial. Is still having some issues with her heart racing. Did do a heart monitor for 2 weeks and everything came back good. Denies any increase in anxiety since starting bupropion. Reports it's been about the same. Feels she will get herself worked up to the point of vomiting 3-4 times per week, racing heart, and overall feeling of heightened anxiety. Bupropion has helped with overall happiness. Has been able to find jose in things. Denies any changes in motivation or energy levels. Feels mirtazapine has not been beneficial at all for sleep. Will get about 4-5 hours for 3 days and then will get about 7 the next night but then resort back to 4-5 hours per night. Denies any changes in appetite. Is trying to work on dieting. Feels if she could lose weight she would feel better mentally. Was going to try to utilize Ozempic but it was too expensive with insurance. Denies SI/HI. Previous similar episode: Yes Age of first onset of symptoms: 41-50 years Review of Systems Constitutional Reports: change in weight (weight gain of 50 pounds when starting olanzapine ) and fatigue; Denies: fever(s) or chills Eyes Denies: change in vision or blurry vision Ears, Nose, Mouth, Throat Denies: throat pain or neck pain Cardiovascular Reports: palpitations; Denies: chest pain or dyspnea Respiratory Denies: dyspnea or wheezing Gastrointestinal Reports: nausea, vomiting and diarrhea; Denies: abdominal pain or constipation Genitourinary Denies: dysuria, urinary frequency or urinary urgency Musculoskeletal Reports: back pain (lower back); Denies: neck pain Integumentary/Breast Denies: rash, pruritus or erythema Neurological Denies: headache(s) Psychiatric Reports: anxiety, hopelessness, loss of interest, memory loss and difficulty concentrating; Denies: visual hallucinations, auditory hallucinations, suicidal ideation or homicidal ideation Endocrine Reports: fatigue; Denies: polyuria or polydipsia Hematologic/Lymphatic Denies: easy bruising Allergic/Immu (more content not included)... Normal [facility] Absolute lymphocyte countOrd ered By: Pino Alston on 01-26-2024 Lymphocytes Auto (Unsp spec) [#/Vol] 1.56 10*3/uL 0.83-4.51 [facility] Automated lymphocyte count a s percentage of total leukocytesOrdered By: Pino Alston on 01-26-2024 Lymphocytes/100 WBC Auto (Unsp spec) 23.0 % 19-41 [facility] Basophil percentageOrdered B y: Pino Alston on 01-26-2024 Basophils/100 WBC (Bld) 0.4 % 0-1 [facility] Bilirubin [Mass/Vol] 0.90 mg/dL 0.20-1.00 [facility] Comment on above: For patients on eltr ombopag therapy, use of Dimension [place] TBIL is not recommended. Chloride [Moles/Vol] 105 mmol/L 98-107 [facility] Eosinophils/100 WBC (Bld) 0.7 % 0-5 [facility] Glucose [Mass/Vol] 131 mg/dL 74-106 [facility] Comment on above: Fasting Glucose resu lt greater than or equal to 126 mg/dL suggests DIABETES MELLITUS per A.D.A. criteria. Hemoglobin (Bld) [Mass/Vol] 14.9 g/dL 12.0-15.0 [facility] Monocytes/100 WBC (Bld) 7.2 % 0-10 [facility] Neutrophils (Bld) [#/Vol] 4.6 10*3/uL 2.0-7.7 [facility] Neutrophils/100 WBC (Bld) 67.8 % 47-70 [facility] Potassium [Moles/Vol] 3.7 mmol/L 3.5-5.1 [facility] Protein [Mass/Vol] 8.1 g/dL 6.4-8.2 [facility] Sodium [Moles/Vol] 137 mmol/L 136-145 [facility] WBC (Bld) [#/Vol] 6.8 10*3/uL 4.4-11.0 [facility] Determination of erythrocyte mean corpuscular volume (MCV)Ordered By: Pino Alston on 01-26-2024 MCV (RBC) [Entitic vol] 90.2 fL 81-99 [facility] Erythrocyte distribution wid th ratioOrdered By: [facility] on 01-26-2024 Erythrocyte distribution width (RBC) [Ratio] 12.2 % 11.6-14.6 [facility] Erythrocyte distribution wid th standard deviationOrdered By: [facility] 01-26-[facility] Erythrocyte distribution width (RBC) [Entitic vol] 40.1 fL 35.1-43.9 [facility] Hematocrit Auto (Bld) [Volum e fraction]Ordered By: [facility] Deb 01-26-2024 Hematocrit (Bld) [Volume fraction] 43.4 % 37-47 [facility] Immature granulocytes/100 WB C Auto (Bld)Ordered By: [facility] 01-26-[facility] Immature granulocytes/100 WBC (Bld) 0.900 % 0.0-0.9 [facility] Comment on above: IG% - Immature Granu locytes (promyelocytes, myelocytes and metamyelocytes) > 1% indicates that a LEFT SHIFT is Present. Laboratory - Chemistry and C hemistry - challengeOrdered By: Pino Alston on 01-26-2024 Albumin/Globulin [Mass ratio] 1.0 {ratio} 0.9-2.4 [facility] ALP [Catalytic activity/Vol] 79 U/L 45-117 [facility] ALT [Catalytic activity/Vol] 28 U/L 13-56 [facility] CO2 [Moles/Vol] 23.0 mmol/L 21.0-32.0 [facility] Globulin (S) [Mass/Vol] 4.1 g/dL 2.2-4.2 [facility] Urea nitrogen/Creatinine [Mass ratio] 12.5 mg/mg 10-20 [facility] Laboratory - Hematology and Cell countsOrdered By: Pino Alston 4 MCH (RBC) [Entitic mass] 31.0 pg 27.0-32.0 [facility] MCHC (RBC) [Mass/Vol] 34.3 g/dL 32-36 [facility] Nucleated RBC/100 WBC (Bld) [Ratio] 0 % 0-5 [facility] Platelet mean volume (Bld) [Entitic vol] 9.5 fL 6.2-12.0 [facility] Platelets (Bld) [#/Vol] 356 10*3/uL 150-450 [facility] No Panel InformationOrdered By: Pino Alston on 01-26-2024 Estimated GFR (MDRD) Amer 97 mL/min >60 [facility] Comment on above: GFR Calc Estimated GFR (MDRD) Non-Af Amer 81 mL/min >60 [facility] Comment on above: Non- GFR Calc RBC Auto (Bld) [#/Vol]Ordere d By: Pino Alston on 01-26-2024 RBC (Bld) [#/Vol] 4.81 10*6/uL 4.2-5.4 [facility] Serum or plasma calcium efrain urement (mass/volume)Ordered By: Pino Alston on 01-26-2024 Calcium [Mass/Vol] 9.4 mg/dL 8.5-10.1 [facility] Serum or plasma creatinine m easurement (mass/volume)Ordered By: Pino Alston on 01-26-2024 Creatinine [Mass/Vol] 0.80 mg/dL 0.55-1.02 [facility] Comment on above: The validity of the calculated GFR & GFRAA in patients over 70 years has not been determined. Clinical correlation is essential. Serum or plasma urea nitroge n measurement (mass/volume)Ordered By: Pino Alston on 01-26-2024 Urea nitrogen [Mass/Vol] 10 mg/dL 7-18 [facility] Thin prep Papanicolaou smear with manual screeningOrdered By: Pino Alston on 01-26-2024 Thin prep Papanicolaou smear with manual screening 4.0 g/dL 3.2-5.0 [facility] Thin prep Papanicolaou smear with manual screening 16 U/L 15-37 [facility] Thin prep Papanicolaou smear with manual screening 9 5-15 [facility] Basophil percentageOrdered B y: Godwin Diehl on 01-17-2024 Chloride [Moles/Vol] 109 mmol/L 98-107 [facility] Glucose [Mass/Vol] 101 mg/dL 74-106 [facility] Comment on above: Fasting Glucose resu lt from 100 to 125 mg/dL suggests IMPAIRED HOMEOSTASIS per A.D.A. criteria. Potassium [Moles/Vol] 4.3 mmol/L 3.5-5.1 [facility] Sodium [Moles/Vol] 139 mmol/L 136-145 [facility] Laboratory - Chemistry and C hemistry - challengeOrdered By: Godwin Diehl on 01-17-2024 CO2 [Moles/Vol] 20.0 mmol/L 21.0-32.0 [facility] Urea nitrogen/Creatinine [Mass ratio] 14.6 mg/mg 10-20 [facility] No Panel InformationOrdered By: Godwin Diehl on 01-17-2024 Estimated GFR (MDRD) Amer 73 mL/min >60 [facility] Comment on above: GFR Calc Estimated GFR (MDRD) Non-Af Amer 60 mL/min >60 [facility] Comment on above: Non- GFR Calc No Panel InformationOrdered By: Ander Molina on 01-17-2024 C-Reactive Protein Extended Range < 2.90 mg/L 0.0-3.0 [facility] Comment on above: C-Reactive Protein ( CRP) provides useful information for thediagnosis, therapy and monitoring of inflammatory processesand associated diseases. For the evaluation of Relative Riskfor Cardiovascular Disease, a High Sensitivity CRP (HSCRP)should be ordered. Endomysial IgA Antibody Negative Negative [facility] Serum or plasma IgA measurem ent (mass/volume)Ordered By: Ander Molina on 01-17-2024 IgA [Mass/Vol] 289 mg/dL 87-352 [facility] Comment on above: Performed at: [address] [id number] Director: Ander Colón PhD, Phone: [phone] Serum or plasma calcium efrain urement (mass/volume)Ordered By: Godwin Diehl on 01-17-2024 Calcium [Mass/Vol] 9.7 mg/dL 8.5-10.1 [facility] Serum or plasma creatinine m easurement (mass/volume)Ordered By: Godwin Diehl on 01-17-2024 Creatinine [Mass/Vol] 1.03 mg/dL 0.55-1.02 [facility] Comment on above: The validity of the calculated GFR & GFRAA in patients over 70 years has not been determined. Clinical correlation is essential. Serum or plasma urea nitroge n measurement (mass/volume)Ordered By: Godwin Diehl on 01-17-2024 Urea nitrogen [Mass/Vol] 15 mg/dL 7-18 [facility] Serum tissue transglutaminas e IgA antibody assay (units/volume)Ordered By: Ander Molina on 01-17-2024 tTG IgA Qn (S) <2 U/mL 0-3 [facility] Comment on above: Negative 0 - 3 Weak Positive 4 - 10 Positive >10 Tissue Transglutaminase (tTG) has been identified as the endomysial antigen. Studies have demonstr- ated that endomysial IgA antibodies have over 99% specificity for gluten sensitive enteropathy. Thin prep Papanicolaou smear with manual screeningOrdered By: Gdowin Diehl on 01-17-2024 Thin prep Papanicolaou smear with manual screening 10 5-15 [facility] Absolute lymphocyte countOrd ered By: Pino Alston on 11-21-2023 Lymphocytes Auto (Unsp spec) [#/Vol] 2.48 10*3/uL 0.83-4.51 [facility] Automated lymphocyte count a s percentage of total leukocytesOrdered By: Pino Alston on 11-21-2023 Lymphocytes/100 WBC Auto (Unsp spec) 34.3 % 19-41 [facility] Basophil percentageOrdered B y: Pino Alston on 11-21-2023 Basophils/100 WBC (Bld) 0.6 % 0-1 [facility] Bilirubin [Mass/Vol] 0.70 mg/dL 0.20-1.00 [facility] Comment on above: For patients on eltr ombopag therapy, use of Dimension [place] TBIL is not recommended. Chloride [Moles/Vol] 107 mmol/L 98-107 [facility] Eosinophils/100 WBC (Bld) 1.1 % 0-5 [facility] Glucose [Mass/Vol] 107 mg/dL 74-106 [facility] Comment on above: Fasting Glucose resu lt from 100 to 125 mg/dL suggests IMPAIRED HOMEOSTASIS per A.D.A. criteria. Hemoglobin (Bld) [Mass/Vol] 14.7 g/dL 12.0-15.0 [facility] Monocytes/100 WBC (Bld) 7.5 % 0-10 [facility] Neutrophils (Bld) [#/Vol] 4.0 10*3/uL 2.0-7.7 [facility] Neutrophils/100 WBC (Bld) 55.5 % 47-70 [facility] Potassium [Moles/Vol] 3.9 mmol/L 3.5-5.1 [facility] Protein [Mass/Vol] 7.7 g/dL 6.4-8.2 [facility] Sodium [Moles/Vol] 140 mmol/L 136-145 [facility] WBC (Bld) [#/Vol] 7.2 10*3/uL 4.4-11.0 [facility] Determination of erythrocyte mean corpuscular volume (MCV)Ordered By: Pino Alston on 11-21-2023 MCV (RBC) [Entitic vol] 91.8 fL 81-99 [facility] Erythrocyte distribution wid th ratioOrdered By: Pino Pretty11-21-2023 Erythrocyte distribution width (RBC) [Ratio] 12.8 % 11.6-14.6 [facility] Erythrocyte distribution wid th standard deviationOrdered By: Pino Alston on 11-21-2023 Erythrocyte distribution width (RBC) [Entitic vol] 43.3 fL 35.1-43.9 [facility] Hematocrit Auto (Bld) [Volum e fraction]Ordered By: Pino Alston on 11-21-2023 Hematocrit (Bld) [Volume fraction] 44.5 % 37-47 [facility] Immature granulocytes/100 WB C Auto (Bld)Ordered By: Pino Alston on 11-21-2023 Immature granulocytes/100 WBC (Bld) 1.000 % 0.0-0.9 [facility] Comment on above: IG% - Immature Granu locytes (promyelocytes, myelocytes and metamyelocytes) > 1% indicates that a LEFT SHIFT is Present. Laboratory - Chemistry and C hemistry - challengeOrdered By: Pino Alston on 11-21-2023 Albumin/Globulin [Mass ratio] 1.1 {ratio} 0.9-2.4 [facility] ALP [Catalytic activity/Vol] 88 U/L 45-117 [facility] ALT [Catalytic activity/Vol] 24 U/L 13-56 [facility] CO2 [Moles/Vol] 27.0 mmol/L 21.0-32.0 [facility] Globulin (S) [Mass/Vol] 3.7 g/dL 2.2-4.2 [facility] Urea nitrogen/Creatinine [Mass ratio] 9.4 mg/mg 10-20 [facility] Laboratory - Hematology and Cell countsOrdered By: Pino Alston on 11-21-2023 MCH (RBC) [Entitic mass] 30.3 pg 27.0-32.0 [facility] MCHC (RBC) [Mass/Vol] 33.0 g/dL 32-36 [facility] Nucleated RBC/100 WBC (Bld) [Ratio] 0 % 0-5 [facility] Platelets (Bld) [#/Vol] 373 10*3/uL 150-450 [facility] No Panel InformationOrdered By: Pino Alston on 11-21-2023 Estimated GFR (MDRD) Amer 79 mL/min >60 [facility] Comment on above: GFR Calc Estimated GFR (MDRD) Non-Af Amer 66 mL/min >60 [facility] Comment on above: Non- GFR Calc Platelet mean volume Davide-Ec ker (Bld) [Entitic vol]Ordered By: Pino Alston on 11-21-2023 Platelet mean volume (Bld) [Entitic vol] 9.7 fL 6.2-12.0 [facility] RBC Auto (Bld) [#/Vol]Ordere d By: Pino Alston on 11-21-2023 RBC (Bld) [#/Vol] 4.85 10*6/uL 4.2-5.4 [facility] Serum or plasma calcium efrain urement (mass/volume)Ordered By: Pino Alston on 11-21-2023 Calcium [Mass/Vol] 9.3 mg/dL 8.5-10.1 [facility] Serum or plasma creatinine m easurement (mass/volume)Ordered By: Pino Alston on 11-21-2023 Creatinine [Mass/Vol] 0.96 mg/dL 0.55-1.02 [facility] Comment on above: The validity of the calculated GFR & GFRAA in patients over 70 years has not been determined. Clinical correlation is essential. Serum or plasma thyroid stim ulating hormone (TSH) measurement (units/volume)Ordered By: Pino Alston on 11-21-2023 TSH Qn 0.54 uIU/mL 0.358-3.74 [facility] Serum or plasma urea nitroge n measurement (mass/volume)Ordered By: Pino Alston on 11-21-2023 Urea nitrogen [Mass/Vol] 9 mg/dL 7-18 [facility] Thin prep Papanicolaou smear with manual screeningOrdered By: Pino Alston on 11-21-2023 Thin prep Papanicolaou smear with manual screening 4.0 g/dL 3.2-5.0 [facility] Thin prep Papanicolaou smear with manual screening 14 U/L 15-37 [facility] Thin prep Papanicolaou smear with manual screening 6 5-15 [facility] Absolute lymphocyte countOrd ered By: Pino Alston on 05-01-2023 Lymphocytes Auto (Unsp spec) [#/Vol] 2.41 10*3/uL 0.83-4.51 [facility] Basophil percentageOrdered B y: Pino Alston on 05-01-2023 Amylase [Catalytic activity/Vol] 29 U/L 25-115 [facility] Basophils/100 WBC (Bld) 0.3 % 0-1 [facility] Bilirubin [Mass/Vol] 1.10 mg/dL 0.20-1.00 [facility] Comment on above: For patients on eltr ombopag therapy, use of Dimension [place] TBIL is not recommended. Chloride [Moles/Vol] 102 mmol/L 98-107 [facility] Eosinophils/100 WBC (Bld) 0.3 % 0-5 [facility] Glucose [Mass/Vol] 98 mg/dL 74-106 [facility] Neutrophils (Bld) [#/Vol] 6.2 10*3/uL 2.0-7.7 [facility] Neutrophils/100 WBC (Bld) 66.8 % 47-70 [facility] Potassium [Moles/Vol] 4.0 mmol/L 3.5-5.1 [facility] Protein [Mass/Vol] 8.3 g/dL 6.4-8.2 [facility] Sodium [Moles/Vol] 133 mmol/L 136-145 [facility] WBC (Bld) [#/Vol] 9.3 10*3/uL 4.4-11.0 [facility] Blood erythrocytes count (nu mber/volume)Ordered By: Pino Alston on 05-01-2023 RBC (Bld) [#/Vol] 5.13 10*6/uL 4.2-5.4 [facility] Blood hemoglobin measurement (mass/volume)Ordered By: Pino Alston on 05-01-2023 Hemoglobin (Bld) [Mass/Vol] 16.5 g/dL 12.0-15.0 [facility] Blood lymphocytes/100 leukoc ytesOrdered By: Pino Alston on 05-01-2023 Lymphocytes/100 WBC (Bld) 25.9 % 19-41 [facility] Blood monocytes/100 leukocyt esOrdered By: Pino Alston on 05-01-2023 Monocytes/100 WBC (Bld) 6.4 % 0-10 [facility] Blood platelet mean volumeOr dered By: Pino Alston on 05-01-2023 Platelet mean volume (Bld) [Entitic vol] 10.1 fL 6.2-12.0 [facility] Determination of erythrocyte mean corpuscular volume (MCV)Ordered By: Pino Alston on 05-01-2023 MCV (RBC) [Entitic vol] 93.0 fL 81-99 [facility] Hematocrit Auto (Bld) [Volum e fraction]Ordered By: Pino Alston on 05-01-2023 Hematocrit (Bld) [Volume fraction] 47.7 % 37-47 [facility] Laboratory - Chemistry and C hemistry - challengeOrdered By: Pino Alston on 06-26-2023 ALP [Catalytic activity/Vol] 92 U/L 45-117 [facility] ALT [Catalytic activity/Vol] 24 U/L 13-56 [facility] CO2 [Moles/Vol] 28.0 mmol/L 21.0-32.0 [facility] Globulin (S) [Mass/Vol] 4.2 g/dL 2.2-4.2 [facility] Lipase [Catalytic activity/Vol] 37 U/L 13-75 [facility] Comment on above: Please note:LIPASE r evised reference range effective 23. New Lipase methodology. Expected to produce lower values than the previous assay method. NEW Reference Range: 13 - 75 U/L Natriuretic peptide B (Bld) [Mass/Vol] pg/mL 0-100 [facility] Urea nitrogen/Creatinine [Mass ratio] 10.9 mg/mg 10-20 [facility] Laboratory - Hematology and Cell countsOrdered By: Pino Alston on 05-01-2023 Erythrocyte distribution width (RBC) [Entitic vol] 40.2 fL 35.1-43.9 [facility] Erythrocyte distribution width (RBC) [Ratio] 11.7 % 11.6-14.6 [facility] Immature granulocytes/100 WBC (Bld) 0.300 % 0.0-0.9 [facility] Comment on above: IG% - Immature Granu locytes (promyelocytes, myelocytes and metamyelocytes) > 1% indicates that a LEFT SHIFT is Present. MCH (RBC) [Entitic mass] 32.2 pg 27.0-32.0 [facility] Nucleated RBC/100 WBC (Bld) [Ratio] 0 % 0-5 [facility] MCHC Auto (RBC) [Mass/Vol]Or dered By: Pino Alston on 05-01-2023 MCHC (RBC) [Mass/Vol] 34.6 g/dL 32-36 [facility] No Panel InformationOrdered By: Pino Alston on 05-01-2023 D-Dimer Quantitative (PE/DVT) < 0.27 FEU/ug/m 0.27-0.49 [facility] Comment on above: NORMAL D-Dimer level (<0.50) indicates no DVT or PE. Estimated GFR (MDRD) Amer 75 mL/min >60 [facility] Comment on above: GFR Calc Estimated GFR (MDRD) Non-Af Amer 62 mL/min >60 [facility] Comment on above: Non- GFR Calc Platelets bldOrdered By: Pino Alston on 05-01-2023 Platelets (Bld) [#/Vol] 320 10*3/uL 150-450 [facility] Serum or plasma albumin efrain urement (mass/volume)Ordered By: Pino Alston on 05-01-2023 Albumin [Mass/Vol] 4.1 g/dL 3.2-5.0 [facility] Serum or plasma albumin/glob ulin mass ratioOrdered By: Pino Alston on 05-01-2023 Albumin/Globulin [Mass ratio] 1.0 {ratio} 0.9-2.4 [facility] Serum or plasma calcium efrain urement (mass/volume)Ordered By: Pino Alston on 05-01-2023 Calcium [Mass/Vol] 9.9 mg/dL 8.5-10.1 [facility] Serum or plasma creatinine m easurement (mass/volume)Ordered By: Pino Alston on 05-01-2023 Creatinine [Mass/Vol] 1.01 mg/dL 0.55-1.02 [facility] Comment on above: The validity of the calculated GFR & GFRAA in patients over 70 years has not been determined. Clinical correlation is essential. Serum or plasma urea nitroge n measurement (mass/volume)Ordered By: Pino Alston on 05-01-2023 Urea nitrogen [Mass/Vol] 11 mg/dL 7-18 [facility] Thin prep Papanicolaou smear with manual screeningOrdered By: Pino Alston on 05-01-2023 Thin prep Papanicolaou smear with manual screening 17 U/L 15-37 [facility] Thin prep Papanicolaou smear with manual screening 3 5-15 [facility] CNOVon 08-24-2022 CNOV Office Visit (GENSWS ) GRIS BRADSHAW ([id number]) 1975 F Date Time Provider Department 08/24/22 9:00 AM YARA SANDERS During your visit today, we recorded the following information about you: Temperature Pulse Blood pressure Weight 97.6 degrees 97/minute 132/90 102.1 kg Height 1.651 m Ibeth José RN 08/24/2022 9:16 AM Signed REVIEW OF SYSTEMS: General: The patient denies [...] last Mammogram screening? 2017 Last Colonoscopy: none IESHA Villagomez PA-C 08/24/2022 4:00 PM Signed FOLLOW UP VISIT - APPENDICITIS NAME: Gris Bradshaw [facility] NO.: [id number] DATE OF SERVICE: 08/24/2022 : 1975 REFERRING [...] ?C (97.6 ?F), height 165.1 cm (5' 5), weight 102.1 kg (225 lb), SpO2 96 [...] instructed to follow-up with me as needed. JOSE Rudd PA-C 08/24/2022 9:31 AM Signed The following instructions are important for you related to your office visit today with the [facility]. INSTRUCTIONS FOLLOWING YOUR RECENT [...] is not unusual to have loose stools (more content not included)... Normal [facility] Absolute lymphocyte counton 08-17-2022 Lymphocytes Auto (Unsp spec) [#/Vol] 1.17 10*3/uL 0.83-4.51 [facility] Work Phone: [phone] Basophil percentageon 2021 Basophils/100 WBC (Bld) 0.5 % 0-1 [facility] Work Phone: [phone] Bilirubin [Mass/Vol] 1.00 mg/dL 0.20-1.00 [facility] Work Phone: [phone] Comment on above: For patients on eltr ombopag therapy, use of Dimension [place] TBIL is not recommended. Chloride [Moles/Vol] 105 mmol/L 98-107 [facility] Work Phone: [phone] Eosinophils/100 WBC (Bld) 3.0 % 0-5 [facility] Work Phone: [phone] Glucose [Mass/Vol] 71 mg/dL 74-106 [facility] Work Phone: Neutrophils (Bld) [#/Vol] 3.8 10*3/uL 2.0-7.7 [facility] Work Phone: Neutrophils/100 WBC (Bld) 66.4 % 47-70 [facility] Work Phone: [phone] Potassium [Moles/Vol] 3.5 mmol/L 3.5-5.1 [facility] Work Phone: [phone] Protein [Mass/Vol] 6.2 g/dL 6.4-8.2 [facility] Work Phone: Sodium [Moles/Vol] 140 mmol/L 136-145 [facility] Work Phone: WBC (Bld) [#/Vol] 5.7 10*3/uL 4.4-11.0 [facility] Work Phone: Blood erythrocytes count (nu mber/volume)on 08-17-2022 RBC (Bld) [#/Vol] 4.14 10*6/uL 4.2-[facility]: Blood hemoglobin measurement (mass/volume)on 08-17-2022 Hemoglobin (Bld) [Mass/Vol] 13.1 g/dL 12.0-15.0 [facility] Work Phone: Blood lymphocytes/100 leukoc yteson 08-17-2022 Lymphocytes/100 WBC (Bld) 20.6 % 19-41 [facility] Work Phone: Blood monocytes/100 leukocyt eson 08-17-2022 Monocytes/100 WBC (Bld) 9.3 % 0-10 [facility] Work Phone: Blood platelet mean volumeon 08-17-2022 Platelet mean volume (Bld) [Entitic vol] 9.8 fL 6.2-12.0 [facility] Work Phone: Determination of erythrocyte mean corpuscular volume (MCV)on 08-17-2022 MCV (RBC) [Entitic vol] 97.6 fL 81-99 [facility] Work Phone: Hematocrit Auto (Bld) [Volum e fraction]on 08-17-2022 Hematocrit (Bld) [Volume fraction] 40.4 % 37-47 [facility] Work Phone: Laboratory - Chemistry and C hemistry - challengeon 08-17-2022 ALP [Catalytic activity/Vol] 67 U/L 45-117 [facility] Work Phone: ALT [Catalytic activity/Vol] 18 U/L 13-56 [facility] Work Phone: CO2 [Moles/Vol] 30.0 mmol/L 21.0-32.0 [facility] Work Phone: [phone] Globulin (S) [Mass/Vol] 3.8 g/dL 2.2-4.2 [facility] Work Phone: Urea nitrogen/Creatinine [Mass ratio] 7.8 mg/mg 10-20 [facility] Work Phone: Laboratory - Hematology and Cell countson 08-17-2022 Erythrocyte distribution width (RBC) [Entitic vol] 43.8 fL 35.1-43.9 [facility] Work Phone: Erythrocyte distribution width (RBC) [Ratio] 12.1 % 11.6-14.6 [facility] Work Phone: Immature granulocytes/100 WBC (Bld) 0.200 % 0.0-0.9 [facility] Work Phone: Comment on above: IG% - Immature Granu locytes (promyelocytes, myelocytes and metamyelocytes) > 1% indicates that a LEFT SHIFT is Present. MCH (RBC) [Entitic mass] 31.6 pg 27.0-32.0 [facility] Work Phone: Nucleated RBC/100 WBC (Bld) [Ratio] 0 % 0-5 [facility] Work Phone: MCHC Auto (RBC) [Mass/Vol]on 08-17-2022 MCHC (RBC) [Mass/Vol] 32.4 g/dL 32-36 [facility] Work Phone: No Panel Informationon 08-17 Estimated Creatinine Clearance Calc 96.73 ml/min [facility] Work Phone: Estimated GFR (MDRD) Amer 127 mL/min >60 [facility] Work Phone: Comment on above: GFR Calc Estimated GFR (MDRD) Non-Af Amer 105 mL/min >60 [facility] Work Phone: Comment on above: Non- GFR Calc Platelets bldon 08-17-2022 Platelets (Bld) [#/Vol] 281 10*3/uL 150-450 [facility] Work Phone: Serum or plasma albumin efrain urement (mass/volume)on 08-17-2022 Albumin [Mass/Vol] 2.4 g/dL 3.2-5.0 [facility] Work Phone: Serum or plasma albumin/glob ulin mass ratioon 08-17-2022 Albumin/Globulin [Mass ratio] 0.6 {ratio} 0.9-2.4 [facility] Work Phone: Serum or plasma calcium efrain urement (mass/volume)on 08-17-2022 Calcium [Mass/Vol] 8.5 mg/dL 8.5-10.1 [facility] Work Phone: Serum or plasma creatinine m easurement (mass/volume)on 08-17-2022 Creatinine [Mass/Vol] 0.64 mg/dL 0.55-1.02 [facility] Work Phone: Comment on above: The validity of the calculated GFR & GFRAA in patients over 70 years has not been determined. Clinical correlation is essential. Serum or plasma urea nitroge n measurement (mass/volume)on 08-17-2022 Urea nitrogen [Mass/Vol] 5 mg/dL 7-18 [facility] Work Phone: Thin prep Papanicolaou smear with manual screeningon 08-17-2022 Thin prep Papanicolaou smear with manual screening 9 U/L 15-37 [facility] Work Phone: Thin prep Papanicolaou smear with manual screening 5 5-15 [facility] Work Phone: Basophil percentageon 2021 Basophil percentage 2.3 mg/dL 2.5-4.9 [facility] Work Phone: Laboratory - Chemistry and C hemistry - challengeon 08-15-2022 Magnesium [Mass/Vol] 2.2 mg/dL 1.6-2.6 [facility] Work Phone: [phone] Absolute lymphocyte counton 08-13-2022 Lymphocytes Auto (Unsp spec) [#/Vol] 1.50 10*3/uL 0.83-4.51 [facility] Work Phone: Basophil percentageon 2021 Lactate [Moles/Vol] 1.1 mmol/L 0.4-2.0 [facility] Work Phone: Basophil percentage 0 SEEN /hpf 0-5 [facility] Work Phone: Basophils/100 WBC (Bld) 0.2 % 0-1 [facility] Work Phone: [phone] Bilirubin [Mass/Vol] 1.90 mg/dL 0.20-1.00 [facility] Work Phone: Comment on above: For patients on eltr ombopag therapy, use of Dimension [place] TBIL is not recommended. Chloride [Moles/Vol] 105 mmol/L 98-107 [facility] Work Phone: [phone] Eosinophils/100 WBC (Bld) 0.1 % 0-5 [facility] Work Phone: Glucose [Mass/Vol] 114 mg/dL 74-106 [facility] Work Phone: [phone] Comment on above: Fasting Glucose resu lt from 100 to 125 mg/dL suggests IMPAIRED HOMEOSTASIS per A.D.A. criteria. Neutrophils (Bld) [#/Vol] 12.5 10*3/uL 2.0-7.7 [facility] Work Phone: [phone] Neutrophils/100 WBC (Bld) 83.6 % 47-70 [facility] Work Phone: [phone] Potassium [Moles/Vol] 3.6 mmol/L 3.5-5.1 [facility] Work Phone: Protein [Mass/Vol] 8.2 g/dL 6.4-8.2 [facility] Work Phone: Sodium [Moles/Vol] 137 mmol/L 136-145 [facility] Work Phone: WBC (Bld) [#/Vol] 15.0 10*3/uL 4.4-11.0 [facility] Work Phone: Bilirubin Test strip Ql (U)o n 08-13-2022 Bilirubin Ql (U) Negative Negative [facility] Work Phone: Blood erythrocytes count (nu mber/volume)on 08-13-2022 RBC (Bld) [#/Vol] 5.29 10*6/uL 4.2-5.4 [facility] Work Phone: Blood hemoglobin measurement (mass/volume)on 08-13-2022 Hemoglobin (Bld) [Mass/Vol] 17.1 g/dL 12.0-15.0 [facility] Work Phone: Blood lymphocytes/100 leukoc yteson 08-13-2022 Lymphocytes/100 WBC (Bld) 10.0 % 19-41 [facility] Work Phone: Blood monocytes/100 leukocyt eson 08-13-2022 Monocytes/100 WBC (Bld) 5.8 % 0-10 [facility] Work Phone: Blood platelet mean volumeon 08-13-2022 Platelet mean volume (Bld) [Entitic vol] 9.7 fL 6.2-12.0 [facility] Work Phone: Determination of erythrocyte mean corpuscular volume (MCV)on 08-13-2022 MCV (RBC) [Entitic vol] 93.6 fL 81-99 [facility] Work Phone: Direct bilirubinon Bilirubin.direct [Mass/Vol] 0.35 mg/dL 0.00-0.30 [facility] Work Phone: Hematocrit Auto (Bld) [Volum e fraction]on 08-13-2022 Hematocrit (Bld) [Volume fraction] 49.5 % 37-47 [facility] Work Phone: Ketones Test strip Ql (U)on 08-13-2022 Ketones Ql (U) 150 mg/dl Negative [facility] Work Phone: [phone] Comment on above: CRITICAL VALUE *H Laboratory - Chemistry and C hemistry - challengeon 08-13-2022 ALP [Catalytic activity/Vol] 105 U/L 45-117 [facility] Work Phone: ALT [Catalytic activity/Vol] 24 U/L 13-56 [facility] Work Phone: [phone] CO2 [Moles/Vol] 24.0 mmol/L 21.0-32.0 [facility] Work Phone: Globulin (S) [Mass/Vol] 4.3 g/dL 2.2-4.2 [facility] [facility] Work Phone: [phone] Lipase [Catalytic activity/Vol] 71 U/L 73-393 [facility] Work Phone: [phone] Urea nitrogen/Creatinine [Mass ratio] 6.5 mg/mg 10-20 [facility] Work Phone: Laboratory - Hematology and Cell countson 08-13-2022 Erythrocyte distribution width (RBC) [Entitic vol] 41.9 fL 35.1-43.9 [facility] Work Phone: [phone] Erythrocyte distribution width (RBC) [Ratio] 12.1 % 11.6-14.6 [facility] Work Phone: [phone] Immature granulocytes/100 WBC (Bld) 0.300 % 0.0-0.9 [facility] Work Phone: Comment on above: IG% - Immature Granu locytes (promyelocytes, myelocytes and metamyelocytes) > 1% indicates that a LEFT SHIFT is Present. MCH (RBC) [Entitic mass] 32.3 pg 27.0-32.0 [facility] Work Phone: Nucleated RBC/100 WBC (Bld) [Ratio] 0 % 0-5 [facility] Work Phone: MCHC Auto (RBC) [Mass/Vol]on 08-13-2022 MCHC (RBC) [Mass/Vol] 34.5 g/dL 32-36 [facility] Work Phone: Mucus LM Ql (Urine sed)on Mucus Ql (Urine sed) 0 SEEN /hpf [facility] Work Phone: Nitrite Test strip Ql (U)on 08-13-2022 Nitrite Ql (U) Negative Negative [facility] Work Phone: No Panel Informationon 08-13 Estimated Creatinine Clearance Calc 66.57 ml/min [facility] Work Phone: Estimated GFR (MDRD) Amer 83 mL/min >60 [facility] Work Phone: Comment on above: GFR Calc Estimated GFR (MDRD) Non-Af Amer 68 mL/min >60 [facility] Work Phone: Comment on above: Non- GFR Calc Platelets bldon 08-13-2022 Platelets (Bld) [#/Vol] 334 10*3/uL 150-450 [facility] Work Phone: Protein Test strip Ql (U)on 08-13-2022 Protein Ql (U) 15 mg/dl Negative [facility] Work Phone: Serum or plasma albumin efrain urement (mass/volume)on 08-13-2022 Albumin [Mass/Vol] 3.9 g/dL 3.2-5.0 [facility] Work Phone: Serum or plasma calcium efrain urement (mass/volume)on 08-13-2022 Calcium [Mass/Vol] 9.4 mg/dL 8.5-10.1 [facility] Work Phone: Serum or plasma creatinine m easurement (mass/volume)on 08-13-2022 Creatinine [Mass/Vol] 0.93 mg/dL 0.55-1.02 [facility] Work Phone: Comment on above: The validity of the calculated GFR & GFRAA in patients over 70 years has not been determined. Clinical correlation is essential. Serum or plasma urea nitroge n measurement (mass/volume)on 08-13-2022 Urea nitrogen [Mass/Vol] 6 mg/dL 7-18 [facility] Work Phone: Squamous epithelial cells de tection in urine sediment by light microscopyon 08-13-2022 Epithelial cells.squamous LM Ql (Urine sed) 0 SEEN /hpf 5-10 [facility] Work Phone: Thin prep Papanicolaou smear with manual screeningon 08-13-2022 Thin prep Papanicolaou smear with manual screening 9 U/L 15-37 [facility] Work Phone: Thin prep Papanicolaou smear with manual screening 8 5-15 [facility] Work Phone: Urine blood detectionon 10-0 RBC Ql (U) 10 /ul Negative [facility] Work Phone: RBC Ql (U) 0-5 SEEN /hpf 0-5 [facility] Work Phone: Urine clarityon 08-13-2022 Clarity (U) Sl. Cloudy Clear [facility] Work Phone: Urine color determinationon 08-13-2022 Color (U) Yellow Yellow [facility] Work Phone: Urine glucose detectionon Glucose Ql (U) Normal mg/dl Normal [facility] Work Phone: Urine leukocyte esterase det ection by dipstickon 08-13-2022 Leukocyte esterase Test strip Ql (U) 25 /ul Negative [facility] Work Phone: Urine pHon 08-13-2022 pH (U) 6.0 [pH] 5.0 - 8.0 [facility] Work Phone: Urine sediment bacteria coun t by microscopy (number/high power field)on 08-13-2022 Bacteria LM.HPF (Urine sed) [#/Area] 0 /[HPF] None Seen [facility] Work Phone: Urine specific gravity measu rementon 08-13-2022 Specific gravity (U) [Rel density] 1.020 1.002-1.030 [facility] Work Phone: Urobilinogen Auto test strip Ql (U)on 08-13-2022 Urobilinogen Ql (U) Normal mg/dl Normal [facility] Work Phone: Bacteria identified Cx Nom ( Wound) Wound Culture Escherichia coli [facility] Work Phone: Gram stain for investigation of transfusion reaction Microscopic observation Gram stain Nom (Unsp spec) [facility] Work Phone: Vital Signs Date Time Vital Sign Value Performing Clinician Facility 12-26-2023 10:04-0500 Diastolic blood pressure 90 mm[Hg] Dr. Pino Alston Work Phone: [facility] 12-26-2023 10:04-0500 Heart rate 93 /min Dr. Pino Alston Work Phone: [facility] 12-26-2023 10:04-0500 Respiratory rate 16 /min Dr. Pino Alston Work Phone: [facility] 12-26-2023 10:04-0500 Systolic blood pressure 142 mm[Hg] Dr. Pino Alston Work Phone: [facility] 12-20-2023 11:21-0500 Diastolic blood pressure 109 mm[Hg] Dr. Pino Alston Work Phone: [facility] 12-20-2023 11:21-0500 Heart rate 94 /min Dr. Pino Alston Work Phone: [facility] 12-20-2023 11:21-0500 Respiratory rate 16 /min Dr. Pino Alston Work Phone: [facility] 12-20-2023 11:21-0500 Systolic blood pressure 151 mm[Hg] Dr. Pino Alston Work Phone: [facility] 12-20-2023 10:52-0500 Body height 165.[address] Pino Alston Work Phone: [facility] 12-20-2023 10:52-0500 Body mass index (BMI) [Ratio] 39.7 kg/m2 Dr. Pino Alston Work Phone: [facility] 12-20-2023 10:52-0500 Body weight 108.[address] Pino Alston Work Phone: [facility] 08-24-2022 09:14-0400 Body height 165.1 cm Yara Marilyn PA-C Work Phone: [facility] 08-24-2022 09:14-0400 Body temperature 97.59 [degF] Yara Marilyn PA-C Work Phone: [facility] 08-24-2022 09:14-0400 Body weight 102.06 kg Yara Marilyn PA-C Work Phone: [facility] 08-24-2022 09:14-0400 Diastolic blood pressure 90 mm[Hg] Yara [place] PA-C Work Phone: [facility] 08-24-2022 09:14-0400 Heart rate 97 /min Yara [place] PA-C Work Phone: [facility] 08-24-2022 09:14-0400 SaO2% (BldA) [Mass fraction] 96 % Yara Marilyn PA-C Work Phone: [facility] 08-24-2022 09:14-0400 Systolic blood pressure 132 mm[Hg] Yara [place] PA-C Work Phone: [facility] 08-18-2022 14:51-0400 Body temperature 98.1 [degF] Dr. Pino Alston Work Phone: [facility] Work Phone: 08-18-2022 14:51-0400 Diastolic blood pressure 91 mm[Hg] Dr. Pino Alston Work Phone: [facility] Work Phone: 08-18-2022 14:51-0400 Heart rate 80 /min Dr. Pino Alston Work Phone: [facility] Work Phone: 08-18-2022 14:51-0400 Respiratory rate 18 /min Dr. Pino Alston Work Phone: [facility] Work Phone: 08-18-2022 14:51-0400 SaO2% (BldA) [Mass fraction] 95 % Dr. Pino Alston Work Phone: [facility] Work Phone: 08-18-2022 14:51-0400 Systolic blood pressure 145 mm[Hg] Dr. Pino Alston Work Phone: [facility] Work Phone: 08-18-2022 07:56-0400 Inhaled oxygen flow rate 2 L/min Dr. Pino Alston Work Phone: [facility] Work Phone: 08-16-2022 09:50-0400 Body height 165.[address] Pino Alston Work Phone: [facility] Work Phone: 08-16-2022 09:50-0400 Body weight 104.[address] Pino Alston Work Phone: [facility] Work Phone: 08-13-2022 21:01-0400 Body mass index (BMI) [Ratio] 38.2 kg/m2 Dr. Pino Alston Work Phone: [facility] Work Phone: 08-13-2022 18:20-0400 Body temperature 100.4 [degF] [facility] Work Phone: 08-13-2022 18:20-0400 Diastolic blood pressure 98 mm[Hg] [facility] Work Phone: 08-13-2022 18:20-0400 Heart rate 136 /min [facility] Work Phone: 08-13-2022 18:20-0400 Respiratory rate 21 /min [facility] Work Phone: 08-13-2022 18:20-0400 SaO2% (BldA) [Mass fraction] 93 % [facility] Work Phone: 08-13-2022 18:20-0400 Systolic blood pressure 167 mm[Hg] [facility] Work Phone: 08-13-2022 17:56-0400 Body height 165.1 cm [facility] Work Phone: 08-13-2022 17:56-0400 Body mass index (BMI) [Ratio] 37 kg/m2 [facility] Work Phone: 08-13-2022 17:56-0400 Body weight 101 kg [facility] Work Phone: Encounters Encounter Date Encounter Type Care Provider Facility Start: 04-10-2025 End: 04-10-2025 ambulatory Pino Chi Deb Facility:[facility] Start: 03-26-2025 End: 03-26-2025 ambulatory Tata Flores Facility:[facility] Start: 02-11-2025 End: 02-11-2025 ambulatory Pino Chi Deb Facility:[facility] Start: 12-31-2024 End: 12-31-2024 ambulatory Tata Flores Facility:[facility] Start: 11-20-2024 End: 11-20-2024 ambulatory Tata Flores Facility:[facility] Start: 10-11-2024 End: 10-11-2024 ambulatory Tata Flores Facility:[facility] Start: 08-30-2024 End: 08-30-2024 ambulatory Pino Chi Deb Facility:[facility] Start: 08-22-2024 End: 08-22-2024 ambulatory Pino Chi Deb Facility:[facility] Start: 07-19-2024 End: 07-19-2024 ambulatory Tata Flores Facility:[facility] Start: 05-28-2024 End: 05-28-2024 ambulatory [facility] Facility:[facility] Start: 01-30-2024 End: 01-30-[address] Pino Alston Work Phone: [facility] Work Phone: Start: 01-30-2024 End: 01-30-[address] Pino Alston Work Phone: [facility] Work Phone: Start: 01-26-2024 End: 01-26-[address] Pino Alston Work Phone: [facility] Work Phone: Start: 01-26-2024 End: 01-26-[address] Pino Alston Work Phone: [facility], [address] Start: 01-17-2024 End: 01-17-[address] Pino Alston Work Phone: [facility] Work Phone: Start: 01-17-2024 End: 01-17-[address] Pino Alston Work Phone: [facility] [place] Work Phone: Start: 12-26-2023 End: 12-26-[address] Pino Alston Work Phone: [facility] Work Phone: Start: 12-20-2023 End: 12-20-[address] Pino Alston Work Phone: [facility] Work Phone: Start: 11-24-2023 End: 11-24-2023 ambulatory [facility] Work Phone: Start: 11-24-2023 End: 11-24-2023 Patient encounter procedure [facility] Work Phone: Start: 11-21-2023 End: 11-21-2023 ambulatory [facility] Work Phone: Start: 11-21-2023 End: 11-21-2023 Patient encounter procedure [facility]Laboratory, Phy Office 3rd Flr Start: 05-01-2023 End: 05-01-2023 ambulatory [facility] Work Phone: Start: 05-01-2023 End: 05-01-2023 Patient encounter procedure [facility] Work Phone: Start: 08-24-2022 End: 08-24-2022 ambulatory YARA SANDERS Facility:[facility] Start: 08-24-2022 End: 08-24-2022 Patient encounter procedure Yara Sanders PA-C Work Phone: General Surgery Comment on above: S/P appendectomy (Pr imary Dx) Start: 08-18-2022 Non-patient / Non-visit Dr. Jose Alston Work Phone: [facility] Start: 08-17-2022 Non-patient / Non-visit Dr. Jose Alston Work Phone: [facility] Start: 08-16-2022 Non-patient / Non-visit Dr. Jose Alston Work Phone: [facility] Start: 08-15-2022 Non-patient / Non-visit Dr. Jose Alston Work Phone: [facility] Start: 08-14-2022 Non-patient / Non-visit Dr. Jose Alston Work Phone: [facility] Start: 08-13-2022 Non-patient / Non-visit Dr. Jose Alston Work Phone: [facility] Start: 08-13-2022 End: 10-13-2022 Evaluation and management of inpatient Dr. Pino Alston Work Phone: [facility]Medical Surgical 3 Start: 08-13-2022 End: 08-13-2022 Emergency department patient visit [facility]Emergency Department Procedures Date Procedure Procedure Detail Performing Clinician Start: 11-24-2023 Screening mammography Start: 08-13-[address] Pino Alston Work Phone: Start: 08-13-2022 Computed tomography of abdomen and pelvis with intravenous contrast Start: 08-13-2022 US scan of gallbladder Clostridium difficil e detection Dr. Pino Alston Work Phone: History of appendectomy S/P appendectomy Yara Sanders PA-C Work Phone: Investigation of transfusion reaction Dr. Pino Alston Work Phone: Microbial culture, routine D merary Alston Work Phone: Viral antigen assay Dr. Pino Alston Work Phone: Plan of Treatment Date Care Activity Detail Author Start: 08-18-2022 Patient discharge [facility] Work Phone: Start: 08-17-2022 Enteric precautions [facility] Work Phone: Start: 08-16-2022 Oxygen therapy [facility] Work Phone: Start: 08-15-2022 [facility] Work Phone: Start: 08-14-2022 Introduction of urinary catheter [facility] Work Phone: Start: 08-14-2022 Introduction of urinary catheter [facility] Work Phone: Start: 08-13-2022 Care planning and problem solving actions [facility] Work Phone: Start: 08-13-2022 Application of intermittent pneumatic compression device [facility] Work Phone: Start: 08-13-2022 Consultation [facility] Work Phone: Start: 08-13-2022 Ambulation without limitation [facility] Work Phone: Start: 08-13-2022 Admission procedure [facility] Work Phone: Start: 08-13-2022 End: 08-13-2022 Following clinical pathway protocol [facility] Work Phone: Start: 08-13-2022 [facility] Work Phone: Start: 08-13-2022 Laparoscopic appendectomy Laparoscopic, Appendectomy (Right) [facility] Work Phone: Start: 08-13-2022 End: 08-13-2022 Blood culture [facility] Work Phone: Start: 08-13-2022 Maintenance of drainage tube [facility] Work Phone: Start: 08-13-2022 [facility] Work Phone: Start: 11-06-2021 DEPRESSION ASSESSMENT DEPRESSION ASSESSMENT [facility] Start: 05-20-2021 COVID-19 VACCINE (3 - Booster for Tate series) COVID-19 VACCINE (3 - Booster for Tate series) [facility] Start: 2019 COLOGUARD (FIT-DNA) COLOGUARD (FIT-DNA) [facility] Start: 2019 Colonoscopy COLONOSCOPY [facility] Start: 2019 COLORECTAL CANCER SCREENING COLORECTAL CANCER SCREENING [facility] Start: [address] COLONOGRAPHY [facility] Start: 2019 DIABETES SCREEN DIABETES SCREEN [facility] Start: 2019 FECAL OCCULT BLOOD FECAL OCCULT BLOOD [facility] Start: 2019 LIPID SCREEN LIPID SCREEN [facility] Start: 2019 SIGMOIDOSCOPY SIGMOIDOSCOPY [facility] Start: 2014 Mammography MAMMOGRAM [facility] Start: 01-04-2009 PAP TESTING PAP TESTING [facility] Start: 02-19-2004 HPV TESTING HPV TESTING [facility] Start: 1993 Urine microalbumin profile DTAP,TDAP,TD (1 - Tdap) [facility] Start: 02-19-1992 ANNUAL PCP TEAM CHRONIC DISEASE VISIT ANNUAL PCP TEAM CHRONIC DISEASE VISIT [facility] Start: 02-19-1992 BP CONTROLLED (<130/80) BP CONTROLLED (<130/80) [facility] Start: 1974 HEPATITIS B (1 of 3 - 3-dose series) HEPATITIS B (1 of 3 - 3-dose series) [facility] Anaerobic microbial culture Anaerobic Culture [facility] Work Phone: Bacteria identified in Blood by Culture Blood Culture [facility] Work Phone: Blood culture [facility] Work Phone: Elastase.pancreatic [Presence] in Stool [facility] Fat [Mass/mass] in Stool [facility] Fat.neutral [Presenc e] in Stool [facility] Patient referral [facility] Work Phone: Radionuclide imaging of perfusion of myocardium under exercise stress [facility] SARS-CoV-2 (COVID-19 ) Ag [Presence] in Respiratory specimen by Rapid immunoassay [facility] Work Phone: SARS-CoV-2 Antigen (Rapid) SARS-CoV-2 Antigen (Rapid) [facility] Work Phone: Immunizations Immunization Date Immunization Notes Care Provider Fa cili 08-14-2022 influenza, injectabl e, quadrivalent, preservative free [facility] 08-14-2022 influenza, seasonal, injectable Dr. Pino Alston Work Phone: [facility] 03-25-2021 Covid ([employer]ani & Kimani) Dr. Pion Alston Work Phone: [facility] 02-05-2021 Covid (Kimani & Shoptimise) Dr. Pino Alston Work Phone: [facility] Payers Date Payer Category Payer Self-pay [id number] 2024 Unknown [id number] 2019 Unknown [employer] PPO [id number] 2019-Present [phone] [address] [place] [id number] PPO [id number] 2016 Unknown MED [facility] [id number] Private Health Insurance [facility] [id number] Unknown [id number] 62 Unknown [id number] 62 Unknown [id number] 62 Unknown [id number] 62 Unknown [id number] 62 Unknown [id number] 62 Unknown [id number] 62 Unknown [id number] 62 Unknown [id number] 62 Unknown [id number] 62 Social History Date Type Detail Facility Start: 08-13-2022 End: 12-26-2023 Tobacco smoking status NHIS Unknown if ever smoked [facility] Start: 06-30-2020 None [facility] Start: 03-25-2021 Homeless [facility] Start: 03-25-2021 Non-smoker [facility] Start: 1975 Sex Assigned At Female [facility] Start: 12-28-2012 Tobacco smoking status NHIS Never smoked tobacco [facility] Work Phone: Start: 08-24-2022 Alcohol intake Not Asked [facility] Start: 1975 Sex Assigned At Not on file [facility] NEGATED: Highlighted row Merino [facility] Work Phone: Goals Date Patient Goal Desired Activity /State Functional Status Date Assessment Result Facility 08-18-2022 Functional status Ambulates [facility] Work Phone: Mental Status Date Assessment Result Facility 08-16-2022 Cognitive function Voice/Name Joy Lazcano [facility] Work Phone: Progress note 08-24-2022 Note Date & Type Note Facility 08-24-2022 Note HNO ID: [id number] Author: Yara Sanders PA-C Service: ? Author Type: Physician Assembly Line Inspector Type: Progress Notes Filed: 08/24/2022 4:00 PM Note Text: FOLLOW UP VISIT - APPENDICITIS NAME: Gris Bradshaw [facility] NO.: [id number] DATE OF SERVICE: 08/24/2022 : 1975 REFERRING PHYSICIAN: Alethea Pcp Gris is a patient I am [...] ?C (97.6 ?F), height 165.1 cm (5' 5), weight 102.1 kg (225 lb), SpO2 96 [...] with me as needed. Yara Sanders PA-C [facility] Instructions 08-24-2022 Patient Instructions Note Date & Type Note Facility 08-24-2022 Instructions Yara Sanders PA-C - 08/24/2022 9:31 AM EDT The following instructions are important for you related to your office visit today with the [facility] General Surgeons. INSTRUCTIONS FOLLOWING YOUR RECENT [...] you should contact our office immediately @ [phone] and ask to be transferred to the General Surgery department. documented in this encounter [facility] History of Present illness Narrative 08-24-2022 Yara Sanders PA-C - 08/24/2022 9:10 AM EDT Note Date & Type Note Facility 08-24-2022 History of Presen t illness Narrative FOLLOW UP VISIT - APPENDICITIS NAME: Gris Romreo [facility] NO.: [id number] DATE OF SERVICE: 08/24/2022 : 1975 REFERRING [...] C (97.6 F), height 165.1 cm (5' 5), weight 102.1 kg (225 lb), SpO2 96 [...] Yara Sanders PA-C documented in this encounter [facility] Nurse Note 08-24-2022 Ibeth José RN - [...] Ibeth José RN documented in this encounter [facility] Evaluation note Note Date & Type Note Facility Evaluation note No assessment information availa ble [facility] Work Phone: Evaluation note Note Date & Type Note Facility Evaluation note Diagnosis Onset Date Appendicitis acute Leukocytosis acute Localized peritonitis acute Ruptured appendicitis acute Sepsis acute Sinus tachycardia acute Sludge in gallbladder acute Status post laparoscopic appendectomy acute [facility] Work Phone: Evaluation note Note Date & Type Note Facility Evaluation note Diagnosis S/P appendectomy- Primary Other postprocedural status documented in this encounter [facility] Evaluation note Note Date & Type Note Facility Evaluation note Diagnosis Onset Date Dyslipidemia chronic Dyspnea on exertion chronic HTN (hypertension) chronic Nicotine dependence chronic Obesity (BMI 30-39.9) chroni c Palpitations chronic Sinus tachycardia chronic [facility] Work Phone: Chief Complaint and Reason for Visit Chief Complaint RLQ abd pain Chief Complaint RUPTURED APPY RUPTURED APPY RUPTURED APPY RUPTURED APPY RUPTURED APPY RUPTURED APPY RUPTURED APPY Reason for Visit Appendicitis Leukocytosis Localized peritonitis Ruptured appendicitis Sepsis Sinus tachycardia Sludge in gallbladder Status post laparoscopic appendectomy Chief Complaint SCREENING Chief Complaint SCREENING PALP (DEB) BP CHECK PER KV Diarrhea Reason for Visit Dyslipidemia Dyspnea on exertion HTN (hypertension) Nicotine dependence Obesity (BMI 30-39.9) Palpitations Sinus tachycardia Chief Complaint SCREENING PALP (DEB) BP CHECK PER KV Diarrhea STOOL Reason for Visit Dyslipidemia Dyspnea on exertion HTN (hypertension) Nicotine dependence Obesity (BMI 30-39.9) Palpitations Sinus tachycardia Family History No Family History Records Found Relationship Condition Age at Onset Recorded Date/T robe Unknown Family History?Heart Disease Unknown June 30, 2020 11:43pm Relationship Condition Age at Onset Recorded Date/T robe Unknown Family History?Heart Disease Unknown June 30, 2020 10:43pm Relationship Condition Age at Onset Recorded Date/T robe mother Hypertension Unknown Cerebrovascular accident (CVA) Unknown Alzheimer's disease Unknown father Cardiac disease Unknown Congestive heart failure Unknown Advance Directives No Advanced Directives Records Found Advance Directive Response Recorded Date/ Time Advance Directives No September 2:23pm Living Will No August 13 2 9:16am 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 Plant 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 No August 13 022 9:16am Advance Directive Response Recorded Date/ Time Advance Directives No September 2:23pm Living Will No August 13 2 9:03pm Power of Plant 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 No August 13, 022 9:03pm Advance Directive Response Recorded Date/ Time Advance Directives No September 1:23pm Living Will No August 13 2 8:03pm Power of Plant 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 No August 13 022 8:03pm Summary Purpose Additional Source Comments Goals (unrecognized section and content) Goals may be documented in a n alternate sectionGoals may be documented in an alternate sectionGoals may be documented in an alternate sectionGoals may be documented in an alternate sectionGoals may be documented in an alternate sectionGoals may be documented in an alternate sectionGoals may be documented in an alternate section Source Comments (unrecognize d section and content) In the event this informatio n is protected by the Federal Confidentiality of Alcohol and Drug Abuse Patient Records regulations: The Federal rules restrict any use of the information to criminally investigate or prosecute any alcohol or drug abuse patient.[facility] Reason for Visit (unrecogniz ed section and content) Reason Comments Post Op Lap appy Care Teams (unrecognized sec tion and content) 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 Pino Alston MD Family Provider Active Dr. Pino Alston MD Primary Care Provider Active Team Status: Inactive Member Role Status Dates Dr. Pino Alston MD Primary Care Provi myesha, Attending Provider, Referring Provider Active Team Status: Inactive Member Role Status Dates Dr. Pino Alston MD Primary Care Provider, Attending Provider Active Team Status: Inactive Member Role Status Dates Dr. Pino Alston MD Primary Care Provider, Referring Provider Active Dr. Godwin Diehl MD Attending Provider Active Team Status: Inactive Member Role Status Dates Dr. Pino Alston MD Primary Care Provider Active Dr. Ander Molina MD Attending Provider, Referring Provider Active Team Status: Active Member Role Status Dates Dr. Pino Alston MD Primary Care Provider, Attending Provider Active INFORMATION SOURCE (unrecogn ized section and content) DATE CREATED AUTHOR 08/29/[address] [facility] DATE CREATED AUTHOR AUTHOR'S ALLEGRA ATION 04/15/2025 [facility] FOR RECORDS PERTAINING TO PATIENTS WHO ARE [...] BE BASED ON THE PRIMARY CLINICAL RECORDS. [facility]. provides no warranty or guarantee of the accuracy or completeness of information in this document.
[2025-04-20 10:57] LABS: D-Dimer Quantitative (DVT/PE) 0.27 FEU/ug/m (0.27-0.49)
[2025-04-20 11:09] LABS: Lactic Acid 8.4 mmol/L (0.0-2.0)
[2025-04-20] MEDS: 0.9% Normal Saline (1000mL) 1,000 ML 999 ML IV ×2 (11:16→12:38)
[2025-04-20 11:33] LABS: ALB/GLOB Ratio 1.5 RATIO (0.9-2.4); AST(SGOT) 27 U/L (<=31); Alanine Aminotransfer ALT/SGPT 27 U/L (<=34); Albumin, Serum 5.1 g/dL (3.5-5.0); Alkaline Phosphatase 84 U/L (35-104); Anion Gap 33 (5-15); BUN 9 mg/dL (4-19); BUN/Creat Ratio 7.3 RATIO (10-20); Calcium,Total 9.7 mg/dL (7.6-11.0); Carbon Dioxide 8.1 mmol/L (21.0-32.0); Chloride 101 mmol/L (98-108); Creatinine, Serum 1.23 mg/dL (0.70-1.20); EST Glomerular Filtration Rate 53 (>60); Globulin 3.4 g/dL (2.2-4.2); Glucose 120 mg/dL (70-99); Potassium 3.8 mmol/L (3.3-5.1); Protein, Total 8.5 g/dL (5.9-8.4); Sodium Level 143 mmol/L (133-145); Total Bilirubin 0.66 mg/dL (0.00-1.30)
--- NOTE | 2025-04-20 12:06 | CT_ITS ---
EXAM: BRAIN/HEAD WITHOUT CONTRAST CLINICAL HISTORY: 50 y/o F with SEIZURE. COMPARISON: None. TECHNIQUE: Routine CT imaging of the head without IV contrast. Additional multiplanar reformats were obtained. Dose reduction techniques were used including intermediate exposure control (AEC),iterative reconstruction technique, and/or mA and/or KV dose adjustments based on patient's size. FINDINGS: No acute intracranial hemorrhage or herniation. The ventricles and subarachnoid spaces are normal for patient age. Minimal scattered supratentorial white matter hypodensities. The orbits, visualized paranasal sinuses and mastoids are unremarkable. No acute calvarial fracture. Small hematoma along the left posterior scalp. CT/Brain/Head without Contrast IMPRESSION: 1. No acute intracranial finding. 2. Small hematoma along the left posterior scalp. Reading Location: [id number]
[2025-04-20] MEDS: Acetaminophen 325 MG Tablet 650 MG PO (12:38)
--- NOTE | 2025-04-20 13:17 | HP.PCM.HOS_ITS ---
HPI - General General Date of Admission: 04/20/25 Date of Service: 04/20/25 HPI Narrative ELLEN JADE, is a 50 F with a PMH as outlined who presents via the ED On 04/20/2025 with a complaint of syncope and possible seizure. She was at home sitting at her deck, and the next thing she remembers is waking up on the floor. She could not get up on her own, so she had to call for help. SHe does have a history of seizure disorder but says she has only had 2 seizures in her life at which times she was on tramadol whcih reduced her seizure threshold. She also complained of tachycardia. She said her heart rate usually 1 110s to 120s. She was on carvedilol for her heart rate. She denied any blood alcohol bowel incontinence and there was concern that she may have been postictal. She denied any fever or chills, palpitations, nausea vomiting or any other symptoms. Vitals in the ED were blood pressure 140/97, IA of 93, RR of 16 and oxygn sats of 99% on room air. CBC showed Hb of 15.9, wbc of 9.6 and platelets of 365. D- dimer was 0.27. Chemistry showed sodium of 142 potassium of 3.8 and bicarb of 8.1. Anion gap was 33 and creatinine was 1.23. Lactic acid was elevated at 8.4. CT brain shows small hematoma along the left posterior scalp but no acute intracranial finding. Chest x-ray showed no acute cardiopulmonary pathology. She has been admitted to be managed for syncope likely due to seizure though cannot rule out cardiac origin in light of the tachycardia and also anion gap metabolic acidosis likely due to lactic acidosis from the syncope. [facility] Medical History Depression, unspecified Generalized anxiety disorder Dyslipidemia Inappropriate sinus tachycardia Obesity (BMI 30-39.9) Dyspnea on exertion SOB (shortness of breath) Orthopnea Nicotine dependence Morbid obesity Palpitations Sedative dependence Insomnia Hyperlipidemia HTN (hypertension) Anxiety and depression Sinus tachycardia Leukocytosis Sludge in gallbladder Tachycardia Benadryl overdose History of depression Ankylosing spondylitis Home Medications ?Medication ?Instructions ?Recorded ?Last Taken ?Type losartan 100 mg tablet 100 mg PO QDAY 03/06/2404/06 History escitalopram oxalate 20 mg tablet 20 mg PO QDAY #90 ta bs 12/31/24 04/20/25 Rx bupropion HCl 150 mg 24 hr tablet, 150 mg PO QAM #30 t abs 02/11/25 Unknown Rx extended release bupropion HCl 300 mg 24 hr tablet, 300 mg PO QAM #90 t abs 02/11/25 04/20/25 Rx extended release olanzapine 10 mg tablet 10 mg PO QHS mood #30 tabs 0 03/26/25 04/19/25 Rx olanzapine 7.5 mg tablet 7.5 mg PO QDAY #30 tabs /11/3004/20/25 Rx carvedilol 25 mg tablet 25 mg PO BID #180 tabs 04/0804/19/25 Rx Tirzepatide 50 units IM QWEEK 04/20/25 0 04/18/25 History Allergy/AdvReac Type Severity Reaction Status Date / Time No Known Allergies Allergy Verified 04/20/25 10:19 Family History Mother Hypertension CVA (cerebral vascular accident) Alzheimers disease Father Heart disease CHF (congestive heart failure) Surgical History Status post laparoscopic appendectomy Previous section Social History household members: none Smoking Status: Former smoker alcohol intake: current alcohol intake frequency: holidays/special occasions only substance use type: does not use caffeine: Yes Type: coffee Number of servings: 2 ROS Constitutional Constitutional: Reports fatigue, malaise and weakness; Denies anorexia, chills or fever(s) Eyes Eyes: Denies change in vision ENT HEENT: Denies dysphagia, headache(s) or sore throat Cardiovascular Cardiovascular: Reports palpitations; Denies chest pain, dyspnea on exertion, edema, lightheadedness or orthopnea Respiratory/Chest Respiratory/Chest: Denies cough, dyspnea, shortness of breath at rest, shortness of breath with exertion or wheezing Gastrointestinal Gastrointestinal: Denies constipation, diarrhea, nausea or vomiting Genitourinary Genitourinary: Denies burning urination or dysuria Musculoskeletal Musculoskeletal: Denies back pain, joint pain or neck pain Neurologic Neurologic: Reports seizure-like activity and seizures; Denies confusion, dizziness, focal weakness, headache(s) or numbness Psychiatric Psychiatric: Denies anxiety or depression Endocrine Endocrinology: Denies change in body appearance Vital Signs Vital Signs Vital Signs: 04/20/25 10:16 04/20/25 10:23 04/20/25 10:43 Temperature 98.1 F Temperature Source Oral Pulse Rate 142 H 92 Respiratory Rate 23 H 19 H Blood Pressure 157/100 H 121/89 H Blood Pressure Mean 119 99 Pulse Ox 97 91 Oxygen Delivery Method Room Air Oxygen Flow Rate (L/min) 04/20/25 10:44 04/20/25 10:44 04/20/25 11:16 Temperature Temperature Source Pulse Rate 90 Respiratory Rate 16 Blood Pressure 135/96 H Blood Pressure Mean 109 Pulse Ox 89 93 98 Oxygen Delivery Method Room Air Nasal Cannula Nasal Cannula Oxygen Flow Rate (L/min) 1 1 04/20/25 11:58 04/20/25 12:12 04/20/25 13:00 Temperature 98.1 F Temperature Source Pulse Rate 85 85 93 Respiratory Rate 17 17 16 Blood Pressure 141/97 H 141/97 H 140/97 H Blood Pressure Mean 111 111 111 Pulse Ox 97 97 99 Oxygen Delivery Method Room Air Room Air Oxygen Flow Rate (L/min) Weight Weight: 222 lb 10.67 oz Body Mass Index (BMI) 35.9 Physical Exam Const alert, oriented x3 and no apparent distress Constitutional Narrative: class II obesity General Appearance: cooperative HEENT normocephalic, head/scalp atraumatic and moist oral mucous membranes Eyes PERRL, EOMs intact bilaterally and conjunctivae normal Resp normal respiratory effort, no retractions and clear to auscultation bilaterally Cardio regular rate, regular rhythm and no murmurs GI normal to inspection, nondistended, normoactive bowel sounds, soft to palpation and non-tender Extremity normal to inspection, full ROM and no clubbing, cyanosis or edema Neuro oriented x3, CN's II-XII intact bilaterally, moves all extremities and no focal motor deficits Sensorium / Orientation: awake and alert Motor Exam: strength 5/5 throughout Psych affect normal Results Lab / Micro Data 04/20/25 10:29 04/20/25 13:45 Labs: Laboratory Results - last 24 hr 04/20/25 10:26: D-Dimer Quant (PE/DVT) 0.27 04/20/25 10:29: WBC 9.6, RBC 4.98, Hgb 15.9 H, Hct 49.7 H, MCV 99.8 H, MCH 31.9, MCHC 32.0, RDW Std Deviation 46.5 H, RDW Coeff of Jean-Paul 12.7, Plt Count 365, MPV 9.7, Immature Gran % (Auto) 0.200, Neut % (Auto) 39.7 L, Lymph % (Auto) 49.1 H, [place] % (Auto) 8.8, Eos % (Auto) 1.7, Baso % (Auto) 0.5, Absolute Neuts (auto) 3.8, Absolute Lymphs (auto) 4.70 H, Nucleated RBC % 0, Sodium 143, Potassium 3.8, Chloride 101, Carbon Dioxide 8.1 L*, Anion Gap 33 H, BUN 9, Creatinine 1.23 H, Estim Creat Clear Calc 64.90, Est GFR (MDRD) Non-Af 53 L, BUN/Creatinine Ratio 7.3 L, Glucose 120 H, Lactic Acid 8.4 H*, Calcium 9.7, Total Bilirubin 0.66, AST 27, ALT 27, Alkaline Phosphatase 84, Total Protein 8.5 H, Albumin 5.1 H, Globulin 3.4, Albumin/Globulin Ratio 1.5 Imaging Radiology Impression Chest X-Ray 04/20/25 10:23 IMPRESSION: No Acute Findings. Reading Location: [facility] Brain CT 04/20/25 12:06 IMPRESSION: 1. No acute intracranial finding. 2. Small hematoma along the left posterior scalp. Reading Location: [facility] Assessment & Plan Assessment/Plan (1) Sinus tachycardia: (2) Seizure: PLAN: Plan #Syncope likely due to seizure * Admitted with a complaint of syncope. She does have a history of seizures but has not had seizures in years. She also has a history of palpitations. Her symptoms could therefore have been due to the seizures or the palpitations. * CT of the brain showed only showed a small hematoma but no other acute intracranial pathology. EKG shows sinus tachycardia. * Labs significant for anion gap metabolic acidosis likely due to lactic acidosis as lactic acid is 8.4. * Patient hydrated with IV fluids in the ED. Anion gap was 33 and bicarb was 8.1. * I did request a repeat BMP from the ED as I am sure that anion gap acidosis would improve with hydration. If it does improve then patient will be placed in PCU. * Consult neurology. ED doctor spoke to [facility] neurology and they are concerned this may be a seizure. However they do not want patient to be given any medications now but if she does have a seizure again to be loaded with Keppra 4 mg/kg. * Order EEG and MRI of the brain with and without contrast. * Seizure precautions. * Get 2D echo also. * Last echo from May 2023 showed EF of 60% with stage I diastolic dysfunction and normal left ventricular systolic function with no regional wall motion abnormalities noted. * Fall precautions. * Will hold Wellbutrin to in light of patient having seizures due to his known seizure risk. * IV Ativan as needed for seizures. #Sinus tachycardia: On carvedilol. 2D echo ordered. IV Lopressor as needed. #Hyperlipidemia: On statin #Generalized anxiety disorder: On bupropion and escitalopram. Wellbutrin held due to his known seizure risk. #Hypertension: On carvedilol and losartan #Class II obesity: BMI is 35.9. Complicates acute care, expected recovery and prognosis. CODE STATUS: full code * Patient counseled extensively about different types of CODE STATUS including full code, DNR CCA and DNR CCA. * Patient elects to be full code. * Total cike-tr-suex time 16 minutes. Charges/Coding Visit Charges Inpatient E&M: 54813 Init Hosp L3 Procedures Hospitalists Procedures: 40740 Advncd Care Plan 30 Min
--- NOTE | 2025-04-20 13:35 | CASEMGMT ---
Care Management Face to Face with patient for initial transition planning/care coordination assessment in the ED.? This scientific writer introduced self and role at [facility]. Patient alert and oriented. Patient willing to participate in assessment and is able to answer all questions appropriately.? Care providers, pharmacy, and demographics verified. Patient?s was also in the room. Admitting Diagnosis: Hypocarbia Other diagnosis history: Including but not limited to: Anxiety, Depression, Morbid Obesity, Dyslipidemia, Nicotine dependence, Orthopnea, Sedative dependence, Insomnia, Hypertension, Sludge in gall bladder, Leukocytosis, Hyperlipidemia, Benadryl overdose, Ankylosing Spondylitis and Tachycardia. PCP: Dr. 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 Preferred Pharmacy: [facility] Insurance: [employer] Prescription Benefit: Yes Living Will/HPOA: No and not interested. LNOK: Patient?s , Rene. Patient also has a 20-year-old biological daughter, a 15-year-old biological son and a 22 year-old step-son (Rene?s son). Living Arrangements: Patient, patient?s and all 3 children live in the home. Patient denied any environmental barriers at this time. Transportation: Patient drives. DME: None HHC: Denied SNF/Rehab: Denied Community Resources: Denied. Behavioral Health History: None noted other than being medically treated for anxiety and depression. Patient goals: Patient wishes to discharge home when medically ready and denied need for home health care at this time. Patient denies any further needs or concerns at this time. Disposition Plan: admission to acute; RN CM/SW to follow for discharge planning needs that may arise. Oriana Millan, FERMENTING CELLARS RECEIVER, NURSING ASSISTANTS TEACHER
[2025-04-20 14:32] LABS: Anion Gap 11 (5-15); BUN 7 mg/dL (4-19); BUN/Creat Ratio 7.6 RATIO (10-20); Calcium,Total 8.8 mg/dL (7.6-11.0); Carbon Dioxide 22.3 mmol/L (21.0-32.0); Chloride 108 mmol/L (98-108); Creatinine, Serum 0.98 mg/dL (0.70-1.20); EST Glomerular Filtration Rate 70 (>60); Estimated Creatinine Clearance 81.46 ml/min (50-250); Glucose 98 mg/dL (70-99); Potassium 4.1 mmol/L (3.3-5.1); Sodium Level 141 mmol/L (133-145)
[2025-04-20 14:34] LABS: Reflex Lactate? Y
[2025-04-20] MEDS: Ketorolac 15 MG/ML Vial IV (14:39)
--- OUTSIDE RECORDS SUMMARY | 2025-04-20 14:58 | XMS RPT_ITS | CCD ---
Author Organization [facility] Care Team Providers Care Industrial Relations Manager Name Role Phone Dr. Pino Alston Chi Primary Care Provider Dr. Tyler Plunkett Emergency Provider Dr. Harry Headley Admit Provider Dr. Harry Headley Other Provider Dr. Aries Isbell Attending Provider [phone] Dr. Aries Isbell Other Provider Dr. Lalit Saez Attending Provider Unavailable Dr. Lalit Saez Other Provider Unavailable Dr. Avelina Reyes Attending Provider [phone] Avelina Reyes Other Provider Deb, Pino Chi Primary Care Provider YARA SNADERS Attending Unavailable Dr. Pino Alston Chi Primary Care Provider Dr. Pino Alston Chi Referring Provider Dr. Godwin Diehl Attending Provider Tata Flores [...] Absolute Lymph 2.40 X10 3/uL Normal 0.83-4.51 [facility] Comment on above: Performed By: #### L 100.0100, L500.4050, L501.9520 #### [facility] [address] [place], [address] Absolute Neut 5.9 X10 3/uL Normal 2.0-7.7 [facility] Comment on above: Performed By: #### L 100.0100, L500.4050, L501.9520 #### [facility] [address] [place], [address] Basophils/100 WBC (Bld) 0.7 % Normal 0-1 [facility] Comment on above: Performed By: #### L 100.0100, L500.4050, L501.9520 #### [facility] [address] [place], [address] Eosinophils/100 WBC (Bld) 1.2 % Normal 0-5 [facility] Comment on above: Performed By: #### L 100.0100, L500.4050, L501.9520 #### [facility] [address] [place], [address] Erythrocyte distribution width (RBC) [Ratio] 12.6 % Normal 11.6-14.6 [facility] Comment on above: Performed By: #### L 100.0100, L500.4050, L501.9520 #### [facility] [address] [place], [address] Hematocrit (Bld) [Volume fraction] 43.2 % Normal 37-47 [facility] Comment on above: Performed By: #### L 100.0100, L500.4050, L501.9520 #### [facility] [address] [place], [address] Hemoglobin (Bld) [Mass/Vol] 14.6 g/dL Normal 12.0-15.0 [facility] Comment on above: Performed By: #### L 100.0100, L500.4050, L501.9520 #### [facility] [address] [place], [address] IG% 0.200 Normal 0.0-0.9 [facility] Comment on above: Result Comment: IG% - Immature Granulocytes (promyelocytes, myelocytes and metamyelocytes) > 1% indicates that a LEFT SHIFT is Present. Performed By: #### L 100.0100, L500.4050, L501.9520 #### [facility] [address] [place], [address] Lymphocytes/100 WBC (Bld) 26.4 % Normal 19-41 [facility] Comment on above: Performed By: #### L 100.0100, L500.4050, L501.9520 #### [facility] [address] [place], [address] MCH (RBC) [Entitic mass] 31.6 pg Normal 27.0-32.0 [facility] Comment on above: Performed By: #### L 100.0100, L500.4050, L501.9520 #### [facility] [address] [place], [address] MCHC (RBC) [Mass/Vol] 33.8 g/dL Normal 32-36 [facility] Comment on above: Performed By: #### L 100.0100, L500.4050, L501.9520 #### [facility] [address] [place], [address] MCV (RBC) [Entitic vol] 93.5 fL Normal 81-99 [facility] Comment on above: Performed By: #### L 100.0100, L500.4050, L501.9520 #### [facility] [address] [place], [address] Monocytes/100 WBC (Bld) 6.7 % Normal 0-10 [facility] Comment on above: Performed By: #### L 100.0100, L500.4050, L501.9520 #### [facility] [address] [place], [address] Neutrophils/100 WBC (Bld) 64.8 % Normal 47-70 [facility] Comment on above: Performed By: #### L 100.0100, L500.4050, L501.9520 #### [facility] [address] [place], [address] Nucleated RBC (Bld) [#/Vol] 0 10*3/uL Normal 0-5 [facility] Comment on above: Performed By: #### L 100.0100, L500.4050, L501.9520 #### [facility] [address] [place], [address] Platelet mean volume (Bld) [Entitic vol] 9.8 fL Normal 6.2-12.0 [facility] Comment on above: Performed By: #### L 100.0100, L500.4050, L501.9520 #### [facility] [address] [place], [address] Platelets (Bld) [#/Vol] 359 10*3/uL Normal 150-450 [facility] Comment on above: Performed By: #### L 100.0100, L500.4050, L501.9520 #### [facility] [address] [place], [address] RBC (Bld) [#/Vol] 4.62 10*6/uL Normal 4.2-5.4 [facility] Comment on above: Performed By: #### L 100.0100, L500.4050, L501.9520 #### [facility] [address] [place], [address] RDW SD 43.0 fl Normal 35.1-43.9 [facility] Comment on above: Performed By: #### L 100.0100, L500.4050, L501.9520 #### [facility] [address] [place], [address] WBC (Bld) [#/Vol] 9.1 10*3/uL Normal 4.4-11.0 [facility] Comment on above: Performed By: #### L 100.0100, L500.4050, L501.9520 #### [facility] [address] [place], [address] Comprehensive Metabolic Prof [facility] 04-10-2025 Albumin [Mass/Vol] 4.2 g/dL Normal 3.5-5.0 [facility] Comment on above: Performed By: #### L 100.0100, L500.4050, L501.9520 #### [facility] [address] [place], [address] Albumin/Globulin [Mass ratio] 1.4 {ratio} Normal 0.9-2.4 [facility] Comment on above: Performed By: #### L 100.0100, L500.4050, L501.9520 #### [facility] [address] [place], [address] ALK PHOS 74 U/L Normal 35-104 [facility] Comment on above: Performed By: #### L 100.0100, L500.4050, L501.9520 #### [facility] [address] [place], [address] ALT [Catalytic activity/Vol] 31 U/L Normal <=34 [facility] Comment on above: Performed By: #### L 100.0100, L500.4050, L501.9520 #### [facility] [address] [place], [address] AST [Catalytic activity/Vol] 30 U/L Normal <=31 [facility] Comment on above: Performed By: #### L 100.0100, L500.4050, L501.9520 #### [facility] [address] [place], [address] Bilirubin [Mass/Vol] 0.44 mg/dL Normal 0.00-1.30 [facility] Comment on above: Performed By: #### L 100.0100, L500.4050, L501.9520 #### [facility] [address] [place], [address] BUN/CRE 15.2 RATIO Normal 10-20 [facility] Comment on above: Performed By: #### L 100.0100, L500.4050, L501.9520 #### [facility] [address] [place], [address] Calcium [Mass/Vol] 9.7 mg/dL Normal 7.6-11.0 [facility] Comment on above: Performed By: #### L 100.0100, L500.4050, L501.9520 #### [facility] [address] [place], [address] Chloride [Moles/Vol] 103 mmol/L Normal 98-108 [facility] Comment on above: Performed By: #### L 100.0100, L500.4050, L501.9520 #### [facility] [address] [place], [address] CO2 [Moles/Vol] 21.2 mmol/L Normal 21.0-32.0 [facility] Comment on above: Performed By: #### L 100.0100, L500.4050, L501.9520 #### [facility] [address] [place], [address] Creatinine [Mass/Vol] 1.01 mg/dL Normal 0.70-1.20 [facility] Comment on above: Performed By: #### L 100.0100, L500.4050, L501.9520 #### [facility] [address] [place], [address] GAP 14 Normal 5-15 [facility] Comment on above: Performed By: #### L 100.0100, L500.4050, L501.9520 #### [facility] [address] [place], [address] GFR/1.73 sq M.predicted among non-blacks MDRD (S/P/Bld) [Vol rate/Area] 67 mL/min/{1.73_m2} Normal >60 [facility] Comment on above: Result Comment: mL/m in/1.73m2 CKD-EPI Creatinine Equation (2020) Performed By: #### L 100.0100, L500.4050, L501.9520 #### [facility] [address] [place], [address] Globulin (S) [Mass/Vol] 3.0 g/dL Normal 2.2-4.2 [facility] Comment on above: Performed By: #### L 100.0100, L500.4050, L501.9520 #### [facility] [address] [place], [address] Glucose [Mass/Vol] 90 mg/dL Normal 70-99 [facility] Comment on above: Performed By: #### L 100.0100, L500.4050, L501.9520 #### [facility] [address] [place], [address] Potassium [Moles/Vol] 4.2 mmol/L Normal 3.3-5.1 [facility] Comment on above: Result Comment: Hemo lysis present, Results??could be affected. ?? Performed By: #### L 100.0100, L500.4050, L501.9520 #### [facility] [address] [place], [address] Sodium [Moles/Vol] 138 mmol/L Normal 133-145 [facility] Comment on above: Performed By: #### L 100.0100, L500.4050, L501.9520 #### [facility] [address] [place], [address] T PROT 7.2 g/dL Normal 5.9-8.4 [facility] Comment on above: Performed By: #### L 100.0100, L500.4050, L501.9520 #### [facility] [address] [place], [address] Urea nitrogen [Mass/Vol] 15 mg/dL Normal 4-19 [facility] Comment on above: Performed By: #### L 100.0100, L500.4050, L501.9520 #### [facility] [address] [place], [address] Thyroid Stim Hormone (TSH)on 04-10-2025 TSH 0.710 uIU/mL Normal 0.300-4.200 [facility] Comment on above: Performed By: #### L 100.0100, L500.4050, L501.9520 #### [facility] [address], [address] MR/BMS.BPon 03-26-2025 MR/BMS.BP [address], [address] [place], [place] [address] OFFICE VISIT Date of Service: 03/26/25 MR#: [id number] Acct: [id number] Name: GRIS BRADSHAW Rep #: [id number] : 1975 Provider: KRIS hurst Age/Sex: 50/F Location: [facility].BP Status: Signed Intake Vital Signs 02/11/25 09:53 [...] to before. Has been volunteering at a [employer] and feels this has been beneficial [...] distress Attitud (more content not included)... Normal [facility] MR/BMS.BPon 02-11-2025 MR/BMS.BP [facility] [address], [address] [place] [address] OFFICE VISIT Date of Service: 02/11/25 MR#: [id number] Acct: [id number] Name: GRIS BRADSHAW Nick Rep #: [id number] : 1975 Provider: KRIS hurst Age/Sex: 49/F Location: [facility].BP Status: Signed Intake Vital Signs 12/31/24 10:02 [...] Psych A (more content not included)... Normal [facility] MR/HERBERT.BPon 12-31-2024 MR/HERBERT. [facility] [facility], [address] [place] [address] OFFICE VISIT Date of Service: 12/31/24 MR#: [id number] Acct: [id number] Name: GRIS BRADSHAW Rep #: [id number] : 1975 Provider: KRIS hurst Age/Sex: 49/F Location: [facility].BP Status: Signed Intake Vital Signs 11/20/24 13:56 [...] - Psy (more content not included)... Normal [facility] MR/BMS.BPon 11-20-2024 MR/BMS.BP [facility] [address] [facility], [address] [place] [address] OFFICE VISIT Date of Service: 11/20/24 MR#: [id number] Acct: [id number] Name: GRIS BRADSHAW Rep #: [id number] : 1975 Provider: KRIS hurst Age/Sex: 49/F Location: [facility].BP Status: Signed Intake Vital Signs 10/11/24 12:56 [...] and r (more content not included)... Normal [facility] MR/BMS.BPon 10-11-2024 MR/BMS.BP [facility] [facility], [address] [place] [id number] OFFICE VISIT Date of Service: 10/11/24 MR#: [id number] Acct: [id number] Name: GRIS BRADSHAW Rep #: [id number] : 1975 Provider: RKIS hurst Age/Sex: 49/F Location: [facility].BP Status: Signed Intake Vital Signs 08/30/24 12:53 [...] like the suvorexant has been effective recently. [place] it was previously helping her to stay [...] body h (more content not included)... 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 Denies SI/HI. Previous similar episode: Yes Age [...] ideation Endocrine (more content not included)... Normal [facility] CBC W/Diff, Automatedon 08-06 Absolute Lymph 2.33 X10 3/uL Normal 0.83-4.51 [facility] Comment on above: Performed By: #### L 500.4050, L501.9985, L100.0100, L501.9520 #### [facility] [address] [place], [address] Absolute Neut 3.5 X10 3/uL Normal 2.0-7.7 [facility] Comment on above: Performed By: #### L 500.4050, L501.9985, L100.0100, L501.9520 #### [facility] [address] [place], [address] Basophils/100 WBC (Bld) 0.5 % Normal 0-1 [facility] Comment on above: Performed By: #### L 500.4050, L501.9985, L100.0100, L501.9520 #### [facility] [address] [place], [address] Eosinophils/100 WBC (Bld) 0.8 % Normal 0-5 [facility] Comment on above: Performed By: #### L 500.4050, L501.9985, L100.0100, L501.9520 #### [facility] [address] [place], [address] Erythrocyte distribution width (RBC) [Ratio] 12.3 % Normal 11.6-14.6 [facility] Comment on above: Performed By: #### L 500.4050, L501.9985, L100.0100, L501.9520 #### [facility] [address] [place], [address] Hematocrit (Bld) [Volume fraction] 41.9 % Normal 37-47 [facility] Comment on above: Performed By: #### L 500.4050, L501.9985, L100.0100, L501.9520 #### [facility] [address] [place], [address] Hemoglobin (Bld) [Mass/Vol] 13.9 g/dL Normal 12.0-15.0 [facility] Comment on above: Performed By: #### L 500.4050, L501.9985, L100.0100, L501.9520 #### [facility] [address] [place], [address] IG% 0.200 Normal 0.0-0.9 [facility] Comment on above: Result Comment: IG% - Immature Granulocytes (promyelocytes, myelocytes and metamyelocytes) > 1% indicates that a LEFT SHIFT is Present. Performed By: #### L 500.4050, L501.9985, L100.0100, L501.9520 #### [facility] [address] [place], [address] Lymphocytes/100 WBC (Bld) 37.3 % Normal 19-41 [facility] Comment on above: Performed By: #### L 500.4050, L501.9985, L100.0100, L501.9520 #### [facility] [address] [place], [address] MCH (RBC) [Entitic mass] 31.4 pg Normal 27.0-32.0 [facility] Comment on above: Performed By: #### L 500.4050, L501.9985, L100.0100, L501.9520 #### [facility] [address] [place], [address] MCHC (RBC) [Mass/Vol] 33.2 g/dL Normal 32-36 [facility] Comment on above: Performed By: #### L 500.4050, L501.9985, L100.0100, L501.9520 #### [facility] [address] [place], [address] MCV (RBC) [Entitic vol] 94.6 fL Normal 81-99 [facility] Comment on above: Performed By: #### L 500.4050, L501.9985, L100.0100, L501.9520 #### [facility] [address] [place], [address] Monocytes/100 WBC (Bld) 5.8 % Normal 0-10 [facility] Comment on above: Performed By: #### L 500.4050, L501.9985, L100.0100, L501.9520 #### [facility] [address] [place], [address] Neutrophils/100 WBC (Bld) 55.4 % Normal 47-70 [facility] Comment on above: Performed By: #### L 500.4050, L501.9985, L100.0100, L501.9520 #### [facility] [address] [place], [address] Nucleated RBC (Bld) [#/Vol] 0 10*3/uL Normal 0-5 [facility] Comment on above: Performed By: #### L 500.4050, L501.9985, L100.0100, L501.9520 #### [facility] [address] [place], [address] Platelet mean volume (Bld) [Entitic vol] 9.6 fL Normal 6.2-12.0 [facility] Comment on above: Performed By: #### L 500.4050, L501.9985, L100.0100, L501.9520 #### [facility] [address] [place], [address] Platelets (Bld) [#/Vol] 301 10*3/uL Normal 150-450 [facility] Comment on above: Performed By: #### L 500.4050, L501.9985, L100.0100, L501.9520 #### [facility] [address] [place], [address] RBC (Bld) [#/Vol] 4.43 10*6/uL Normal 4.2-5.4 [facility] Comment on above: Performed By: #### L 500.4050, L501.9985, L100.0100, L501.9520 #### [facility] [address] [place], [address] RDW SD 42.5 fl Normal 35.1-43.9 [facility] Comment on above: Performed By: #### L 500.4050, L501.9985, L100.0100, L501.9520 #### [facility] [address] [place], [address] WBC (Bld) [#/Vol] 6.3 10*3/uL Normal 4.4-11.0 [facility] Comment on above: Performed By: #### L 500.4050, L501.9985, L100.0100, L501.9520 #### [facility] [address] [place], [address] Comprehensive Metabolic [facility] 08-22-2024 Albumin [Mass/Vol] 3.7 g/dL Normal 3.2-5.0 [facility] Comment on above: Performed By: #### L 500.4050, L501.9985, L100.0100, L501.9520 #### [facility] [address] [place], [address] Albumin/Globulin [Mass ratio] 1.0 {ratio} Normal 0.9-2.4 [facility] Comment on above: Performed By: #### L 500.4050, L501.9985, L100.0100, L501.9520 #### [facility] [address] [place], [address] ALK P 67 U/L Normal 45-117 [facility] Comment on above: Performed By: #### L 500.4050, L501.9985, L100.0100, L501.9520 #### [facility] [address] [place], [address] ALT [Catalytic activity/Vol] 18 U/L Normal 13-56 [facility] Comment on above: Performed By: #### L 500.4050, L501.9985, L100.0100, L501.9520 #### [facility] [address] [place], [address] AST [Catalytic activity/Vol] 13 U/L Low 15-37 [facility] Comment on above: Result Comment: Slig ht Hemolysis, Result may be falsely increased. Performed By: #### L 500.4050, L501.9985, L100.0100, L501.9520 #### [facility] [address] [place], [address] Bilirubin [Mass/Vol] 1.00 mg/dL Normal 0.20-1.00 [facility] Comment on above: Result Comment: For patients on eltrombopag therapy, use of Dimension [place] TBIL is not recommended. Performed By: #### L 500.4050, L501.9985, L100.0100, L501.9520 #### [facility] [address] [place], [address] BUN/CRE 9.4 RATIO Low 10-20 [facility] Comment on above: Performed By: #### L 500.4050, L501.9985, L100.0100, L501.9520 #### [facility] [address] [place], [address] CA,Total 9.4 mg/dL Normal 8.5-10.1 [facility] Comment on above: Performed By: #### L 500.4050, L501.9985, L100.0100, L501.9520 #### [facility] [address] [place], [address] Chloride [Moles/Vol] 107 mmol/L Normal 98-107 [facility] Comment on above: Performed By: #### L 500.4050, L501.9985, L100.0100, L501.9520 #### [facility] [address] [place], [address] CO2 [Moles/Vol] 26.0 mmol/L Normal 21.0-32.0 [facility] Comment on above: Performed By: #### L 500.4050, L501.9985, L100.0100, L501.9520 #### [facility] [address] [place], [address] Creatinine [Mass/Vol] 1.06 mg/dL High 0.55-1.02 [facility] Comment on above: Result Comment: The validity of the calculated GFR GFRAA in patients over 70 years has not been determined. Clinical correlation is essential. Performed By: #### L 500.4050, L501.9985, L100.0100, L501.9520 #### [facility] [address] [place], [address] EST GFR - AA 70 mL/min Normal >60 [facility] Comment on above: Result Comment: Afri can Malian GFR Calc Performed By: #### L 500.4050, L501.9985, L100.0100, L501.9520 #### [facility] [address] [place], [address] GAP 4 Low 5-15 [facility] Comment on above: Performed By: #### L 500.4050, L501.9985, L100.0100, L501.9520 #### [facility] [address] [place], [address] GFR/1.73 sq M.predicted among non-blacks MDRD (S/P/Bld) [Vol rate/Area] 58 mL/min/{1.73_m2} Low >60 [facility] Comment on above: Result Comment: Non- GFR Calc Performed By: #### L 500.4050, L501.9985, L100.0100, L501.9520 #### [facility] [address] [place], [address] Globulin (S) [Mass/Vol] 3.6 g/dL Normal 2.2-4.2 [facility] Comment on above: Performed By: #### L 500.4050, L501.9985, L100.0100, L501.9520 #### [facility] [address] [place], [address] Glucose [Mass/Vol] 138 mg/dL High 74-106 [facility] Comment on above: Result Comment: Fast ing Glucose result greater than or equal to 126 mg/dL suggests DIABETES MELLITUS per A.D.A. criteria. Performed By: #### L 500.4050, L501.9985, L100.0100, L501.9520 #### [facility] [address] [place], [address] Potassium [Moles/Vol] 4.1 mmol/L Normal 3.5-5.1 [facility] Comment on above: Result Comment: Slig ht Hemolysis, Result may be falsely increased. Performed By: #### L 500.4050, L501.9985, L100.0100, L501.9520 #### [facility] [address] [place], [address] Sodium [Moles/Vol] 137 mmol/L Normal 136-145 [facility] Comment on above: Performed By: #### L 500.4050, L501.9985, L100.0100, L501.9520 #### [facility] [address] [place], [address] T PROT 7.3 g/dL Normal 6.4-8.2 [facility] Comment on above: Performed By: #### L 500.4050, L501.9985, L100.0100, L501.9520 #### [facility] [address] [place], [address] Urea nitrogen [Mass/Vol] 10 mg/dL Normal 7-18 [facility] Comment on above: Performed By: #### L 500.4050, L501.9985, L100.0100, L501.9520 #### [facility] [address] [place], [address] Hemoglobin A1con 08-22-2024 HbA1c (Bld) [Mass fraction] 4.9 % Normal 3.8-5.6 [facility] Comment on above: Order Comment: BLOOD IN LAB *164r Result Comment: Norm al < 5.7 % Prediabetic 5.7 - 6.4 % Diabetic >or= 6.5 % Please note range changes. Performed By: #### L 500.4050, L501.9985, L100.0100, L501.9520 #### [facility] [address] [place], [address] Thyroid Stim Hormone (TSH)on 08-22-2024 TSH 0.477 uIU/mL Normal 0.358-3.740 [facility] Comment on above: Performed By: #### L 500.4050, L501.9985, L100.0100, L501.9520 #### [facility] [address] [place], [address] MR/BMS.BPon 07-19-2024 MR/BMS.BP [address], [address] [place] [address] OFFICE VISIT Date of Service: 07/19/24 MR#: [id number] Acct: [id number] Name: GRIS BRADSHAW Rep #: [id number] : 1975 Provider: KRIS hurst Age/Sex: 49/F Location: [facility].BP Status: Signed Intake Vital Signs 05/28/24 10:57 [...] rate, regular (more content not included)... Normal [facility] MR/BPon 05-28-2024 MR/HERBERT. [facility] [facility], [address] [place] [address] OFFICE VISIT Date of Service: 05/28/24 MR#: [id number] Acct: [id number] Name: GRIS BRADSHAW Rep #: [id number] : 1975 Provider: KRIS hurst Age/Sex: 49/F Location: [facility].BP Status: Signed Intake Vital Signs 04/15/24 09:05 05/28/24 10:56 05/28/24 10:57 Height 5 ft 5.5 in 5 ft 5 in 5 ft 5.5 in BP 140/99 H 117/82 H Blood Pressure Location Rt brachial Rt brachial Position Sitting Sitting Pulse 102 H 86 Pulse Source Monitor Monitor BP Intake Visit Reasons: 6 wk FU Tram Driver Required: No Accompanied by: Self Is patient [...] to the office today for follow up. [facility] Medical History (Updated 05/28/24 @ 11:22 by [...] bruising Allergic/Immu (more content not included)... Normal [facility] Absolute lymphocyte countOrd ered By: Pino Alston on 01-26-2024 Lymphocytes Auto (Unsp spec) [#/Vol] 1.56 10*3/uL 0.83-4.51 [facility] Automated lymphocyte count a s percentage of total leukocytesOrdered By: Pino Alston on 01-26-2024 Lymphocytes/100 WBC Auto (Unsp spec) 23.0 % 19-41 [facility] Basophil percentageOrdered B y: Pino Alston on 01-26-2024 Basophils/100 WBC (Bld) 0.4 % 0-1 [facility] Bilirubin [Mass/Vol] 0.90 mg/dL 0.20-1.00 [facility] Comment on above: For patients on eltr ombopag therapy, use of Dimension [place] TBIL is not recommended. Chloride [Moles/Vol] 105 mmol/L 98-107 [facility] Eosinophils/100 WBC (Bld) 0.7 % 0-5 [facility] Glucose [Mass/Vol] 131 mg/dL 74-106 [facility] Comment on above: Fasting Glucose resu lt greater than or equal to 126 mg/dL suggests DIABETES MELLITUS per A.D.A. criteria. Hemoglobin (Bld) [Mass/Vol] 14.9 g/dL 12.0-15.0 [facility] Monocytes/100 WBC (Bld) 7.2 % 0-10 [facility] Neutrophils (Bld) [#/Vol] 4.6 10*3/uL 2.0-7.7 [facility] Neutrophils/100 WBC (Bld) 67.8 % 47-70 [facility] Potassium [Moles/Vol] 3.7 mmol/L 3.5-5.1 [facility] Protein [Mass/Vol] 8.1 g/dL 6.4-8.2 [facility] Sodium [Moles/Vol] 137 mmol/L 136-145 [facility] WBC (Bld) [#/Vol] 6.8 10*3/uL 4.4-11.0 [facility] Determination of erythrocyte mean corpuscular volume (MCV)Ordered By: Pino Alston on 01-26-2024 MCV (RBC) [Entitic vol] 90.2 fL 81-99 [facility] Erythrocyte distribution wid th ratioOrdered By: [facility] on 01-26-2024 Erythrocyte distribution width (RBC) [Ratio] 12.2 % 11.6-14.6 [facility] Erythrocyte distribution wid th standard deviationOrdered By: [facility] on 01-26-2024 Erythrocyte distribution width (RBC) [Entitic vol] 40.1 fL 35.1-43.9 [facility] Hematocrit Auto (Bld) [Volum e fraction]Ordered By: [facility] Deb 01-26-2024 Hematocrit (Bld) [Volume fraction] 43.4 % 37-47 [facility] Immature granulocytes/100 WB C Auto (Bld)Ordered By: [facility] 01-26-2024 Immature granulocytes/100 WBC (Bld) 0.900 % 0.0-0.9 [facility] Comment on above: IG% - Immature Granu locytes (promyelocytes, myelocytes and metamyelocytes) > 1% indicates that a LEFT SHIFT is Present. Laboratory - Chemistry and C hemistry - challengeOrdered By: Pino Alston on 01-26-2024 Albumin/Globulin [Mass ratio] 1.0 {ratio} 0.9-2.4 [facility] ALP [Catalytic activity/Vol] 79 U/L 45-117 [facility] ALT [Catalytic activity/Vol] 28 U/L 13-56 [facility] CO2 [Moles/Vol] 23.0 mmol/L 21.0-32.0 [facility] Globulin (S) [Mass/Vol] 4.1 g/dL 2.2-4.2 [facility] Urea nitrogen/Creatinine [Mass ratio] 12.5 mg/mg 10-20 [facility] - Hematology and Cell countsOrdered By: Pino Alston 4 MCH (RBC) [Entitic mass] 31.0 pg 27.0-32.0 [facility] MCHC (RBC) [Mass/Vol] 34.3 g/dL 32-36 [facility] Nucleated RBC/100 WBC (Bld) [Ratio] 0 % 0-5 [facility] Platelet mean volume (Bld) [Entitic vol] 9.5 fL 6.2-12.0 [facility] Platelets (Bld) [#/Vol] 356 10*3/uL 150-450 [facility] No Panel InformationOrdered By: Pino Alston on 01-26-2024 Estimated GFR (MDRD) Amer 97 mL/min >60 [facility] Comment on above: GFR Calc Estimated GFR (MDRD) Non-Af Amer 81 mL/min >60 [facility] Comment on above: Non- GFR Calc RBC Auto (Bld) [#/Vol]Ordere d By: Pino Alston on 01-26-2024 RBC (Bld) [#/Vol] 4.81 10*6/uL 4.2-5.4 [facility] Serum or plasma calcium efrain urement (mass/volume)Ordered By: Pino Alston on 01-26-2024 Calcium [Mass/Vol] 9.4 mg/dL 8.5-10.1 [facility] Serum or plasma creatinine m easurement (mass/volume)Ordered By: Pino Alston on 01-26-2024 Creatinine [Mass/Vol] 0.80 mg/dL 0.55-1.02 [facility] Comment on above: The validity of the calculated GFR & GFRAA in patients over 70 years has not been determined. Clinical correlation is essential. Serum or plasma urea nitroge n measurement (mass/volume)Ordered By: Pnio Alston on 01-26-2024 Urea nitrogen [Mass/Vol] 10 mg/dL 7-18 [facility] Thin prep Papanicolaou smear with manual screeningOrdered By: Pino Alston on 01-26-2024 Thin prep Papanicolaou smear with manual screening 4.0 g/dL 3.2-5.0 [facility] Thin prep Papanicolaou smear with manual screening 16 U/L 15-37 [facility] Thin prep Papanicolaou smear with manual screening 9 5-15 [facility] Basophil percentageOrdered B y: Godwin Diehl on 01-17-2024 Chloride [Moles/Vol] 109 mmol/L 98-107 [facility] Glucose [Mass/Vol] 101 mg/dL 74-106 [facility] Comment on above: Fasting Glucose resu lt from 100 to 125 mg/dL suggests IMPAIRED HOMEOSTASIS per A.D.A. criteria. Potassium [Moles/Vol] 4.3 mmol/L 3.5-5.1 [facility] Sodium [Moles/Vol] 139 mmol/L 136-145 [facility] Laboratory - Chemistry and C hemistry - challengeOrdered By: Godwin Diehl on 01-17-2024 CO2 [Moles/Vol] 20.0 mmol/L 21.0-32.0 [facility] Urea nitrogen/Creatinine [Mass ratio] 14.6 mg/mg 10-20 [facility] No Panel InformationOrdered By: Godwin Diehl on 01-17-2024 Estimated GFR (MDRD) Amer 73 mL/min >60 [facility] Comment on above: GFR Calc Estimated GFR (MDRD) Non-Af Amer 60 mL/min >60 [facility] Comment on above: Non- GFR Calc No Panel InformationOrdered By: Ander Molina on 01-17-2024 C-Reactive Protein Extended Range < 2.90 mg/L 0.0-3.0 [facility] Comment on above: C-Reactive Protein ( CRP) provides useful information for thediagnosis, therapy and monitoring of inflammatory processesand associated diseases. For the evaluation of Relative Riskfor Cardiovascular Disease, a High Sensitivity CRP (HSCRP)should be ordered. Endomysial IgA Antibody Negative Negative [facility] Serum or plasma IgA measurem ent (mass/volume)Ordered By: Ander Molina on 01-17-2024 IgA [Mass/Vol] 289 mg/dL 87-352 [facility] Comment on above: Performed at: [address] [id number] Director: Ander Colón PhD, Phone: [phone] Serum or plasma calcium efrain urement (mass/volume)Ordered By: Godwin Diehl on 01-17-2024 Calcium [Mass/Vol] 9.7 mg/dL 8.5-10.1 [facility] Serum or plasma creatinine m easurement (mass/volume)Ordered By: Godwin Diehl on 01-17-2024 Creatinine [Mass/Vol] 1.03 mg/dL 0.55-1.02 [facility] Comment on above: The validity of the calculated GFR & GFRAA in patients over 70 years has not been determined. Clinical correlation is essential. Serum or plasma urea nitroge n measurement (mass/volume)Ordered By: Godwin Diehl on 01-17-2024 Urea nitrogen [Mass/Vol] 15 mg/dL 7-18 [facility] Serum tissue transglutaminas e IgA antibody assay (units/volume)Ordered By: Ander Molina on 01-17-2024 tTG IgA Qn (S) <2 U/mL 0-3 [facility] Comment on above: Negative 0 - 3 Weak Positive 4 - 10 Positive >10 Tissue Transglutaminase (tTG) has been identified as the endomysial antigen. Studies have demonstr- ated that endomysial IgA antibodies have over 99% specificity for gluten sensitive enteropathy. Thin prep Papanicolaou smear with manual screeningOrdered By: Godwin Diehl on 01-17-2024 Thin prep Papanicolaou smear with manual screening 10 5-15 [facility] Absolute lymphocyte countOrd ered By: Pino Alston on 11-21-2023 Lymphocytes Auto (Unsp spec) [#/Vol] 2.48 10*3/uL 0.83-4.51 [facility] Automated lymphocyte count a s percentage of total leukocytesOrdered By: Pino Alston on 11-21-2023 Lymphocytes/100 WBC Auto (Unsp spec) 34.3 % 19-41 [facility] Basophil percentageOrdered B y: Pino Alston on 11-21-2023 Basophils/100 WBC (Bld) 0.6 % 0-1 [facility] Bilirubin [Mass/Vol] 0.70 mg/dL 0.20-1.00 [facility] Comment on above: For patients on eltr ombopag therapy, use of [place] TBIL is not recommended. Chloride [Moles/Vol] 107 mmol/L 98-107 [facility] Eosinophils/100 WBC (Bld) 1.1 % 0-5 [facility] Glucose [Mass/Vol] 107 mg/dL 74-106 [facility] Comment on above: Fasting Glucose resu lt from 100 to 125 mg/dL suggests IMPAIRED HOMEOSTASIS per A.D.A. criteria. Hemoglobin (Bld) [Mass/Vol] 14.7 g/dL 12.0-15.0 [facility] Monocytes/100 WBC (Bld) 7.5 % 0-10 [facility] Neutrophils (Bld) [#/Vol] 4.0 10*3/uL 2.0-7.7 [facility] Neutrophils/100 WBC (Bld) 55.5 % 47-70 [facility] Potassium [Moles/Vol] 3.9 mmol/L 3.5-5.1 [facility] Protein [Mass/Vol] 7.7 g/dL 6.4-8.2 [facility] Sodium [Moles/Vol] 140 mmol/L 136-145 [facility] WBC (Bld) [#/Vol] 7.2 10*3/uL 4.4-11.0 [facility] Determination of erythrocyte mean corpuscular volume (MCV)Ordered By: Pino Alston on 11-21-2023 MCV (RBC) [Entitic vol] 91.8 fL 81-99 [facility] Erythrocyte distribution wid th ratioOrdered By: Pino Pretty11-21-2023 Erythrocyte distribution width (RBC) [Ratio] 12.8 % 11.6-14.6 [facility] Erythrocyte distribution wid th standard deviationOrdered By: Pino Alston on 11-21-2023 Erythrocyte distribution width (RBC) [Entitic vol] 43.3 fL 35.1-43.9 [facility] Hematocrit Auto (Bld) [Volum e fraction]Ordered By: Pino Alston on 11-21-2023 Hematocrit (Bld) [Volume fraction] 44.5 % 37-47 [facility] Immature granulocytes/100 WB C Auto (Bld)Ordered By: Pino Alston on 11-21-2023 Immature granulocytes/100 WBC (Bld) 1.000 % 0.0-0.9 [facility] Comment on above: IG% - Immature Granu locytes (promyelocytes, myelocytes and metamyelocytes) > 1% indicates that a LEFT SHIFT is Present. Laboratory - Chemistry and C hemistry - challengeOrdered By: Pino Alston on 11-21-2023 Albumin/Globulin [Mass ratio] 1.1 {ratio} 0.9-2.4 [facility] ALP [Catalytic activity/Vol] 88 U/L 45-117 [facility] ALT [Catalytic activity/Vol] 24 U/L 13-56 [facility] CO2 [Moles/Vol] 27.0 mmol/L 21.0-32.0 [facility] Globulin (S) [Mass/Vol] 3.7 g/dL 2.2-4.2 [facility] Urea nitrogen/Creatinine [Mass ratio] 9.4 mg/mg 10-20 [facility] - Hematology and Cell countsOrdered By: Pino Alston on 11-21-2023 MCH (RBC) [Entitic mass] 30.3 pg 27.0-32.0 [facility] MCHC (RBC) [Mass/Vol] 33.0 g/dL 32-36 [facility] Nucleated RBC/100 WBC (Bld) [Ratio] 0 % 0-5 [facility] Platelets (Bld) [#/Vol] 373 10*3/uL 150-450 [facility] No Panel InformationOrdered By: Pino Alston on 11-21-2023 Estimated GFR (MDRD) Amer 79 mL/min >60 [facility] Comment on above: GFR Calc Estimated GFR (MDRD) Non-Af Amer 66 mL/min >60 [facility] Comment on above: Non- GFR Calc Platelet mean volume Davide-Ec ker (Bld) [Entitic vol]Ordered By: Pino Alston on 11-21-2023 Platelet mean volume (Bld) [Entitic vol] 9.7 fL 6.2-12.0 [facility] RBC Auto (Bld) [#/Vol]Ordere d By: Pino Alston on 11-21-2023 RBC (Bld) [#/Vol] 4.85 10*6/uL 4.2-5.4 [facility] Serum or plasma calcium efrain urement (mass/volume)Ordered By: Pino Alston on 11-21-2023 Calcium [Mass/Vol] 9.3 mg/dL 8.5-10.1 [facility] Serum or plasma creatinine m easurement (mass/volume)Ordered By: Pino Alston on 11-21-2023 Creatinine [Mass/Vol] 0.96 mg/dL 0.55-1.02 [facility] Comment on above: The validity of the calculated GFR & GFRAA in patients over 70 years has not been determined. Clinical correlation is essential. Serum or plasma thyroid stim ulating hormone (TSH) measurement (units/volume)Ordered By: Pino Alston on 11-21-2023 TSH Qn 0.54 uIU/mL 0.358-3.74 [facility] Serum or plasma urea nitroge n measurement (mass/volume)Ordered By: Pino Alston on 11-21-2023 Urea nitrogen [Mass/Vol] 9 mg/dL 7-18 [facility] Thin prep Papanicolaou smear with manual screeningOrdered By: Pino Alston on 11-21-2023 Thin prep Papanicolaou smear with manual screening 4.0 g/dL 3.2-5.0 [facility] Thin prep Papanicolaou smear with manual screening 14 U/L 15-37 [facility] Thin prep Papanicolaou smear with manual screening 6 5-15 [facility] Absolute lymphocyte countOrd ered By: Pino Alston on 05-01-2023 Lymphocytes Auto (Unsp spec) [#/Vol] 2.41 10*3/uL 0.83-4.51 [facility] Basophil percentageOrdered B y: Pino Alston on 05-01-2023 Amylase [Catalytic activity/Vol] 29 U/L 25-115 [facility] Basophils/100 WBC (Bld) 0.3 % 0-1 [facility] Bilirubin [Mass/Vol] 1.10 mg/dL 0.20-1.00 [facility] Comment on above: For patients on eltr ombopag therapy, use of [place] TBIL is not recommended. Chloride [Moles/Vol] 102 mmol/L 98-107 [facility] Eosinophils/100 WBC (Bld) 0.3 % 0-5 [facility] Glucose [Mass/Vol] 98 mg/dL 74-106 [facility] Neutrophils (Bld) [#/Vol] 6.2 10*3/uL 2.0-7.7 [facility] Neutrophils/100 WBC (Bld) 66.8 % 47-70 [facility] Potassium [Moles/Vol] 4.0 mmol/L 3.5-5.1 [facility] Protein [Mass/Vol] 8.3 g/dL 6.4-8.2 [facility] Sodium [Moles/Vol] 133 mmol/L 136-145 [facility] WBC (Bld) [#/Vol] 9.3 10*3/uL 4.4-11.0 [facility] Blood erythrocytes count (nu mber/volume)Ordered By: Pino Alston on 05-01-2023 RBC (Bld) [#/Vol] 5.13 10*6/uL 4.2-5.4 [facility] Blood hemoglobin measurement (mass/volume)Ordered By: Pino Alston on 05-01-2023 Hemoglobin (Bld) [Mass/Vol] 16.5 g/dL 12.0-15.0 [facility] Blood lymphocytes/100 leukoc ytesOrdered By: Pino Alston on 05-01-2023 Lymphocytes/100 WBC (Bld) 25.9 % 19-41 [facility] Blood monocytes/100 leukocyt esOrdered By: Pino Alston on 05-01-2023 Monocytes/100 WBC (Bld) 6.4 % 0-10 [facility] Blood platelet mean volumeOr dered By: Pino Alston on 05-01-2023 Platelet mean volume (Bld) [Entitic vol] 10.1 fL 6.2-12.0 [facility] Determination of erythrocyte mean corpuscular volume (MCV)Ordered By: Pino Alston on 05-01-2023 MCV (RBC) [Entitic vol] 93.0 fL 81-99 [facility] Hematocrit Auto (Bld) [Volum e fraction]Ordered By: Pino Alston on 05-01-2023 Hematocrit (Bld) [Volume fraction] 47.7 % 37-47 [facility] - Chemistry and C hemistry - challengeOrdered By: Pino Alston on 06-26-2023 ALP [Catalytic activity/Vol] 92 U/L 45-117 [facility] ALT [Catalytic activity/Vol] 24 U/L 13-56 [facility] CO2 [Moles/Vol] 28.0 mmol/L 21.0-32.0 [facility] Globulin (S) [Mass/Vol] 4.2 g/dL 2.2-4.2 [facility] Lipase [Catalytic activity/Vol] 37 U/L 13-75 [facility] Comment on above: Please note:LIPASE r evised reference range effective 23. New Lipase methodology. Expected to produce lower values than the previous assay method. NEW Reference Range: 13 - 75 U/L Natriuretic peptide B (Bld) [Mass/Vol] pg/mL 0-100 [facility] Urea nitrogen/Creatinine [Mass ratio] 10.9 mg/mg 10-20 [facility] - Hematology and Cell countsOrdered By: Pino Alston on 05-01-2023 Erythrocyte distribution width (RBC) [Entitic vol] 40.2 fL 35.1-43.9 [facility] Erythrocyte distribution width (RBC) [Ratio] 11.7 % 11.6-14.6 [facility] Immature granulocytes/100 WBC (Bld) 0.300 % 0.0-0.9 [facility] Comment on above: IG% - Immature Granu locytes (promyelocytes, myelocytes and metamyelocytes) > 1% indicates that a LEFT SHIFT is Present. MCH (RBC) [Entitic mass] 32.2 pg 27.0-32.0 [facility] Nucleated RBC/100 WBC (Bld) [Ratio] 0 % 0-5 [facility] MCHC Auto (RBC) [Mass/Vol]Or dered By: Pino Alston on 05-01-2023 MCHC (RBC) [Mass/Vol] 34.6 g/dL 32-36 [facility] No Panel InformationOrdered By: Pino Alston on 05-01-2023 D-Dimer Quantitative (PE/DVT) < 0.27 FEU/ug/m 0.27-0.49 [facility] Comment on above: NORMAL D-Dimer level (<0.50) indicates no DVT or PE. Estimated GFR (MDRD) Amer 75 mL/min >60 [facility] Comment on above: GFR Calc Estimated GFR (MDRD) Non-Af Amer 62 mL/min >60 [facility] Comment on above: Non- GFR Calc Platelets bldOrdered By: Pino Alston on 05-01-2023 Platelets (Bld) [#/Vol] 320 10*3/uL 150-450 [facility] Serum or plasma albumin efrain urement (mass/volume)Ordered By: Pino Alston on 05-01-2023 Albumin [Mass/Vol] 4.1 g/dL 3.2-5.0 [facility] Serum or plasma albumin/glob ulin mass ratioOrdered By: Pino Alston on 05-01-2023 Albumin/Globulin [Mass ratio] 1.0 {ratio} 0.9-2.4 [facility] Serum or plasma calcium efrain urement (mass/volume)Ordered By: Pino Alston on 05-01-2023 Calcium [Mass/Vol] 9.9 mg/dL 8.5-10.1 [facility] Serum or plasma creatinine m easurement (mass/volume)Ordered By: Pino Alston on 05-01-2023 Creatinine [Mass/Vol] 1.01 mg/dL 0.55-1.02 [facility] Comment on above: The validity of the calculated GFR & GFRAA in patients over 70 years has not been determined. Clinical correlation is essential. Serum or plasma urea nitroge n measurement (mass/volume)Ordered By: Pino Alston on 05-01-2023 Urea nitrogen [Mass/Vol] 11 mg/dL 7-18 [facility] Thin prep Papanicolaou smear with manual screeningOrdered By: Pino Alston on 05-01-2023 Thin prep Papanicolaou smear with manual screening 17 U/L 15-37 [facility] Thin prep Papanicolaou smear with manual screening 3 5-15 [facility] CNOVon 08-24-2022 CNOV Office Visit (GENSWS ) GRIS BRADSHAW ([id number]) 1975 F Date Time Provider Department 08/24/22 [...] UP VISIT - APPENDICITIS NAME: Gris Bradshaw [facility] NO.: [id number] DATE OF SERVICE: 08/24/2022 : 1975 REFERRING [...] to your office visit today with the [facility]. INSTRUCTIONS FOLLOWING YOUR RECENT [...] loose stools (more content not included)... Normal [facility] Absolute lymphocyte counton 08-17-2022 Lymphocytes Auto (Unsp spec) [#/Vol] 1.17 10*3/uL 0.83-4.51 [facility] Work Phone: [phone] Basophil percentageon 2021 Basophils/100 WBC (Bld) 0.5 % 0-1 [facility] Work Phone: [phone] Bilirubin [Mass/Vol] 1.00 mg/dL 0.20-1.00 [facility] Work Phone: [phone] Comment on above: For patients on eltr ombopag therapy, use of [place] TBIL is not recommended. Chloride [Moles/Vol] 105 mmol/L 98-107 [facility] Work Phone: [phone] Eosinophils/100 WBC (Bld) 3.0 % 0-5 [facility] Work Phone: [phone] Glucose [Mass/Vol] 71 mg/dL 74-106 [facility] Work Phone: Neutrophils (Bld) [#/Vol] 3.8 10*3/uL 2.0-7.7 [facility] Work Phone: Neutrophils/100 WBC (Bld) 66.4 % 47-70 [facility] Work Phone: [phone] Potassium [Moles/Vol] 3.5 mmol/L 3.5-5.1 [facility] Work Phone: [phone] Protein [Mass/Vol] 6.2 g/dL 6.4-8.2 [facility] Work Phone: Sodium [Moles/Vol] 140 mmol/L 136-145 [facility] Work Phone: WBC (Bld) [#/Vol] 5.7 10*3/uL 4.4-11.0 [facility] Work Phone: Blood erythrocytes count (nu mber/volume)on 08-17-2022 RBC (Bld) [#/Vol] 4.14 10*6/uL 4.2-5.4 [facility] Work Phone: Blood hemoglobin measurement (mass/volume)on 08-17-2022 Hemoglobin (Bld) [Mass/Vol] 13.1 g/dL 12.0-15.0 [facility] Work Phone: Blood lymphocytes/100 leukoc yteson 08-17-2022 Lymphocytes/100 WBC (Bld) 20.6 % 19-41 [facility] Work Phone: Blood monocytes/100 leukocyt eson 08-17-2022 Monocytes/100 WBC (Bld) 9.3 % 0-10 [facility] Work Phone: Blood platelet mean volumeon 08-17-2022 Platelet mean volume (Bld) [Entitic vol] 9.8 fL 6.2-12.0 [facility] Work Phone: Determination of erythrocyte mean corpuscular volume (MCV)on 08-17-2022 MCV (RBC) [Entitic vol] 97.6 fL 81-99 [facility] Work Phone: Hematocrit Auto (Bld) [Volum e fraction]on 08-17-2022 Hematocrit (Bld) [Volume fraction] 40.4 % 37-47 [facility] Work Phone: Laboratory - Chemistry and C hemistry - challengeon 08-17-2022 ALP [Catalytic activity/Vol] 67 U/L 45-117 [facility] Work Phone: ALT [Catalytic activity/Vol] 18 U/L 13-56 [facility] Work Phone: CO2 [Moles/Vol] 30.0 mmol/L 21.0-32.0 [facility] Work Phone: [phone] Globulin (S) [Mass/Vol] 3.8 g/dL 2.2-4.2 [facility] Work Phone: Urea nitrogen/Creatinine [Mass ratio] 7.8 mg/mg 10-20 [facility] Work Phone: Laboratory - Hematology and Cell countson 08-17-2022 Erythrocyte distribution width (RBC) [Entitic vol] 43.8 fL 35.1-43.9 [facility] Work Phone: Erythrocyte distribution width (RBC) [Ratio] 12.1 % 11.6-14.6 [facility] Work Phone: Immature granulocytes/100 WBC (Bld) 0.200 % 0.0-0.9 [facility] Work Phone: Comment on above: IG% - Immature Granu locytes (promyelocytes, myelocytes and metamyelocytes) > 1% indicates that a LEFT SHIFT is Present. MCH (RBC) [Entitic mass] 31.6 pg 27.0-32.0 [facility] Work Phone: Nucleated RBC/100 WBC (Bld) [Ratio] 0 % 0-5 [facility] Work Phone: MCHC Auto (RBC) [Mass/Vol]on 08-17-2022 MCHC (RBC) [Mass/Vol] 32.4 g/dL 32-36 [facility] Work Phone: No Panel Informationon 08-17 Estimated Creatinine Clearance Calc 96.73 ml/min [facility] Work Phone: Estimated GFR (MDRD) Amer 127 mL/min >60 [facility] Work Phone: Comment on above: GFR Calc Estimated GFR (MDRD) Non-Af Amer 105 mL/min >60 [facility] Work Phone: Comment on above: Non- GFR Calc Platelets bldon 08-17-2022 Platelets (Bld) [#/Vol] 281 10*3/uL 150-450 [facility] Work Phone: Serum or plasma albumin efrain urement (mass/volume)on 08-17-2022 Albumin [Mass/Vol] 2.4 g/dL 3.2-5.0 [facility] Work Phone: Serum or plasma albumin/glob ulin mass ratioon 08-17-2022 Albumin/Globulin [Mass ratio] 0.6 {ratio} 0.9-2.4 [facility] Work Phone: Serum or plasma calcium efrain urement (mass/volume)on 08-17-2022 Calcium [Mass/Vol] 8.5 mg/dL 8.5-10.1 [facility] Work Phone: Serum or plasma creatinine m easurement (mass/volume)on 08-17-2022 Creatinine [Mass/Vol] 0.64 mg/dL 0.55-1.02 [facility] Work Phone: Comment on above: The validity of the calculated GFR & GFRAA in patients over 70 years has not been determined. Clinical correlation is essential. Serum or plasma urea nitroge n measurement (mass/volume)on 08-17-2022 Urea nitrogen [Mass/Vol] 5 mg/dL 7-18 [facility] Work Phone: Thin prep Papanicolaou smear with manual screeningon 08-17-2022 Thin prep Papanicolaou smear with manual screening 9 U/L 15-37 [facility] Work Phone: Thin prep Papanicolaou smear with manual screening 5 5-15 [facility] Work Phone: Basophil percentageon 2021 Basophil percentage 2.3 mg/dL 2.5-4.9 [facility] Work Phone: Laboratory - Chemistry and C hemistry - challengeon 08-15-2022 Magnesium [Mass/Vol] 2.2 mg/dL 1.6-2.6 [facility] Work Phone: [phone] Absolute lymphocyte counton 08-13-2022 Lymphocytes Auto (Unsp spec) [#/Vol] 1.50 10*3/uL 0.83-4.51 [facility] Work Phone: Basophil percentageon 2021 Lactate [Moles/Vol] 1.1 mmol/L 0.4-2.0 [facility] Work Phone: Basophil percentage 0 SEEN /hpf 0-5 [facility] Work Phone: Basophils/100 WBC (Bld) 0.2 % 0-1 [facility] Work Phone: [phone] Bilirubin [Mass/Vol] 1.90 mg/dL 0.20-1.00 [facility] Work Phone: Comment on above: For patients on eltr ombopag therapy, use of Dimension [place] TBIL is not recommended. Chloride [Moles/Vol] 105 mmol/L 98-107 [facility] Work Phone: [phone] Eosinophils/100 WBC (Bld) 0.1 % 0-5 [facility] Work Phone: Glucose [Mass/Vol] 114 mg/dL 74-106 [facility] Work Phone: [phone] Comment on above: Fasting Glucose resu lt from 100 to 125 mg/dL suggests IMPAIRED HOMEOSTASIS per A.D.A. criteria. Neutrophils (Bld) [#/Vol] 12.5 10*3/uL 2.0-7.7 [facility] Work Phone: [phone] Neutrophils/100 WBC (Bld) 83.6 % 47-70 [facility] Work Phone: [phone] Potassium [Moles/Vol] 3.6 mmol/L 3.5-5.1 [facility] Work Phone: Protein [Mass/Vol] 8.2 g/dL 6.4-8.2 [facility] Work Phone: Sodium [Moles/Vol] 137 mmol/L 136-145 [facility] Work Phone: WBC (Bld) [#/Vol] 15.0 10*3/uL 4.4-11.0 [facility] Work Phone: Bilirubin Test strip Ql (U)o n 08-13-2022 Bilirubin Ql (U) Negative Negative [facility] Work Phone: Blood erythrocytes count (nu mber/volume)on 08-13-2022 RBC (Bld) [#/Vol] 5.29 10*6/uL 4.2-5.4 [facility] Work Phone: Blood hemoglobin measurement (mass/volume)on 08-13-2022 Hemoglobin (Bld) [Mass/Vol] 17.1 g/dL 12.0-15.0 [facility] Work Phone: Blood lymphocytes/100 leukoc yteson 08-13-2022 Lymphocytes/100 WBC (Bld) 10.0 % 19-41 [facility] Work Phone: Blood monocytes/100 leukocyt eson 08-13-2022 Monocytes/100 WBC (Bld) 5.8 % 0-10 [facility] Work Phone: Blood platelet mean volumeon 08-13-2022 Platelet mean volume (Bld) [Entitic vol] 9.7 fL 6.2-12.0 [facility] Work Phone: Determination of erythrocyte mean corpuscular volume (MCV)on 08-13-2022 MCV (RBC) [Entitic vol] 93.6 fL 81-99 [facility] Work Phone: Direct bilirubinon Bilirubin.direct [Mass/Vol] 0.35 mg/dL 0.00-0.30 [facility] Work Phone: Hematocrit Auto (Bld) [Volum e fraction]on 08-13-2022 Hematocrit (Bld) [Volume fraction] 49.5 % 37-47 [facility] Work Phone: Ketones Test strip Ql (U)on 08-13-2022 Ketones Ql (U) 150 mg/dl Negative [facility] Work Phone: [phone] Comment on above: CRITICAL VALUE *H Laboratory - Chemistry and C hemistry - challengeon 08-13-2022 ALP [Catalytic activity/Vol] 105 U/L 45-117 [facility] Work Phone: ALT [Catalytic activity/Vol] 24 U/L 13-56 [facility] Work Phone: [phone] CO2 [Moles/Vol] 24.0 mmol/L 21.0-32.0 [facility] Work Phone: Globulin (S) [Mass/Vol] 4.3 g/dL 2.2-4.2 [facility] Work Phone: [phone] Lipase [Catalytic activity/Vol] 71 U/L 73-393 [facility] Work Phone: [phone] Urea nitrogen/Creatinine [Mass ratio] 6.5 mg/mg 10-20 [facility] Work Phone: Laboratory - Hematology and Cell countson 08-13-2022 Erythrocyte distribution width (RBC) [Entitic vol] 41.9 fL 35.1-43.9 [facility] Work Phone: [phone] Erythrocyte distribution width (RBC) [Ratio] 12.1 % 11.6-14.6 [facility] Work Phone: [phone] Immature granulocytes/100 WBC (Bld) 0.300 % 0.0-0.9 [facility] Work Phone: Comment on above: IG% - Immature Granu locytes (promyelocytes, myelocytes and metamyelocytes) > 1% indicates that a LEFT SHIFT is Present. MCH (RBC) [Entitic mass] 32.3 pg 27.0-32.0 [facility] Work Phone: Nucleated RBC/100 WBC (Bld) [Ratio] 0 % 0-5 [facility] Work Phone: MCHC Auto (RBC) [Mass/Vol]on 08-13-2022 MCHC (RBC) [Mass/Vol] 34.5 g/dL 32-36 [facility] Work Phone: Mucus LM Ql (Urine sed)on Mucus Ql (Urine sed) 0 SEEN /hpf [facility] Work Phone: Nitrite Test strip Ql (U)on 08-13-2022 Nitrite Ql (U) Negative Negative [facility] Work Phone: No Panel Informationon 08-13 Estimated Creatinine Clearance Calc 66.57 ml/min [facility] Work Phone: Estimated GFR (MDRD) Amer 83 mL/min >60 [facility] Work Phone: Comment on above: GFR Calc Estimated GFR (MDRD) Non-Af Amer 68 mL/min >60 [facility] Work Phone: Comment on above: Non- GFR Calc Platelets bldon 08-13-2022 Platelets (Bld) [#/Vol] 334 10*3/uL 150-450 [facility] Work Phone: Protein Test strip Ql (U)on 08-13-2022 Protein Ql (U) 15 mg/dl Negative [facility] Work Phone: Serum or plasma albumin efrain urement (mass/volume)on 08-13-2022 Albumin [Mass/Vol] 3.9 g/dL 3.2-5.0 [facility] Work Phone: Serum or plasma calcium efrain urement (mass/volume)on 08-13-2022 Calcium [Mass/Vol] 9.4 mg/dL 8.5-10.1 [facility] Work Phone: Serum or plasma creatinine m easurement (mass/volume)on 08-13-2022 Creatinine [Mass/Vol] 0.93 mg/dL 0.55-1.02 [facility] Work Phone: Comment on above: The validity of the calculated GFR & GFRAA in patients over 70 years has not been determined. Clinical correlation is essential. Serum or plasma urea nitroge n measurement (mass/volume)on 08-13-2022 Urea nitrogen [Mass/Vol] 6 mg/dL 7-18 [facility] Work Phone: Squamous epithelial cells de tection in urine sediment by light microscopyon 08-13-2022 Epithelial cells.squamous LM Ql (Urine sed) 0 SEEN /hpf 5-10 [facility] Work Phone: Thin prep Papanicolaou smear with manual screeningon 08-13-2022 Thin prep Papanicolaou smear with manual screening 9 U/L 15-37 [facility] Work Phone: Thin prep Papanicolaou smear with manual screening 8 5-15 [facility] Work Phone: Urine blood detectionon 10-0 RBC Ql (U) 10 /ul Negative [facility] Work Phone: RBC Ql (U) 0-5 SEEN /hpf 0-5 [facility] Work Phone: Urine clarityon 08-13-2022 Clarity (U) Sl. Cloudy Clear [facility] Work Phone: Urine color determinationon 08-13-2022 Color (U) Yellow Yellow [facility] Work Phone: Urine glucose detectionon Glucose Ql (U) Normal mg/dl Normal [facility] Work Phone: Urine leukocyte esterase det ection by dipstickon 08-13-2022 Leukocyte esterase Test strip Ql (U) 25 /ul Negative [facility] Work Phone: Urine pHon 08-13-2022 pH (U) 6.0 [pH] 5.0 - 8.0 [facility] Work Phone: Urine sediment bacteria coun t by microscopy (number/high power field)on 08-13-2022 Bacteria LM.HPF (Urine sed) [#/Area] 0 /[HPF] None Seen [facility] Work Phone: Urine specific gravity measu rementon 08-13-2022 Specific gravity (U) [Rel density] 1.020 1.002-1.030 [facility] Work Phone: Urobilinogen Auto test strip Ql (U)on 08-13-2022 Urobilinogen Ql (U) Normal mg/dl Normal [facility] Work Phone: Bacteria identified Cx Nom ( Wound) Wound Culture Escherichia coli [facility] Work Phone: Gram stain for investigation of transfusion reaction Microscopic observation Gram stain Nom (Unsp spec) [facility] Work Phone: Vital Signs Date Time Vital Sign Value Performing Clinician Facility 12-26-2023 10:04-0500 Diastolic blood pressure 90 mm[Hg] Dr. Pino Alston Work Phone: [facility] 12-26-2023 10:04-0500 Heart rate 93 /min Dr. Pino Alston Work Phone: [facility] 12-26-2023 10:04-0500 Respiratory rate 16 /min Dr. Pino Alston Work Phone: [facility] 12-26-2023 10:04-0500 Systolic blood pressure 142 mm[Hg] Dr. Pino Alston Work Phone: [facility] 12-20-2023 11:21-0500 Diastolic blood pressure 109 mm[Hg] Dr. Pino Alston Work Phone: [facility] 12-20-2023 11:21-0500 Heart rate 94 /min Dr. Pino Alston Work Phone: [facility] 12-20-2023 11:21-0500 Respiratory rate 16 /min Dr. Pino Alston Work Phone: [facility] 12-20-2023 11:21-0500 Systolic blood pressure 151 mm[Hg] Dr. Pino Alston Work Phone: [facility] 12-20-2023 10:52-0500 Body height 165.[address] Pino Alston Work Phone: [facility] 12-20-2023 10:52-0500 Body mass index (BMI) [Ratio] 39.7 kg/m2 Dr. Pino Alston Work Phone: [facility] 12-20-2023 10:52-0500 Body weight 108.[address] Pino Alston Work Phone: [facility] 08-24-2022 09:14-0400 Body height 165.1 cm Yara Marilyn PA-C Work Phone: [facility] 08-24-2022 09:14-0400 Body temperature 97.59 [degF] Yara Marilyn PA-C Work Phone: [facility] 08-24-2022 09:14-0400 Body weight 102.06 kg Yara Marilyn PA-C Work Phone: [facility] 08-24-2022 09:14-0400 Diastolic blood pressure 90 mm[Hg] Yara [place] PA-C Work Phone: [facility] 08-24-2022 09:14-0400 Heart rate 97 /min Yara [place] PA-C Work Phone: [facility] 08-24-2022 09:14-0400 SaO2% (BldA) [Mass fraction] 96 % Yara Marilyn PA-C Work Phone: [facility] 08-24-2022 09:14-0400 Systolic blood pressure 132 mm[Hg] Yara [place] PA-C Work Phone: [facility] 08-18-2022 14:51-0400 Body temperature 98.1 [degF] Dr. Pino Alston Work Phone: [facility] Work Phone: 08-18-2022 14:51-0400 Diastolic blood pressure 91 mm[Hg] Dr. Pino Alston Work Phone: [facility] Work Phone: 08-18-2022 14:51-0400 Heart rate 80 /min Dr. Pino Alston Work Phone: [facility] Work Phone: 08-18-2022 14:51-0400 Respiratory rate 18 /min Dr. Pino Alston Work Phone: [facility] Work Phone: 08-18-2022 14:51-0400 SaO2% (BldA) [Mass fraction] 95 % Dr. Pino Alston Work Phone: [facility] Work Phone: 08-18-2022 14:51-0400 Systolic blood pressure 145 mm[Hg] Dr. Pino Alston Work Phone: [facility] Work Phone: 08-18-2022 07:56-0400 Inhaled oxygen flow rate 2 L/min Dr. Pino Alston Work Phone: [facility] Work Phone: 08-16-2022 09:50-0400 Body height 165.[address] Pino Alston Work Phone: [facility] Work Phone: 08-16-2022 09:50-0400 Body weight 104.[address] Pino Alston Work Phone: [facility] Work Phone: 08-13-2022 21:01-0400 Body mass index (BMI) [Ratio] 38.2 kg/m2 Dr. Pino Alston Work Phone: [facility] Work Phone: 08-13-2022 18:20-0400 Body temperature 100.4 [degF] [facility] Work Phone: 08-13-2022 18:20-0400 Diastolic blood pressure 98 mm[Hg] [facility] Work Phone: 08-13-2022 18:20-0400 Heart rate 136 /min [facility] Work Phone: 08-13-2022 18:20-0400 Respiratory rate 21 /min [facility] Work Phone: 08-13-2022 18:20-0400 SaO2% (BldA) [Mass fraction] 93 % [facility] Work Phone: 08-13-2022 18:20-0400 Systolic blood pressure 167 mm[Hg] [facility] Work Phone: 08-13-2022 17:56-0400 Body height 165.1 cm [facility] Work Phone: 08-13-2022 17:56-0400 Body mass index (BMI) [Ratio] 37 kg/m2 [facility] Work Phone: 08-13-2022 17:56-0400 Body weight 101 kg [facility] Work Phone: Encounters Encounter Date Encounter Type Care Provider Facility Start: 04-10-2025 End: 04-10-2025 ambulatory Pino Chi Deb Facility:[facility] Start: 03-26-2025 End: 03-26-2025 ambulatory Tata Flores Facility:[facility] Start: 02-11-2025 End: 02-11-2025 ambulatory Pino Chi Deb Facility:[facility] Start: 12-31-2024 End: 12-31-2024 ambulatory Tata Flores Facility:[facility] Start: 11-20-2024 End: 11-20-2024 ambulatory Tata Flores Facility:[facility] Start: 10-11-2024 End: 10-11-2024 ambulatory Tata Flores Facility:[facility] Start: 08-30-2024 End: 08-30-2024 ambulatory Pino Chi Deb Facility:[facility] Start: 08-22-2024 End: 08-22-2024 ambulatory Pino Chi Deb Facility:[facility] Start: 07-19-2024 End: 07-19-2024 ambulatory Tata Flores Facility:[facility] Start: 05-28-2024 End: 05-28-2024 ambulatory [facility] Facility:[facility] Start: 01-30-2024 End: 01-30-[address] Pino Alston Work Phone: [facility] Work Phone: Start: 01-30-2024 End: 01-30-[address] Pino Alston Work Phone: [facility] Work Phone: Start: 01-26-2024 End: 01-26-[address] Pino Alsotn Work Phone: [facility] Work Phone: Start: 01-26-2024 End: 01-26-[address] Pino Alston Work Phone: [facility], [address] Start: 01-17-2024 End: 01-17-[address] Pino Alston Work Phone: [facility] Work Phone: Start: 01-17-2024 End: 01-17-[address] Pino Alston Work Phone: [facility] [place] Work Phone: Start: 12-26-2023 End: 12-26-[address] Pino Alston Work Phone: [facility] Work Phone: Start: 12-20-2023 End: 12-20-[address] Pino Alston Work Phone: [facility] Work Phone: Start: 11-24-2023 End: 11-24-2023 ambulatory [facility] Work Phone: Start: 11-24-2023 End: 11-24-2023 Patient encounter procedure [facility]Outpatient Breast [facility] Work Phone: Start: 11-21-2023 End: 11-21-2023 ambulatory [facility] Work Phone: Start: 11-21-2023 End: 11-21-2023 Patient encounter procedure [facility]-Laboratory, Phy Office 3rd Flr Start: 05-01-2023 End: 05-01-2023 ambulatory [facility] Work Phone: Start: 05-01-2023 End: 05-01-2023 Patient encounter procedure [facility] Work Phone: Start: 08-24-2022 End: 08-24-2022 ambulatory YARA SANDERS Facility:[facility] Start: 08-24-2022 End: 08-24-2022 Patient encounter procedure Yara Sanders PA-C Work Phone: General Surgery Comment on above: S/P appendectomy (Pr imary Dx) Start: 08-18-2022 Non-patient / Non-visit Dr. Jose Alston Work Phone: [facility] Start: 08-17-2022 Non-patient / Non-visit Dr. Jose Alston Work Phone: [facility] Start: 08-16-2022 Non-patient / Non-visit Dr. Jose Alston Work Phone: [facility] Start: 08-15-2022 Non-patient / Non-visit Dr. Jose Alston Work Phone: [facility] Start: 08-14-2022 Non-patient / Non-visit Dr. Jose Alston Work Phone: [facility] Start: 08-13-2022 Non-patient / Non-visit Dr. Jose Alston Work Phone: [facility] Start: 08-13-2022 End: 10-13-2022 Evaluation and management of inpatient Dr. Pino Alston Work Phone: [facility]Medical Surgical 3 Start: 08-13-2022 End: 08-13-2022 Emergency department patient visit [facility]Emergency Department Procedures Date Procedure Procedure Detail Performing [...] Activity Detail Author Start: 08-18-2022 Patient discharge [facility] Work Phone: Start: 08-17-2022 Enteric precautions [facility] Work Phone: Start: 08-16-2022 Oxygen therapy [facility] Work Phone: Start: 08-15-2022 [facility] Work Phone: Start: 08-14-2022 Introduction of urinary catheter [facility] Work Phone: Start: 08-14-2022 Introduction of urinary catheter [facility] Work Phone: Start: 08-13-2022 Care planning and problem solving actions [facility] Work Phone: Start: 08-13-2022 Application of intermittent pneumatic compression device [facility] Work Phone: Start: 08-13-2022 Consultation [facility] Work Phone: Start: 08-13-2022 Ambulation without limitation [facility] Work Phone: Start: 08-13-2022 Admission procedure [facility] Work Phone: Start: 08-13-2022 End: 08-13-2022 Following clinical pathway protocol [facility] Work Phone: Start: 08-13-2022 [facility] Work Phone: Start: 08-13-2022 Laparoscopic appendectomy Laparoscopic, Appendectomy (Right) [facility] Work Phone: Start: 08-13-2022 End: 08-13-2022 Blood culture [facility] Work Phone: Start: 08-13-2022 Maintenance of drainage tube [facility] Work Phone: Start: 08-13-2022 [facility] Work Phone: Start: 11-06-2021 DEPRESSION ASSESSMENT DEPRESSION ASSESSMENT [facility] Start: 05-20-2021 COVID-19 VACCINE (3 - Booster for Tate series) COVID-19 VACCINE (3 - Booster for Tate series) [facility] Start: 2019 COLOGUARD (FIT-DNA) COLOGUARD (FIT-DNA) [facility] Start: 2019 Colonoscopy COLONOSCOPY [facility] Start: 2019 COLORECTAL CANCER SCREENING COLORECTAL CANCER SCREENING [facility] Start: [address] COLONOGRAPHY [facility] Start: 2019 DIABETES SCREEN DIABETES SCREEN [facility] Start: 2019 FECAL OCCULT BLOOD FECAL OCCULT BLOOD [facility] Start: 2019 LIPID SCREEN LIPID SCREEN [facility] Start: 2019 SIGMOIDOSCOPY SIGMOIDOSCOPY [facility] Start: 2014 Mammography MAMMOGRAM [facility] Start: 01-04-2009 PAP TESTING PAP TESTING [facility] Start: 02-19-2004 HPV TESTING HPV TESTING [facility] Start: 1993 Urine microalbumin profile DTAP,TDAP,TD (1 - Tdap) [facility] Start: 02-19-1992 ANNUAL PCP TEAM CHRONIC DISEASE VISIT ANNUAL PCP TEAM CHRONIC DISEASE VISIT [facility] Start: 02-19-1992 BP CONTROLLED (<130/80) BP CONTROLLED (<130/80) [facility] Start: 1974 HEPATITIS B (1 of 3 - 3-dose series) HEPATITIS B (1 of 3 - 3-dose series) [facility] Anaerobic microbial culture Anaerobic Culture [facility] Work Phone: Bacteria identified in Blood by Culture Blood Culture [facility] Work Phone: Blood culture [facility] Work Phone: Elastase.pancreatic [Presence] in Stool [facility] Fat [Mass/mass] in Stool [facility] Fat.neutral [Presenc e] in Stool [facility] Patient referral [facility] Work Phone: Radionuclide imaging of perfusion of myocardium under exercise stress [facility] SARS-CoV-2 (COVID-19 ) Ag [Presence] in Respiratory specimen by Rapid immunoassay [facility] Work Phone: SARS-CoV-2 Antigen (Rapid) SARS-CoV-2 Antigen (Rapid) [facility] Work Phone: Immunizations Immunization Date Immunization Notes Care Provider Fa cili 08-14-2022 influenza, injectabl e, quadrivalent, preservative free [facility] 08-14-2022 influenza, seasonal, injectable Dr. Pino Alston Work Phone: [facility] 03-25-2021 Covid ([employer]) Dr. Pino Alston Work Phone: [facility] 02-05-2021 Covid ([employer]) Dr. Pino Alston Work Phone: [facility] Payers Date Payer Category Payer Self-pay [id number] 2024 Unknown [id number] 2019 Unknown [employer] PPO [id number] 2019-Present [phone] [address] [place] [id number] PPO [id number] 2016 Unknown MED [facility] [id number] Private Health Insurance [employer] [id number] Unknown [id number] 62 Unknown [id number] 62 Unknown [id number] 62 Unknown [id number] 62 Unknown [id number] 62 Unknown [id number] 62 Unknown [id number] 62 Unknown [id number] 62 Unknown [id number] 62 Unknown [id number] 62 Social History Date Type Detail Facility Start: 08-13-2022 End: 12-26-2023 Tobacco smoking status NHIS Unknown if ever smoked [facility] Start: 06-30-2020 None [facility] Start: 03-25-2021 Homeless [facility] Start: 03-25-2021 Non-smoker [facility] Start: 1975 Sex Assigned At Female [facility] Start: 12-28-2012 Tobacco smoking status NHIS Never smoked tobacco [facility] Work Phone: Start: 08-24-2022 Alcohol intake Not Asked [facility] Start: 1975 Sex Assigned At Not on file [facility] NEGATED: Highlighted row [facility] Work Phone: Goals Date Patient Goal Desired Activity /State Functional Status Date Assessment Result Facility 08-18-2022 Functional status Ambulates oJy [facility] [facility] [place] Work Phone: Mental Status Date Assessment Result Facility 08-16-2022 Cognitive function Voice/Name Joy Lazcano [facility] [place] Work Phone: Progress note 08-24-2022 Note Date & Type Note Facility 08-24-2022 Note HNO ID: [id number] Author: Yara Sanders PA-C Service: ? Author Type: Physician Hearing Care Professional Type: Progress Notes Filed: 08/24/2022 4:00 PM Note Text: FOLLOW UP VISIT - APPENDICITIS NAME: Gris Bradshaw [facility] NO.: [id number] DATE OF SERVICE: 08/24/2022 : 1975 REFERRING [...] with me as needed. Yara Sanders PA-C [facility] Instructions 08-24-2022 Patient Instructions Note Date & Type Note Facility 08-24-2022 Instructions Yara Sanders PA-C - 08/24/2022 9:31 AM EDT The following instructions are important for you related to your office visit today with the [facility] General Surgeons. INSTRUCTIONS FOLLOWING YOUR RECENT [...] you should contact our office immediately @ [phone] and ask to be transferred to the General Surgery department. documented in this encounter [facility] History of Present illness Narrative 08-24-2022 Yara Sanders PA-C - 08/24/2022 9:10 AM EDT Note Date & Type Note Facility 08-24-2022 History of Presen t illness Narrative FOLLOW UP VISIT - APPENDICITIS NAME: Gris Romero [facility] NO.: [id number] DATE OF SERVICE: 08/24/2022 : 1975 REFERRING [...] to follow-up with me as needed. Yara aSnders PA-C documented in this encounter [facility] Nurse Note 08-24-2022 Ibeth José RN [...] Ibeth José RN documented in this encounter [facility] Evaluation note Note Date & Type Note Facility Evaluation note No assessment information availa ble [facility] Work Phone: Evaluation note Note Date & Type Note Facility Evaluation note Diagnosis Onset Date Appendicitis acute Leukocytosis acute Localized peritonitis acute Ruptured appendicitis acute Sepsis acute Sinus tachycardia acute Sludge in gallbladder acute Status post laparoscopic appendectomy acute [facility] Work Phone: Evaluation note Note Date & Type Note Facility Evaluation note Diagnosis S/P appendectomy- Primary Other postprocedural status documented in this encounter [facility] Evaluation note Note Date & Type Note Facility Evaluation note Diagnosis Onset Date Dyslipidemia chronic Dyspnea on exertion chronic HTN (hypertension) chronic Nicotine dependence chronic Obesity (BMI 30-39.9) chroni c Palpitations chronic Sinus tachycardia chronic [facility] Work Phone: Chief Complaint and Reason for [...] No August 13 2 9:16am Power of Viscose Cellar Worker No August 13 022 9:16am Advance Directive Response Recorded Date/ Time Advance Directives No September 2:23pm Living Will No August 13 2 9:03pm Power of Viscose Cellar Worker No August 13, 022 9:03pm Advance Directive Response Recorded Date/ Time Advance Directives No September 1:23pm Living Will No August 13 2 8:03pm Power of Viscose Cellar Worker No August 13 022 8:03pm Summary Purpose [...] or prosecute any alcohol or drug abuse patient.[facility] Reason for Visit (unrecogniz ed section and content) Reason Comments Post Op Lap appy Care Teams (unrecognized sec tion and content) Industrial Relations Manager Relationship Specialty Start Date End Date Pino Alston Chi [id number] [id number] PCP - General Gerontology 08/24/22 Team Status: [...] section and content) DATE CREATED AUTHOR 08/29/2022 [facility] DATE CREATED AUTHOR AUTHOR'S ALLEGRA ATION 04/15/2025 [facility] FOR RECORDS PERTAINING TO PATIENTS WHO [...] BE BASED ON THE PRIMARY CLINICAL RECORDS. [facility] [employer] [facility]. provides no warranty or guarantee of the accuracy or completeness of information in this document.
[2025-04-20] MEDS: Carvedilol 25 MG Tablet PO (15:43)
[2025-04-20] MEDS: Morphine 2 MG/ML Syringe IV ×2 (15:44→18:51)
[2025-04-20] MEDS: 0.9% Normal Saline (1000mL) 1,000 ML 125 ML IV ×2 (15:44→23:42)
[2025-04-20] MEDS: oxyCODONE 5 MG Tablet PO ×2 (16:32→21:48)
[2025-04-20] MEDS: OLANZapine 10 MG Tablet PO (21:48)
[2025-04-21] MEDS: Morphine 4 MG/ML Syringe IV (00:02)
[2025-04-21 03:00] VITALS: PULSE 67
[2025-04-21 05:00] VITALS: BP 125/97; PULSE 71; RESP 15; TEMP 37.1; O2SAT 96
--- NOTE | 2025-04-21 05:55 | ECHOD_ITS ---
Reason For Study Reason For Study: SYNCOPE Procedure This was a 2D Doppler, Color Flow transthoracic echocardiogram. Exam performed portable in patient room. Left Ventricle Normal LV size. The left ventricular ejection fraction is 65 %. Stage 1 diastolic dysfunction. No regional wall motion abnormalities noted. Right Ventricle Normal RV size. Normal systolic function. Atria Normal left atrium. Normal right atrium. Mitral Valve Normal mitral valve. Tricuspid Valve Normal tricuspid valve. Mild tricuspid valve insufficiency. Pulmonary artery systolic pressure is 24 mmHg. Aortic Valve Trisinus/trileaflet aortic valve. Pulmonic Valve Normal pulmonic valve. Great Vessels Normal aortic root. The pulmonary artery is normal size. Inferior vena cava collapse with respiration. Pericardium/Pleural No pericardial effusion. MMode/2D Measurements & Calculations LVIDd: 4.0 cm IVSd: 1.3 cm LVOT diam: 2.0 cm LVIDs: 3.0 cm LVPWd: 0.97 cm LVOT area: 3.2 cm2 FS: 25.9 % Ao root diam: 3.6 cm LAV(MOD-bp): 46.2 ml LVAd ap4: 27.1 cm2 LAV(MOD-bp) Indexed: 22.7 ml/m2 LVLd ap4: 7.5 cm LAV(MOD-sp2): 52.0 ml EDV(MOD-sp4): 81.4 ml LAV(MOD-sp4): 40.6 ml EDV(sp4-el): 83.6 ml LVAs ap4: 14.3 cm2 LVLs ap4: 5.9 cm ESV(MOD-sp4): 28.7 ml ESV(sp4-el): 29.4 ml EF(MOD-sp4): 64.7 % EF(sp4-el): 64.9 % SV(MOD-sp4): 52.7 ml SV(sp4-el): 54.3 ml LA A4 area: 16.1 cm2 SI(MOD-sp4): 25.9 ml/m2 LA dimension(2D): 3.6 cm RA A4 area: 11.3 cm2 Time Measurements MV dec time: 0.19 sec Doppler Measurements & Calculations MV E max song: 87.4 cm/sec Lat Peak E' Song: 8.7 cm/sec Med Peak E' Song: 9.7 cm/sec MV A max song: 93.7 cm/sec E/E' lat: 10.0 E/E' med: 9.0 MV E/A: 0.93 MV V2 max: 94.2 cm/sec Ao V2 max: 132.1 cm/sec MV max P.6 mmHg MV dec slope: 449.1 cm/sec2 Ao max P.0 mmHg MV V2 mean: 74.3 cm/sec Ao V2 mean: 94.5 cm/sec MV mean P.4 mmHg Ao mean P.0 mmHg MV V2 VTI: 25.9 cm Ao V2 VTI: 30.5 cm AV (velocity ratio): 0.75 MVA(VTI): 2.9 cm2 SERENITY(I,D): 2.4 cm2 SERENITY(V,D): 2.6 cm2 LV V1 max: 104.8 cm/sec SV(LVOT): 74.7 ml PA V2 max: 89.2 cm/sec LV V1 max P.4 mmHg PA V2 mean: 62.7 cm/sec LV V1 mean P.7 mmHg LV V1 mean: 77.5 cm/sec LV V1 VTI: 23.0 cm TR max song: 229.7 cm/sec TR max P.1 mmHg ECHO/Echo Complete Interpretation Summary Normal LV size. The left ventricular ejection fraction is 65 %. Stage 1 diastolic dysfunction. Pulmonary artery systolic pressure is 24 mmHg. Ordering Physician: Jenny Le Referring Physician: Pino Alston Chi Performed By: Leana Ibarra RCS
[2025-04-21 06:06] LABS: Absolute Lymphocyte Count 3.16 X10^3/uL (0.83-4.51); Absolute Neutrophil Count 3.5 X10^3/uL (2.0-7.7); Basophil# 0.06 X10^3/uL; Basophil% 0.8 % (0-1); Eosinophil# 0.18 X10^3/uL; Eosinophils% 2.4 % (0-5); Hematocrit 43.8 % (37-47); Hemoglobin 14.4 g/dL (12.0-15.0); Lymphocyte # 3.16 X10^3/ul (0.83-4.51); Lymphocyte % 42.1 % (19-41); Mean Corp Hgb Conc 32.9 g/dL (32-36); Mean Corpuscular Hgb 31.6 pg (27.0-32.0); Mean Corpuscular Volume 96.3 fL (81-99); Mean Platelet Vol. 9.6 fl (6.2-12.0); Monocyte# 0.61 X10^3/uL; Monocyte% 8.1 % (0-10); NRBC Flagged by Analyzer 0 % (0-5); Neutrophil # 3.48 X10^3/uL (2.7-7.7); Neutrophil % 46.3 % (47-70); Platelet Count 302 K/mm3 (150-450); RBC Distribution Width CV 12.7 % (11.6-14.6); RBC Distribution Width SD 44.9 fl (35.1-43.9); Red Blood Count 4.55 M/mm3 (4.2-5.4); White Blood Count 7.5 K/mm3 (4.4-11.0)
[2025-04-21 06:50] LABS: Anion Gap 10 (5-15); BUN 7 mg/dL (4-19); BUN/Creat Ratio 7.1 RATIO (10-20); Calcium,Total 8.6 mg/dL (7.6-11.0); Carbon Dioxide 23.1 mmol/L (21.0-32.0); Chloride 107 mmol/L (98-108); Creatinine, Serum 1.02 mg/dL (0.70-1.20); EST Glomerular Filtration Rate 67 (>60); Estimated Creatinine Clearance 75.28 ml/min (50-250); Glucose 79 mg/dL (70-99); Potassium 4.9 mmol/L (3.3-5.1); Sodium Level 140 mmol/L (133-145)
[2025-04-21 07:00] VITALS: PULSE 79
--- NOTE | 2025-04-21 07:58 | NEURO.CONS ---
Assessment and Plan: Neuro Assessment/Plan ELLEN JADE is a 50 F with a past medical history of possible provoked seizures, DM2, being evaluated by Teleneurology for possible seizure activity. Patient's history is suggestive of seizures and this is patient's second event. However first event does appear to be provoked and patient is on a high dose of a medication that is known to lower seizure threshold currently that she should be weaned off of this. Given these are remote episodes, and medication provoked, if workup is not revealing of a higher propensity for developing seizures, would hold off on starting ASM. Plan: - MRI Brain w/wo con - routine EEG, if EEG normal, no need for intermediate project manager ASM - UA and UDS - dec wellbutrin to 300mg daily, recommend followup with her prescriber to wean off completely Reviewed seizure precautions with her. I personally attended this patient and spent a total time of 45minutes evaluating this patient including clinical assessment, review of chart, medical history imaging, and determining appropriate treatment and workup. HPI Consult Data Date of Consult: 04/22/25 HPI Narrative HPI Narrative: ELLEN JADE, is a 50 F with a PMH as outlined who presents via the ED On 04/20/2025 with a complaint of syncope and possible seizure. She was at home sitting at her deck, and the next thing she remembers is waking up on the floor. She could not get up on her own, so she had to call for help. SHe does have a history of seizure disorder but says she has only had 2 seizures in her life at which times she was on tramadol whcih reduced her seizure threshold. She also complained of tachycardia. She said her heart rate usually 1 110s to 120s. She was on carvedilol for her heart rate. She denied any blood alcohol bowel incontinence and there was concern that she may have been postictal. She denied any fever or chills, palpitations, nausea vomiting or any other symptoms. Vitals in the ED were blood pressure 140/97, NM of 93, RR of 16 and oxygn sats of 99% on room air. CBC showed Hb of 15.9, wbc of 9.6 and platelets of 365. D-dimer was 0.27. Chemistry showed sodium of 142 potassium of 3.8 and bicarb of 8.1. Anion gap was 33 and creatinine was 1.23. Lactic acid was elevated at 8.4. CT brain shows small hematoma along the left posterior scalp but no acute intracranial finding. Chest x-ray showed no acute cardiopulmonary pathology. She has been admitted to be managed for syncope likely due to seizure though cannot rule out cardiac origin in light of the tachycardia and also anion gap metabolic acidosis likely due to lactic acidosis from the syncope. Neurologic History Patient was at work when this happened, then she remembers parts of it including falling to the floor. She does not remember a prodrome but does remember waking up on the floor and coming in and out of consciousness. Does not falling. Denies any abnormal sensations before event. She remembers having a couple colleagues around her initially. Patient states she felt back to her normal self after 1 hour. Per her coworker who saw the event - patient was seen on the ground, a customer found her while zoing out and lay the pt down, hit head softly on the concrete. Patient face was avalos, lips turned blue, she was gurgling, the whole event lasted about 1 minute. When she came to, she was wide eyed and staring and not answering. Eyes were wide open during this. Patient was stiff - arms and legs were straight and tonically contracted. The event is similar to what happened with the Tramadol. She was recently started on a GLP1 inhibitor. She is on wellbutrin for last 8 months and had increase to 450mg daily starting 3 months ago. Currently feels back to normal, no tongue biting, no loss of control of bowel or bladder. Exam: -? General: Laying comfortably in bed; in no acute distress. -? HENT: Normal oropharynx and mucosa. Normal external appearance of ears and nose. Exophthalmos. -? Neck: Supple, no pain or tenderness -? CV:? No peripheral edema. -? Pulmonary:? Normal respiratory effort. -? Ext: No cyanosis, edema, or deformity -? Skin: No rash. Normal palpation of skin.? -? Musculoskeletal: full range of motion; no joint tenderness. Normal digits and nails by inspection. No clubbing. -? NEURO: -? Mental Status: The patient was alert and oriented to time, place, and person. Normal recent/remote memory, concentration, and general fund of knowledge. -? Language: speech is clear.? Naming, repetition, fluency, and comprehension intact. -? Cranial Nerves: PERRL 4mm/brisk. EOMI, visual myles full, no facial asymmetry, facial sensation intact, hearing intact, tongue midline, no evidence of atrophy or fibrillations. -? Motor: normal bulk, tone, and strength throughout. No pronator drift or satelliting. Upper and lower extremities equal bilaterally. -? Detailed strength exam as performed by the nurse/SAMANTHA and witnessed by the physician: R L SA 5 5 EE EF 5 5 WE WF Health Care Specialist 5 5 HF 5 5 KE KF 5 5 DF 5 5 PF -? Tone: is normal and bulk is normal -? Sensation- Intact to light touch bilaterally -? Coordination: No dysmetria on [id number], finger follow finger or [id number]. -? Gait- deferred [facility] Medical History Depression, unspecified Generalized anxiety disorder Dyslipidemia Inappropriate sinus tachycardia Obesity (BMI 30-39.9) Dyspnea on exertion SOB (shortness of breath) Orthopnea Nicotine dependence Morbid obesity Palpitations Sedative dependence Insomnia Hyperlipidemia HTN (hypertension) Anxiety and depression Sinus tachycardia Leukocytosis Sludge in gallbladder Tachycardia Benadryl overdose History of depression Ankylosing spondylitis Home Medications ?Medication ?Instructions ?Recorded ?Last Taken ?Type losartan 100 mg tablet 100 mg PO QDAY 03/06/24 04/20/25 History escitalopram oxalate 20 mg tablet 20 mg PO QDAY #90 tabs 12/31/24 04/20/25 Rx olanzapine 10 mg tablet 10 mg PO QHS mood #30 tabs 03/26/25 04/19/25 Rx olanzapine 7.5 mg tablet 7.5 mg PO QDAY #30 tabs 03/26/25 04/20/25 Rx carvedilol 25 mg tablet 25 mg PO BID #180 tabs 04/08/25 04/19/25 Rx Tirzepatide 50 units IM QWEEK 04/20/25 04/18/25 History bupropion HCl 300 mg 24 hr tablet, 300 mg PO QAM #90 tabs 04/21/25 04/20/25 Rx extended release Allergy/AdvReac Type Severity Reaction Status Date / Time No Known Allergies Allergy Verified 04/20/25 10:19 Family History Mother Hypertension CVA (cerebral vascular accident) Alzheimers disease Father Heart disease CHF (congestive heart failure) Surgical History Status post laparoscopic appendectomy Previous section Social History household members: none Smoking Status: Former smoker alcohol intake: current alcohol intake frequency: holidays/special occasions only substance use type: does not use caffeine: Yes Type: coffee Number of servings: 2 Vital Signs Vital Signs Vital Signs: 04/20/25 10:16 04/20/25 10:23 04/20/25 10:43 Temperature 98.1 F Temperature Source Oral Pulse Rate 142 H 92 Respiratory Rate 23 H 19 H Respiratory Effort Respiratory Depth Respiratory Pattern Blood Pressure 157/100 H 121/89 H Blood Pressure Mean 119 99 Blood Pressure Source Blood Pressure Position Blood Pressure Location Pulse Ox 97 91 Oxygen Delivery Method Room Air Oxygen Flow Rate (L/min) 04/20/25 10:44 04/20/25 10:44 04/20/25 11:16 Temperature Temperature Source Pulse Rate 90 Respiratory Rate 16 Respiratory Effort Respiratory Depth Respiratory Pattern Blood Pressure 135/96 H Blood Pressure Mean 109 Blood Pressure Source Blood Pressure Position Blood Pressure Location Pulse Ox 89 93 98 Oxygen Delivery Method Room Air Nasal Cannula Nasal Cannula Oxygen Flow Rate (L/min) 1 04/20/25 11:58 04/20/25 12:12 04/20/25 13:00 Temperature 98.1 F Temperature Source Pulse Rate 85 85 93 Respiratory Rate 17 17 16 Respiratory Effort Respiratory Depth Respiratory Pattern Blood Pressure 141/97 H 141/97 H 140/97 H Blood Pressure Mean 111 111 111 Blood Pressure Source Blood Pressure Position Blood Pressure Location Pulse Ox 97 97 99 Oxygen Delivery Method Room Air Room Air Oxygen Flow Rate (L/min) 04/20/25 13:57 04/20/25 15:00 04/20/25 15:48 Temperature 97.8 F Temperature Source Oral Pulse Rate 96 97 98 Respiratory Rate 16 18 Respiratory Effort Respiratory Depth Respiratory Pattern Blood Pressure 150/104 H 144/106 H 150/112 H Blood Pressure Mean 119 118 124 Blood Pressure Source Monitor Blood Pressure Position Sitting Blood Pressure Location Left Arm Pulse Ox 95 98 98 Oxygen Delivery Method Room Air Room Air Room Air Oxygen Flow Rate (L/min) 04/20/25 19:00 04/20/25 20:00 04/20/25 22:00 Temperature 98.3 F Temperature Source Oral Pulse Rate 86 83 Respiratory Rate 16 Respiratory Effort Non-Labored Respiratory Depth Normal Respiratory Pattern Normal Blood Pressure 142/96 H Blood Pressure Mean 111 Blood Pressure Source Monitor Blood Pressure Position Supine Blood Pressure Location Left Arm Pulse Ox 96 Oxygen Delivery Method Room Air Room Air Oxygen Flow Rate (L/min) 04/20/25 23:43 04/21/25 03:00 04/21/25 05:00 Temperature 98.2 F 98.7 F Temperature Source Oral Oral Pulse Rate 81 67 71 Respiratory Rate 16 15 Respiratory Effort Respiratory Depth Respiratory Pattern Blood Pressure 148/103 H 125/97 H Blood Pressure Mean 118 106 Blood Pressure Source Monitor Monitor Blood Pressure Position Supine Supine Blood Pressure Location Left Arm Left Arm Pulse Ox 96 96 Oxygen Delivery Method Room Air Room Air Oxygen Flow Rate (L/min) Weight Weight: 97.205 kg Body Mass Index (BMI) 35.6 EEG Results Procedure Details EEG Procedure Details: ELLEN JADE is a 50 year old F with a past medical history of , who presents for evaluation of Electroencephalogram on DATE at TIME Lab / Micro Data 04/21/25 04:25 04/21/25 04:25 Labs: Laboratory Results - last 24 hr 04/20/25 10:26: D-Dimer Quant (PE/DVT) 0.27 04/20/25 10:29: WBC 9.6, RBC 4.98, Hgb 15.9 H, Hct 49.7 H, MCV 99.8 H, MCH 31.9, MCHC 32.0, RDW Std Deviation 46.5 H, RDW Coeff of Jean-Paul 12.7, Plt Count 365, MPV 9.7, Immature Gran % (Auto) 0.200, Neut % (Auto) 39.7 L, Lymph % (Auto) 49.1 H, Gregg % (Auto) 8.8, Eos % (Auto) 1.7, Baso % (Auto) 0.5, Absolute Neuts (auto) 3.8, Absolute Lymphs (auto) 4.70 H, Nucleated RBC % 0, Sodium 143, Potassium 3.8, Chloride 101, Carbon Dioxide 8.1 L*, Anion Gap 33 H, BUN 9, Creatinine 1.23 H, Estim Creat Clear Calc 64.90, Est GFR (MDRD) Non-Af 53 L, BUN/Creatinine Ratio 7.3 L, Glucose 120 H, Lactic Acid 8.4 H*, Calcium 9.7, Total Bilirubin 0.66, AST 27, ALT 27, Alkaline Phosphatase 84, Total Protein 8.5 H, Albumin 5.1 H, Globulin 3.4, Albumin/Globulin Ratio 1.5 04/20/25 13:45: Sodium 141, Potassium 4.1, Chloride 108, Carbon Dioxide 22.3, Anion Gap 11, BUN 7, Creatinine 0.98, Estim Creat Clear Calc 81.46, Est GFR (MDRD) Non-Af 70, BUN/Creatinine Ratio 7.6 L, Glucose 98, Calcium 8.8 04/20/25 15:42: Lactic Acid 1.0 04/21/25 04:25: WBC 7.5, RBC 4.55, Hgb 14.4, Hct 43.8, MCV 96.3, MCH 31.6, MCHC 32.9, RDW Std Deviation 44.9 H, RDW Coeff of Jean-Paul 12.7, Plt Count 302, MPV 9.6, Immature Gran % (Auto) 0.300, Neut % (Auto) 46.3 L, Lymph % (Auto) 42.1 H, Gregg % (Auto) 8.1, Eos % (Auto) 2.4, Baso % (Auto) 0.8, Absolute Neuts (auto) 3.5, Absolute Lymphs (auto) 3.16, Nucleated RBC % 0, Sodium 140, Potassium 4.9, Chloride 107, Carbon Dioxide 23.1, Anion Gap 10, BUN 7, Creatinine 1.02, Estim Creat Clear Calc 75.28, Est GFR (MDRD) Non-Af 67, BUN/Creatinine Ratio 7.1 L, Glucose 79, Calcium 8.6 Imaging Radiology Impression Chest X-Ray 04/20/25 10:23 IMPRESSION: No Acute Findings. Reading Location: [facility] Brain CT 04/20/25 12:06 IMPRESSION: 1. No acute intracranial finding. 2. Small hematoma along the left posterior scalp. Reading Location: [facility] Active Medications Active Medications Active Medications: Current Medications Generic Name Dose Route Start Last Admin Trade Name Freq PRN Reason Stop Dose Admin Acetaminophen 650 mg 04/20/25 15:18 Acetaminophen 325 Mg Tablet PO Q6H PRN PRN Pain 1-10 Or Fever >100.7 Carvedilol 25 mg 04/20/25 17:00 04/20/25 15:43 Carvedilol 25 Mg Tablet PO 25 mg BIDCM [facility] Administration Protocol Escitalopram Oxalate 20 mg 04/21/25 10:00 Escitalopram Oxalate 20 Mg Tablet PO DAILY [facility] Lorazepam 1 mg 04/20/25 15:18 Lorazepam 2 Mg/Ml Wch Syringe IV Q4H PRN PRN SEIZURES Losartan Potassium 100 mg 04/21/25 10:00 Losartan Potassium 100 Mg Tablet PO DAILY [facility] Protocol Morphine Sulfate 2 - 4 mg 04/20/25 15:18 04/20/25 18:51 Morphine 2 Mg/Ml Syringe IV 2 mg Q3H PRN PRN Administration Pain Score 6-10 Morphine Sulfate 2 - 4 mg 04/20/25 15:30 04/21/25 00:02 Morphine 4 Mg/Ml Syringe IV 4 mg Q3H PRN PRN Administration Pain Score 6-10 Nitroglycerin 0.4 mg 04/20/25 15:18 Nitroglycerin (Inpatient Use) 0.4 Mg Tab.Subl SL Q5M PRN CARDIAC/CHEST PAIN Olanzapine 7.5 mg 04/21/25 10:00 Olanzapine 2.5 Mg Tablet PO DAILY [facility] Olanzapine 10 mg 04/20/25 22:00 04/20/25 21:48 Olanzapine 10 Mg Tablet PO 10 mg QHS [facility] Administration Protocol Ondansetron HCl 4 mg 04/20/25 15:18 Ondansetron 4 Mg/2 Ml Vial IV Q8H PRN PRN NAUSEA/VOMITING Oxycodone HCl 5 mg 04/20/25 15:18 04/20/25 21:48 Oxycodone 5 Mg Tablet PO 5 mg Q4H PRN PRN Administration Pain Score 4-10
[2025-04-21] MEDS: Losartan Potassium 100 MG Tablet PO (08:56)
[2025-04-21] MEDS: OLANZapine 2.5 MG Tablet 7.5 MG PO (08:56)
[2025-04-21] MEDS: Escitalopram Oxalate 20 MG Tablet PO (09:03)
[2025-04-21] MEDS: Carvedilol 25 MG Tablet PO (09:03)
[2025-04-21 09:04] VITALS: BP 141/95; PULSE 76; RESP 18; TEMP 36.1; O2SAT 99
--- NOTE | 2025-04-21 09:26 | PN.HOSP_ITS ---
Reason for Visit Reason for Visit: Diagnoses Tachycardia, unspecified (04/20/25) Unspecified convulsions (04/20/25) Objective Data Objective Data Vital Signs: Vital Signs Temp Pulse Resp BP Pulse Ox O2 Del Method O2 Flow Rate 96.9 F L 76 18 141/95 H 99 Room Air 1 04/21/25 09:04 04/21/25 09:04 04/21/25 09:04 04/21/25 09:04 04/21/25 09:04 04/21/25 09:04 04/20/25 11:16 Oxygen Flow Rate (L/min) 1 Oxygen Delivery Method Room Air Weight: 214 lb 4.8 oz Body Mass Index (BMI) 35.6 Intake & Output: Intake and Output for Last 24 Hours 04/19/25 04/20/25 04/21/25 23:59 23:59 23:59 Intake Total 2995.83 / 2995.83 1000 / 1000 Balance 2995.83 / 2995.83 1000 / 1000 Lab / Micro Data 04/21/25 04:25 04/21/25 04:25 Labs: Laboratory Results - last 24 hr 04/20/25 10:26: D-Dimer Quant (PE/DVT) 0.27 04/20/25 10:29: WBC 9.6, RBC 4.98, Hgb 15.9 H, Hct 49.7 H, MCV 99.8 H, MCH 31.9, MCHC 32.0, RDW Std Deviation 46.5 H, RDW Coeff of Jean-Paul 12.7, Plt Count 365, MPV 9.7, Immature Gran % (Auto) 0.200, Neut % (Auto) 39.7 L, Lymph % (Auto) 49.1 H, [place] % (Auto) 8.8, Eos % (Auto) 1.7, Baso % (Auto) 0.5, Absolute Neuts (auto) 3.8, Absolute Lymphs (auto) 4.70 H, Nucleated RBC % 0, Sodium 143, Potassium 3.8, Chloride 101, Carbon Dioxide 8.1 L*, Anion Gap 33 H, BUN 9, Creatinine 1.23 H, Estim Creat Clear Calc 64.90, Est GFR (MDRD) Non-Af 53 L, BUN/Creatinine Ratio 7.3 L, Glucose 120 H, Lactic Acid 8.4 H*, Calcium 9.7, Total Bilirubin 0.66, AST 27, ALT 27, Alkaline Phosphatase 84, Total Protein 8.5 H, Albumin 5.1 H, Globulin 3.4, Albumin/Globulin Ratio 1.5 04/20/25 13:45: Sodium 141, Potassium 4.1, Chloride 108, Carbon Dioxide 22.3, Anion Gap 11, BUN 7, Creatinine 0.98, Estim Creat Clear Calc 81.46, Est GFR (MDRD) Non-Af 70, BUN/Creatinine Ratio 7.6 L, Glucose 98, Calcium 8.8 04/20/25 15:42: Lactic Acid 1.0 04/21/25 04:25: WBC 7.5, RBC 4.55, Hgb 14.4, Hct 43.8, MCV 96.3, MCH 31.6, MCHC 32.9, RDW Std Deviation 44.9 H, RDW Coeff of Jean-Paul 12.7, Plt Count 302, MPV 9.6, Immature Gran % (Auto) 0.300, Neut % (Auto) 46.3 L, Lymph % (Auto) 42.1 H, [place] % (Auto) 8.1, Eos % (Auto) 2.4, Baso % (Auto) 0.8, Absolute Neuts (auto) 3.5, Absolute Lymphs (auto) 3.16, Nucleated RBC % 0, Sodium 140, Potassium 4.9, Chloride 107, Carbon Dioxide 23.1, Anion Gap 10, BUN 7, Creatinine 1.02, Estim Creat Clear Calc 75.28, Est GFR (MDRD) Non-Af 67, BUN/Creatinine Ratio 7.1 L, Glucose 79, Calcium 8.6 Radiography Diagnostic Testing: Radiology Impression Chest X-Ray 04/20/25 10:23 IMPRESSION: No Acute Findings. Reading Location: [facility] Brain CT 04/20/25 12:06 IMPRESSION: 1. No acute intracranial finding. 2. Small hematoma along the left posterior scalp. Reading Location: [facility] Physical Exam Narrative Seen and examined Patient stated she had one-time seizure episode in the past but not on antiepileptic medications because it was thought to be due to medication that was discontinued. Denies chronic history of alcohol or other substance use. She had seizure episode while she was working yesterday/Monday. She had sudden onset of passing out/syncope. Denies warning symptoms/prodromal symptoms. Denies burning micturition/UTI. No fever. She feels back to normal/baseline. Physical exam General: Alert, Oriented x3, Cooperative. BMI 35.7 kg/m?, obesity grade 2 HEENT: Atraumatic, PERRLA, EOMI, Normocephalic. Oral: No Gingival or Mucosal Lesions/ Ulcerations Neck: Supple, No JVD, Negative Carotid Bruits Chest wall/Lungs: Air entry diminished in bilateral lung bases. No crepitation/rhonchi Cardiovascular: Regular rate and rhythm, Normal S1,S2, systolic murmur LUSB Abdomen: Bowel Sounds Present, Soft, Non Tender, Non-Distended : No dysuria. No renal angle tenderness. No suprapubic tenderness. Extremities: No edema, Capillary Refill Less than 3 Seconds Skin: No rashes, No breakdown Musculoskeletal: No Tenderness to Palpation of Joints or Extremities Neurological: Cranial nerves II-XII grossly intact, DTR 2+/4. No acute focal neurological deficit. Psych/Mental Status: Normal Affect, Appropriate. Assessment & Plan Assessment/Plan (1) Sinus tachycardia: (2) Seizure: PLAN: Plan #Syncope likely due to seizure * Admitted with a complaint of syncope. She does have a history of seizures but has not had seizures in years. She also has a history of palpitations. Her symptoms could therefore have been due to the seizures or the palpitations. * CT of the brain showed only showed a small hematoma but no other acute intracranial pathology. EKG shows sinus tachycardia. * Labs significant for anion gap metabolic acidosis likely due to lactic acidosis as lactic acid is 8.4. * Patient hydrated with IV fluids in the ED. Anion gap was 33 and bicarb was 8.1. * I did request a repeat BMP from the ED as I am sure that anion gap acidosis would improve with hydration. If it does improve then patient will be placed in PCU. * Consult neurology. ED doctor spoke to [facility] neurology and they are concerned this may be a seizure. However they do not want patient to be given any medications now but if she does have a seizure again to be loaded with Keppra 4 mg/kg. * Order EEG and MRI of the brain with and without contrast. * Seizure precautions. * Get 2D echo also. * Last echo from May 2023 showed EF of 60% with stage I diastolic dysfunction and normal left ventricular systolic function with no regional wall motion abnormalities noted. * Fall precautions. * Will hold Wellbutrin to in light of patient having seizures due to his known seizure risk. * IV Ativan as needed for seizures. 04/21: Patient had EEG. MRI pending. Then [facility] consult #Sinus tachycardia: On carvedilol. 2D echo ordered. IV Lopressor as needed. #Hyperlipidemia: On statin #Generalized anxiety disorder: On bupropion and escitalopram. Wellbutrin held due to his known seizure risk. #Hypertension: On carvedilol and losartan #Class II obesity: BMI is 35.9. Complicates acute care, expected recovery and prognosis. CODE STATUS: full code * Patient counseled extensively about different types of CODE STATUS including full code, DNR CCA and DNR CCA. * Patient elects to be full code. * Total [id number] time 16 minutes.
--- NOTE | 2025-04-21 09:50 | MRI_ITS ---
PROCEDURE: BRAIN W/WO CONTRAST 04/21/2025 REASON FOR EXAM: SEIZURE TECHNIQUE: Routine brain MRI without and with intravenous contrast. Multiplanar and multisequence images were obtained. CONTRAST: Clariscan VOLUME: 20 mL COMPARISON: CT head without contrast, 04/20/2025. FINDINGS: There are few punctate foci of abnormal periventricular and subcortical white matter signal abnormality in both cerebral hemispheres consistent with chronic ischemic white matter disease. There is no abnormal intracranial contrast enhancement. There is a normal sulcal pattern and gyral configuration. There is no evidence of acute intracranial hemorrhage or infarction. The horvath-white differentiation is well preserved. There is no evidence of restricted diffusion. The ventricles and basilar cisterns are normal. There are normal flow voids demonstrated in the recognized intracranial vessels. The cerebellum and brainstem are unremarkable. The cerebellar pontine angles are normal. The craniovertebral junction is normal. The sella and suprasellar regions are normal. The orbits and retro-orbital regions are unremarkable. The nasal septum is midline. The paranasal sinuses are clear. The mastoid air cells are clear. There is normal bone marrow signal in the skull base and calvarium. There is a small left posterior parietal scalp hematoma. MRI/Brain W/WO Contrast IMPRESSION: One. There are few foci of abnormal periventricular and subcortical white bronson er signal in both cerebral hemispheres. These are nonspecific but are consistent with chronic ischemic white matter disease. Two. There is no evidence of abnormal intracranial contrast enhancement. Three. Small left posterior parietal scalp hematoma. Reading Location: [id number]
[2025-04-21 14:45] VITALS: BP 135/97; PULSE 70; RESP 16; TEMP 36.9; O2SAT 100
--- NOTE | 2025-04-21 14:52 | DCINST_ITS ---
Discharge Instructions Diet Discharge Diet: No restrictions DC O2, CPAP, BIPAP needs Home O2 Discharge instructions: No Dressing / Incision Discharge Activity: Return to Normal Activity Weight Bearing Status: Weight bearing as tolerated Dressing / Incision Call your doctor if you observe: Fever of 101 or Higher, Coldness, Increased Pain, Numbness or Tingling, Change in Color, Inability to urinate, Inability to have a bowel movement, Shortness of breath, Dizziness, Fainting spells, Swelling in the ankles, Chest pain, Prolonged hiccupping, Increased palpitations (irregular heartbeat) and Calf discomfort Follow Up Care When: IN 2 WEEKS Test Results: Test results from this visit will be discussed in further detail at your follow- up appointment, if applicable. Discharge Plan Admission Admit Date/Time: 04/20/25 14:36 Primary Reason for Your Visit: Syncope, seizure ruled out. Attending Provider: Naldo Martinez Primary Care Provider: Pino Alston Chi Consulting Providers: Ham Kendall; Dayna Tadeo; Elizabeth Chacon; Mikey Randall; Markel Souza; Jovanna Jolley; WES CARROLL; Anay Tarango; Sybil Cox; Chip Contreras; Hermelinda Story; Tyrone Carl; Shayy Marshall; Lilaina Mcdermott; Mat Tejada; Sandhya Soto; Kyler Rebollar; Taj Mcneil; Gonsalo Murphy; Rosi Coughlin; Emma Bran; Ruperto Griffin; Felice Tran; Jamil Booker; Flavia Soler; Jesse Juarez; Jenny Le Instructions Additional Instructions / Restrictions: Advised to follow with PCP in 1 week and trying to wean off bupropion, decrease from 450 mg to 300 mg for 1 week and then gradually taper off by decreasing dose every week Discharge Orders/Prescriptions Prescriptions: Continued losartan 100 mg tablet 100 mg PO QDAY escitalopram oxalate 20 mg tablet 20 mg PO QDAY Qty: 90 1RF olanzapine 7.5 mg tablet 7.5 mg PO QDAY Qty: 30 1RF olanzapine 10 mg tablet 10 mg PO QHS Qty: 30 1RF Tirzepatide 50 units IM QWEEK bupropion HCl 300 mg tablet extended release 24 hr 300 mg PO QAM Qty: 90 1RF Rx Instructions: Trying to wean off. Decreased from 300 mg to 150 mg. Follow-up with PCP. carvedilol 25 mg tablet 25 mg PO BID Qty: 180 3RF Rx Instructions: must administer with a meal/food Discontinued bupropion HCl 150 mg tablet extended release 24 hr 150 mg PO QAM Qty: 30 1RF Rx Instructions: Take in addition to 300mg for 450mg total Referrals / Follow Up: Edy Keller MD [Non-Staff -Ordering Privileges] - Within 2 Weeks Pino Alston Chi, MD [Primary Care Provider] - Within 1 Week Disposition Disposition (needs filled in before D/C Order can be placed): Home, Self Care
--- NOTE | 2025-04-21 14:57 | DS.PCM_ITS ---
Providers Date of Admission: 04/20/25 Date of Discharge: 04/21/25 Primary Care Physician: Dr. Pino Alston MD Consultations 04/20/25 11:26 Neurology [Consult: Tele-Neurology] Routine Consulting Provider: [facility] Reason for Consult: seizure EMERGENT Consult: Yes MD Notified: Yes Date Notified: 04/20/25 Time Notified: 15:34 Method of Notification: Answering Service Nursing Unit Staff Notify [facility] of Tele-Neurology Consult: Yes 04/20/25 15:18 Neurology [Consult: Tele-Neurology] Routine Consulting Provider: [facility] Reason for Consult: syncope due to seizure EMERGENT Consult: No MD Notified: Yes Date Notified: 04/20/25 Time Notified: 15:34 Method of Notification: Answering Service Nursing Unit Staff Notify [facility] of Tele-Neurology Consult: Yes Reason For Visit: SYNCOPE DUE TO SEIZURE Diagnosis Discharge Diagnosis (1) Sinus tachycardia: Status: Chronic Code(s): R00.0 - Tachycardia, unspecified (2) Seizure: Status: Acute Code(s): R56.9 - Unspecified convulsions Plan 50-year-old female was admitted for complaint of syncope while she was working on the day of admission. There was concern for seizure therefore admitted in PCU. #Syncope likely due to seizure * Admitted with a complaint of syncope. She does have a history of 1 episode of seizures many years ago. She also has a history of palpitations. Syncope onset was sudden without prodromal symptoms. Her symptoms could therefore have been due to the seizures or the palpitations. * CT of the brain showed only showed a small hematoma but no other acute intracranial pathology. EKG shows sinus tachycardia. * Labs significant for anion gap metabolic acidosis likely due to lactic acidosis as lactic acid is 8.4. After rehydration lactic acid became normal 1.0. * Patient hydrated with IV fluids in the ED. Anion gap was 33 and bicarb was 8.1. * Repeat BMP shows bicarb 23 with anion gap 10. Probably wrong value * ED doctor spoke to [facility] neurology and they are concerned this may be a seizure. However they do not want patient to be given any medications now but if she does have a seizure again to be loaded with Keppra 4 mg/kg. 04/21 * MRI brain with and without contrast was done which showed no evidence of abnormal intracranial contrast enhancement. A small left posterior parietal scalp hematoma. Few foci of abnormal periventricular and subcortical white matter signal in both cerebral hemisphere, nonspecific consistent with chronic ischemic white matter disease. EEG was normal sleep and awake. Discussed with the neurologist and advised discharged home with tapering of Wellbutrin from 450 mg to 300 mg and then gradually as an outpatient in consultation with PCP. * Follow-up with neurologist. * Last echo from May 2023 showed EF of 60% with stage I diastolic dysfunction and normal left ventricular systolic function with no regional wall motion abnormalities noted. Current echo pending. * Fall precautions. * 2D echo done but not reported yet #Sinus tachycardia: On carvedilol. Heart rate normal. Sinus tachycardia resolved #Hyperlipidemia: On statin #Generalized anxiety disorder: On bupropion and escitalopram. Wellbutrin resolved but dose lowered and recommended taper as mentioned above #Hypertension: On carvedilol and losartan #Class II obesity: BMI is 35.9. Complicates acute care, expected recovery and prognosis. CODE STATUS: full code * Patient counseled extensively about different types of CODE STATUS including full code, DNR CCA and DNR CCA. * Patient elects to be full code. Discharge medication reconciliation done. Discharge follow-up instructions completed. Discharge process discussed with the patient and all questions were answered to patient's satisfaction. Follow with PCP in 1 to 2 weeks Total time spent, exact 35 minutes on discharge meds reconciliation, examination, coordination of care with nurses and ancillary staff, review of imaging and blood test and discussion with the patient on follow-up instructions. Medications at Discharge Home Medications losartan 100 mg tablet 100 mg PO QDAY 03/06/24 escitalopram oxalate 20 mg tablet 20 mg PO QDAY #90 tabs 12/31/24 olanzapine 10 mg tablet 10 mg PO QHS mood #30 tabs 03/26/25 olanzapine 7.5 mg tablet 7.5 mg PO QDAY #30 tabs 03/26/25 carvedilol 25 mg tablet 25 mg PO BID #180 tabs 04/08/25 Tirzepatide 50 units IM QWEEK 04/20/25 bupropion HCl 300 mg 24 hr tablet, extended release 300 mg PO QAM #90 tabs 04/21/25 Physical Exam Narrative Seen and examined No acute complaint. Denies chest pain or shortness of breath. Physical exam General: Alert, Oriented x3, Cooperative. BMI 35.7 kg/m?, obesity grade 2 HEENT: Atraumatic, PERRLA, EOMI, Normocephalic. Oral: No Gingival or Mucosal Lesions/ Ulcerations Neck: Supple, No JVD, Negative Carotid Bruits Chest wall/Lungs: Air entry equal in bilateral lung bases. No crepitation/rhonchi Cardiovascular: Regular rate and rhythm, Normal S1,S2, No M/G/R Abdomen: Bowel Sounds Present, Soft, Non Tender, Non-Distended : No dysuria. No renal angle tenderness. No suprapubic tenderness. Extremities: No edema, Capillary Refill Less than 3 Seconds Skin: No rashes, No breakdown Musculoskeletal: No Tenderness to Palpation of Joints or Extremities Neurological: Cranial nerves II-XII grossly intact, DTR 2+/4. No acute focal neurological deficit. Psych/Mental Status: Normal Affect, Appropriate. Weight / BMI Weight Weight: 214 lb 4.8 oz Body Mass Index (BMI) 35.6 ABG / Lab / Microbiology Data 04/21/25 04:25 04/21/25 04:25 Laboratory: Laboratory Results - last 24 hr 04/20/25 15:42: Lactic Acid 1.0 04/21/25 04:25: WBC 7.5, RBC 4.55, Hgb 14.4, Hct 43.8, MCV 96.3, MCH 31.6, MCHC 32.9, RDW Std Deviation 44.9 H, RDW Coeff of Jean-Paul 12.7, Plt Count 302, MPV 9.6, Immature Gran % (Auto) 0.300, Neut % (Auto) 46.3 L, Lymph % (Auto) 42.1 H, [place] % (Auto) 8.1, Eos % (Auto) 2.4, Baso % (Auto) 0.8, Absolute Neuts (auto) 3.5, Absolute Lymphs (auto) 3.16, Nucleated RBC % 0, Sodium 140, Potassium 4.9, Chloride 107, Carbon Dioxide 23.1, Anion Gap 10, BUN 7, Creatinine 1.02, Estim Creat Clear Calc 75.28, Est GFR (MDRD) Non-Af 67, BUN/Creatinine Ratio 7.1 L, Glucose 79, Calcium 8.6 Radiography Diagnostic Testing: Radiology Impression Brain MRI 04/21/25 09:50 IMPRESSION: One. There are few foci of abnormal periventricular and subcortical white matter signal in both cerebral hemispheres. These are nonspecific but are consistent with chronic ischemic white matter disease. Two. There is no evidence of abnormal intracranial contrast enhancement. Three. Small left posterior parietal scalp hematoma. Reading Location: [id number]/C Instructions Discharge Diet: No restrictions Weight Bearing Status: Weight bearing as tolerated Call your doctor if you observe: Fever of 101 or Higher, Coldness, Increased Pain, Numbness or Tingling, Change in Color, Inability to urinate, Inability to have a bowel movement, Shortness of breath, Dizziness, Fainting spells, Swelling in the ankles, Chest pain, Prolonged hiccupping, Increased palpitations (irregular heartbeat) and Calf discomfort DC O2, CPAP, BIPAP Needs Home O2 Discharge instructions: No When: IN 2 WEEKS Meaningful Use Info Meaningful Use Meaningful Use Diagnoses (Choose all that apply): None applicable Ischemic Stroke Statin Dosing Therapy Reference: STATIN DOSE THERAPY REFERENCE: * Patients > 75 years receive moderate or high dose statin therapy. * Patients 75 years or YOUNGER should receive HIGH intensity statin dose unless contraindicated. You will be required to document reason for non-treatment if statin daily dose does not meet guidelines. HIGH DOSE STATIN THERAPY DAILY Atorvastatin > than or = to 40 mg Rosuvastatin > than or = to 20 mg Amlodipine + Atorvastatin > than or = to 2.5/40 mg Ezetimibe + Simvastatin 10/80 mg Simvastatin 80mg Discharge Plan Admission Admit Date/Time: 04/20/25 14:36 Primary Reason for Your Visit: Syncope, seizure ruled out. Attending Provider: Naldo Martinez Primary Care Provider: Pino Alston Chi Consulting Providers: Ham Kendall; Dayna Tadeo; Elizabeth Chacon; Mikey Randall; Markel Souza; Jovanna Jolley; WES CARROLL; Anay Tarango; Sybil Cox; Chip Contreras; Hermelinda Story; Tyrone Carl; Shayy Marshall; Liliana Mcdermott; Mat Tejada; Sandhya Soto; Kyler Rebollar; Taj Mcneil; Gonsalo Murphy; Rosi Coughlin; Emma Bran; Ruperto Griffin; Felice Tran; Jamil Booker; Flavia Soler; Jesse Juarez; Jenny Le Instructions Additional Instructions / Restrictions: Advised to follow with PCP in 1 week and trying to wean off bupropion, decrease from 450 mg to 300 mg for 1 week and then gradually taper off by decreasing dose every week Discharge Orders/Prescriptions Prescriptions: Continued losartan 100 mg tablet 100 mg PO QDAY escitalopram oxalate 20 mg tablet 20 mg PO QDAY Qty: 90 1RF olanzapine 7.5 mg tablet 7.5 mg PO QDAY Qty: 30 1RF olanzapine 10 mg tablet 10 mg PO QHS Qty: 30 1RF Tirzepatide 50 units IM QWEEK bupropion HCl 300 mg tablet extended release 24 hr 300 mg PO QAM Qty: 90 1RF Rx Instructions: Trying to wean off. Decreased from 300 mg to 150 mg. Follow-up with PCP. carvedilol 25 mg tablet 25 mg PO BID Qty: 180 3RF Rx Instructions: must administer with a meal/food Discontinued bupropion HCl 150 mg tablet extended release 24 hr 150 mg PO QAM Qty: 30 1RF Rx Instructions: Take in addition to 300mg for 450mg total Referrals / Follow Up: Edy Keller MD [Non-Staff -Ordering Privileges] - Within 2 Weeks Pino Alston Chi, MD [Primary Care Provider] - Within 1 Week Disposition Disposition (needs filled in before D/C Order can be placed): Home, Self Care Charges/Coding Visit Charges Inpatient E&M: 63909 Disch Hosp >30min
--- NOTE | 2025-04-21 15:39 | CASEMGMT ---
Patient has order for discharge. RN CM in to discuss needs at discharge. Patient denies needs or help at discharge. Patient had no further questions or concerns.
--- NOTE | 2025-04-21 16:09 | NURSING ---
Pt and given discharge instructions including medications, follow up appointments and all other discharge instructions. telemetry removed and placed at nurses station. iv removed with catheter intact, clean dry dressing applied, pt tolerated well. Pt denies any further needs or questions at this time. Pt walking out with to waiting vehicle.
== END 2025-04-21 16:06 | disposition home or self-care (01) ==
LOC: ED 14:36 → PCU 14:55
PROVIDERS: Admitting Provider Student in an Organized Health Care Education/Training Program; Emergency Provider Emergency Medicine; PCP Family Medicine Geriatric Medicine; Visit Provider Internal Medicine
DX: R55 Syncope and collapse (principal); E66.812 Obesity, class 2; I10 Essential (primary) hypertension; E78.5 Hyperlipidemia, unspecified; Z68.35 Body mass index [BMI] 35.0-35.9, adult; F41.1 Generalized anxiety disorder; R00.0 Tachycardia, unspecified; R00.2 Palpitations; Z79.899 Other long term (current) drug therapy; Z87.891 Personal history of nicotine dependence; R94.31 Abnormal electrocardiogram [ECG] [EKG]; I07.1 Rheumatic tricuspid insufficiency; S00.03XA Contusion of scalp, initial encounter; W19.XXXA Unspecified fall, initial encounter; Y92.008 Other place in unspecified non-institutional (private) residence as the place of occurrence of the external cause
CPT/HCPCS: 36415; 70450; 70553; 71045; 80048; 80053; 83605; 84146; 85025; 85379; 93005; 93306; 95819; 96361; 96374; 96375; 96376; 97161; 97165; 99221; 99285; A9575; A4216; G0378

== ENCOUNTER → 2025-10-23 | Outpatient (CLI) | payer BC, SELFPAY ==
[2025-10-23 11:55] LABS: Hematocrit 40.0 % (37-47); Hemoglobin 13.7 g/dL (12.0-15.0); Immature Granulocytes Count 0.010 X10^3/uL (0.0-0.0); Mean Corp Hgb Conc 34.3 g/dL (32-36); Mean Corpuscular Volume 90.3 fL (81-99); Mean Platelet Vol. 10.0 fl (6.2-12.0); NRBC Flagged by Analyzer 0 % (0-5); Platelet Count 308 K/mm3 (150-450); RBC Distribution Width CV 11.7 % (11.6-14.6); RBC Distribution Width SD 38.9 fl (35.1-43.9); Red Blood Count 4.43 M/mm3 (4.2-5.4); White Blood Count 6.4 K/mm3 (4.4-11.0)
[2025-10-23 13:27] LABS: AST(SGOT) 17 U/L (<=31); Alanine Aminotransfer ALT/SGPT 17 U/L (<=34); Albumin, Serum 4.7 g/dL (3.5-5.0); Alkaline Phosphatase 80 U/L (35-104); Anion Gap 14 (5-15); BUN 14 mg/dL (4-19); BUN/Creat Ratio 15.5 RATIO (10-20); Calcium,Total 9.8 mg/dL (7.6-11.0); Carbon Dioxide 22.4 mmol/L (21.0-32.0); Chloride 103 mmol/L (98-108); Globulin 3.0 g/dL (2.2-4.2); Glucose 116 mg/dL (70-99); Potassium 4.3 mmol/L (3.3-5.1)
[2025-10-23 19:13] LABS: Xtra Tube Kwok EXTRA TUBE
== END | disposition home or self-care (01) ==
LOC: LAB.FUTURE 11:12 → LAB 10-24 08:39
PROVIDERS: PCP Family Medicine Geriatric Medicine; Referring Provider Family Medicine Geriatric Medicine; Visit Provider Psychiatry & Neurology Neurology
DX: R73.9 Hyperglycemia, unspecified (principal); G40.109 Localization-related (focal) (partial) symptomatic epilepsy and epileptic syndromes with simple partial seizures, not intractable, without status epilepticus
CPT/HCPCS: 36415; 80053; 82542; 83036; 84443; 85025